=== PATIENT | female | born 1950 | race Caucasian/White ===

== ENCOUNTER 2021-01-16 11:17 | Outpatient (REF) | payer MEDICARE, SELFPAY ==
--- NOTE | ~2021-01-16 | MM_ITS ---
EXAMINATION: MM SCREENING DIGITAL BREAST TOMOSYNTHESIS, BILATERAL CLINICAL INFORMATION: Screening. Asymptomatic. The lifetime risk of breast cancer based on the Tyrer-Cuzick Model is 6%. COMPARISON: Mammography: 08/05/2018, outside mammography 09/11/2015, 07/23/2012 ([facility], [place]). TECHNIQUE: Digital breast tomosynthesis is performed in both the craniocaudal and mediolateral oblique views along with computer-aided detection (CAD). Synthesized 2D images are generated from the tomosynthesis. FINDINGS: There are scattered areas of fibroglandular density (ACR BI-RADS breast composition Category b). There are no significant masses, abnormal calcifications, or other abnormalities. Parenchymal pattern is similar to prior exams. There is no developing density. No significant changes. MM/MM tomosynthesis screening BI IMPRESSION: No mammographic evidence of malignancy. ASSESSMENT: BI-RADS 1: Negative RECOMMENDATION: Routine annual mammography screening. This patient's information was entered into a reminder system with a target due date for their next mammogram.
== END 2021-01-16 11:18 | disposition home or self-care (01) ==
LOC: HO.MAMMO 11:17
PROVIDERS: PCP Internal Medicine; Visit Provider Internal Medicine
DX: Z12.31 Encounter for screening mammogram for malignant neoplasm of breast (principal)
CPT/HCPCS: 77063; 77067

== ENCOUNTER 2021-04-04 10:54 | Outpatient (REF) | payer MEDICARE, SELFPAY ==
--- NOTE | ~2021-04-04 | CT_ITS ---
EXAMINATION: CT CHEST WITHOUT CONTRAST CLINICAL INFORMATION: Malignant neoplasm middle lobe, bronchus or lung. COMPARISON: CT chest 04/07/2020. TECHNIQUE: Multidetector volumetric CT imaging of the chest was done. Axial MIP volume rendering provided. Sagittal and coronal reformatted images were obtained. This CT examination was performed using dose optimization techniques as appropriate, variously including the following: *Automated exposure control *Adjustment of mA and/or kV according to patient size (this includes techniques or standardized protocols for targeted exams where dose is matched to indication/reason for exam; i.e. extremities or head) *Use of iterative reconstruction technique DLP: 120 mGy-cm FINDINGS: GEOLOGY ASSOCIATE: Unremarkable. LUNGS: Again visualized is mild centrilobular and paraseptal emphysema. There are right middle lobe postsurgical changes. There is no visible pulmonary nodule, mass or ground-glass density. MEDIASTINUM: The thyroid lobes are symmetric and normal. The central trachea and the bronchi are widely patent. There is atherosclerotic calcification of the thoracic arch and coronary arteries. The heart size and great vessels are normal caliber. There is no pericardial effusion. No abnormal-sized mediastinal or hilar lymph nodes seen. PLEURA: There is no pleural effusion. No pleural mass or thickening. AXILLAE: No lymphadenopathy. There is slightly asymmetric thickening of retroareolar breast tissue compared to the left side. UPPER ABDOMEN: There is diffuse attenuation of the liver with clusters of calcification in the right hepatic lobe adjacent to the right hemidiaphragm. No focal mass or intrahepatic ductal dilatation is seen. Visualized spleen, pancreas and bilateral adrenal glands are unremarkable. OSSEOUS STRUCTURES: There is mild ventral spondylosis of the dorsal spine. No lytic process. CT/CT chest wo con IMPRESSION: Postsurgical changes right middle lobe with no recurrent tumor or mass seen. There is underlying emphysema. No abnormal mediastinal or axillary lymphadenopathy. Punctate calcifications right upper lobe with fatty liver. They are stable.
== END 2021-04-04 10:55 | disposition home or self-care (01) ==
LOC: HO.CT 10:54
PROVIDERS: Visit Provider Surgery
DX: C34.2 Malignant neoplasm of middle lobe, bronchus or lung (principal)
CPT/HCPCS: 71250

== ENCOUNTER → 2021-04-27 10:45 | Outpatient (BNVA) | payer MEDICARE, SELFPAY | PROVIDERS: PCP Internal Medicine; Visit Provider Surgery | DX: C34.2 Malignant neoplasm of middle lobe, bronchus or lung (principal); Z90.2 Acquired absence of lung [part of]; Z79.899 Other long term (current) drug therapy | CPT/HCPCS: 99212 ==

== ENCOUNTER 2021-06-19 08:23 | Outpatient (REF) | payer MEDICARE, SELFPAY ==
[2021-06-19 12:22] LABS: Alanine Aminotransferase 30 U/L (0-31); Alkaline Phosphatase 115 U/L (39-117); Anion Gap 12 (12-20); Aspartate Amino Transferase 21 U/L (5-31); Bilirubin Total 0.3 mg/dL (0.0-1.0); Blood Urea Nitrogen 14 mg/dL (9-16); Calcium 9.1 mg/dL (8.4-10.2); Carbon Dioxide 27 mmol/L (22-29); Chloride 108 mmol/L (96-108); Estimated Glomerular Filt Rate > 60; Glucose Fasting 99 mg/dL (60-99); Potassium 4.5 mmol/L (3.3-5.1); Sodium 142 mmol/L (135-145); Total Protein 6.9 g/dL (6.5-8.0)
== END 2021-06-19 08:24 | disposition home or self-care (01) ==
LOC: HO.HMGCLDS 08:23
PROVIDERS: PCP Internal Medicine; Visit Provider Nurse Practitioner Family
DX: Z13.1 Encounter for screening for diabetes mellitus (principal)
CPT/HCPCS: 36415; 80053

== ENCOUNTER 2021-07-05 10:49 | Outpatient (REF) | payer MEDICARE, SELFPAY ==
--- NOTE | ~2021-07-05 | MM_ITS ---
EXAMINATION: BONE DENSITOMETRY CLINICAL INDICATION: Asymptomatic menopausal state. Cellulitis looking the COMPARISON: None (current study represents initial baseline exam). TECHNIQUE: Using a [employer] DXA System (software version: 13.1) manufactured by [employer], dual-energy x-ray absorptiometry was performed of the lumbar spine and left hip. The images are of good technical quality. Summary results are attached. FINDINGS: AP SPINE L1-L4: BMD 1.025 g/cm2, Z-score 0.1, T-score -1.3, osteopenia. LEFT FEMUR, NECK: BMD 0.706 g/cm2, Z-score -0.8, T-score -2.4, osteopenia. LEFT FEMUR, TOTAL: BMD 0.901 g/cm2, Z-score 0.5, T-score -0.8, normal. IDENTIFIED RISK FACTORS: Menopause, history of fracture (adult), osteoporosis, height loss. HISTORY OF FRACTURE: Humerus/shoulder. MEDICATIONS: Calcium supplements or multivitamin, vitamin D. MM/XR DEXA axial skeleton IMPRESSION: 1. DIAGNOSIS: Osteopenia based on the lowest T-score value of -2.4 in the femoral neck applying World Health Organization criteria. 2. 10-YEAR FRACTURE RISK PREDICTION, FRAX: Major osteoporotic fracture (clinical spine, forearm, hip or shoulder) 22.2%. Hip fracture 5.4%. 3. Treatment Recommendations: NOF guidelines recommend consideration for treatment in postmenopausal women and men age 50 and older presenting with the following: -A hip or vertebral (clinical or morphometric) fracture. -T-score less than or equal to -2.5 at the femoral neck or spine after appropriate evaluation to exclude secondary causes. -Low bone mass at the hip or spine and a 10-year fracture probability by FRAX of greater than or equal to 3% for hip fracture or greater than or equal to 20% for major osteoporotic fracture based on the [place] adapted WHO algorithm. 4. Other Recommendations: All treatment decisions require clinical judgment and consideration of individual patient factors, including patient preferences, comorbidities, previous drug use, risk factors not captured in the FRAX model (e.g. frailty, falls, vitamin D deficiency, increased bone turnover, interval significant decline in bone density) and possible under or overestimation of fracture risk by FRAX. Additional medical evaluation for secondary cause of low bone mineral density may be appropriate. FUTURE SCAN RECOMMENDATION: People with diagnosed cases of osteoporosis or at high risk for fracture should have regular bone mineral density tests. For patients eligible for Medicare, routine testing is allowed once every 2 years. The testing frequency can be increased to one year for patients who have rapidly progressing disease, those who are receiving or discontinuing medical therapy to restore bone mass, or have additional risk factors.
== END 2021-07-05 10:50 | disposition home or self-care (01) ==
LOC: HO.MAMMO 10:49
PROVIDERS: PCP Internal Medicine; Visit Provider Nurse Practitioner Family
DX: Z13.820 Encounter for screening for osteoporosis (principal); M85.80 Other specified disorders of bone density and structure, unspecified site; Z78.0 Asymptomatic menopausal state; Z87.81 Personal history of (healed) traumatic fracture; Z79.899 Other long term (current) drug therapy
CPT/HCPCS: 77080

== ENCOUNTER 2021-11-27 08:18 | Day surgery (SDC) | payer MEDICARE, SELFPAY ==
--- NOTE | 2021-11-26 10:51 | P.CONAN_ITS ---
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 (Acute) Impaired glucose tolerance (Acute) Thoracic outlet syndrome (Acute) Knee osteoarthritis (Acute) Hypercholesterolemia (Acute) COPD (chronic obstructive pulmonary disease) (Acute) Past Medical History Medical History BPV (benign positional vertigo) Cataract COPD (chronic obstructive pulmonary disease) Depression Diverticulitis Hypercholesterolemia Knee osteoarthritis Personal history of nicotine dependence 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 Family History Family History Father Alzheimers disease Mother Lung cancer Brother Bladder cancer Sister Lung cancer Surgical History Surgical History History of cataract surgery History of colonoscopy History of lung surgery (~2018) History of shoulder surgery (~2017) History of tonsillectomy Social History Social History Alcohol intake: never Patient Tobacco Use Status: Former Tobacco user Quit Date: quit smoking 10 yr ago Use of substances other than those prescribed or required for medical reasons: No Are you DNR?: No Advance Directives: No Advance Directives Information Provided: Yes Meds Allergies Allergy/AdvReac Type Severity Reaction Status Date / Time No Known Allergies Allergy Verified 11/22/21 15:57 [No Known Allergies*] Home Medications Medication Instructions Recorded Confirmed Last Taken Type albuterol sulfate 90 mcg/actuation 2 puff INHALATION Q4-6H PRN 07/17/20 11/22/21 Unknown History aerosol inhaler (ProAir HFA) ascorbate calcium (vitamin C) 500 500 mg PO DAILY 07/17/20 11/22/21 Unknown History mg tablet lactobacillus combination no.8 3 3,000 mmu cells PO DAILY 07/17/20 11/22/21 Unknown History billion cell capsule (Adult Probiotic) methylcellulose (laxative) 500 mg 500 mg PO DAILY 07/17/20 11/22/21 Unknown History tablet (Citrucel) multivitamin 1 tab PO DAILY 07/17/20 11/22/21 Unknown History Exam Exam Date and Time: November 26, 2021 1051 Pertinent Lab Results Pertinent Lab Results: Laboratory Tests 10/28/19 06/19/21 06:53 08:26 WBC 5.7 Hgb 13.5 Hct 41.8 Plt Count 269 Sodium 142 Potassium 4.5 Chloride 108 Carbon Dioxide 27 BUN 14 Creatinine 0.70 Assessment and Plan Assessment Anesthesia Assessment: Chart Reviewed Documented by User: Alli Torres MD 11/27/21 15:42 HPI - Anesthesia Eval Consult details Narrative: 71yo F for Colonoscopy Patient with COPD and prior lung surgery . patient states that she is currently not using Albuterol inhaler and she does not have it . Also , her symptoms not very well controlled on current regimen . Patient advised to make appointment with PCP at the earliest for adjustment of medications. We also gave Albuterol inhaler to the patient to use prior to the procedure . B/l clear breath sounds . We will not delay care and proceed with procedure . Patient advised to make sure she sees the PCP at the earliest possible time . Also , to go to the ED with any acute respiratory symptoms . 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 Family History Family History Father Alzheimers disease Mother Lung cancer Brother Bladder cancer Sister Lung cancer Family history of problems with anesthesia: No Surgical History Surgical History History of cataract surgery History of colonoscopy History of lung surgery (~2018) History of shoulder surgery (~2017) History of tonsillectomy History of Problems with Anesthesia: No Social History Social History Alcohol intake: never Patient Tobacco Use Status: Former Tobacco user Quit Date: quit smoking 10 yr ago Use of substances other than those prescribed or required for medical reasons: No Are you DNR?: No Advance Directives: No Advance Directives Information Provided: Yes Meds Allergies Allergy/AdvReac Type Severity Reaction Status Date / Time No Known Allergies Allergy Verified 11/22/21 15:57 [No Known Allergies*] Home Medications Medication Instructions Recorded Confirmed Last Taken Type albuterol sulfate 90 mcg/actuation 2 puff INHALATION Q4-6H PRN 07/17/20 11/22/21 Unknown History aerosol inhaler (ProAir HFA) ascorbate calcium (vitamin C) 500 500 mg PO DAILY 07/17/20 11/22/21 Unknown History mg tablet lactobacillus combination no.8 3 3,000 mmu cells PO DAILY 07/17/20 11/22/21 Unknown History billion cell capsule (Adult Probiotic) methylcellulose (laxative) 500 mg 500 mg PO DAILY 07/17/20 11/22/21 Unknown History tablet (Citrucel) multivitamin 1 tab PO DAILY 07/17/20 11/22/21 Unknown History Exam Airway Mallampati Class: IV TM Dist: >3cm Neck ROM: Full Denture: Upper Loose/Missing/Broken Teeth: Yes Heart: rrr Lungs: bl breath sounds Assessment and Plan Assessment Anesthesia Assessment: Anesthesia Plan Discussed Final Anesthetic Review Family History of Problems with Anesthesia: No History of Problems with Anesthesia: No NPO: Yes ASA Class: III Final Preanesthetic Review: Meds/Allgs Chart Reviewed, Consent Obtained/Reviewed and Anes Risks/Benef Reviewed Patient Risk: High Procedure Risk: Intermediate Anesthetic Plan Anesthetic Plan: MAC: Disposition: Standard PACU
[2021-11-27 08:57] VITALS: BP 155/71; PULSE 81; RESP 18; TEMP 36.7; O2SAT 97
[2021-11-27] MEDS: Lactated Ringers 1,000 ML 100 ML IVCONT (09:06)
[2021-11-27 09:39] VITALS: BMI 27.4
--- NOTE | 2021-11-27 10:24 | MHC.SHP ---
Pre-Procedural Eval Section A Date of Service: 11/27/21 The patient is an INPATIENT: No Changes since office visit: No Cold of Flu in the past 2 weeks, No New Medical Problems, No Changes in Medication and No Patient answered all questions The History & Physical has been completed within 30 days and I have reviewed it.: Yes Section B Chief Complaint: screening Allergies: Allergies Allergy/AdvReac Type Severity Reaction Status Date / Time No Known Allergies Allergy Verified 11/22/21 15:57 [No Known Allergies*] Plan I have reviewed the history and physical and performed a pertinent physical examination on my patient. No changes have occurred unless specified.
--- NOTE | 2021-11-27 10:52 | P.BOP_ITS ---
Brief Operative Note Date of Service: 11/27/21 Pre-op diagnosis: screening Post-op diagnosis: same Procedure: colonoscopy Surgeon: Christ Umanzor Anesthesia: MAC Was an Pediatric Acute Care Unit Nurse used for this Procedure?: No Estimated blood loss (mL): 0 Pathology: none sent Condition: stable Disposition: PACU
[2021-11-27 10:57] VITALS: BP 137/61; PULSE 102; RESP 16; TEMP 36.5; O2SAT 97
[2021-11-27 11:12] VITALS: BP 133/62; PULSE 94; RESP 16; O2SAT 95
--- NOTE | 2021-11-27 13:33 | OP_ITS ---
SURGEON: Christ Umanzor MD INDICATIONS: Colon cancer screening and family history of colon cancer. PREOPERATIVE DIAGNOSIS: POSTOPERATIVE DIAGNOSIS: PROCEDURE PERFORMED: Colonoscopy to the terminal ileum. ESTIMATED BLOOD LOSS: COMPLICATIONS: ANESTHESIA: ASSISTANTS: SPECIMENS: MEDICATIONS: Monitored anesthesia care. DESCRIPTION OF PROCEDURE: History and physical were performed. The risks and benefits of the procedure were explained to the patient. Informed consent was obtained. The patient was placed in left lateral decubitus position. A digital rectal exam was performed and was found to be normal. The Olympus pediatric video colonoscope was introduced into the rectum and advanced to the cecum without difficulty. The cecum was identified by transillumination, palpation, and identification of the ileocecal valve. Examination was performed. The scope was removed. She tolerated the procedure well and was taken to recovery area in stable condition. FINDINGS: Limited examination of the terminal ileum was within normal limits. The visualized colonic mucosa was normal. The quality of the prep was good. No polyps were identified. There was extensive diverticulosis throughout the colon. Retroflexed examination showed moderate-sized internal hemorrhoids. IMPRESSION: Normal colonoscopy. RECOMMENDATION: 1. Follow up as needed. 2. Repeat colonoscopy could be considered in 5 years, but is optional based on the patient's age. MD SHELLEY Mariano/ASAL / [phone]
== END 2021-11-27 11:42 | disposition home or self-care (01) ==
PROVIDERS: PCP Internal Medicine; Visit Provider Internal Medicine Gastroenterology
PROC: 0DJD8ZZ Inspection of Lower Intestinal Tract, Via Natural or Artificial Opening Endoscopic (ICD-10-PCS; CPT 45378; principal; 2021-11-27 09:40)
DX: Z12.11 Encounter for screening for malignant neoplasm of colon (principal); Z86.010 Personal history of colon polyps; Z80.0 Family history of malignant neoplasm of digestive organs; K57.30 Diverticulosis of large intestine without perforation or abscess without bleeding; K64.8 Other hemorrhoids; J44.9 Chronic obstructive pulmonary disease, unspecified; Z85.118 Personal history of other malignant neoplasm of bronchus and lung; E78.00 Pure hypercholesterolemia, unspecified; Z79.51 Long term (current) use of inhaled steroids; Z87.19 Personal history of other diseases of the digestive system; Z98.890 Other specified postprocedural states; Z87.891 Personal history of nicotine dependence
CPT/HCPCS: G0105

== ENCOUNTER 2022-03-13 06:39 | Outpatient (REF) | payer MEDICARE, SELFPAY ==
[2022-03-13 11:29] LABS: MANUAL DIFF FLAG NO
[2022-03-13 11:38] LABS: Basophils Percent Auto 0.5 % (0-2); Eosinophils Absolute Auto 0.1 X10*3/uL (0.0-0.4); Eosinophils Percent Auto 2.2 % (0-4); Hematocrit 41.8 % (37.0-47.0); Hemoglobin 13.1 g/dl (12.0-16.0); Imm Gran Abs Auto 0.03 X10*3/uL (0.00-0.03); Imm Gran Pct Auto 0.5 % (0.0-0.4); Lymphocytes Absolute Auto 1.8 X10*3/uL (1.2-4.9); Lymphocytes Percent Auto 29.4 % (20-40); Mean Corpuscular HGB Conc 31.3 g/dl (31.0-35.0); Mean Corpuscular Hemoglobin 30.6 pg (27.0-33.0); Mean Corpuscular Volume 97.7 fL (80.0-98.0); Mean Platelet Volume 10.8 fL (9.4-12.3); Monocytes Absolute Auto 0.6 X10*3/uL (0.1-1.2); Monocytes Percent Auto 10.1 % (2-11); Neutrophils Absolute Auto 3.5 x10*3/uL (2.0-8.3); Neutrophils Percent Auto 57.3 % (45-73); Platelet Count 206 X10*3/uL (160-400); Red Blood Count 4.28 X10*6/uL (4.20-5.50)
[2022-03-13 12:06] LABS: Estimated Average Glucose 120 mg/dL; Hemoglobin A1c % 5.8 %
[2022-03-13 12:19] LABS: Free T4 (Free Thyroxine) 0.93 ng/dL (0.71-1.85); Thyroid Stimulating Hormone 2.09 uIU/mL (0.32-4.0); Vitamin D 25-OH Total 42.2 ng/mL (>30)
[2022-03-13 12:34] LABS: Alanine Aminotransferase 26 U/L (0-31); Albumin Level 4.3 g/dL (3.5-5.0); Alkaline Phosphatase 122 U/L (39-117); Anion Gap 14 (12-20); Aspartate Amino Transferase 20 U/L (5-31); Bilirubin Total 0.3 mg/dL (0.0-1.0); Blood Urea Nitrogen 14 mg/dL (9-16); Calcium 8.8 mg/dL (8.4-10.2); Carbon Dioxide 25 mmol/L (22-29); Chloride 108 mmol/L (96-108); Cholesterol 251 mg/dL; Estimated Glomerular Filt Rate > 60; Glucose Random 104 mg/dL (60-115); HDL Cholesterol 61 mg/dL; LDL Cholesterol Calculated 141 mg/dl; Potassium 4.1 mmol/L (3.3-5.1); Sodium 143 mmol/L (135-145); Total Protein 7.2 g/dL (6.5-8.0); Triglycerides 249 mg/dL
[2022-03-13 12:39] LABS: Folate > 20.0 ng/mL (> or = 4.0); Vitamin B12 912 pg/mL (200-900)
== END 2022-03-13 06:40 | disposition home or self-care (01) ==
LOC: HO.HMGCLDS 06:39
PROVIDERS: Visit Provider Internal Medicine
DX: E78.00 Pure hypercholesterolemia, unspecified (principal); R73.02 Impaired glucose tolerance (oral)
CPT/HCPCS: 36415; 80053; 80061; 82306; 82607; 82746; 83036; 84439; 84443; 85025

== ENCOUNTER 2022-03-25 13:59 | Outpatient (REF) | payer MEDICARE, SELFPAY ==
--- NOTE | ~2022-03-25 | CT_ITS ---
EXAMINATION: CT ABDOMEN WITHOUT CONTRAST CLINICAL INFORMATION: Ventral hernia without obstruction or gangrene. COMPARISON: None TECHNIQUE: Contiguous axial thin section helical images of the abdomen were performed without contrast. The data set was reformatted in the coronal and sagittal planes and reviewed on an independent workstation. This CT examination was performed using dose optimization techniques as appropriate, variously including the following: *Automated exposure control *Adjustment of mA and/or kV according to patient size (this includes techniques or standardized protocols for targeted exams where dose is matched to indication/reason for exam; i.e. extremities or head) *Use of iterative reconstruction technique DLP: 241 mGy-cm FINDINGS: LUNG BASES: Ground-glass 5 mm nodule right middle lobe axial image 09/14. LIVER, GALLBLADDER, BILIARY TREE: The liver is diffusely attenuated without focal lesion. There is mild hepatomegaly with liver measuring 18 cm in craniocaudad length. No focal lesion or intrahepatic ductal dilatation seen. There are several scattered calcifications in the right hepatic lobe. The gallbladder is contracted. PANCREAS: The pancreas is homogeneous in density normal size. The peripancreatic fat borders are preserved. SPLEEN: The spleen is normal size and homogeneous in density. ADRENAL GLANDS AND KIDNEYS: The adrenal glands are symmetrical and normal. There is mild bilateral perinephric stranding. No radiopaque renal calculi or hydronephrosis seen. There are mid and lower pole peripelvic left renal cysts. Also visualized is exophytic 1 cm cyst mid to lower pole left kidney. BOWEL LOOPS: The appendix is normal caliber. There is scattered stool, diverticula and gas seen throughout the colon without distention or diverticulitis. The small bowel loops are normal caliber. LYMPH NODES: Normal. VASCULAR: Unremarkable. BONES: No lytic or sclerotic process seen. CT/CT abdomen wo con IMPRESSION: Ground-glass 5 mm nodule right middle lobe. Multiple right hepatic lobe calcifications with diffuse fatty infiltration. Mild hepatomegaly. Left peripelvic and exophytic renal cysts. No radiopaque renal calculi or hydronephrosis. Colonic diverticulosis without diverticulitis. Fleischner guidelines were followed.
== END 2022-03-25 14:00 | disposition home or self-care (01) ==
LOC: HO.CT 13:59
PROVIDERS: PCP Internal Medicine; Visit Provider Internal Medicine
DX: K43.9 Ventral hernia without obstruction or gangrene (principal)
CPT/HCPCS: 74150

== ENCOUNTER 2022-04-02 10:36 | Outpatient (REF) | payer MEDICARE, SELFPAY ==
--- NOTE | ~2022-04-02 | CT_ITS ---
EXAMINATION: CT CHEST WITHOUT CONTRAST CLINICAL INFORMATION: Malignant neoplasm of middle lobe. COMPARISON: CT chest 03/27/2021 TECHNIQUE: Multidetector volumetric CT imaging of the chest was done. Axial MIP volume rendering provided. Sagittal and coronal reformatted images were obtained. This CT examination was performed using dose optimization techniques as appropriate, variously including the following: *Automated exposure control *Adjustment of mA and/or kV according to patient size (this includes techniques or standardized protocols for targeted exams where dose is matched to indication/reason for exam; i.e. extremities or head) *Use of iterative reconstruction technique DLP: 147 mGy-cm FINDINGS: DRYING RACK CHANGER: Hyperinflated lungs LUNGS: There is a right lobectomy with postsurgical changes. There is bilateral apical parenchymal scarring and pleural thickening. No pulmonary nodule, mass or consolidation seen. There is a punctate calcification left lung base. MEDIASTINUM: The thyroid lobes are symmetric and normal. The central trachea and bronchi widely patent. The heart size and the great vessels are normal caliber. No abnormal size mediastinal or hilar lymph nodes seen. There is no pericardial effusion. There is trace coronary artery calcification. PLEURA: There is no pleural effusion. No pleural mass or thickening. AXILLA: No lymphadenopathy. There is soft tissue density seen in the right breast with punctate calcification. UPPER ABDOMEN: The liver is diffusely attenuated without any focal lesion. There are clusters of calcification in the right hepatic lobe adjacent to the diaphragm. They are unchanged to previous exam. Visualized spleen, pancreas and bilateral adrenal glands appear unremarkable. OSSEOUS STRUCTURES: No gross bony abnormality seen except for mild ventral dorsal spine spondylosis. CT/CT chest wo con IMPRESSION: 1. Post right upper lobe lobectomy changes with bilateral apical pleural/parenchymal scarring and thickening. 2. There are no pulmonary nodules, mass or consolidation. 3. Diffuse hepatic steatosis with clusters of small calcifications right hepatic lobe, stable. Slightly lobulated area in the right breast appears stable to previous study 03/27/2021. Fleischner guidelines were followed.
== END 2022-04-02 10:37 | disposition home or self-care (01) ==
LOC: HO.CT 10:36
PROVIDERS: PCP Internal Medicine; Visit Provider Surgery
DX: C34.2 Malignant neoplasm of middle lobe, bronchus or lung (principal)
CPT/HCPCS: 71250

== ENCOUNTER 2022-04-26 09:40 | Outpatient (REF) | payer MEDICARE, SELFPAY ==
--- NOTE | ~2022-04-26 | XR_ITS ---
EXAMINATION: XR ANKLE, RIGHT XR FOOT, RIGHT CLINICAL INFORMATION: Pain. COMPARISON: None TECHNIQUE: AP, lateral, and mortise views of the right ankle. AP, lateral, and oblique views of the right foot. FINDINGS: Bony alignment and mineralization are normal. The ankle mortise is intact. No fracture, dislocation or right ankle joint effusion is seen. Boehler's angle is normal. There are moderately large posterior and plantar calcaneal spurs. There is a hallux valgus and metatarsus adductus configuration. There is a large bunion of the right first metatarsal head. No focal soft tissue swelling, gas or foreign body is seen. XR/XR foot RT 2V IMPRESSION: 1. No fracture, dislocation or right ankle joint effusion is seen. 2. There are moderately large posterior and plantar calcaneal spurs. 3. A large bunion is noted of the right first metatarsal head.
--- NOTE | ~2022-04-26 | XR_ITS ---
EXAMINATION: XR ANKLE, LEFT XR FOOT, LEFT CLINICAL INFORMATION: Pain. COMPARISON: None TECHNIQUE: AP, lateral, and mortise views of the left ankle. AP, lateral, and oblique views of the left foot. FINDINGS: Bony alignment and mineralization are normal. The ankle mortise is intact. No fracture, dislocation or left ankle joint effusion is seen. Boehler's angle is normal. There are large posterior and small plantar calcaneal spurs. There is moderate bunion formation of the left first metatarsal head. There is mild degenerative change of the dorsal midfoot. There is a small periarticular calcification of the proximal interphalangeal joint of the left second toe. No focal soft tissue swelling, gas or foreign body seen. XR/XR foot LT 2V IMPRESSION: 1. No fracture, dislocation or left ankle joint effusion is seen. 2. There are calcaneal spurs, as detailed. 3. There is moderate bunion formation. 4. There is mild degenerative change of the proximal interphalangeal joint of the left second toe.
--- NOTE | ~2022-04-26 | XR_ITS ---
EXAMINATION: XR ANKLE, RIGHT XR FOOT, RIGHT CLINICAL INFORMATION: Pain. COMPARISON: None TECHNIQUE: AP, lateral, and mortise views of the right ankle. AP, lateral, and oblique views of the right foot. FINDINGS: Bony alignment and mineralization are normal. The ankle mortise is intact. No fracture, dislocation or right ankle joint effusion is seen. Boehler's angle is normal. There are moderately large posterior and plantar calcaneal spurs. There is a hallux valgus and metatarsus adductus configuration. There is a large bunion of the right first metatarsal head. No focal soft tissue swelling, gas or foreign body is seen. XR/XR ankle RT 2V IMPRESSION: 1. No fracture, dislocation or right ankle joint effusion is seen. 2. There are moderately large posterior and plantar calcaneal spurs. 3. A large bunion is noted of the right first metatarsal head.
--- NOTE | ~2022-04-26 | XR_ITS ---
EXAMINATION: XR ANKLE, LEFT XR FOOT, LEFT CLINICAL INFORMATION: Pain. COMPARISON: None TECHNIQUE: AP, lateral, and mortise views of the left ankle. AP, lateral, and oblique views of the left foot. FINDINGS: Bony alignment and mineralization are normal. The ankle mortise is intact. No fracture, dislocation or left ankle joint effusion is seen. Boehler's angle is normal. There are large posterior and small plantar calcaneal spurs. There is moderate bunion formation of the left first metatarsal head. There is mild degenerative change of the dorsal midfoot. There is a small periarticular calcification of the proximal interphalangeal joint of the left second toe. No focal soft tissue swelling, gas or foreign body seen. XR/XR ankle LT 2V IMPRESSION: 1. No fracture, dislocation or left ankle joint effusion is seen. 2. There are calcaneal spurs, as detailed. 3. There is moderate bunion formation. 4. There is mild degenerative change of the proximal interphalangeal joint of the left second toe.
== END 2022-04-26 09:41 | disposition home or self-care (01) ==
LOC: HO.XRAY 09:40
PROVIDERS: PCP Internal Medicine; Visit Provider Internal Medicine
DX: M25.571 Pain in right ankle and joints of right foot (principal); M25.572 Pain in left ankle and joints of left foot; G89.29 Other chronic pain; C34.2 Malignant neoplasm of middle lobe, bronchus or lung
CPT/HCPCS: 73600; 73620; 99212

== ENCOUNTER 2022-08-05 07:25 | Outpatient (REF) | payer MEDICARE, SELFPAY ==
[2022-08-05 12:26] LABS: Alanine Aminotransferase 27 U/L (0-31); Albumin Level 4.5 g/dL (3.5-5.0); Alkaline Phosphatase 134 U/L (39-117); Anion Gap 15 (12-20); Aspartate Amino Transferase 22 U/L (5-31); Bilirubin Total 0.3 mg/dL (0.0-1.0); Blood Urea Nitrogen 19 mg/dL (9-16); Calcium 9.8 mg/dL (8.4-10.2); Carbon Dioxide 27 mmol/L (22-29); Chloride 106 mmol/L (96-108); Cholesterol 214 mg/dL; Estimated Glomerular Filt Rate > 60; Glucose Random 109 mg/dL (60-115); HDL Cholesterol 58 mg/dL; LDL Cholesterol Calculated 112 mg/dl; Potassium 4.8 mmol/L (3.3-5.1); Sodium 143 mmol/L (135-145); Total Protein 7.6 g/dL (6.5-8.0); Triglycerides 222 mg/dL
== END 2022-08-05 07:26 | disposition home or self-care (01) ==
LOC: HO.HMGCLDS 07:25
PROVIDERS: PCP Internal Medicine; Visit Provider Internal Medicine
DX: E78.00 Pure hypercholesterolemia, unspecified (principal)
CPT/HCPCS: 36415; 80053; 80061

== ENCOUNTER 2022-12-27 11:00 | Outpatient (REF) | payer MEDICARE, SELFPAY ==
--- NOTE | ~2022-12-27 | MM_ITS ---
EXAMINATION: MM SCREENING DIGITAL BREAST TOMOSYNTHESIS, BILATERAL CLINICAL INFORMATION: Screening. Asymptomatic. The lifetime risk of breast cancer based on the Tyrer-Cuzick Model is 4%. COMPARISON: Mammography: 01/16/2021, 08/05/2018; outside exam 09/11/2015 (Located Within [facility]). TECHNIQUE: Digital breast tomosynthesis is performed in both the craniocaudal and mediolateral oblique views along with computer-aided detection (CAD). Synthesized 2D images are generated from the tomosynthesis. FINDINGS: There are scattered areas of fibroglandular density (ACR BI-RADS breast composition Category b). There are no significant masses, abnormal calcifications, or other abnormalities. Parenchymal pattern is similar to prior studies. There is no developing density or architectural abnormality. The axilla and skin contours are unremarkable. No significant changes. MM/MM tomosynthesis screening BI IMPRESSION: No mammographic evidence of malignancy. ASSESSMENT: BI-RADS 1: Negative RECOMMENDATION: Routine annual mammography screening. This patient's information was entered into a reminder system with a target due date for their next mammogram.
== END 2022-12-27 11:01 | disposition home or self-care (01) ==
LOC: HO.MAMMO 11:00
PROVIDERS: PCP Internal Medicine; Visit Provider Internal Medicine
DX: Z12.31 Encounter for screening mammogram for malignant neoplasm of breast (principal)
CPT/HCPCS: 77063; 77067

== ENCOUNTER 2023-06-03 10:20 | Outpatient (REF) | payer MEDICARE, SELFPAY ==
--- NOTE | ~2023-06-03 | CT_ITS ---
EXAMINATION: CT CHEST WITHOUT CONTRAST CLINICAL INFORMATION: Malignant neoplasm of middle lobe, bronchus or lung. COMPARISON: Chest CT 04/02/2022, 04/04/2021, 03/08/2019. TECHNIQUE: Multidetector volumetric CT imaging of the chest was done. Axial MIP volume rendering provided. Sagittal and coronal reformatted images were obtained. This CT examination was performed using dose optimization techniques as appropriate, variously including the following: *Automated exposure control *Adjustment of mA and/or kV according to patient size (this includes techniques or standardized protocols for targeted exams where dose is matched to indication/reason for exam; i.e. extremities or head) *Use of iterative reconstruction technique DLP: 126 mGy-cm FINDINGS: LUNGS: Emphysema. Right middle lobectomy. Stable 4 mm triangular nodule at the right apex series 5 image 65 is likely a parenchymal lymph node. There is appeared groundglass nodule in the left lower lobe measuring 1.9 x 1.4 x 1.5 cm series 5 image 388 that is stable compared to the most recent prior and has grown since the index study of 03/08/2019 when it measured 1.4 x 1.3 x 1.2 cm. No new abnormalities. Continued follow-up is recommended. MEDIASTINUM: No mediastinal adenopathy. No pericardial effusion. CORONARY ARTERY CALCIFICATION: LAD and RCA calcium. PLEURA: There is no pleural effusion. No pleural mass or thickening. AXILLA: No lymphadenopathy. UPPER ABDOMEN: Hepatic steatosis. OSSEOUS STRUCTURES: Degenerative changes in the spine. No suspicious osseous lesions. CT/CT chest wo IV con IMPRESSION: Right middle lobectomy with no evidence of local recurrence. Groundglass nodule in the left lower lobe measuring 16mm average diameter is stable compared to most recent prior and has shown slow growth compared to the index study when it measured 13 mm average diameter which is a growth rate of less than 1 mm per year. Recommend continued attention on follow-up. Fleischner guidelines do not apply (lung cancer patient).
== END 2023-06-03 10:21 | disposition home or self-care (01) ==
LOC: HO.CT 10:20
PROVIDERS: PCP Internal Medicine; Visit Provider Surgery
DX: C34.2 Malignant neoplasm of middle lobe, bronchus or lung (principal)
CPT/HCPCS: 71250

== ENCOUNTER 2023-08-06 10:28 | Outpatient (AMB) | payer MEDICARE, SELFPAY ==
[2023-08-06 10:31] VITALS: BP 132/67; PULSE 82; O2SAT 97; BMI 28.0
--- NOTE | 2023-08-06 10:31 | A.OFFVIS_ITS ---
Intake Vital Signs 08/06/23 10:31 Height 5 ft 4 in Weight 163 lb 2.273 oz BMI 28.0 BP 132/67 Blood Pressure Location Rt brachial Position Sitting Pulse 82 Pulse Source Doppler Pulse Oximetry (%) 97 Oxygen Delivery Method Room Air Intake Visit Reasons: Hx of Lung CA/COPD Allergies No Known Allergies [No Known Allergies*] Allergy (Verified 08/06/23 10:35) HPI Hx of Lung CA/COPD HPI Details 73-year-old lady, former over 50 pack-ye ar smoker, quit 2005 with underlying history of right middle lobe resection for stage I adenocarcinoma in 2018 who continues to follow-up with thoracic surgery (Dr. Lovett) referred for evaluation of slowly worsening dyspnea. Patient states that she has been using Spiriva and albuterol MDI with reasonable, but somewhat suboptimal control his symptoms. Patient does have multiple first-degree relatives with lung cancer and COPD. She denies exposure to industrial dusts. 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 BPV (benign positional vertigo) Cataract Knee osteoarthritis Hypercholesterolemia Diverticulitis Depression COPD (chronic obstructive pulmonary disease) Surgical History History of colonoscopy History of cataract surgery History of lung surgery (~2018) History of shoulder surgery (~2017) History of tonsillectomy Family History Father Alzheimers disease Mother Lung cancer Brother Bladder cancer Sister Lung cancer Social History Housing: House Alcohol intake: former Patient Tobacco Use Status: Former Tobacco user Quit Date: quit smoking 10 yr ago Tobacco use type: Cigarette Years Smoked: quit 60 years old e-Cigarette/Vaping Use: Never Used Second Hand Smoke Exposure: Yes Current occupational status: retired Cognitive needs: No Hearing needs: No Vision needs: Yes Review of Systems Const Denies daytime sleepiness, Denies excessive sweating, Denies fatigue, Denies fever(s), Denies lethargy, Denies malaise, Denies night sweats, Denies snoring and Denies weight loss Eyes Denies blurry vision and Denies itchy eyes ENT Denies nasal congestion, Denies post nasal drip, Denies sinus pain, Denies sinus pressure and Denies other ( Thrush) Card Denies chest pain, Denies pedal edema, Denies dyspnea, Denies orthopnea and Denies paroxysmal nocturnal dyspnea Resp Denies cough, Denies hemoptysis, Denies excessive phlegm production, Denies dyspnea, Denies snoring and Denies wheezing GI Denies abdominal pain and Denies heartburn Musc Denies myalgias, Denies arthralgias and Denies joint swelling Skin/Breast Denies rash Neuro Denies memory loss and Denies seizure-like activity Psych Denies abnormal sleep pattern, Denies anxiety and Denies memory loss Endo Denies excessive sweating, Denies fatigue and Denies heat intolerance Kelvin/Lymph Denies easy bruising Aller/Immun Denies itchy eyes, Denies seasonal rhinorrhea and Denies wheezing Physical Exam Vital Signs: Last Vital Signs Pulse 82 08/06/23 10:31 BP 132/67 08/06/23 10:31 Pulse Ox 97 08/06/23 10:31 Oxygen Delivery Method Room Air 08/06/23 10:31 BMI result Body Mass Index 28.0 Const General: no acute distress and alert Nutritional Appearance: not obese Orientation/consciousness: Other orientation findings ( oriented) HEENT Head: Yes atraumatic Eyes General: appearance normal, both eyes and all related structures Sclerae: sclerae normal EOM: EOMs intact bilaterally Neck Neck: Yes supple Lymphatic: no lymphadenopathy noted Resp Effort & Inspection: normal respiratory effort and no use of accessory muscles Auscultation: clear to auscultation bilaterally Cardio Rate: regular rate Rhythm: regular rhythm Heart sounds: no gallops, no murmurs and no rubs Skin General skin exam: other ( warm) Extrem General: No clubbing, No cyanosis and No edema Assessment & Plan Assessment & Plan (1) COPD (chronic obstructive pulmonary disease): Code(s): J44.9 - Chronic obstructive pulmonary disease, unspecified Qualifiers: COPD type: emphysema Emphysema type: unspecified Qualified Code(s): J43.9 - Emphysema, unspecified Plan: Suboptimal control on Spiriva, will change to Anoro. Patient is unable to use usual mouth piece for PFT. Continue albuterol MDI. 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 Medications: New Anoro Ellipta 62.5-25 mcg/actuation (umeclidinium-vilanterol) 1 inh inhalation DAILY 30 days 1 ea 6RF NS Refilled albuterol sulfate 90 mcg/actuation (ProAir HFA) 2 puffs inhalation Q4-6H PRN 8.5 grams 6RF Wheezing J44.1 - Chronic obstructive pulmonary disease with (acute) exacerbation Discontinued tiotropium bromide 2.5 mcg/actuation (Spiriva Respimat) Discontinued Reason: Doctor's Order 2 inhalations inhalation QAM 4 grams 0RF tiotropium bromide (Spiriva with HandiHaler) Discontinued Reason: Doctor's Order 1 cap inhalation DAILY 90 caps 3RF Coding Level of Care Code New Pt Level 3 (10030) Diagnoses Pulmonary emphysema, unspecified emphysema type J43.9 COPD type: emphysema Emphysema type: unspecified 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
== END 2023-08-06 10:52 | disposition home or self-care (01) ==
PROVIDERS: PCP Internal Medicine; Referring Provider Physician Assistant; Visit Provider Internal Medicine Pulmonary Disease
DX: J43.9 Emphysema, unspecified (principal); C34.2 Malignant neoplasm of middle lobe, bronchus or lung
CPT/HCPCS: 99203

== ENCOUNTER → 2023-08-06 10:28 | Outpatient (BNVA) | payer MEDICARE, SELFPAY | PROVIDERS: PCP Internal Medicine; Referring Provider Physician Assistant; Visit Provider Internal Medicine Pulmonary Disease | DX: J43.9 Emphysema, unspecified (principal); C34.2 Malignant neoplasm of middle lobe, bronchus or lung | CPT/HCPCS: 99202 ==

== ENCOUNTER 2023-08-20 10:16 | Outpatient (AMB) | payer MEDICARE, SELFPAY ==
[2023-08-20 10:16] VITALS: BP 126/70; PULSE 76; O2SAT 97; BMI 27.8
--- NOTE | 2023-08-20 10:16 | A.OFFPC_ITS ---
Vital Signs 08/20/23 10:16 Height 5 ft 4 in Weight 162 lb 0.6 oz BMI 27.8 BP 126/70 Blood Pressure Location Lt brachial Position Sitting Pulse 76 Pulse Source Pulse Oximeter Pulse Oximetry (%) 97 Oxygen Delivery Method Room Air Intake Visit Reasons: Annual Physical Intake Note: Patient is here today for a physical. Spice Grinder Required: No Allergies No Known Allergies [No Known Allergies*] Allergy (Verified 08/20/23 10:35) Medication List - Last Reconciled 08/20/23 by ALOK Carrillo acetaminophen ER (Tylenol 8 Hour) 650 mg PO Q8H albuterol sulfate 90 mcg/actuation (ProAir HFA) 2 puffs inhalation Q4-6H PRN Anoro Ellipta 62.5-25 mcg/actuation (umeclidinium-vilanterol) 1 inh inhalation DAILY 30 days NS ascorbate calcium (vitamin C) 500 mg PO DAILY lactobacillus combination no.8 (Adult Probiotic) 3,000 mmu cells PO DAILY multivitamin 1 tab PO DAILY Tobacco use date assessed: 08/20/23 Fall risk assessment: No Falls in past year Last assessed Fall Risk: 08/20/23 Dental Screening Dental Screen Date: 08/20/23 Did you have a dental visit in the last 12 months?: No Did you have a dental problem in the last 6 months where you did not have access to dental care?: No HPI Annual Physical HPI Details Patient is a 73-year-old female who presents today for physical exam. Patient of Dr. Vargas. Medical history significant for COPD, hypercholesterolemia- patient reports she stop taking simvastatin long time ago due to not helping her cholesterol-will check blood work, impaired glucose tolerance, history of lung cancer-followed by Dr. Stinson and Dr. Lovett. Mammogram normal 12/2022. Colonoscopy 11/2021 and repeat in 5 years due to family history of colon cancer, was done by Dr. Umanzor. Patient declined tetanus vaccine. Due for bone density screen. Denies shortness of breath or chest pain. 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 BPV (benign positional vertigo) Cataract Knee osteoarthritis Hypercholesterolemia Diverticulitis Depression COPD (chronic obstructive pulmonary disease) Surgical History History of colonoscopy History of cataract surgery History of lung surgery (~2018) History of shoulder surgery (~2017) History of tonsillectomy Family History Father Alzheimers disease Mother Lung cancer Brother Bladder cancer Sister Lung cancer Social History Housing: House Alcohol intake: former Patient Tobacco Use Status: Former Tobacco user Quit Date: quit smoking 10 yr ago Tobacco use type: Cigarette Years Smoked: quit 60 years old e-Cigarette/Vaping Use: Never Used Second Hand Smoke Exposure: Yes Current occupational status: retired Cognitive needs: No Hearing needs: No Vision needs: Yes Questionnaire PHQ-9 Over the last 2 weeks, how often have you been bothered by any of the following problems? 1. Little interest or pleasure in doing things: not at all 2. Feeling down, depressed, or hopeless: not at all 3. Trouble falling or staying asleep, or sleeping too much: not at all 4. Feeling tired or having little energy: not at all 5. Poor appetite or overeating: not at all 6. Feeling bad about yourself - or that you are a failure or have let yourself or your family down: not at all 7. Trouble concentrating on things, such as reading the newspaper or watching television: not at all 8. Moving or speaking so slowly that other people could have noticed. Or the opposite - being so fidgety or restless that you have been moving around a lot more than usual: not at all 9. Thoughts that you would be better off or of hurting yourself in some way: not at all Total score: 0 Depression Screening Interpretation: Negative Depression Screening Done: Yes 10897 - PHQ-9 Billing: Yes Source: Developed by Drs. Conor Richardson, Lucrecia Sherman, Angel Warren and colleagues, with an educational davonte from [employer]. Thrive Questionnaire Date Thrive assessed: 08/20/23 I am a: Patient What is your living situation today?: I have a steady place to live Within the past 12 months, did the food you bought not last and you didn't have the money to get more?: Never true Within the past 12 months, did you worry whether your food would run out before you got money to buy more?: Never true Do you have trouble paying for medicines?: No Do you have trouble getting transportation to medical appointments?: No Do you have trouble paying your heating and electricity bill?: No Do you have trouble taking care of your child, family member or friend?: No Do you have trouble with day-to-day activities such as bathing, preparing meals, shopping, managing finances, etc.?: No Are you currently unemployed and looking for a job?: No Are you interested in more education?: No Currently or been in a relationship where the following occur: no concerns reported AUDIT C Alcohol Use Questionnaire (AUDIT-C) 1. How often do you have a drink containing alcohol?: Never 3. How often do you have six or more drinks on one occasion?: Never Total Score: 0 Score Reviewed/Action Taken: No JEAN-PAUL-7 AMB Questionnaire JEAN-PAUL-7 Date JEAN-PAUL - 7 assessed: 08/20/23 Feeling nervous, anxious, or on edge: 0 = Not at all Not being able to stop or control worryin = Not at all Worrying too much about different things: 0 = Not at all Trouble relaxin = Not at all Being so restless that it is hard to sit still: 0 = Not at all Becoming easily annoyed or irritable: 0 = Not at all Feeling afraid as if something awful might happen: 0 = Not at all Total JEAN-PAUL-7 score (0-4 normal; 5-9 mild; 10-14 moderate; 15-21 severe): 0 Source: Developed by Drs. Conor Richardson, Lucrecia Sherman, Angel Warren and colleagues, with an educational davonte from [employer]. JEAN-PAUL-7 Assessment Billing JEAN-PAUL-7 Assessment Tool: JEAN-PAUL-7 Assessment 87732 Review of Systems Const Denies body aches, Denies chills, Denies fever(s) and Denies headache(s) Eyes Denies change in vision ENT Denies dizziness, Denies otalgia, Denies headache(s), Denies nasal discharge, Denies sinus pain and Denies sore throat Card Denies chest pain, Denies edema, Denies lightheadedness and Denies dyspnea Resp Denies cough, Denies dyspnea and Denies wheezing GI Denies abdominal pain, Denies constipation, Denies diarrhea, Denies nausea and Denies vomiting Denies dysuria Musc Reports back pain, Denies myalgias and Reports arthralgias Skin/Breast Denies rash Neuro Denies dizziness and Denies headache(s) Aller/Immun Denies wheezing Physical exam (Primary Care) Vital Signs: Last Vital Signs Pulse 76 08/20/23 10:16 BP 126/70 08/20/23 10:16 Pulse Ox 97 08/20/23 10:16 Oxygen Delivery Method Room Air 08/20/23 10:16 BMI result Body Mass Index 27.8 Tobacco/Smoking Status: Tobacco use Status Tobacco use date assessed 08/20/23 08/20/23 10:18 Patient Tobacco Use Status Former Tobacco user 08/20/23 10:18 Tobacco use type Cigarette 08/20/23 10:18 e-Cigarette/Vaping Use Never Used 08/20/23 10:18 PHQ-9: PHQ-9 Score PHQ-9: Total score 0 08/20/23 10:25 Depression Screening Interpretation: Negative Thrive Assessment: Date of Thrive Assessment Date Thrive assessed 08/20/23 08/20/23 10:18 Currently or been in a relationship where the following occur: no concerns reported Const General: cooperative and no acute distress Orientation/consciousness: patient oriented x3 HENMT Head: Yes normocephalic and Yes atraumatic Ears: TM's normal bilaterally Face and sinus: Yes sinuses nontender Mouth: oropharynx normal and moist mucous membranes Throat: Yes posterior oropharynx normal Eyes General: appearance normal, both eyes and all related structures Pupils: Equal, round and reactive pupils present EOM: EOMs intact bilaterally Neck Neck: Yes normal visual inspection, Yes full ROM and Yes no lymphadenopathy Thyroid: Thyroid normal Resp Effort & Inspection: normal respiratory effort and able to speak in complete sentences Auscultation: clear to auscultation bilaterally, no crackles, no rales, no rhonchi and no wheezes Cardio Rate: regular rate Rhythm: regular rhythm Heart sounds: S1 normal heart sound present, S2 normal heart sound present and no murmurs Peripheral pulses: radial pulses present GI Palpation (GI): Soft to palpation, not firm, nontender, no guarding, not rigid a nd no hepatosplenomegaly Auscultation: normal bowel sounds General: No CVA tenderness Back/Spine/Pelvis Back: No CVA tenderness Skin General skin exam: no rashes or lesions noted Neuro General: patient oriented x3 Cranial nerves: Yes Equal, round and reactive pupils present Gait exam (Neuro): Normal gait present Extrem General: Yes full ROM and No edema Assessment and Plan Assessment & Plan (1) Post-menopausal: Code(s): Z78.0 - Asymptomatic menopausal state (2) Adult general medical exam: Code(s): Z00.00 - Encounter for general adult medical examination without abnormal findings (3) 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: Comment: (Adenocarcinoma RML - s/p surgery March 2018) CT scan follow-up April 2022 Code(s): C34.2 - Malignant neoplasm of middle lobe, bronchus or lung Plan: Continue to follow-up with pulmonology and thoracic surgeon (4) Impaired glucose tolerance: Code(s): R73.02 - Impaired glucose tolerance (oral) Plan: A1c ordered (5) Hypercholesterolemia: Code(s): E78.00 - Pure hypercholesterolemia, unspecified Plan: Low-cholesterol diet Lipid panel ordered (6) COPD (chronic obstructive pulmonary disease): Code(s): J44.9 - Chronic obstructive pulmonary disease, unspecified Qualifiers: COPD type: emphysema Emphysema type: unspecified Qualified Code(s): J43.9 - Emphysema, unspecified Plan: Stable with current treatment Continue to follow-up with pulmonology Plan Follow-up with PCP in 6 months Orders: Orders XR DEXA axial skeleton Today Z78.0 - Asymptomatic menopausal state Vitamin D 25-OH Total Today Z00.00 - Encounter for general adult medical examination without abnormal findings TSH reflex Free T4 Today Z00.00 - Encounter for general adult medical examination without abnormal findings Lipid Panel Today E78.00 - Pure hypercholesterolemia, unspecified Comprehensive [place]. 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
== END 2023-08-20 10:49 | disposition home or self-care (01) ==
PROVIDERS: PCP Internal Medicine; Visit Provider Nurse Practitioner Family
DX: Z00.00 Encounter for general adult medical examination without abnormal findings (principal); C34.2 Malignant neoplasm of middle lobe, bronchus or lung; J43.9 Emphysema, unspecified; Z78.0 Asymptomatic menopausal state; R73.02 Impaired glucose tolerance (oral); E78.00 Pure hypercholesterolemia, unspecified
CPT/HCPCS: 99397

== ENCOUNTER 2023-11-11 10:59 | Outpatient (AMB) | payer MEDICARE, SELFPAY ==
[2023-11-11 11:10] VITALS: BP 130/64; PULSE 76; O2SAT 94; BMI 28.3
--- NOTE | 2023-11-11 11:10 | MHC.OFFVIS ---
Intake Vital Signs 11/11/23 11:10 Height 5 ft 4 in Weight 165 lb BMI 28.3 BP 130/64 Blood Pressure Location Rt brachial Position Sitting Pulse 76 Pulse Source Doppler Pulse Oximetry (%) 94 Oxygen Delivery Method Room Air Intake Visit Reasons: Emphysema Allergies No Known Allergies [No Known Allergies*] Allergy (Verified 11/11/23 11:13) HPI Emphysema HPI Details 73-year-old lady, former over 50 pack-year smoker, quit 2005 with underlying history of right middle lobe resection for stage I adenocarcinoma in 2018 who continues to follow-up with thoracic surgery (Dr. Lovett) now followed for COPD. At the last office visit patient was switched from Spiriva to Anoro with significant improvement in her symptoms. She denies any recent exacerbations. 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 BPV (benign positional vertigo) Cataract Knee osteoarthritis Hypercholesterolemia Diverticulitis Depression COPD (chronic obstructive pulmonary disease) Surgical History History of colonoscopy History of cataract surgery History of lung surgery (~2018) History of shoulder surgery (~2017) History of tonsillectomy Family History Father Alzheimers disease Mother Lung cancer Brother Bladder cancer Sister Lung cancer Social History Housing: House Alcohol intake: former Patient Tobacco Use Status: Former Tobacco user Quit Date: quit smoking 10 yr ago Tobacco use type: Cigarette Years Smoked: quit 60 years old e-Cigarette/Vaping Use: Never Used Second Hand Smoke Exposure: Yes Current occupational status: retired Cognitive needs: No Hearing needs: No Vision needs: Yes Review of Systems Const Denies daytime sleepiness, Denies excessive sweating, Denies fatigue, Denies fever(s), Denies lethargy, Denies malaise, Denies night sweats, Denies snoring and Denies weight loss Eyes Denies blurry vision and Denies itchy eyes ENT Denies nasal congestion, Denies post nasal drip, Denies sinus pain, Denies sinus pressure and Denies other ( Thrush) Card Denies chest pain, Denies pedal edema, Denies dyspnea, Denies orthopnea and Denies paroxysmal nocturnal dyspnea Resp Denies cough, Denies hemoptysis, Denies excessive phlegm production, Denies dyspnea, Denies snoring and Denies wheezing GI Denies abdominal pain and Denies heartburn Musc Denies myalgias, Denies arthralgias and Denies joint swelling Skin/Breast Denies rash Neuro Denies memory loss and Denies seizure-like activity Psych Denies abnormal sleep pattern, Denies anxiety and Denies memory loss Endo Denies excessive sweating, Denies fatigue and Denies heat intolerance Kelvin/Lymph Denies easy bruising Aller/Immun Denies itchy eyes, Denies seasonal rhinorrhea and Denies wheezing Physical Exam Vital Signs: Last Vital Signs Pulse 76 11/11/23 11:10 BP 130/64 11/11/23 11:10 Pulse Ox 94 11/11/23 11:10 Oxygen Delivery Method Room Air 11/11/23 11:10 BMI result Body Mass Index 28.3 Const General: no acute distress and alert Nutritional Appearance: not obese Orientation/consciousness: Other orientation findings ( oriented) HEENT Head: Yes atraumatic Eyes General: appearance normal, both eyes and all related structures Sclerae: sclerae normal EOM: EOMs intact bilaterally Neck Neck: Yes supple Lymphatic: no lymphadenopathy noted Resp Effort & Inspection: normal respiratory effort and no use of accessory muscles Auscultation: clear to auscultation bilaterally Cardio Rate: regular rate Rhythm: regular rhythm Heart sounds: no gallops, no murmurs and no rubs Skin General skin exam: other ( warm) Extrem General: No clubbing, No cyanosis and No edema Assessment & Plan Assessment & Plan (1) COPD (chronic obstructive pulmonary disease): Code(s): J44.9 - Chronic obstructive pulmonary disease, unspecified Qualifiers: COPD type: emphysema Emphysema type: unspecified Qualified Code(s): J43.9 - Emphysema, unspecified Plan: Well controlled on Anoro and albuterol MDI. Continue current regimen. (2) Personal history of nicotine dependence: Comment: (x 40yrs, quit ~ 2011) Code(s): Z87.891 - Personal history of nicotine dependence Plan: Restart screening in June of 2024. Coding Level of Care Code Est Pt Level 4 (00995) Diagnoses Pulmonary emphysema, unspecified emphysema type J43.9 COPD type: emphysema Emphysema type: unspecified Personal history of nicotine dependence Z87.891
== END 2023-11-11 11:18 | disposition home or self-care (01) ==
PROVIDERS: PCP Internal Medicine; Visit Provider Internal Medicine Pulmonary Disease
DX: J43.9 Emphysema, unspecified (principal); Z87.891 Personal history of nicotine dependence
CPT/HCPCS: 99214

== ENCOUNTER → 2023-11-11 10:59 | Outpatient (BNVA) | payer MEDICARE, SELFPAY | PROVIDERS: PCP Internal Medicine; Visit Provider Internal Medicine Pulmonary Disease | DX: J43.9 Emphysema, unspecified (principal); Z87.891 Personal history of nicotine dependence | CPT/HCPCS: 99212 ==

== ENCOUNTER 2023-12-30 10:32 | Outpatient (REF) | payer MEDICARE, SELFPAY ==
--- NOTE | ~2023-12-30 | MM_ITS ---
EXAMINATION: MM SCREENING DIGITAL BREAST TOMOSYNTHESIS, BILATERAL CLINICAL INFORMATION: Screening. Asymptomatic. COMPARISON: Mammography: 12/27/2022, 01/16/2021, 08/05/2018; outside exam 09/11/2015 ([facility]). TECHNIQUE: Digital breast tomosynthesis is performed in both the craniocaudal and mediolateral oblique views along with computer-aided detection (CAD). Synthesized 2D images are generated from the tomosynthesis. An added left CC view was provided. FINDINGS: There are scattered areas of fibroglandular density (ACR BI-RADS breast composition Category b). There are bilateral scattered dystrophic benign calcifications, unchanged. There are no suspicious masses, suspicious grouped calcifications, or areas of architectural distortion in either breast. The parenchymal pattern is stable from prior exams. No skin or axillary abnormality. MM/MM tomosynthesis screening BI IMPRESSION: No mammographic evidence of malignancy. ASSESSMENT: BI-RADS BI-RADS 2 - Benign Findings RECOMMENDATION: Routine annual mammography screening. 1 year F/U This examination should not preclude the clinical evaluation of a suspicious palpable abnormality. This patient's information was entered into a reminder system with a target due date for their next mammogram.
== END 2023-12-30 10:33 | disposition home or self-care (01) ==
LOC: HO.MAMMO 10:32
PROVIDERS: PCP Internal Medicine; Visit Provider Internal Medicine
DX: Z12.31 Encounter for screening mammogram for malignant neoplasm of breast (principal)
CPT/HCPCS: 77063; 77067

== ENCOUNTER → 2023-12-30 11:00 | Outpatient (BNV) | payer MEDICARE, SELFPAY | PROVIDERS: PCP Internal Medicine; Visit Provider Radiology Diagnostic Radiology | DX: Z12.31 Encounter for screening mammogram for malignant neoplasm of breast (principal) | CPT/HCPCS: 77063; 77067 ==

== ENCOUNTER 2024-02-07 09:00 | Outpatient (AMB) | payer MEDICARE, SELFPAY ==
--- NOTE | 2024-02-07 09:02 | MHC.OFFWIV ---
Intake Vital Signs 02/07/24 09:03 Weight 166 lb BP 110/78 Blood Pressure Location Rt brachial Position Sitting Pulse 81 Pulse Source Pulse Oximeter Pulse Oximetry (%) 96 Oxygen Delivery Method Room Air Intake Visit Reasons: Est, diverticulitis flair up (lobby) Intake Note: Patient here for diverticulitis flare up which started morning. Patient Tobacco Use Status: Former Tobacco user Quit Date: quit smoking 10 yr ago Allergies No Known Allergies [No Known Allergies*] Allergy (Verified 02/07/24 09:06) Medication List - Last Reconciled 02/07/24 by GE Farnsworth acetaminophen ER (Tylenol 8 Hour) 650 mg PO Q8H albuterol sulfate 90 mcg/actuation (ProAir HFA) 2 puffs inhalation Q4-6H PRN Anoro Ellipta 62.5-25 mcg/actuation (umeclidinium-vilanterol) 1 inh inhalation DAILY 30 days NS ascorbate calcium (vitamin C) 500 mg PO DAILY lactobacillus combination no.8 (Adult Probiotic) 3,000 mmu cells PO DAILY multivitamin 1 tab PO DAILY Do you need a note to return to daycare/school/sports/work: No HPI HPI Comments History of Present Illness Details 73-year-old female here today with chief complaints of diverticulitis. Reports that on she developed left lower quadrant pain, diarrhea, nonbloody, mild nausea. Last diverticulitis latest flare was about 2 years ago. On she had some leftover amoxicillin for dental procedures; 500 mg she took all that she had. This did improve her pain and her symptoms. Today she reports that she just feels weak from generalized poor p.o. intake. Continues with the left lower quadrant pain and some diarrhea. She denies any fever. Reports that she has never been hospitalized for diverticulitis. Has been treated successfully in the past with p.o. antibiotics along with prednisone. The plan will be to treat her with Flagyl, amoxicillin, prednisone, Zofran. 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 BPV (benign positional vertigo) Cataract Knee osteoarthritis Hypercholesterolemia Diverticulitis Depression COPD (chronic obstructive pulmonary disease) Surgical History History of colonoscopy History of cataract surgery History of lung surgery (~2018) History of shoulder surgery (~2017) History of tonsillectomy Family History Father Alzheimers disease Mother Lung cancer Brother Bladder cancer Sister Lung cancer Social History Housing: House Alcohol intake: former Patient Tobacco Use Status: Former Tobacco user Tobacco use type: Cigarette Years Smoked: quit 60 years old e-Cigarette/Vaping Use: Never Used Second Hand Smoke Exposure: Yes Current occupational status: retired Cognitive needs: No Hearing needs: No Vision needs: Yes Review of Systems Const All systems reviewed & are unremarkable except as noted in HPI and below Physical Exam Vital Signs: Last Vital Signs Pulse 81 02/07/24 09:03 BP 110/78 02/07/24 09:03 Pulse Ox 96 02/07/24 09:03 Oxygen Delivery Method Room Air 02/07/24 09:03 Const Other: Awake alert oriented no acute distress, does not appear toxic Sclera is nonicteric bilat Mucous membranes moist Regular rate rhythm Abdomen soft, round, normoactive bowel sounds x4, pain in left lower quadrant with deep palpation without peritoneal signs. Assessment & Plan Assessment & Plan (1) Diverticulitis: Code(s): K57.92 - Diverticulitis of intestine, part unspecified, without perforation or abscess without bleeding Plan: . Plan . Medications: New ondansetron HCl 4 mg PO Q8H 3 days PRN 15 tabs 0RF nausea and vomiting metronidazole 500 mg PO Q8H 21 tabs 0RF prednisone 20 mg PO DAILY 7 tabs 0RF amoxicillin-pot clavulanate 500-125 mg 1 tab PO BID 7 days 14 tabs 0RF Patient Instructions: Clear liquid diet for 48 hours. Advanced diet slowly as tolerated. Take antibiotics, prednisone, and anti nausea medication as directed. If you are not able to tolerate p.o. liquids, developed a high fever, worsening pain you should seek care at the emergency room. Coding Level of Care Code Est Pt Level 4 (41271) Diagnoses Diverticulitis K57.92
[2024-02-07 09:03] VITALS: BP 110/78; PULSE 81; O2SAT 96
== END 2024-02-07 09:17 | disposition home or self-care (01) ==
PROVIDERS: PCP Internal Medicine; Visit Provider Nurse Practitioner Family
DX: K57.92 Diverticulitis of intestine, part unspecified, without perforation or abscess without bleeding (principal)
CPT/HCPCS: 99214

== ENCOUNTER 2024-02-12 06:05 | Outpatient (REF) | payer MEDICARE, SELFPAY ==
[2024-02-12 10:31] LABS: MANUAL DIFF FLAG NO
[2024-02-12 10:42] LABS: Basophils Percent Auto 0.6 % (0-2); Eosinophils Absolute Auto 0.1 X10*3/uL (0.0-0.4); Eosinophils Percent Auto 1.4 % (0-4); Hematocrit 39.6 % (37.0-47.0); Hemoglobin 12.5 g/dl (12.0-16.0); Imm Gran Abs Auto 0.07 X10*3/uL (0.00-0.03); Lymphocytes Absolute Auto 3.1 X10*3/uL (1.2-4.9); Lymphocytes Percent Auto 43.6 % (20-40); Mean Corpuscular HGB Conc 31.6 g/dl (31.0-35.0); Mean Corpuscular Hemoglobin 30.9 pg (27.0-33.0); Mean Corpuscular Volume 97.8 fL (80.0-98.0); Mean Platelet Volume 10.3 fL (9.4-12.3); Monocytes Absolute Auto 0.7 X10*3/uL (0.1-1.2); Monocytes Percent Auto 9.9 % (2-11); Neutrophils Absolute Auto 3.1 x10*3/uL (2.0-8.3); Neutrophils Percent Auto 43.5 % (45-73); Platelet Count 296 X10*3/uL (160-400); Red Blood Count 4.05 X10*6/uL (4.20-5.50); Red Cell Distribution Width 13.2 % (11.0-16.0); White Blood Count 7.1 X10*3/uL (4.8-10.8)
[2024-02-12 10:58] LABS: Estimated Average Glucose 128 mg/dL; Hemoglobin A1c % 6.1 % (<6.0)
[2024-02-12 10:59] LABS: Alanine Aminotransferase 31 U/L (0-31); Alkaline Phosphatase 109 U/L (39-117); Anion Gap 14 (12-20); Aspartate Amino Transferase 29 U/L (5-31); Bilirubin Total 0.2 mg/dL (0.0-1.0); Blood Urea Nitrogen 18 mg/dL (9-16); Calcium 9.3 mg/dL (8.4-10.2); Carbon Dioxide 26 mmol/L (22-29); Chloride 109 mmol/L (96-108); Cholesterol 167 mg/dL (<200); Estimated Glomerular Filt Rate > 60; Glucose Fasting 115 mg/dL (60-99); HDL Cholesterol 63 mg/dL (>40); LDL Cholesterol Calculated 73 mg/dL (<100); Potassium 4.2 mmol/L (3.3-5.1); Sodium 145 mmol/L (135-145); Total Protein 7.3 g/dL (6.5-8.0); Triglycerides 155 mg/dL (<150)
[2024-02-12 11:24] LABS: Vitamin D 25-OH Total 50.6 ng/mL (>30)
== END 2024-02-12 06:06 | disposition home or self-care (01) ==
LOC: HO.HMGCLDS 06:05
PROVIDERS: PCP Internal Medicine; Visit Provider Nurse Practitioner Family
DX: Z00.00 Encounter for general adult medical examination without abnormal findings (principal); E78.00 Pure hypercholesterolemia, unspecified; R73.02 Impaired glucose tolerance (oral)
CPT/HCPCS: 36415; 80053; 80061; 82306; 83036; 84443; 85025

== ENCOUNTER 2024-02-19 10:29 | Outpatient (AMB) | payer MEDICARE, SELFPAY ==
[2024-02-19 10:32] VITALS: BP 140/70; PULSE 75; O2SAT 96; BMI 28.5
--- NOTE | 2024-02-19 10:32 | MHC.PC.OV ---
Vital Signs 02/19/24 10:32 Height 5 ft 4 in Weight 166 lb BMI 28.5 BP 140/70 H Blood Pressure Location Lt brachial Position Sitting Pulse 75 Pulse Source Pulse Oximeter Pulse Oximetry (%) 96 Oxygen Delivery Method Room Air Intake Visit Reasons: HLD Allergies No Known Allergies [No Known Allergies*] Allergy (Verified 02/19/24 10:33) Tobacco use date assessed: 02/19/24 Fall risk assessment: No Falls in past year Last assessed Fall Risk: 02/19/24 Dental Screening Dental Screen Date: 02/19/24 Did you have a dental visit in the last 12 months?: Yes Did you have a dental problem in the last 6 months where you did not have access to dental care?: No Was dental information given to patient?: Patient has dentist HPI HLD HPI Details 73-year-old female with lung cancer impaired glucose tolerance hypercholesterolemia COPD coming in for follow-up. Last seen in 08/27/2022. Patient's colonoscopy is up-to-date 11/25/2021 5 years mammogram up-to-date. Bone density is due early February noted Urgent Center visit due to diverticulitis flare antibiotics sent patient also follows up with Pulmonary 11/11/2023 controlled on Anoro and albuterol patient was advised to have screening CT scans 06/27/2024. Had a thoracic for follow-up 06/27/2023 status post robotic right middle lobectomy stage I adeno carcinoma March 2018 no evidence of recurrence on CT. 09/27/2022 osteoarthritis bilateral knee injections done. On evaluation patient was given Augmentin 500/125 only and the metronidazole was given the directions of taking 3 times a day but patient took only once a day. So concern now of under treatment and with her having abdominal pain prompting for consult. 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 BPV (benign positional vertigo) Cataract Knee osteoarthritis Hypercholesterolemia Diverticulitis Depression COPD (chronic obstructive pulmonary disease) Surgical History History of colonoscopy History of cataract surgery History of lung surgery (~2018) History of shoulder surgery (~2017) History of tonsillectomy Family History (Updated 02/19/24 @ 10:36 by Tory Melgoza CMA) Father Alzheimers disease Mother Lung cancer Brother Bladder cancer Sister Lung cancer Social History Housing: House Alcohol intake: former Patient Tobacco Use Status: Former Tobacco user Tobacco use type: Cigarette Years Smoked: quit 60 years old e-Cigarette/Vaping Use: Never Used Second Hand Smoke Exposure: Yes Current occupational status: retired Cognitive needs: No Hearing needs: No Vision needs: Yes Questionnaire PHQ-9 Over the last 2 weeks, how often have you been bothered by any of the following problems? 1. Little interest or pleasure in doing things: not at all 2. Feeling down, depressed, or hopeless: not at all 3. Trouble falling or staying asleep, or sleeping too much: not at all 4. Feeling tired or having little energy: not at all 5. Poor appetite or overeating: not at all 6. Feeling bad about yourself - or that you are a failure or have let yourself or your family down: not at all 7. Trouble concentrating on things, such as reading the newspaper or watching television: not at all 8. Moving or speaking so slowly that other people could have noticed. Or the opposite - being so fidgety or restless that you have been moving around a lot more than usual: not at all 9. Thoughts that you would be better off or of hurting yourself in some way: not at all Total score: 0 Depression Screening Interpretation: Negative Depression Screening Done: Yes 59776 - PHQ-9 Billing: Yes Source: Developed by Drs. Conor Richardson, Lucrecia Sherman, Angel Warren and colleagues, with an educational davonte from [employer]. Thrive Questionnaire Date Thrive assessed: 02/19/24 I am a: Patient What is your living situation today?: I have a steady place to live Within the past 12 months, did the food you bought not last and you didn't have the money to get more?: Never true Within the past 12 months, did you worry whether your food would run out before you got money to buy more?: Never true Do you have trouble paying for medicines?: No Do you have trouble getting transportation to medical appointments?: No Do you have trouble paying your heating and electricity bill?: No Do you have trouble taking care of your child, family member or friend?: No Do you have trouble with day-to-day activities such as bathing, preparing meals, shopping, managing finances, etc.?: No Are you currently unemployed and looking for a job?: No Are you interested in more education?: No Currently or been in a relationship where the following occur: no concerns reported THRIVE Score: 0 AUDIT C Alcohol Use Questionnaire (AUDIT-C) 1. How often do you have a drink containing alcohol?: Never 3. How often do you have six or more drinks on one occasion?: Never Total Score: 0 Score Reviewed/Action Taken: No JEAN-PAUL-7 AMB Questionnaire JEAN-PAUL-7 Date JEAN-PAUL - 7 assessed: 02/19/24 Feeling nervous, anxious, or on edge: 0 = Not at all Not being able to stop or control worryin = Not at all Worrying too much about different things: 0 = Not at all Trouble relaxin = Not at all Being so restless that it is hard to sit still: 0 = Not at all Becoming easily annoyed or irritable: 0 = Not at all Feeling afraid as if something awful might happen: 0 = Not at all Total JEAN-PAUL-7 score (0-4 normal; 5-9 mild; 10-14 moderate; 15-21 severe): 0 Source: Developed by Drs. Conor Richardson, Lucrecia Sherman, Angel Warren and colleagues, with an educational davonte from [employer]. JEAN-PAUL-7 Assessment Billing JEAN-PAUL-7 Assessment Tool: JEAN-PAUL-7 Assessment 24106 Physical exam (Primary Care) Vital Signs: Last Vital Signs Pulse 75 02/19/24 10:32 BP 140/70 H 02/19/24 10:32 Pulse Ox 96 02/19/24 10:32 Oxygen Delivery Method Room Air 02/19/24 10:32 BMI result Body Mass Index 28.5 Tobacco/Smoking Status: Tobacco use Status Tobacco use date assessed 02/19/24 02/19/24 10:40 Patient Tobacco Use Status Former Tobacco user 02/19/24 10:40 Tobacco use type Cigarette 02/19/24 10:40 e-Cigarette/Vaping Use Never Used 02/19/24 10:40 PHQ-9: PHQ-9 Score PHQ-9: Total score 0 02/19/24 10:40 Depression Screening Interpretation: Negative Thrive Assessment: Date of Thrive Assessment Date Thrive assessed 02/19/24 02/19/24 10:40 Currently or been in a relationship where the following occur: no concerns reported Const General: alert; No acute distress Eyes Conjunctivae: conjunctivae normal Resp Auscultation: clear to auscultation bilaterally Cardio Rate: regular rate Rhythm: regular rhythm GI Inspection: Yes normal to inspection Extrem General: Yes normal to inspection and No edema Assessment and Plan Assessment & Plan (1) COPD (chronic obstructive pulmonary disease): Code(s): J44.9 - Chronic obstructive pulmonary disease, unspecified Qualifiers: COPD type: emphysema Emphysema type: unspecified Qualified Code(s): J43.9 - Emphysema, unspecified Plan: Patient follows up with Pulmonary controlled on albuterol and Anoro. (2) Hypercholesterolemia: Code(s): E78.00 - Pure hypercholesterolemia, unspecified Plan: Avoid fried foods, chicken skin, eggs, butter margarine, pastries and meat. Be it pork or beef they have a lot of cholesterol LDL goal of less than 130 and triglyceride of less than 150 diet controlled (3) Impaired glucose tolerance: Code(s): R73.02 - Impaired glucose tolerance (oral) Plan: Decrease the amount of carbohydrate intake, pasta, bread, rice and potatoes are all sugar and that is aside from all the sweet stuff, remember that fruits are good but they are Sweet also. Hemoglobin A1c noted in the blood work 6.1 (4) Knee osteoarthritis: Comment: Dr. 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: Comment: (Adenocarcinoma RML - s/p surgery March 2018) CT scan follow-up April 2022 Code(s): C34.2 - Malignant neoplasm of middle lobe, bronchus or lung Plan: Continue to follow up with thoracic surgeon CT scan to be done 06/27/2024 (6) Diverticulitis: Code(s): K57.92 - Diverticulitis of intestine, part unspecified, without perforation or abscess without bleeding Plan: still having LLQ pain with revbound but no guarding- patient took the med wrong - metronidazole once a day only and augmentin is underdosed- clarified with patient Cipro sent in and advised continue with metronidazole Orders: Orders Creatinine Today K57.92 - Diverticulitis of intestine, part unspecified, without perforation or abscess without bleeding CT abdomen pelvis w IV con Today K57.92 - Diverticulitis of intestine, part unspecified, without perforation or abscess without bleeding Complete Blood Count Auto Diff Today K57.92 - Diverticulitis of intestine, part unspecified, without perforation or abscess without bleeding Medications: New ciprofloxacin HCl (Cipro) 500 mg PO BID 14 tabs 0RF K57.92 - Diverticulitis of intestine, part unspecified, without perforation or abscess without bleeding Discontinued ondansetron HCl Discontinued Reason: Change Referral Type 4 mg PO Q8H 3 days PRN 15 tabs 0RF nausea and vomiting amoxicillin-pot clavulanate 500-125 mg Discontinued Reason: Doctor's Order 1 tab PO BID 7 days 14 tabs 0RF Coding Level of Care Code Est Pt Level 4 (98949) Diagnoses Pulmonary emphysema, unspecified emphysema type J43.9 COPD type: emphysema Emphysema type: unspecified Hypercholesterolemia E78.00 Impaired glucose tolerance R73.02 Primary osteoarthritis of both knees M17.0 Osteoarthritis type: primary Laterality: bilateral 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
== END 2024-02-19 11:05 | disposition home or self-care (01) ==
PROVIDERS: PCP Internal Medicine; Visit Provider Internal Medicine
DX: J43.9 Emphysema, unspecified (principal); C34.2 Malignant neoplasm of middle lobe, bronchus or lung; E78.00 Pure hypercholesterolemia, unspecified; R73.02 Impaired glucose tolerance (oral); M17.0 Bilateral primary osteoarthritis of knee; K57.92 Diverticulitis of intestine, part unspecified, without perforation or abscess without bleeding
CPT/HCPCS: 99214

== ENCOUNTER 2024-04-19 10:22 | Outpatient (REF) | payer MEDICARE, SELFPAY ==
--- NOTE | ~2024-04-19 | CT_ITS ---
EXAMINATION: CT ABDOMEN AND PELVIS WITH CONTRAST CLINICAL INFORMATION: Diverticulitis of intestine. COMPARISON: CT abdomen 03/22/2022. CT abdomen and pelvis 07/08/2019. TECHNIQUE: Multidetector volumetric images were obtained from the superior aspect of the liver through the pubic symphysis following administration 85 mL of Omnipaque 350 intravenous contrast. Sagittal and coronal reformatted images were obtained on the technologist's workstation. Oral Contrast: No. This CT examination was performed using dose optimization techniques as appropriate, variously including the following: *Automated exposure control. *Adjustment of mA and/or kV according to patient size (this includes techniques or standardized protocols for targeted exams where dose is matched to indication/reason for exam; i.e. extremities or head). *Use of iterative reconstruction technique. DLP: 425 mGy-cm FINDINGS: LUNG BASES: The visualized lung bases are unremarkable. LIVER, GALLBLADDER, AND BILIARY TREE: The liver is normal in size and shape but with markedly decreased attenuation consistent with hepatic steatosis. Focal fatty sparing is seen around the rachel hepatis as well as the gallbladder. No focal hepatic lesion or biliary ductal dilatation is present. The gallbladder is unremarkable with no evidence of radiopaque gallstones, gallbladder wall thickening, or obvious pericholecystic inflammatory changes. PANCREAS: Unremarkable. SPLEEN: Unremarkable. ADRENAL GLANDS: Unremarkable. KIDNEYS AND URETERS: The kidneys are normal in size, shape, and attenuation. No hydronephrosis, hydroureter, or calculi seen. Multiple bilateral parapelvic and cortical benign Bosniak class I renal cysts are noted which require no additional imaging or follow-up. No solid renal masses are seen. BLADDER: Unremarkable. GASTROINTESTINAL TRACT: Diverticular changes are present predominantly in the left colon without evidence of diverticulosis. The small and large bowel are otherwise unremarkable. The appendix is unremarkable. ABDOMINAL WALL: No significant hernia is appreciated. LYMPH NODES: No retroperitoneal lymphadenopathy. VASCULAR: Unremarkable. PELVIC VISCERA: An anteverted uterus is present. Calcified right pelvic mass likely represents a subserosal calcified fibroid and is unchanged compared to the 07/08/2019 study. No ascites. OSSEOUS STRUCTURES: Unremarkable. CT/CT abdomen pelvis w IV con IMPRESSION: 1. There is colonic diverticulosis with no evidence of diverticulitis. 2. Incidental note made of hepatic steatosis, benign Bosniak class I renal cysts which need no additional imaging or follow-up, colonic diverticulosis and calcified uterine fibroid. Fleischner guidelines were followed. Electronically signed by: Jonnathan Ramsey MD 05/09/2024 10:05 PM EDT RP
[2024-04-19] MEDS: iohexoL 350 MG/ML 75 ML INFUS..BTL 85 ML IV (10:58)
[2024-04-19 15:56] LABS: Creatinine POC 0.6 mg/dL (0.5-1.4); GFR POC > 60
== END 2024-04-19 10:23 | disposition home or self-care (01) ==
LOC: HO.CT 10:22
PROVIDERS: PCP Internal Medicine; Visit Provider Internal Medicine
DX: K57.92 Diverticulitis of intestine, part unspecified, without perforation or abscess without bleeding (principal)
CPT/HCPCS: 74177; 82565; Q9967

== ENCOUNTER 2024-05-11 10:19 | Outpatient (AMB) | payer MEDICARE, SELFPAY ==
[2024-05-11 10:25] VITALS: BP 132/64; PULSE 73; O2SAT 97; BMI 28.7
--- NOTE | 2024-05-11 10:25 | MHC.OFFVIS ---
Vital Signs 05/11/24 10:25 Height 5 ft 4 in Weight 167 lb BMI 28.7 BP 132/64 Blood Pressure Location Lt brachial Position Sitting Pulse 73 Pulse Source Doppler Pulse Oximetry (%) 97 Oxygen Delivery Method Room Air Intake Visit Reasons: Emphysema Allergies No Known Allergies [No Known Allergies*] Allergy (Verified 05/11/24 10:30) HPI HPI Emphysema: Details: 73-year-old lady, former over 50 pack-year smoker, quit 2005 with underlying history of right middle lobe resection for stage I adenocarcinoma in 2018 who continues to follow-up with thoracic surgery (Dr. Lovett) now followed for COPD. She continues on Anoro with excellent control of her underlying symptoms. She denies any recent exacerbations. 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 BPV (benign positional vertigo) Cataract Knee osteoarthritis Hypercholesterolemia Diverticulitis Depression COPD (chronic obstructive pulmonary disease) Surgical History History of colonoscopy History of cataract surgery History of lung surgery (~2018) History of shoulder surgery (~2017) History of tonsillectomy Family History (Updated 02/19/24 @ 10:36 by Tory Melgoza [facility]) Father Alzheimers disease Mother Lung cancer Brother Bladder cancer Sister Lung cancer Social History Housing: House Alcohol intake: former Patient Tobacco Use Status: Former Tobacco user Tobacco use type: Cigarette Years Smoked: quit 60 years old e-Cigarette/Vaping Use: Never Used Second Hand Smoke Exposure: Yes Current occupational status: retired Cognitive needs: No Hearing needs: No Vision needs: Yes Review of Systems Const Denies daytime sleepiness, Denies excessive sweating, Denies fatigue, Denies fever(s), Denies lethargy, Denies malaise, Denies night sweats, Denies snoring and Denies weight loss Eyes Denies blurry vision and Denies itchy eyes ENT Denies nasal congestion, Denies post nasal drip, Denies sinus pain, Denies sinus pressure and Denies other ( Thrush) Card Denies chest pain, Denies pedal edema, Denies dyspnea, Denies orthopnea and Denies paroxysmal nocturnal dyspnea Resp Denies cough, Denies hemoptysis, Denies excessive phlegm production, Denies dyspnea, Denies snoring and Denies wheezing GI Denies abdominal pain and Denies heartburn Musc Denies myalgias, Denies arthralgias and Denies joint swelling Skin/Breast Denies rash Neuro Denies memory loss and Denies seizure-like activity Psych Denies abnormal sleep pattern, Denies anxiety and Denies memory loss Endo Denies excessive sweating, Denies fatigue and Denies heat intolerance Kelvin/Lymph Denies easy bruising Aller/Immun Denies itchy eyes, Denies seasonal rhinorrhea and Denies wheezing Physical Exam Vital Signs: Last Vital Signs Pulse 73 05/11/24 10:25 BP 132/64 05/11/24 10:25 Pulse Ox 97 05/11/24 10:25 Oxygen Delivery Method Room Air 05/11/24 10:25 BMI result Body Mass Index 28.7 Const General: no acute distress and alert Nutritional Appearance: not obese Orientation/consciousness: Other orientation findings ( oriented) HEENT Head: Yes atraumatic Eyes General: appearance normal, both eyes and all related structures Sclerae: sclerae normal EOM: EOMs intact bilaterally Neck Neck: Yes supple Lymphatic: no lymphadenopathy noted Resp Effort & Inspection: normal respiratory effort and no use of accessory muscles Auscultation: clear to auscultation bilaterally Cardio Rate: regular rate Rhythm: regular rhythm Heart sounds: no gallops, no murmurs and no rubs Skin General skin exam: other ( warm) Extrem General: No clubbing, No cyanosis and No edema Assessment & Plan Assessment & Plan (1) COPD (chronic obstructive pulmonary disease): Code(s): J44.9 - Chronic obstructive pulmonary disease, unspecified Category: Medical Qualifiers: COPD type: emphysema Emphysema type: unspecified Qualified Code(s): J43.9 - Emphysema, unspecified Plan: Well controlled on Anoro and albuterol MDI. Continue current regimen. (2) Personal history of nicotine dependence: Comment: (x 40yrs, quit ~ 2011) Code(s): Z87.891 - Personal history of nicotine dependence Category: Medical Plan: CT lung cancer screening is pending for June of 2024. Coding Level of Care Code Est Pt Level 4 (62401) Diagnoses Pulmonary emphysema, unspecified emphysema type J43.9 COPD type: emphysema Emphysema type: unspecified Personal history of nicotine dependence Z87.891
== END 2024-05-11 10:41 | disposition home or self-care (01) ==
PROVIDERS: PCP Internal Medicine; Visit Provider Internal Medicine Pulmonary Disease
DX: J43.9 Emphysema, unspecified (principal); Z87.891 Personal history of nicotine dependence
CPT/HCPCS: 99214

== ENCOUNTER → 2024-05-11 10:19 | Outpatient (BNVA) | payer MEDICARE, SELFPAY | PROVIDERS: PCP Internal Medicine; Visit Provider Internal Medicine Pulmonary Disease | DX: J43.9 Emphysema, unspecified (principal); Z87.891 Personal history of nicotine dependence | CPT/HCPCS: 99212 ==

== ENCOUNTER 2024-06-17 09:02 | Outpatient (AMB) | payer MEDICARE, SELFPAY ==
--- NOTE | 2024-06-17 09:12 | MHC.OFFWIV ---
Intake Vital Signs 06/17/24 09:13 Height 5 ft 4 in Weight 166 lb BMI 28.5 BP 126/70 Blood Pressure Location Rt brachial Position Sitting Pulse 66 Pulse Source Pulse Oximeter Pulse Oximetry (%) 98 Oxygen Delivery Method Room Air Intake Visit Reasons: EP-diverticulitis attack Intake Note: Patient here for diverticulitis attack which has been going on since friday. Patient Tobacco Use Status: Former Tobacco user Allergies No Known Allergies [No Known Allergies*] Allergy (Verified 06/17/24 09:14) Do you need a note to return to daycare/school/sports/work: No HPI HPI Comments History of Present Illness Details Patient is a 73-year-old female complaining of 5 days of diarrhea and left lower abdominal pain. She tells me she has a history of diverticulosis with frequent diverticulitis flares. She states she usually gets Cipro and prednisone to help her manage the pain. She is asking for the same today. She denies anything bloody or black in her diarrhea, she denies any fevers. She states that her and her sisters all get diverticulitis flares frequently and so she is very familiar what it feels like and tells me this is definitely a diverticulitis flare. She denies any changes in her urinary habits. She states she feels a palpable lump in her left lower quadrant and she is wondering what that is, she tells me she had a CT scan in April but never heard anything about the results and she is a little anxious thinking she might have cancer. 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 BPV (benign positional vertigo) Cataract Knee osteoarthritis Hypercholesterolemia Diverticulitis Depression COPD (chronic obstructive pulmonary disease) Surgical History History of colonoscopy History of cataract surgery History of lung surgery (~2018) History of shoulder surgery (~2017) History of tonsillectomy Family History (Updated 02/19/24 @ 10:36 by Tory Melgoza [facility]) Father Alzheimers disease Mother Lung cancer Brother Bladder cancer Sister Lung cancer Social History Housing: House Alcohol intake: former Patient Tobacco Use Status: Former Tobacco user Tobacco use type: Cigarette Years Smoked: quit 60 years old e-Cigarette/Vaping Use: Never Used Second Hand Smoke Exposure: Yes Current occupational status: retired Cognitive needs: No Hearing needs: No Vision needs: Yes Review of Systems Const All systems reviewed & are unremarkable except as noted in HPI and below Physical Exam Vital Signs: Last Vital Signs Pulse 66 06/17/24 09:13 BP 126/70 06/17/24 09:13 Pulse Ox 98 06/17/24 09:13 Oxygen Delivery Method Room Air 06/17/24 09:13 BMI result Body Mass Index 28.5 Const General: cooperative, healthy appearing, comfortable, no acute distress and well developed Orientation/consciousness: patient oriented x3 Limitations: no limitations HEENT Head: Yes normal to inspection Ears: hearing grossly normal bilaterally General nose exam: Normal external nose present Face and sinus: Yes normal facial exam Eyes General: appearance normal, both eyes and all related structures Neck Neck: Yes normal visual inspection and Yes full ROM Resp Effort & Inspection: normal respiratory effort and able to speak in complete sentences GI Other: Left lower quadrant, palpable lump closer to the suprapubic bone, small firm 1 cm lump Inspection: Yes normal to inspection Palpation (GI): Soft to palpation and Tenderness to palpation present (GI) in the LLQ Auscultation: normal bowel sounds Skin General skin exam: no rashes or lesions noted Neuro General: patient oriented x3 Extrem General: Yes normal to inspection Assessment & Plan Assessment & Plan (1) Diverticulitis: Code(s): K57.92 - Diverticulitis of intestine, part unspecified, without perforation or abscess without bleeding Plan: Sent Augmentin to patient's pharmacy and prednisone (as requested by the patient, for pain). Reviewed the CT scan the patient had in April, she does have a calcified uterine fibroid, question whether this is the lump we are feeling. We will have the patient's PCP reach out to her to review her CT results Plan See above Medications: New amoxicillin-pot clavulanate 875-125 mg 1 tab PO Q12H 14 tabs 0RF prednisone 20 mg PO DAILY 5 tabs 0RF Coding Level of Care Code Est Pt Level 3 (65515) Diagnoses Diverticulitis K57.92
[2024-06-17 09:13] VITALS: BP 126/70; PULSE 66; O2SAT 98; BMI 28.5
== END 2024-06-17 09:49 | disposition home or self-care (01) ==
PROVIDERS: PCP Internal Medicine; Visit Provider Physician Assistant
DX: K57.92 Diverticulitis of intestine, part unspecified, without perforation or abscess without bleeding (principal)

== ENCOUNTER → 2024-06-17 09:02 | Outpatient (BNVA) | payer MEDICARE, SELFPAY | PROVIDERS: PCP Internal Medicine; Visit Provider Physician Assistant | DX: K57.92 Diverticulitis of intestine, part unspecified, without perforation or abscess without bleeding (principal) | CPT/HCPCS: 99212 ==

== ENCOUNTER 2024-07-07 10:02 | Outpatient (AMB) | payer MEDICARE, SELFPAY ==
--- NOTE | 2024-07-07 10:04 | MHC.PC.OV ---
Vital Signs 07/07/24 10:05 Height 5 ft 4 in Weight 164 lb BMI 28.1 BP 126/80 Blood Pressure Location Lt brachial Position Sitting Pulse 76 Pulse Source Pulse Oximeter Pulse Oximetry (%) 96 Oxygen Delivery Method Room Air Intake Visit Reasons: Diverticulitis Accompanied by: Self / Same As Patient Allergies No Known Allergies [No Known Allergies*] Allergy (Verified 07/07/24 10:06) Medication List - Last Reconciled 07/07/24 by Daniel Vargas MD albuterol sulfate 90 mcg/actuation 2 puffs inhalation Q4-6H PRN Anoro Ellipta 62.5-25 mcg/actuation (umeclidinium-vilanterol) 1 inh inhalation DAILY 30 days NS ascorbate calcium (vitamin C) 500 mg PO DAILY ketoconazole 2% 1 appl topical 2XW multivitamin 1 tab PO DAILY simvastatin 5 mg PO QPM Tobacco use date assessed: 02/19/24 Dental Screening Dental Screen Date: 02/19/24 HPI Diverticulitis HPI Details 73-year-old overweight female with COPD hypercholesterolemia impaired glucose tolerance knee osteoarthritis right lung cancer diverticulitis recently seen 02/26/2024. Patient's colonoscopy up-to-date 11/25/2021 up-to-date with mammogram. Patient was seen in the Urgent [facility] treated with Augmentin and prednisone. CT scan done June 17 results showing colonic diverticulosis with no evidence of diverticulitis incidental of hepatic steatosis kidney cyst calcified uterine fibroid. . Patient has seen Pulmonary May 11 for the COPD well controlled on Anoro and albuterol. CT scan chest not done due to 16 years post smoking. 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 BPV (benign positional vertigo) Cataract Knee osteoarthritis Hypercholesterolemia Diverticulitis Depression COPD (chronic obstructive pulmonary disease) Surgical History History of colonoscopy History of cataract surgery History of lung surgery (~2018) History of shoulder surgery (~2017) History of tonsillectomy Family History Father Alzheimers disease Mother Lung cancer Brother Bladder cancer Sister Lung cancer Social History Housing: House Alcohol intake: former Patient Tobacco Use Status: Former Tobacco user Tobacco use type: Cigarette Years Smoked: quit 60 years old e-Cigarette/Vaping Use: Never Used Second Hand Smoke Exposure: Yes Current occupational status: retired Cognitive needs: No Hearing needs: No Vision needs: Yes Questionnaire Thrive Questionnaire Date Thrive assessed: 02/19/24 AUDIT C Alcohol Use Questionnaire (AUDIT-C) 3. How often do you have six or more drinks on one occasion?: Never Total Score: 0 JEAN-PAUL-7 AMB Questionnaire JEAN-PAUL-7 Date JEAN-PAUL - 7 assessed: 02/19/24 Source: Developed by Drs. Conor Richardson, Lucrecia Sherman, Angel Warren and colleagues, with an educational davonte from [employer]. Physical exam (Primary Care) Vital Signs: Last Vital Signs Pulse 76 07/07/24 10:05 BP 126/80 07/07/24 10:05 Pulse Ox 96 07/07/24 10:05 Oxygen Delivery Method Room Air 07/07/24 10:05 BMI result Body Mass Index 28.1 Tobacco/Smoking Status: Tobacco use Status Tobacco use date assessed 02/19/24 07/07/24 10:08 Patient Tobacco Use Status Former Tobacco user 07/07/24 10:08 Tobacco use type Cigarette 07/07/24 10:08 e-Cigarette/Vaping Use Never Used 07/07/24 10:08 Thrive Assessment: Date of Thrive Assessment Date Thrive assessed 02/19/24 07/07/24 10:08 Const General: alert; No acute distress Eyes Conjunctivae: conjunctivae normal Resp Auscultation: clear to auscultation bilaterally Cardio Rate: regular rate Rhythm: regular rhythm GI Inspection: Yes normal to inspection Extrem General: Yes normal to inspection and No edema Coding Level of Care Code Est Pt Level 4 (35317) Diagnoses 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 Hypercholesterolemia E78.00 Pulmonary emphysema, unspecified emphysema type J43.9 COPD type: emphysema Emphysema type: unspecified Impaired glucose tolerance R73.02 Osteoarthritis, hand M19.049 Osteoarthritis type: primary Trigger ring finger of right hand M65.341 Trigger finger location: ring finger Assessment & Plan Assessment & Plan (1) 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 Be it pork or beef they have a lot of cholesterol LDL goal of less than 130 and triglyceride of less than 150. On simvastatin 5 mg at bedtime. With last blood work 02/26/2024 (3) COPD (chronic obstructive pulmonary disease): Code(s): J44.9 - Chronic obstructive pulmonary disease, unspecified Category: Medical Qualifiers: COPD type: emphysema Emphysema type: unspecified Qualified Code(s): J43.9 - Emphysema, unspecified Plan: Patient follows up with Pulmonary continue with Anoro and albuterol (4) Impaired glucose tolerance: Code(s): R73.02 - Impaired glucose tolerance (oral) Category: Medical Plan: Decrease the amount of carbohydrate intake, pasta, bread, rice and potatoes are all sugar and that is aside from all the sweet stuff, remember that fruits are good but they are Sweet also. (5) Osteoarthritis, hand: Code(s): M19.049 - Primary osteoarthritis, unspecified hand Category: Medical Qualifiers: Osteoarthritis type: primary Plan: rheumatology referral (6) Trigger finger, right: Code(s): M65.30 - Trigger finger, unspecified finger Category: Medical Qualifiers: Trigger finger location: ring finger Qualified Code(s): M65.341 - Trigger finger, right ring finger Plan: rheumatology referral done Orders: Orders CT chest wo IV con Today C34.2 - Malignant neoplasm of middle lobe, bronchus or lung Referrals Rheumatology Referral M19.049 - Primary osteoarthritis, unspecified hand, M65.30 - Trigger finger, unspecified finger Medications: New simvastatin 5 mg PO QPM 90 tabs 3RF E78.00 - Pure hypercholesterolemia, unspecified Refilled albuterol sulfate 90 mcg/actuation 2 puffs inhalation Q4-6H PRN 8.5 grams 6RF Wheezing J44.1 - Chronic obstructive pulmonary disease with (acute) exacerbation ketoconazole 2% 1 appl topical 2XW 120 mL 0RF C34.2 - Malignant neoplasm of middle lobe, bronchus or lung
[2024-07-07 10:05] VITALS: BP 126/80; PULSE 76; O2SAT 96; BMI 28.1
== END 2024-07-07 10:38 | disposition home or self-care (01) ==
LOC: HO.HMCH 10:03
PROVIDERS: PCP Internal Medicine; Visit Provider Internal Medicine
DX: C34.2 Malignant neoplasm of middle lobe, bronchus or lung (principal); E78.00 Pure hypercholesterolemia, unspecified; J43.9 Emphysema, unspecified; R73.02 Impaired glucose tolerance (oral); M19.049 Primary osteoarthritis, unspecified hand; M65.341 Trigger finger, right ring finger

== ENCOUNTER → 2024-07-07 10:02 | Outpatient (BNVA) | payer MEDICARE, SELFPAY | PROVIDERS: PCP Internal Medicine; Visit Provider Internal Medicine | DX: C34.2 Malignant neoplasm of middle lobe, bronchus or lung (principal); E78.00 Pure hypercholesterolemia, unspecified; J43.9 Emphysema, unspecified; R73.02 Impaired glucose tolerance (oral); M19.049 Primary osteoarthritis, unspecified hand; M65.341 Trigger finger, right ring finger | CPT/HCPCS: 99212 ==

== ENCOUNTER 2024-07-08 10:41 | Outpatient (AMB) | payer MEDICARE, SELFPAY ==
[2024-07-08 10:51] VITALS: BP 128/68; PULSE 61; O2SAT 94; BMI 28.3
--- NOTE | 2024-07-08 10:51 | A.OFFVIS_ITS ---
Vital Signs 07/08/24 10:51 Height 5 ft 4 in Weight 165 lb BMI 28.3 BP 128/68 Blood Pressure Location Lt brachial Position Sitting Pulse 61 Pulse Source Pulse Oximeter Pulse Oximetry (%) 94 Oxygen Delivery Method Room Air Intake Visit Reasons: Bl Hand OA/CM Intake Note: Patient presents today for bilateral osteoarthritis in her hands, ankles, and feet, tried stretching, and her foot locks up. Allergies No Known Allergies [No Known Allergies*] Allergy (Verified 07/08/24 10:55) Medication List - Last Reconciled 07/08/24 by Brooklyn Tierney MD acetaminophen ER 1,300 mg PO Q12H albuterol sulfate 90 mcg/actuation 2 puffs inhalation Q4-6H PRN Anoro Ellipta 62.5-25 mcg/actuation (umeclidinium-vilanterol) 1 inh inhalation DAILY 30 days NS ascorbate calcium (vitamin C) 500 mg PO DAILY ascorbic acid (vitamin C) 1 g PO Q6H ketoconazole 2% 1 appl topical 2XW multivitamin 1 tab PO DAILY simvastatin 5 mg PO QPM HPI Comments Details: This is a 73-year-old female who presents for evaluation of osteoarthritis and trigger finger. Patient stated that she used follow-up regularly with Dr. Bola Delcid regularly. This was about 10 years ago. She states that she used to get injections in her hips. But her hips have not been a problem for years. She states that her right ring finger has been triggering lately. She attributes it to increased housework. Blowing out the leaves mainly. This started this week. She denies any history of trigger finger. She also states that she has been having pain from her lower legs down into her feet for a few years now. They are not improving. She saw a controlled atmospheric furnace brazer at some point and received injections for plantar fasciitis which did help but she did not improve as much as she likes. She states that she takes Tylenol 650 mg p.o. 8 tablets a day as needed for her pains. It is not very effective. 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 BPV (benign positional vertigo) Cataract Knee osteoarthritis Hypercholesterolemia Diverticulitis Depression COPD (chronic obstructive pulmonary disease) Surgical History History of colonoscopy History of cataract surgery History of lung surgery (~2018) History of shoulder surgery (~2017) History of tonsillectomy Family History Father Alzheimers disease Mother Lung cancer Brother Bladder cancer Sister Lung cancer Social History Housing: House Alcohol intake: former Patient Tobacco Use Status: Former Tobacco user Tobacco use type: Cigarette Years Smoked: quit 60 years old e-Cigarette/Vaping Use: Never Used Second Hand Smoke Exposure: Yes Current occupational status: retired Cognitive needs: No Hearing needs: No Vision needs: Yes Review of Systems Const Reports no additional complaints Musc Reports arthralgias, Reports joint swelling, Reports limited range of motion and Reports stiffness Physical Exam Vital Signs: Last Vital Signs Pulse 61 07/08/24 10:51 BP 128/68 07/08/24 10:51 Pulse Ox 94 07/08/24 10:51 Oxygen Delivery Method Room Air 07/08/24 10:51 BMI result Body Mass Index 28.3 Const General: cooperative, healthy appearing and comfortable Nutritional Appearance: overweight Orientation/consciousness: patient oriented x3 Limitations: no limitations HEENT Head: Yes normocephalic and Yes atraumatic Mouth: moist mucous membranes Resp Effort & Inspection: normal respiratory effort and able to speak in complete sentences Skin General skin exam: no rashes or lesions noted Neuro General: patient oriented x3 Extrem Other: Significant osteoarthritic changes of both hands with no active synovitis Multiple finger triggering palpated both hands, the most symptomatic is the right ring finger. Right foot bunion Assessment & Plan Assessment & Plan (1) Osteoarthritis, hand: Code(s): M19.049 - Primary osteoarthritis, unspecified hand Category: Medical Qualifiers: Osteoarthritis type: primary Laterality: bilateral Qualified Code(s): M19.041 - Primary osteoarthritis, right hand; M19.042 - Primary osteoarthritis, left hand Plan: This is a 73-year-old female with generalized osteoarthritis who presents for follow-up. On exam she has a significant osteoarthritic changes of both hands. Patient has been having bilateral hand pain and swelling recently related to using the blower. She takes Tylenol 650 mg 8 tablets today. Advised patient that this is above the recommended dose. Discussed with patient that she can use NSAIDs very sparingly as needed for joint pain and swelling. (2) Trigger finger, right: Code(s): M65.30 - Trigger finger, unspecified finger Category: Medical Qualifiers: Trigger finger location: ring finger Qualified Code(s): M65.341 - Trigger finger, right ring finger Plan: Right ring finger is symptomatic. On palpation however patient has multiple trigger fingers. Discussed present of trigger fingers. Advised patient to wear finger splints at night. If this keeps happening, she can return to the office for an injection Plan I spent 30 minutes reviewing patient's chart, evaluating patient, counseling patient and documenting in the chart Coding Level of Care Code Est Pt Level 3 (16603) Diagnoses Primary osteoarthritis of both hands M19.041; M19.042 Osteoarthritis type: primary Laterality: bilateral Trigger ring finger of right hand M65.341 Trigger finger location: ring finger
== END 2024-07-08 11:19 | disposition home or self-care (01) ==
LOC: HO.RHE 10:42
PROVIDERS: PCP Internal Medicine; Visit Provider Student in an Organized Health Care Education/Training Program
DX: M19.041 Primary osteoarthritis, right hand (principal); M19.042 Primary osteoarthritis, left hand; M65.341 Trigger finger, right ring finger
CPT/HCPCS: 99213

== ENCOUNTER → 2024-07-08 10:41 | Outpatient (BNVA) | payer MEDICARE, SELFPAY | PROVIDERS: PCP Internal Medicine; Visit Provider Student in an Organized Health Care Education/Training Program | DX: M19.041 Primary osteoarthritis, right hand (principal); M19.042 Primary osteoarthritis, left hand; M65.341 Trigger finger, right ring finger | CPT/HCPCS: 99212 ==

== ENCOUNTER 2024-07-21 08:38 | Outpatient (REF) | payer MEDICARE, SELFPAY ==
--- NOTE | ~2024-07-21 | XR_ITS ---
EXAMINATION: XR CHEST CLINICAL INFORMATION: Dyspnea COMPARISON: None available. TECHNIQUE: 2 views of the chest were obtained. FINDINGS: No significant abnormality is noted involving the heart, lungs, mediastinum, bony thorax or soft tissues. XR/XR chest 2V IMPRESSION: Unremarkable examination. Electronically signed by: Anne Ivory MD 07/21/2024 12:05 PM [facility] [place]
== END 2024-07-21 08:39 | disposition home or self-care (01) ==
LOC: HO.HMGCX 08:38
PROVIDERS: PCP Internal Medicine; Visit Provider Registered Nurse
DX: R06.00 Dyspnea, unspecified (principal); J18.9 Pneumonia, unspecified organism
CPT/HCPCS: 71046; 99212

== ENCOUNTER 2024-07-21 08:38 | Outpatient (AMB) | payer MEDICARE, SELFPAY ==
[2024-07-21 08:45] VITALS: BP 122/66; PULSE 79; TEMP 36.4; O2SAT 97; BMI 28.3
--- NOTE | 2024-07-21 08:45 | AM.OFFWIN_ITS ---
Intake Vital Signs 07/21/24 08:45 Height 5 ft 4 in Weight 165 lb BMI 28.3 BP 122/66 Blood Pressure Location Rt brachial Position Sitting Pulse 79 Pulse Source Pulse Oximeter Temp 97.6 F Temp Source Oral Pulse Oximetry (%) 97 Oxygen Delivery Method Room Air Intake Visit Reasons: EP-flu symptoms Intake Note: pt is here due to feeling sick she states she has been feeling this way for over a week. has cough, fever at night and unable to get phlem up Patient Tobacco Use Status: Former Tobacco user Allergies No Known Allergies [No Known Allergies*] Allergy (Verified 07/21/24 08:48) Do you need a note to return to daycare/school/sports/work: No HPI EP-flu symptoms HPI Details This note is constructed using voice recognition software. While every effort has been made to ensure accuracy, cloth finishing range back tender errors may have been included. The patient is a 73 year old female who presents to the clinic today with cough, congestion for the past week. She is a nonsmoker, however she does live with a smoker who smokes in a separate room of the house that is closed. She reports that she has been having what started as sinus congestion, she has worked through that with vtoy-uma-lipiqlr medications such as Mucinex, decongestants, that congestion move from her sinuses down to her chest. When it moved to her chest she started having shortness of breath, which is primarily with activity or with coughing, but not at rest. She is getting up some thick green secreti ons at times. She has not had any fever. She notes that she is having reduced energy level. [facility] Medical History Adult general medical exam COVID-19 Abdominal lump COPD exacerbation Screening for colon cancer Screening for diabetes mellitus Personal history of nicotine dependence 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 BPV (benign positional vertigo) Cataract Knee osteoarthritis Hypercholesterolemia Diverticulitis Depression COPD (chronic obstructive pulmonary disease) Surgical History History of colonoscopy History of cataract surgery History of lung surgery (~2018) History of shoulder surgery (~2017) History of tonsillectomy Family History Father Alzheimers disease Mother Lung cancer Brother Bladder cancer Sister Lung cancer Social History Housing: House Alcohol intake: former Patient Tobacco Use Status: Former Tobacco user Tobacco use type: Cigarette Years Smoked: quit 60 years old e-Cigarette/Vaping Use: Never Used Second Hand Smoke Exposure: Yes Current occupational status: retired Cognitive needs: No Hearing needs: No Vision needs: Yes Review of Systems Const All systems reviewed & are unremarkable except as noted in HPI and below Physical Exam Vital Signs: Last Vital Signs Temp 97.6 F 07/21/24 08:45 Pulse 79 07/21/24 08:45 BP 122/66 07/21/24 08:45 Pulse Ox 97 07/21/24 08:45 Oxygen Delivery Method Room Air 07/21/24 08:45 BMI result Body Mass Index 28.3 Const General: cooperative, healthy appearing, comfortable and no acute distress Orientation/consciousness: patient oriented x3 Limitations: no limitations HEENT Head: Yes normal to inspection Ears: hearing grossly normal bilaterally, external ears normal and TM's normal bilaterally General nose exam: Normal external nose present, Normal nares present and No nasal discharge present Face and sinus: Yes normal facial exam and Yes sinuses nontender Mouth: Normal oral and palatal mucosa present and moist mucous membranes Throat: Yes tonsils normal, Yes uvula midline and Yes posterior oropharynx abnormal (Erythema) Eyes General: appearance normal, both eyes and all related structures Neck Neck: Yes normal visual inspection Resp Other: Lung sounds clear on the right, decreased in the left base. Effort & Inspection: normal respiratory effort, able to speak in complete sentences, Actively coughing, no respiratory distress, not tachypneic, no tripod positioning and no use of accessory muscles Cardio Jugular venous distension: no JVD Rate: regular rate Rhythm: regular rhythm Heart sounds: S1 normal heart sound present, S2 normal heart sound present, no click, no gallops, no murmurs and no rubs Skin General skin exam: no rashes or lesions noted, elasticity normal and turgor normal Neuro General: patient oriented x3 Extrem General: Yes normal to inspection and Yes no clubbing, cyanosis or edema Assessment & Plan Assessment & Plan (1) Community acquired pneumonia: Code(s): J18.9 - Pneumonia, unspecified organism Qualifiers: Laterality: left Lung location: lower lobe of lung Qualified Code(s): J18.9 - Pneumonia, unspecified organism Plan: Curb 65 score 1, safe for at-home treatment. X-ray today showing patchy infiltrates. Supportive measures encouraged and reviewed. Antibiotic sent to requested pharmacy, advised patient to take antibiotics until completed and not to stop if feeling better, unless the patient has side effects. Advised patient to follow up with primary care provider with worsening or failure to resolve. Plan See above for full details and plan. Orders: Orders XR chest 2V Today R06.00 - Dyspnea, unspecified Medications: New azithromycin For 250 mg dose pack: take 500 mg today (day 1), then 250 mg for 4 days (days 2-5) PO 6 tabs 0RF amoxicillin-pot clavulanate 875-125 mg 1 tab PO BID 5 days 10 tabs 0RF Coding Level of Care Code Est Pt Level 4 (31938) Diagnoses Community acquired pneumonia of left lower lobe of lung J18.9 Laterality: left Lung location: lower lobe of lung
== END 2024-07-21 10:45 | disposition home or self-care (01) ==
PROVIDERS: PCP Internal Medicine; Visit Provider Registered Nurse
DX: J18.9 Pneumonia, unspecified organism (principal)

== ENCOUNTER 2024-09-17 15:46 | Outpatient (AMB) | payer MEDICARE, SELFPAY ==
--- OUTSIDE RECORDS SUMMARY | 2024-09-17 15:48 | XMS_ITS | Patient Health Record ---
Author Organization [facility] Address [address] [place] [id number] Care Team Providers Care Design Specialist Name Role Phone Daniel Vargas MD Primary Care Provider Christ Carmona Jr Unavailable ALLERGIES No Known Allergies REASON FOR REFERRAL No Information MEDICATIONS Medication SIG (Take, Route, Frequency, Duration) Notes Start Date End Date Status Amoxicillin-Pot Clavulanate 875 MG 1 tablet Orally every 12 hrs/as needed for flair up Not-Taking MiraLax (colon prep) 17 GM/SCOOP mixed with Gatorade or Crystal Light Orally begin at 5:00 p.m. the day before the procedure for 1 day 10/31/2021 Active Spiriva HandiHaler 18 MCG INHALE THE CON TENTS OF 1 CAPSULE VIA INHALATION DEVICE DAILY Inhalation for 30 Active Vitamin C 500 MG as directed Orally Active Multivitamin Adults - as directed Orally Active IMMUNIZATIONS Vaccine Route Administration Date Status Comme nts Influenza Unknown 06/08/2021 Administered SOCIAL HISTORY Tobacco Use: Social History Observation Description Date Details (start date - stop date) Former Smoker NA - NA Sex Assigned At : Social History Observation Description Sex Assigned At Unknown Tobacco Use/Smoking Question Answer Notes Patient is a former smoker How long has it been since you last smoked? > 10 years Alcohol Screen Question Answer Notes Did you have a drink containing alcohol in the p ast year? No Points 0 Interpretation Negative PROBLEMS Problem Type ICD Code Onset Dates Problem Status W/U Status Risk SNOMED Code Notes Problem Colon cancer screening (Z12.11) Active confirmed 232448636 Problem FH: colon cancer (Z80.0) Active confirmed 826769666 Problem Diverticulosis (K57.90) Active confirmed 587439379 PLAN OF TREATMENT Future Test Test Name Order Date COLONOSCOPY 10/31/2021 Insurance Providers Payer Name Payer Address Payer Phone Subscriber Number Group Number Insured Name Patient Relationship to Insured Coverage Start Date Coverage End Date [employer] Medicare Advantage Plan [address] [address] [place] [address] [id number] YOCASTA KEYS Self - patient is the insured MEDICAL (GENERAL) HISTORY Medical History History ICD Code Diverticulosis/diverticulitis Adenocarcinoma right lung middle lobe Elevated blood sugar COPD Family history of colon canc er, personal history of colon polyps, last colonoscopy 01/21, five-year followup Elevated cholesterol Surgical History Surgery Date(Month/Year) Partial lobectomy right, Dr. Jase DOTY u 2016 tonsillectomy
--- NOTE | 2024-09-17 16:01 | A.OFFPC_ITS ---
Vital Signs 09/17/24 16:03 Height 5 ft 4 in Weight 167 lb 6 oz BMI 28.7 BP 114/64 Blood Pressure Location Lt brachial Position Sitting Pulse 74 Pulse Source Pulse Oximeter Pulse Oximetry (%) 94 Oxygen Delivery Method Room Air Intake Visit Reasons: annual exam Intake Note: Patient is here today for a physical. Pharmacy Affairs Assistant Required: No Pigment And Lacquer Mixer: Not Required per policy Accompanied by: Self / Same As Patient Allergies No Known Allergies [No Known Allergies*] Allergy (Verified 09/17/24 16:17) Medication List - Last Reconciled 09/17/24 by Tiana Graham PA-C acetaminophen ER 1,300 mg PO Q12H albuterol sulfate 90 mcg/actuation 2 puffs inhalation Q4-6H PRN Anoro Ellipta 62.5-25 mcg/actuation (umeclidinium-vilanterol) 1 inh inhalation DAILY 30 days NS ascorbic acid (vitamin C) 1 g PO Q6H ketoconazole 2% 1 appl topical 2XW multivitamin 1 tab PO DAILY simvastatin 5 mg PO QPM Tobacco use date assessed: 09/17/24 Fall risk assessment: No Falls in past year Last assessed Fall Risk: 09/17/24 Dental Screening Dental Screen Date: 09/17/24 Did you have a dental visit in the last 12 months?: Yes Did you have a dental problem in the last 6 months where you did not have access to dental care?: No Was dental information given to patient?: Patient has dentist HPI annual exam HPI Details 73-year-old overweight female with past medical history of COPD, hypercholesterolemia, impaired glucose tolerance, knee osteoarthritis, right and left lung cancer, diverticulitis last seen 07/01 coming in for annual exam. Colonoscopy up-to-date 11/2021 and up-to-date with mammogram. In review of the notes patient was seen by rheumatology 06/2024 advised to continue on Tylenol and use NSAIDs sparingly for osteoarthritis. 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 She had risk stratification with Cardiology and deemed low cardiac risk for procedure and may proceed. She is due to have blood work next week for pre op. She was advised by her surgeon to avoid vitamins and vaccines prior to the procedure. [facility] Medical History Adult general medical exam COVID-19 Abdominal lump COPD exacerbation Screening for colon cancer Screening for diabetes mellitus Personal history of nicotine dependence 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 BPV (benign positional vertigo) Cataract Knee osteoarthritis Hypercholesterolemia Diverticulitis Depression COPD (chronic obstructive pulmonary disease) Surgical History History of colonoscopy History of cataract surgery History of lung surgery (~2018) History of shoulder surgery (~2017) History of tonsillectomy Family History Father Alzheimers disease Mother Lung cancer Brother Bladder cancer Sister Lung cancer Social History Housing: House Alcohol intake: former Patient Tobacco Use Status: Former Tobacco user Tobacco use type: Cigarette Years Smoked: quit 60 years old e-Cigarette/Vaping Use: Never Used Second Hand Smoke Exposure: Yes service: No Current occupational status: retired Cognitive needs: No Hearing needs: No Vision needs: Yes (Glasses) Questionnaire PHQ-9 Over the last 2 weeks, how often have you been bothered by any of the following problems? 1. Little interest or pleasure in doing things: not at all 2. Feeling down, depressed, or hopeless: not at all 3. Trouble falling or staying asleep, or sleeping too much: not at all 4. Feeling tired or having little energy: not at all 5. Poor appetite or overeating: not at all 6. Feeling bad about yourself - or that you are a failure or have let yourself or your family down: not at all 7. Trouble concentrating on things, such as reading the newspaper or watching television: not at all 8. Moving or speaking so slowly that other people could have noticed. Or the opposite - being so fidgety or restless that you have been moving around a lot more than usual: not at all 9. Thoughts that you would be better off or of hurting yourself in some way: not at all Total score: 0 Depression Screening Interpretation: Negative Depression Screening Done: Yes Source: Developed by Drs. Conor Richardson, Angel Meyer and colleagues, with an educational davonte from [employer]. Thrive Questionnaire Date Thrive assessed: 09/17/24 I am a: Patient What is your living situation today?: I have a steady place to live Within the past 12 months, did the food you bought not last and you didn't have the money to get more?: Often true Within the past 12 months, did you worry whether your food would run out before you got money to buy more?: Often true Do you have trouble paying for medicines?: Yes Do you have trouble getting transportation to medical appointments?: No Do you have trouble paying your heating and electricity bill?: No Do you have trouble taking care of your child, family member or friend?: No Do you have trouble with day-to-day activities such as bathing, preparing meals, shopping, managing finances, etc.?: No Are you currently unemployed and looking for a job?: No Are you interested in more education?: No Please select the resources that you would like help with: None Currently or been in a relationship where the following occur: No concerns reported THRIVE Score: 2 AUDIT C Alcohol Use Questionnaire (AUDIT-C) 1. How often do you have a drink containing alcohol?: Never Total Score: 0 JEAN-PAUL-7 AMB Questionnaire JEAN-PAUL-7 Date JEAN-PAUL - 7 assessed: 09/17/24 Feeling nervous, anxious, or on edge: 0 = Not at all Not being able to stop or control worryin = Not at all Worrying too much about different things: 0 = Not at all Trouble relaxin = Not at all Being so restless that it is hard to sit still: 0 = Not at all Becoming easily annoyed or irritable: 0 = Not at all Feeling afraid as if something awful might happen: 0 = Not at all Total JEAN-PAUL-7 score (0-4 normal; 5-9 mild; 10-14 moderate; 15-21 severe): 0 Source: Developed by Drs. Conor Richardson, Angel Meyer and colleagues, with an educational davonte from [employer]. JEAN-PAUL-7 Assessment Billing JEAN-PAUL-7 Assessment Tool: JEAN-PAUL-7 Assessment 48744 Review of Systems Const Denies body aches, Denies fatigue, Denies fever(s), Denies frequent falls, Denies headache(s) and Denies weakness Eyes Reports no additional complaints and Denies change in vision ENT Denies dysphagia, Denies dizziness, Denies facial pain, Denies headache(s), Denies nasal congestion and Denies odynophagia Card Denies chest pain, Denies syncope, Denies irregular heart rhythm, Denies leg edema, Denies lightheadedness and Denies dyspnea Resp Denies cough and Denies dyspnea GI Denies abdominal pain, Denies constipation, Denies dysphagia, Denies dyspepsia, Denies diarrhea, Denies nausea, Denies odynophagia and Denies vomiting Denies urinary frequency, Denies dysuria, Denies urinary hesitancy and Denies urinary urgency Musc Denies back pain and Denies myalgias Skin/Breast Reports system reviewed and no additional complaints, except as documented Neuro Denies dizziness, Denies syncope, Denies frequent falls, Denies headache(s) and Denies weakness Psych Reports no additional complaints Endo Denies fatigue Physical exam (Primary Care) Vital Signs: Last Vital Signs Pulse 74 09/17/24 16:03 BP 114/64 09/17/24 16:03 Pulse Ox 94 09/17/24 16:03 Oxygen Delivery Method Room Air 09/17/24 16:03 BMI result Body Mass Index 28.7 Tobacco/Smoking Status: Tobacco use Status Tobacco use date assessed 09/17/24 09/17/24 16:07 Patient Tobacco Use Status Former Tobacco user 09/17/24 16:07 Tobacco use type Cigarette 09/17/24 16:07 e-Cigarette/Vaping Use Never Used 09/17/24 16:07 PHQ-9: PHQ-9 Score PHQ-9: Total score 0 09/17/24 16:07 Depression Screening Interpretation: Negative Thrive Assessment: Date of Thrive Assessment Date Thrive assessed 09/17/24 09/17/24 16:07 Currently or been in a relationship where the following occur: No concerns rep orted Const General: cooperative, healthy appearing, comfortable and no acute distress Orientation/consciousness: patient oriented x3 HENMT Head: Yes normocephalic Ears: hearing grossly normal bilaterally, external ears normal, TM's normal bilaterally and EAC's normal General nose exam: Normal external nose present Face and sinus: Yes normal facial exam and Yes sinuses nontender Mouth: Normal oral and palatal mucosa present and tongue normal Throat: Yes posterior oropharynx normal Eyes General: appearance normal, both eyes and all related structures Conjunctivae: conjunctivae normal Pupils: Equal, round and reactive pupils present EOM: EOMs intact bilaterally and No Nystagmus present Neck Neck: Yes normal visual inspection, Yes full ROM and Yes no lymphadenopathy Chest Chest palpation & inspection: normal inspection of the chest Resp Effort & Inspection: normal respiratory effort Auscultation: clear to auscultation bilaterally, no crackles, no rales, no rhonchi, no wheezes and breath sounds present Cardio Rate: regular rate Rhythm: regular rhythm Peripheral pulses: radial pulses present and dorsalis pedis present GI Inspection: Yes normal to inspection and No Abdominal wall edema Palpation (GI): Soft to palpation, not firm and nontender Auscultation: normal bowel sounds Rectal Exam - Female: deferred General: Yes no CVA tenderness Back/Spine/Pelvis Back: no CVA tenderness Skin Other: patient having multiple atypical nevi on the abdomen and lower extremities that are not uniform in size or color General skin exam: no rashes or lesions noted Neuro General: patient oriented x3 Cranial nerves: Yes Equal, round and reactive pupils present, Yes Midline tongue present, Yes Ability to bilaterally elevate shoulders present and No Nystagmus present Gait exam (Neuro): Normal gait present Extrem General: Yes normal to inspection, Yes full ROM, No no pedal edema and No edema Psych Speech and movement: Normal speech and movement present Affect: normal affect Insight: Good insight present (Psych) Judgement: Good judgement present (Psych) Coding Level of Care Code Est Pt Prev Care >65y(43666) Diagnoses Pulmonary emphysema, unspecified emphysema type J43.9 COPD type: emphysema Emphysema type: unspecified Hypercholesterolemia E78.00 Primary osteoarthritis of both knees M17.0 Laterality: bilateral Osteoarthritis type: primary Impaired glucose tolerance R73.02 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 Personal history of nicotine dependence Z87.891 Pulmonary nodule R91.1 Adult general medical exam Z00.00 Atypical nevi D22.9 Obesity E66.9 Additional Codes JEAN-PAUL-7 Assessment Billing - JEAN-PAUL-7 Assessment Tool: JEAN-PAUL-7 Assessment [id number] ([id number]) Assessment & Plan Assessment & Plan (1) COPD (chronic obstructive pulmonary disease): Code(s): J44.9 - Chronic obstructive pulmonary disease, unspecified Category: Medical Qualifiers: COPD type: emphysema Emphysema type: unspecified Qualified Code(s): J43.9 - Emphysema, unspecified Plan: COPD currently controlled on present medications. Continue on albuterol as needed, Anoro Ellipta. Avoid triggers such as allergies. Continue to follow with pulmonology (2) Hypercholesterolemia: Code(s): E78.00 - Pure hypercholesterolemia, unspecified Category: Medical Plan: Avoid foods that are high in cholesterol such as red meat, fried foods, eggs and baked goods. Triglyceride goal of less than 150 and LDL goal of less than 100. Continue on simvastatin 5. Patient scheduled to have repeat blood work for surgeon next week reportedly will have cholesterol drawn at that time. (3) Knee osteoarthritis: Comment: [facility] Bola [facility] Code(s): M17.10 - Unilateral primary osteoarthritis, unspecified knee Category: Medical Qualifiers: Laterality: bilateral Osteoarthritis type: primary Qualified Code(s): M17.0 - Bilateral primary osteoarthritis of knee Plan: Continues to have bilateral knee pain but states it does not affect her activity. (4) Impaired glucose tolerance: Code(s): R73.02 - Impaired glucose tolerance (oral) Category: Medical Plan: Decrease the amount of carbohydrates such as pasta, bread, rice, and potatoes and limit the amount of sweets. Although fruits are generally healthy they should be eaten in moderation as they are still high in sugar. (5) 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: Comment: (Adenocarcinoma RML - s/p surgery March 2018) CT scan follow-up April increase in size Code(s): C34.2 - Malignant neoplasm of middle lobe, bronchus or lung Category: Medical Plan: Following with pulmonology for surveillance. Recently diagnosed with left lower lobe cancer. (6) Personal history of nicotine dependence: Comment: (x 40yrs, quit ~ 2011) Code(s): Z87.891 - Personal history of nicotine dependence Category: Medical Plan: Patient no longer smoking and undergoes routine lung CT (7) Pulmonary nodule: Comment: Ground-glass 5 mm nodule right middle lobe. March increase in size CT scan 08/2024 shows 17mm GGN in the posterior left lower lobe biopsy was recommended Code(s): R91.1 - Solitary pulmonary nodule Category: Medical Plan: Pulmonary nodule being followed by pulmonology and scheduled to undergo biopsy with pulmonology in two weeks. Continue with pulmonology and we will continue to follow the notes. (8) Adult general medical exam: Code(s): Z00.00 - Encounter for general adult medical examination without abnormal findings Category: Medical Plan: Patient is up to date on all recommended routine screenings and vaccinations for her age. Blood work is up to date within the last 6 months and she will have updated blood work next week faxed to the office. She is declining Td vaccine today due to her surgery and will have vaccine done over the summer. Healthy diet and regular exercise is encouraged. (9) Atypical nevi: Code(s): D22.9 - Melanocytic nevi, unspecified Category: Medical Plan: Patient having multiple atypical nevi on abdomen and bilateral legs. Advised patient to have evaluation by Dermatology and possible biopsy. (10) Obesity: Code(s): E66.9 - Obesity, unspecified Category: Medical Plan: Healthy diet and regular exercise is encouraged. Plan This note was constructed using voice recognition software. While every effort has been made to ensure accuracy and central office inspector, still areas may have been included sometimes these areas may affect the content or meeting of the given symptoms. Total time spent caring for the patient today was 30 minutes. This includes time spent before the visit reviewing the chart, time spent during the visit, and time spent after the visit and documentation. Orders: Referrals Dermatology Referral D22.9 - Melanocytic nevi, unspecified
[2024-09-17 16:03] VITALS: BP 114/64; PULSE 74; O2SAT 94; BMI 28.7
== END 2024-09-17 16:34 | disposition home or self-care (01) ==
PROVIDERS: PCP Internal Medicine
DX: Z00.00 Encounter for general adult medical examination without abnormal findings (principal); J43.9 Emphysema, unspecified; C34.2 Malignant neoplasm of middle lobe, bronchus or lung; E66.9 Obesity, unspecified; Z68.28 Body mass index [BMI] 28.0-28.9, adult; M17.0 Bilateral primary osteoarthritis of knee; E78.00 Pure hypercholesterolemia, unspecified; R73.02 Impaired glucose tolerance (oral); Z87.891 Personal history of nicotine dependence; R91.1 Solitary pulmonary nodule; D22.9 Melanocytic nevi, unspecified

== ENCOUNTER → 2024-09-17 15:46 | Outpatient (BNVA) | payer MEDICARE, SELFPAY | PROVIDERS: PCP Internal Medicine | DX: Z00.00 Encounter for general adult medical examination without abnormal findings (principal); J44.9 Chronic obstructive pulmonary disease, unspecified; J43.9 Emphysema, unspecified; E78.00 Pure hypercholesterolemia, unspecified; M17.0 Bilateral primary osteoarthritis of knee; R73.02 Impaired glucose tolerance (oral); C34.2 Malignant neoplasm of middle lobe, bronchus or lung; R91.1 Solitary pulmonary nodule; D22.9 Melanocytic nevi, unspecified; E66.9 Obesity, unspecified; Z87.891 Personal history of nicotine dependence | CPT/HCPCS: 96127; 99397 ==

== ENCOUNTER 2024-11-05 09:41 | Outpatient (AMB) | payer MEDICARE, SELFPAY ==
--- NOTE | 2024-11-05 10:14 | MHC.PC.OV ---
Vital Signs 11/05/24 10:17 Height 5 ft 4 in Weight 160 lb 6 oz BMI 27.5 BP 132/60 Blood Pressure Location Rt brachial Position Sitting Pulse 70 Pulse Source Pulse Oximeter Temp 97.1 F Temp Source Temporal Artery Scan Pulse Oximetry (%) 99 Oxygen Delivery Method Room Air Intake Visit Reasons: burning in lungs f/u after lung surgery Intake Note: Patient is here to follow up on burning in lungs after lung surgery. Machine Bobbin Winder Required: No Subassemblies Wirer: Not Required per policy Accompanied by: Self / Same As Patient Allergies gabapentin Adverse Reaction (Mild, Verified 11/05/24 10:33) Vomiting Medication List - Last Reconciled 11/05/24 by Tiana Graham PA-C acetaminophen ER 1,300 mg PO Q12H albuterol sulfate 90 mcg/actuation 2 puffs inhalation Q4-6H PRN Anoro Ellipta 62.5-25 mcg/actuation (umeclidinium-vilanterol) 1 inh inhalation DAILY 30 days NS ascorbic acid (vitamin C) 1 g PO Q6H ketoconazole 2% 1 appl topical 2XW multivitamin 1 tab PO DAILY oxycodone 5 mg PO BID PRN simvastatin 5 mg PO QPM Tobacco use date assessed: 09/17/24 Fall risk assessment: No Falls in past year Last assessed Fall Risk: 11/05/24 Dental Screening Dental Screen Date: 09/17/24 HPI burning in lungs f/u after lung surgery HPI Details 74-year-old female with past medical history of COPD, hypercholesterolemia, impaired glucose tolerance, knee osteoarthritis, right and left lung cancer and diverticulitis last seen 09/2024 coming in for acute problem. In review of the notes, patient was seen by [facility] 10/27/2024 patient underwent left lower lobectomy 10/13/[address] [facility] advised to continue chest CT surveillance every 6 months with the 1st 2 years followed by chest CT every 12 months for 3 years after. Patient was doing well postoperatively and using Tylenol for pain and given gabapentin for intercostal pain. Presenting with postoperative nerve pain and wound healing issues after two surgeries. She describes a continuous and severe burning sensation around the incision sites, impacted further by sweating. The pain disrupts her sleep, forcing her to sleep upright on the couch. Attempts at pain relief include frozen water packs. Gabapentin caused gastrointestinal distress, and the negative effects prompted consideration of Lyrica as an alternative. Past topical solutions have been ineffective for pain relief. 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 BPV (benign positional vertigo) Cataract Knee osteoarthritis Hypercholesterolemia Diverticulitis Depression COPD (chronic obstructive pulmonary disease) Surgical History History of colonoscopy History of cataract surgery History of lung surgery (~2018) History of shoulder surgery (~2017) History of tonsillectomy Family History Father Alzheimers disease Mother Lung cancer Brother Bladder cancer Sister Lung cancer Social History Housing: House Alcohol intake: former Patient Tobacco Use Status: Former Tobacco user Tobacco use type: Cigarette Years Smoked: quit 60 years old e-Cigarette/Vaping Use: Never Used Second Hand Smoke Exposure: Yes service: No Current occupational status: retired Cognitive needs: No Hearing needs: No Vision needs: Yes (Glasses) Questionnaire Thrive Questionnaire Date Thrive assessed: 09/17/24 I am a: Patient What is your living situation today?: I have a steady place to live Within the past 12 months, did the food you bought not last and you didn't have the money to get more?: Often true Within the past 12 months, did you worry whether your food would run out before you got money to buy more?: Often true Do you have trouble paying for medicines?: Yes Do you have trouble getting transportation to medical appointments?: No Do you have trouble paying your heating and electricity bill?: No Do you have trouble taking care of your child, family member or friend?: No Do you have trouble with day-to-day activities such as bathing, preparing meals, shopping, managing finances, etc.?: No Are you currently unemployed and looking for a job?: No Are you interested in more education?: No Please select the resources that you would like help with: None Currently or been in a relationship where the following occur: No concerns reported THRIVE Score: 2 JEAN-PAUL-7 AMB Questionnaire JEAN-PAUL-7 Date JEAN-PAUL - 7 assessed: 09/17/24 Source: Developed by Drs. Conor Richardson, Lucrecia Sherman, Angel Warren and colleagues, with an educational davonte from [employer]. Review of Systems Const Denies body aches, Denies chills, Denies fever(s), Denies headache(s) and Denies poor appetite Eyes Reports no additional complaints ENT Denies dysphagia, Denies dizziness, Denies headache(s) and Denies odynophagia Card Denies chest pain, Denies syncope, Denies edema, Denies irregular heart rhythm, Denies lightheadedness and Denies dyspnea Resp Denies cough and Denies dyspnea GI Denies abdominal pain, Denies constipation, Denies dysphagia, Denies diarrhea, Reports nausea, Denies odynophagia and Reports vomiting Reports no additional complaints Musc Reports as per HPI and Denies abnormal gait Skin/Breast Reports system reviewed and no additional complaints, except as documented Neuro Denies abnormal gait, Denies dizziness, Denies syncope and Denies headache(s) Psych Reports no additional complaints Physical exam (Primary Care) Vital Signs: Last Vital Signs Temp 97.1 F 11/05/24 10:17 Pulse 70 11/05/24 10:17 BP 132/60 11/05/24 10:17 Pulse Ox 99 11/05/24 10:17 Oxygen Delivery Method Room Air 11/05/24 10:17 BMI result Body Mass Index 27.5 Tobacco/Smoking Status: Tobacco use Status Tobacco use date assessed 09/17/24 11/05/24 10:20 Patient Tobacco Use Status Former Tobacco user 11/05/24 10:20 Tobacco use type Cigarette 11/05/24 10:20 e-Cigarette/Vaping Use Never Used 11/05/24 10:20 Thrive Assessment: Date of Thrive Assessment Date Thrive assessed 09/17/24 11/05/24 10:20 Currently or been in a relationship where the following occur: No concerns reported Const General: cooperative, healthy appearing, comfortable and no acute distress Orientation/consciousness: patient oriented x3 HENMT Head: Yes normocephalic Ears: hearing grossly normal bilaterally General nose exam: Normal external nose present Eyes General: appearance normal, both eyes and all related structures Conjunctivae: conjunctivae normal Neck Neck: Yes full ROM and Yes no lymphadenopathy Chest Other: Multiple incision sites on the left side of the chest all clean dry and intact without surrounding erythema, drainage or warmth Resp Effort & Inspection: normal respiratory effort Auscultation: clear to auscultation bilaterally, no crackles, no rales, no rhonchi and no wheezes Cardio Rate: regular rate Rhythm: regular rhythm Skin General skin exam: no rashes or lesions noted Neuro General: patient oriented x3 Gait exam (Neuro): Normal gait present Extrem General: Yes normal to inspection, Yes full ROM and No edema Psych Affect: normal affect Attitude: cooperative Insight: Good insight present (Psych) Judgement: Good judgement present (Psych) Coding Level of Care Code Est Pt Level 3 (95061) Diagnoses 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 Hypercholesterolemia E78.00 Pulmonary emphysema, unspecified emphysema type J43.9 COPD type: emphysema Emphysema type: unspecified Pulmonary nodule R91.1 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 Assessment & Plan Assessment & Plan (1) 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 Triglyceride goal of less than 150 and LDL goal of less than 100. (3) COPD (chronic obstructive pulmonary disease): Code(s): J44.9 - Chronic obstructive pulmonary disease, unspecified Category: Medical Qualifiers: COPD type: emphysema Emphysema type: unspecified Qualified Code(s): J43.9 - Emphysema, unspecified Plan: Continue on inhalers patient has follow up with pulmonology next month. (4) Pulmonary nodule: Comment: Ground-glass 5 mm nodule right middle lobe. March increase in size October [address] scan 08/2024 shows 17mm GGN in the posterior left lower lobe biopsy was recommended Code(s): R91.1 - Solitary pulmonary nodule Category: Medical Plan: Underwent left lower lobectomy 10/13/[address] [facility] advised to continue chest CT surveillance every 6 months with the 1st 2 years followed by chest CT every 12 months for 3 years after. Patient was doing well postoperatively and using Tylenol for pain and given gabapentin for intercostal pain. Continue to follow with thoracic surgeon and education nurse (5) Neuropathic pain: Code(s): M79.2 - Neuralgia and neuritis, unspecified Category: Medical Plan: Patient having neuropathic pain around the incision sites status post left lobectomy. She was initially given oxycodone and gabapentin by her surgeon. She uses the oxycodone sparingly and primarily at night to help with the pain. A two-week trial of pregabalin was proposed to manage postoperative nerve pain, following side effects from gabapentin. The patient was provided instructions to take the medication alongside food and water. Consultation with the surgical team about oxycodone use was advised. Previous topical applications have not provided relief, so oral alternatives are being explored. I did also discuss with the patient that pregabalin may pose the same side effects as gabapentin however she is willing to try this medication as she is in severe pain. Plan Patient was informed and verbally consented to the use of an ambient scribe for clinic note documentation during this visit. This note was constructed using voice recognition software. While every effort has been made to ensure accuracy and cathead operator, still areas may have been included sometimes these areas may affect the content or meeting of the given symptoms. Total time spent caring for the patient today was 20 minutes. This includes time spent before the visit reviewing the chart, time spent during the visit, and time spent after the visit and documentation. Medications: New pregabalin 25 mg PO DAILY 14 caps 0RF
[2024-11-05 10:17] VITALS: BP 132/60; PULSE 70; TEMP 36.2; O2SAT 99; BMI 27.5
--- OUTSIDE RECORDS SUMMARY | 2024-11-05 10:28 | XMS_ITS | Encounter Summary ---
Author Organization [facility] Address [address] [place] [address] Care Team Providers Care Paralegal Specialist Name Role Phone Marlen Pereira MD Primary Care Provider [phone] Reason for Visit * Auth/Cert (Routine) Specialty Diagnoses / Procedures Referred By Jose de santiago Referred To Contact Diagnoses 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) LUNG CANCER Procedures MI THORACOSCOPY SURGICAL WITH LOBECTOMY MI THORACOSCOPY W DX WEDGE RESECTION F/B ANATOMIC LUNG RESECTION MI BRONCHOSCOPY RIGID/FLEXIBLE INCL FLUORO W/THERAPY ASPIRATION INITIAL MI REMOVAL OF LUNG OTHER THAN PNEUMONECTOMY SINGLE LOBE MI BRONCHOSCOPY INCL FLUROSCOPIC GUIDANCE W PLCMNT FIDUCIAL MARKER SGL/MULT Da Stephanie completion left lower lobectomy Da Stephanie completion left lower lobectomy Da Stephanie completion left lower lobectomy Da Stephanie completion left lower lobectomy Da Stephanie completion left lower lobectomy Latonya Lovett MD [address] [address] Phone: tel: fax: Referral ID Status Reason Start Date Expiration Date Visits Re quested Visits Authorized [id number] 10/05/2024 1 1 Encounter Details Date Type Department Care Team (Late st Contact Info) Description 10/13/2024 10:50 AM EST Anesthesia Event [facility] Main OR [address] [place] [id number] Deshawn Cabrera MD [address] [place] [address] Jez Maxwell CRNA Anesthesia Record Procedure Summary Procedure Name Responsible Anesthesiologist Anesthesia Start Time Anesthesia Stop Time Da Stephanie completion left lower lobectomy (Left: Chest) Deshawn Cabrera MD 10/13/24 1050 10/13/24 1416 Events Date Time Event Comment 10/13/2024 1050 An Start 1050 In Room 1053 An Start Data The patient wa s reevaluated immediately before moderate or deep sedation use and before anesthesia induction. 1101 An Induction 1109 An Intubation 1123 Anesthesia Ready 1125 Jef ABP incorrectly elevated dt moving position form supine to right lateral and transducer not immediately staying properly positioned. 1134 An one lung vent 1145 Proc Start 1149 Jef ABP inaccurate dt adjusting transducer and re-zeroing arterial line 1340 An Two-Lung Vent 1358 Proc Fin 1404 An Extubation 1405 an stop data 1409 Out of Room 1414 Handoff to RN I completed my handoff to the receiving nurse during which we: 1. Identified the patient 2. Identified the responsible provider 3. Reviewed the pertinent medical history 4. Discussed the surgical course 5. Reviewed intra-op anesthesia management and issues during anesthesia 6. Set expectations for post-procedure period 7. Allowed opportunity for questions and acknowledgement of understanding. 1416 An Stop Meds Name Total midazolam 1 mg/mL 2 mg fentaNYL (SUBLIMAZE) injection 200 mcg propofol (DIPRIVAN) injection 10 mg/mL 1 30 mg rocuronium 100 mg ondansetron 2 mg/mL 4 mg dexamethasone (DECADRON) injection 4 mg/ mL 8 mg lidocaine PF (XYLOCAINE-MPF) local injec tion 2% 100 mg ceFAZolin (ANCEF) IV syringe 2 g/20 mL 2 g HYDROmorphone (DILAUDID) injection 2 mg/ mL 2 mg ketamine (KETALAR) injection 10 mg/mL 50 mg propofoL (DIPRIVAN) infusion 10 mg/mL 17 3.48 mg sugammadex (BRIDION) injection 100 mg/mL 200 mg lactated Ringer's infusion 1,400 mL * Agents Name O2 N2O Air Sevoflurane Inspired Sevoflurane * Blood No blood administrations on file. Lines, Drains, and Airways Type Details Placement Removal Wound Incision; N; Abdomen ; Left, Upper; Trocar incision - sutured 09/30/24 1021 by Wound Incision; N; Yes; Flank; Left, Upper; Chest tube port 09/30/24 1022 by Wound Incision; N; Yes; Flank; Left, Upper; Trocar incision - sutured 09/30/24 1022 by Wound Incision; N; Yes; Ba ck; Lateral, Left; Trocar incision - sutured 09/30/24 1023 by Wound Incision; N; Yes; Ba ck; Left; Trocar incision - sutured 09/30/24 1023 by Arterial Line Placement Date: 09/30/24; Placement Time: 0745 (created via procedure documentation); Removal Date: 10/13/24 (line from previous admission. nt present upon admit to pacu); Removal Time: 1428 09/30/24 0745 by Jez Maxwell CRNA 10/13/24 1428 by Jada Hall RN Chest Tube Placement Date: 10/13/24; Inserted by: Jadiel BURTON; Tube Number: 1; Orientation: Left; Location: Midaxillary; Size: 28 Fr; Drainage System: Lulu/nonsuction water seal drainage; Removal Date: 10/15/24; Removal Time: 0930; Removal Reason: Other (Comment) (removed by provider) 10/13/24 0000 by Veronica Shelley RN 10/15/24 0930 by Sagrario Kwok RN Peripheral IV Placement Date: 10/13/24; Placement Time: 1037; Catheter Size: 20 G; Orientation: Posterior, Right; Location: Hand; Site Prep: Chlorhexidine; Local Anesth: None; Inserted by: ABI RODRIGUEZ RN; Insertion Attempts: 1; Patient Tolerance: Tolerated well; Removal Date: 10/15/24; Removal Time: 1154 (Removed for discharge) 10/13/24 1037 by Abi Mccullough RN 10/15/24 1154 by Sagrario Kwok RN Arterial Line Placement Date: 10/13/24; Placement Time: 1110 (created via procedure documentation); Removal Date: 10/13/24; Removal Time: 1513; Removal Reason: Per order 10/13/24 1110 by Jez Maxwell CRNA 10/13/24 1513 by Jada Hall RN Urethral Catheter Placement Date: 10/13/24; Placement Time: 1130; Inserted by: Samir Shelley RN; Type: Non-latex; Size: 16 Fr.; Balloon Size: 10 mL; Urine Returned: Yes; Removal Date: 10/14/24; Removal Time: 0700; Removal Reason: Per order 10/13/24 1130 by Veronica Shelley RN 10/14/24 0700 by Lexy Don RN ETT Placement Date: 10/13/24; Placement Time: 1234 (created via procedure documentation); Mask Ventilation: 1; Technique: Direct laryngoscopy; Type: ETT - double lumen left; Cuffed: Yes; Blade Size: 3; Location: Oral; Insertion Attempts: 1; Placement Verification: Auscultation, Capnometry; Removal Date: 10/13/24; Removal Time: 1404 10/13/24 1234 by Jez Maxwell CRNA 10/13/24 1404 by Jez Maxwell CRNA documented in this encounter Social History Tobacco Use Types Packs/Day Years Used Date Smoking Tobacco: Former Cigarettes Q uit: 2007 Smokeless Tobacco: Former Alcohol Use Standard Drinks/Week Comments Not Currently 0 (1 standard drink = 0.6 oz pur e alcohol) Interpersonal Safety Answer Date Record ed Physical Abuse 10/13/2024 Verbal Abuse 10/13/2024 Comments No Sex and Gender Information Value Date Recorded Sex Assigned at Female 08/17/2024 12:48 PM EST Legal Sex Female 3:40 PM EST Gender Identity Female 08/17/2024 12:48 PM EST Sexual Orientation Straight 09/30/2024 5: 49 AM EST documented as of this encounter Progress Notes * Deshawn Cabrera MD - 10/14/2024 7:23 AM EST Patient: Mague Rosario Procedure Summary Date: 10/13/24 Room / Location: [facility] OR ROBOT 02 / [facility] OR Anesthesia Start: 1050 Anesthesia Stop: 1415 Procedure: Da Stephanie completion left lower lobectomy (Left: Chest) Diagnosis: 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) (LUNG CANCER) Surgeons: Latonya Lovett MD Responsible Provider: Deshawn Cabrera MD Anesthesia Type: general ASA Status: 3 Anesthesia Plan: general Last Vitals: Vitals Value Taken Time BP 146/69 10/14/24404 Temp 36.3 ??C (97.3 ??F) 10/14/24404 Pulse 73 10/14/24404 Resp 16 10/14/24404 SpO2 98 % 10/14/24404 Pain Score: 3 Anesthesia Post Evaluation Patient location during evaluation: PACU Patient participation: complete - patient participated Level of consciousness: awake Pain management: adequate Airway patency: patent Anesthetic complications: no Cardiovascular status: acceptable Respiratory status: acceptable Hydration status: acceptable Comments: Patient seen and evaluated prior to discharge from PACU. Note may have been written at a later time due to clinical necessity. Nausea: No Vomiting: No No notable events documented. * Jez Maxwell CRNA - 10/13/2024 12:51 PM ESTAssociated Order(s): Arterial Line Arterial Line Performed by: Jez Maxwell CRNA Authorized by: Deshawn Cabrera MD Consent: Verbal consent obtained. Written consent obtained. Consent given by: patient Patient understanding: patient states understanding of the procedure being performed Patient consent: the patient's understanding of the procedure matches consent given Procedure consent: procedure consent matches procedure scheduled Relevant documents: relevant documents present and verified Test results: test results available and properly labeled Site marked: the operative site was marked Required items: required blood products, implants, devices, and special equipment available Patient identity confirmed: verbally with patient, arm band, provided demographic data, hospital-assigned identification number and anonymous protocol, patient vented/unresponsive Time out: Immediately prior to procedure a time out was called to verify the correct patient, procedure, equipment, account support manager and site/side marked as required. Preparation: Patient was prepped and draped in the usual sterile fashion. Indications: hemodynamic monitoring Location: left radial Anesthesia method: general anesthesia. Toni's test normal: yes Needle gauge: 22 Seldinger technique: Seldinger technique used Number of attempts: 2 (ALEXANDRA then ) Post-procedure: dressing applied Post-procedure CMS: normal Start Time: 10/13/2024 11:10 AMStop Time: 10/13/2024 11:27 AM * Jez Maxwell CRNA - 10/13/2024 12:31 PM ESTAssociated Order(s): Intubation General Information and Staff Patient location during procedure: OR Resident/HEALTH PLAN SPECIALIST: DANA Cronin Performed by: Jez Maxwell CRNA Authorized by: Deshawn Cabrera MD Intubation Airway not difficult Urgency: elective Final Airway Details Successful airway: ETT - double lumen left Cuffed: yes Successful intubation technique: direct laryngoscopy Facilitating devices/methods: intubating stylet Endotracheal tube insertion site: oral Blade: Shakir Blade size: #3 ETT DL size (fr): 37 Cormack-Lehane Classification: grade I - full view of glottis Placement verified by: chest auscultation and capnometry Number of attempts at approach: 1 Number of other approaches attempted: 0Final airway type: endotracheal airway Indications and Patient Condition Indications for airway management: anesthesia Spontaneous Ventilation: absent Sedation level: Yes Preoxygenated: yes Soft Tissue Damage: No Dentition Unchanged: Yes Patient position: sniffing MILS maintained throughout Mask difficulty assessment: 1 - vent by mask * Jez Maxwell CRNA - 10/13/2024 10:20 AM EST 74 y.o. female scheduled for 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) [Da Stephanie completion left lower lobectomy (Left: Chest)] Ht Readings from Last 1 Encounters: 10/05/24 1.626 m (64 ) Wt Readings from Last 1 Encounters: 10/05/24 77.1 kg (170 lb) Body mass index is 29.18 kg/m??. Past Medical History: Diagnosis Date Abdominal lump 08/08/2022 DX:Abdominal lump BPV (benign positional vertigo) 08/08/2022 DX:BPV (benign positional vertigo) Cataract 08/08/2022 DX:Cataract COPD (chronic obstructive pulmonary disease) ([facility]) 08/08/2022 DX:COPD (chronic obstructive pulmonary disease) ([facility]) COPD exacerbation ([facility]) 08/08/2022 DX:COPD exacerbation ([facility]) Depression 08/08/2022 DX:Depression Diverticulosis Joint pain Knee osteoarthritis 08/08/2022 DX:Knee osteoarthritis Meckel's diverticulum 08/08/2022 DX:Meckel's diverticulum Mixed hyperlipidemia 08/08/2022 DX:Mixed hyperlipidemia Personal history of nicotine dependence 08/08/2022 DX:Personal history of nicotine dependence Pneumonia 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 ([facility]) 08/08/2022 DX: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 ([facility]) Screening for colon cancer 08/08/2022 DX:Screening for colon cancer Screening for diabetes mellitus 08/08/2022 DX:Screening for diabetes mellitus Shortness of breath Past Surgical History: Procedure Laterality Date CATARACT EXTRACTION PROCEDURE: HISTORICAL CATARACT REMOVAL COLONOSCOPY PROCEDURE: HISTORICAL COLONOSCOPY LUNG REMOVAL, PARTIAL OTHER SURGICAL HISTORY Right 2017 PROCEDURE: MI THORACOSCOPY W/LOBECTOMY SINGLE LOBE; COMMENT: RML SHOULDER SURGERY 2017 PROCEDURE: HISTORICAL SHOULDER SURGERY TONSILLECTOMY PROCEDURE: HISTORICAL TONSILLECTOMY Anesthesia complications Denies No Known Allergies Prior to Admission medications Medication Sig Start Date End Date Taking? Authorizing Provider acetaminophen (Tylenol Arthritis Pain) 650 mg 8 hr tablet Take 1 tablet (650 mg total) by mouth 2 (two) times a day. Do not crush, chew, or split. Yes Historical Provider, albuterol sulfate (ProAir RespiClick) 90 mcg/actuation aerosol powdr breath activated Inhale 2 Puffs into the lungs. Every 4-6 hours, as needed Yes Historical Provider, Anoro Ellipta 62.5-25 mcg/actuation inhaler Inhale 1 puff by mouth 1 (one) time each day. 10/07/23 Yes Historical Provider, oxyCODONE (ROXICODONE) 5 mg immediate release tablet Take 1 tablet (5 mg total) by mouth every 4 (four) hours if needed (take 1- 5mg tablet for moderate pain (4-6) or take 2 - 5mg tablets for severe pain (7-10)). Max Daily Amount: 30 mg 10/07/24 Yes MICHEAL Ronquillo simvastatin (ZOCOR) 5 mg tablet Take 1 Tablet by mouth at bedtime. Yes Historical Provider, multivitamin (Multiple Vitamins) tablet Take 1 tablet by mouth 1 (one) time each day. Historical Provider, VITAMIN C, ASCORBATE CALCIUM, ORAL Take 500 mg by mouth daily. Historical Provider, oxyCODONE (ROXICODONE) 5 mg immediate release tablet Take 1 tablet (5 mg total) by mouth every 4 (four) hours if needed (take 1- 5mg tablet for moderate pain (4-6) or take 2 - 5mg tablets for severe pain (7-10)). Max Daily Amount: 30 mg 10/01/24 10/07/24 Allyn Hanks NP I have personally reviewed all the patient's medications with them prior to anesthesia. Current In-hospital Medications acetaminophen, 1,000 mg, oral, Once ceFAZolin, 2 g, intravenous, Once sodium chloride, 10 mL, intravenous, BID PRN medications: Insert peripheral IV AND Maintain IV access AND Saline lock IV AND sodium chloride AND sodium chloride Social History Tobacco Use Smoking status: Former Current packs/day: 0.00 Types: Cigarettes Quit date: 2007 Years since quittin. Smokeless tobacco: Former Vaping Use Vaping status: Former Substance Use Topics Alcohol use: Not Currently Drug use: Not Currently Is the patient a current smoker (e.g. cigarette, cigar, pip, e-cigarette, or mariajuana)? Yes [] No[x] Patient previously instructed to abstain from smoking on the day of procedure? Yes [] No[] Patient smoked on the day of procedure? Yes [] No[] ASPIRE smoking VBR: [] Not interested in quitting [] Interested in quitting- referred to treatment [] Interested in quitting - treatment provided Visit Vitals BP (!) 164/77 Pulse 78 Temp 36.8 ??C (98.2 ??F) Resp 16 Ht 1.626 m (64 ) Wt 77.1 kg (170 lb) SpO2 100% BMI 29.18 kg/m?? Smoking Status Former BSA 1.83 m?? LABS: Lab Results Component Value Date WBC 9.0 10/01/2024 HGB 10.8 (L) 10/01/2024 HCT 34.7 (L) 10/01/2024 MCV 99.1 (H) 10/01/2024 PLT 208 10/01/2024 Lab Results Component Value Date GLUCOSE 169 (H) 10/01/2024 CALCIUM 8.1 (L) 10/01/2024 NA 138 10/01/2024 K 4.2 10/01/2024 CO2 27 10/01/2024 CL 104 10/01/2024 BUN 19 10/01/2024 CREATININE 0.76 10/01/2024 Lab Results Component Value Date INR 0.8 09/22/2024 No results found for: PTT Relevant Problems Cardio (+) Murmur Pulmonary (+) COPD (chronic obstructive pulmonary disease) (CMS/HCC) (+) COPD exacerbation (CMS/HCC) Other (+) 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) Clinical information reviewed: Tobacco Allergies Meds Med Hx Surg Hx OB Status Fam Hx Soc Hx Anesthesia Plan ASA 3 Anesthesia Plan: general General Anesthesia Considerations: ETT Anesthesia Considerations general ETT Anesthesia Risks Discussed dental injury, nausea, pain, sore throat, corneal abrasion, allergic reaction and serious complications Monitoring Considerations arterial line Induction method: intravenous Postoperative administration of opioids is intended. Anesthetic plan and risks discussed with patient. Use of blood products discussed with patient who. Anesthesia Plan discussed with HEALTH PLAN SPECIALIST. Anesthesia Evaluation Airway Mallampati: II Thyromental distance: >3 FB Neck ROM: fullnot intubatedno noted risk Dental (+) upper dentures Comment: Poor dentition, 5 total teeth lower middle mouth Pulmonary breath sounds clear to auscultation (+) pneumonia, COPD, shortness of breath ROS comment: Lung cancer lower left lobe Cardiovascular Rhythm: regular Rate: normal ROS comment: HLD Neuro/Psych Mental Status: alert and oriented GI/Hepatic/Renal Endo/Other Abdominal Abdomen: soft. Bowel sounds: normal. PONV RISK SCORE: 3 Vitals: 10/05/24 1100 10/13/24 0958 BP: (!) 164/77 Pulse: 78 Resp: 16 Temp: 36.8 ??C (98.2 ??F) SpO2: 100% Weight: 77.1 kg (170 lb) Height: 1.626 m (64 ) SpO2 Readings from Last 1 Encounters: 10/13/24 100% WBC Date Value Ref Range Status 10/01/2024 9.0 4.8 - 10.8 K/mcL Final RBC Date Value Ref Range Status 10/01/2024 3.50 (L) 3.80 - 4.80 M/mcL Final Hemoglobin Date Value Ref Range Status 10/01/2024 10.8 (L) 11.5 - 16.0 g/dL Final Hematocrit Date Value Ref Range Status 10/01/2024 34.7 (L) 35.0 - 47.0 % Final Platelets Date Value Ref Range Status 10/01/2024 208 130 - 400 K/mcL Final MCV Date Value Ref Range Status 10/01/2024 99.1 (H) 79.0 - 98.0 FL Final No Known Allergies STOP BANG: No data recorded NPO Status: Time of Last Liquid: 1999 Time of Last Solid: 1999 documented in this encounter Plan of Treatment Upcoming Encounters Date Type Department Care Team (Late st Contact Info) Description 04/28/2025 3:30 PM EDT Appointment [facility] CT Scan [address] [place] [address] documented as of this encounter Procedures Procedure Name Priority Date/Time Associated Diagnosis Comments TH AN ARTERIAL LINE (CHARGE) Routine 10/13/2024 12:51 PM EST TH AN ENDOTRACHEAL(NO CHARGE) Routine 10/13/2024 12:31 PM EST documented in this encounter Results * TH AN ARTERIAL LINE (CHARGE) (10/13/2024 12:51 PM EST) Jez Arceo CRNA - 10/13/2024 12:51 PM EST Jez Maxwell CRNA ? 10/13/2024 12:57 PM Arterial Line Performed by: Jez Maxwell CRNA Authorized by: Deshawn Cabrera MD ??Consent: Verbal consent obtained. Written consent obtained. Consent given by: patient Patient understanding: patient states understanding of the procedure being performed Patient consent: the patient's understanding of the procedure matches consent given Procedure consent: procedure consent matches procedure scheduled Relevant documents: relevant documents present and verified Test results: test results available and properly labeled Site marked: the operative site was marked Required items: required blood products, implants, devices, and special equipment available Patient identity confirmed: verbally with patient, arm band, provided demographic data, hospital-assigned identification number and anonymous protocol, patient vented/unresponsive Time out: Immediately prior to procedure a time out was called to verify the correct patient, procedure, equipment, account support manager and site/side marked as required. Preparation: Patient was prepped and draped in the usual sterile fashion. Indications: hemodynamic monitoring Location: left radial Anesthesia method: general anesthesia. Toni's test normal: yes Needle gauge: 22 Seldinger technique: Seldinger technique used Number of attempts: 2 (HEALTH PLAN SPECIALIST then MD) Post-procedure: dressing applied Post-procedure CMS: normal Start Time: 10/13/2024 11:10 AMStop Time: 10/13/2024 11:27 AM us Deshawn Cabrera MD ANESTHESIA ORDERABLES Edited R esult - Final * TH AN ENDOTRACHEAL(NO CHARGE) (10/13/2024 12:31 PM EST) Jez Arceo CRNA - 10/13/2024 12:31 PM EST Jez Maxwell CRNA ? 10/13/2024 12:34 PM General Information and Staff Patient location during procedure: OR Resident/HEALTH PLAN SPECIALIST: DANA Cronin Performed by: Jez Maxwell CRNA Authorized by: Deshawn Cabrera MD ?? Intubation Airway not difficult Urgency: elective Final Airway Details Successful airway: ETT - double lumen left Cuffed: yes Successful intubation technique: direct laryngoscopy Facilitating devices/methods: intubating stylet Endotracheal tube insertion site: oral Blade: Shakir Blade size: #3 ETT DL size (fr): 37 Cormack-Lehane Classification: grade I - full view of glottis Placement verified by: chest auscultation and capnometry Number of attempts at approach: 1 Number of other approaches attempted: 0Final airway type: endotracheal airway Indications and Patient Condition Indications for airway management: anesthesia Spontaneous Ventilation: absent Sedation level: Yes Preoxygenated: yes Soft Tissue Damage: No Dentition Unchanged: Yes Patient position: sniffing MILS maintained throughout Mask difficulty assessment: 1 - vent by mask us Deshawn Cabrera MD ANESTHESIA ORDERABLES Final Re sult documented in this encounter Visit Diagnoses Not on filedocumented in this encounter Administered Medications Inactive Administered Medications - up to 3 most recent administrations Medication Order MAR Action Action Date Dose Rate Site ceFAZolin (ANCEF) 2 gram/20 mL IV syringe intravenous, Administer over 3 Minutes, As needed, Starting on Fri10/13/24 at 1114, Anesthesia Intraprocedure Given 10/13/2024 11:14 AM EST 2 g dexAMETHasone (DECADRON) injection intravenous, As needed, Starting on Fri10/13/24 at 1130, Anesthesia Intraprocedure Given 10/13/2024 11:30 AM EST 8 mg fentaNYL (PF) (SUBLIMAZE) injection intravenous, As needed, Starting on Fri10/13/24 at 1150, Anesthesia Intraprocedure Given 10/13/2024 11:50 AM EST 100 mcg Given 10/13/2024 11:01 AM EST 100 mcg HYDROmorphone (DILAUDID) injection intravenous, As needed, Starting on Fri10/13/24 at 1212, Anesthesia Intraprocedure Given 10/13/2024 1:32 PM EST 0. 5 mg Given 10/13/2024 1:03 PM EST 0.5 mg Given 10/13/2024 12:12 PM EST 1 mg ketamine (KETALAR) injection intravenous, As needed, Starting on Fri10/13/24 at 1335, Anesthesia Intraprocedure Given 10/13/2024 1:42 PM EST 25 mg Given 10/13/2024 1:35 PM EST 25 mg lactated Ringer's infusion intravenous, Continuous PRN, Starting on Fri10/13/24 at 1050, Anesthesia Intraprocedure New Bag 10/13/2024 10:50 AM EST lidocaine (PF) (XYLOCAINE-MPF) 2 % injection injection, As needed, Starting on Fri10/13/24 at 1101, Anesthesia Intraprocedure Given 10/13/2024 11:01 AM EST 100 mg midazolam (VERSED) injection intravenous, As needed, Starting on Fri10/13/24 at 1050, Anesthesia Intraprocedure Given 10/13/2024 10:50 AM EST 2 mg ondansetron (PF) (ZOFRAN) injection intravenous, As needed, Starting on Fri10/13/24 at 1345, Anesthesia Intraprocedure Given 10/13/2024 1:45 PM EST 4 mg propofoL (DIPRIVAN) infusion 10 mg/mL intravenous, Continuous PRN, Starting on Fri10/13/24 at 1341, Anesthesia Intraprocedure Rate/Dose Change 10/13/2024 1:48 PM EST 200 mcg/kg/min 92.52 mL/hr New Bag 10/13/2024 1:41 PM EST 150 mcg/kg/min 69.39 mL/ hr propofoL (DIPRIVAN) injection intravenous, As needed, Starting on Fri10/13/24 at 1101, Anesthesia Intraprocedure Given 10/13/2024 11:01 AM EST 1 30 mg rocuronium (ZEMURON) injection intravenous, As needed, Starting on Fri10/13/24 at 1101, Anesthesia Intraprocedure Given 10/13/2024 12:29 PM EST 3 0 mg Given 10/13/2024 11:01 AM EST 70 mg sugammadex (BRIDION) 100 mg/mL injection intravenous, As needed, Starting on Fri10/13/24 at 1354, Anesthesia Intraprocedure Given 10/13/2024 1:54 PM EST 20 0 mg documented in this encounter Care Teams Paralegal Specialist Relationship Specialty Start Date End Date Marlen Pereira MD [address] [place] [address] Physician Associ D/B/A: [facility] DEONTE Basilio PCP - General Internal Medicine 08/17/24 documented as of this encounter
--- OUTSIDE RECORDS SUMMARY | 2024-11-05 10:28 | XMS_ITS | Encounter Summary ---
Author Organization [facility] Address [address] [place] [address] Care Team Providers Care Grinder And Plater Name Role Phone Marlen Pereira MD Primary Care Provider [phone] Reason for Visit * Auth/Cert (Routine) Specialty Diagnoses / Procedures Referred By Jose de santiago Referred To Contact Diagnoses 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) LUNG CANCER Procedures ND THORACOSCOPY SURGICAL WITH LOBECTOMY ND THORACOSCOPY W DX WEDGE RESECTION F/B ANATOMIC LUNG RESECTION ND BRONCHOSCOPY RIGID/FLEXIBLE INCL FLUORO W/THERAPY ASPIRATION INITIAL ND REMOVAL OF LUNG OTHER THAN PNEUMONECTOMY SINGLE LOBE ND BRONCHOSCOPY INCL FLUROSCOPIC GUIDANCE W PLCMNT FIDUCIAL MARKER SGL/MULT Da Stephanie completion left lower lobectomy Da Stephanie completion left lower lobectomy Da Stephanie completion left lower lobectomy Da Stephanie completion left lower lobectomy Da Stephanie completion left lower lobectomy Latonya Lovett MD [address] [address] Phone: tel: fax: Referral ID Status Reason Start Date Expiration Date Visits Re quested Visits Authorized [id number] 10/05/2024 1 1 Encounter Details Date Type Department Care Team (Latest Contact Info) Description 10/13/2024 9:44 AM EST - 10/15/2024 12:30 PM EST Hospital Encounter [facility] Intermediate Care Unit [address] [place] [id number] Latonya Lovett MD [address] [address] Siobhan Resendiz MD [address] [place] [address] History of lung cancer (Primary Dx); 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); Neoplasm Discharge Disposition: Home or Self Care Social History Tobacco Use Types Packs/Day Years [...] AM EST documented as of this encounter Last Filed Vital Signs Vital Sign Reading Time Taken Comments Blood Pressure 141/62 10/15/2024 8:57 AM EST Pulse 87 10/15/2024 8:57 AM EST Temperature 36.8 ??C (98.2 ??F) 10/15/2024 8:57 AM ES T Respiratory Rate 16 10/15/2024 8:57 AM EST Oxygen Saturation 98% 10/15/2024 10:23 AM EST Inhaled Oxygen Concentration - - Weight 77.1 kg (170 lb) 10/13/2024 10:28 AM EST Height 162.6 cm (5' 4 ) 10/13/2024 10:28 AM EST Body Mass Index 29.18 10/13/2024 10:28 AM EST documented in this encounter Discharge Summaries * Allyn Hanks NP - 10/15/2024 11:03 AM EST Images from the original note were not included. Thoracic Surgery Discharge Summary Name: Mague Rosario : 1950 Date of Admission: 10/13/2024 Date of Discharge: 10/15/24 Discharge Condition: Good Discharge Disposition: Home, self care Discharge Diagnoses 1. 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) 2. Neoplasm Procedures Robotic completion left lower lobectomy, pneumonolysis, and mediastinal lymphadenectomy. Hospital Course 74-year-old woman who went to the operating room 2 weeks ago for navigational bronchoscopy dye marking wedge resection possible lobectomy. On frozen section at that time there was no cancer found however on final pathology the specimen contained a lipidic type lung cancer close to the margin at least. For that reason she was discussed with her completion lobectomy. The patient understood the risks benefits and alternatives of the proposed operation and agreed to proceed. The patient was taken to the operating room electively on October 13, 2024 at which point she had a robotic completion leftlower lobectomy, pneumonolysis, and mediastinal lymphadenectomy. Postoperatively she was extubated and sent to the PACU in stable condition. From PACU she was transferred to [facility] for further care on telemetry. On POD #2 chest tube output was 150cc serosanguious fluid in 24 hour period with no detectable air leak with talking, forceful exhalation, or deep cough. Chest xray revealed a stable minimalleft pneumothorax. The decision was made to remove the chest tube at this time. She continued to have steady gait with no complaints of dizziness and pain remained well-controlled with no concerning signs or symptoms such as new or worsening shortness of breath, hemoptysis, fever, or chills. Discharged home to self-care and follow up appointment in two weeks in office. [place] [employer]CHNICIAN was checked prior to discharging patient with opioids. Physical exam on discharge Visit Vitals BP (!) 141/62 (BP Location: Left arm, Patient Position: Lying) Pulse 87 Temp 36.8 ??C (98.2 ??F) (Temporal) Resp 16 Ht 1.626 m (64 ) Wt 77.1 kg (170 lb) SpO2 98% BMI 29.18 kg/m?? OB Status Postmenopausal Smoking Status Former BSA 1.83 m?? Physical Exam Constitutional: Appearance: Normal appearance. HENT: Head: Normocephalic and atraumatic. Eyes: General: No scleral icterus. Cardiovascular: Rate and Rhythm: Normal rate and regular rhythm. Pulmonary: Effort: Pulmonary effort is normal. No respiratory distress. Breath sounds: Normal breath sounds. Chest: Comments: Left sided chest wall incisions appear to be healing well. No new nodularity. Incision line clean, dry and intact; no signs of erythema, induration or drainage. Occlusive dressing in place over chest tube insertion site. Abdominal: General: Bowel sounds are normal. Palpations: Abdomen is soft. Musculoskeletal: General: Normal range of motion. Cervical back: Normal range of motion. Skin: General: Skin is warm and dry. Neurological: General: No focal deficit present. Mental Status: She is alert and oriented to person, place, and time. Psychiatric: Mood and Affect: Mood normal. Behavior: Behavior normal. Labs Lab Results Component Value Date WBC 11.3 (H) 10/15/2024 HGB 10.9 (L) 10/15/2024 HCT 35.5 10/15/2024 PLT 300 10/15/2024 Lab Results Component Value Date NA 138 10/15/2024 K 5.3 10/15/2024 CL 103 10/15/2024 CO2 33 (H) 10/15/2024 ANIONGAP 2 (L) 10/15/2024 BUN 18 10/15/2024 CREATININE 0.67 10/15/2024 GLUCOSE 105 (H) 10/15/2024 EGFR 92 10/15/2024 CALCIUM 9.0 10/15/2024 Lab Results Component Value Date PT 11.6 10/13/2024 INR 0.9 10/13/2024 APTT 31.7 10/13/2024 Microbiology No results found for this or any previous visit (from the past 168 hour(s)). No results found for: CULTURE Radiology 10/15/24 XR Chest 1 View Narrative: XR CHEST 1 VIEW INDICATION: Left lower lobectomy, cough TECHNIQUE: XR CHEST 1 VIEW COMPARISON: 10/14/2024 Impression: FINDINGS/IMPRESSION: Left chest tube remains in place. New small left apical pneumothorax measuring 5 mm in craniocaudal dimension. Left basilar opacity, unchanged, likely atelectasis/scarring. Right lung is relatively clear. Cardiac silhouette and bones are stable compared to prior. -------- FINAL REPORT -------- Dictated By: JACKSON WELSH Dictated Date: 10/15/2024 08:24 ET Assigned Physician: JACKSON WELSH Reviewed and Electronically Signed By: JACKSON WELSH Signed Date: 10/15/2024 08:25 ET Workstation ID: [id number] Transcribed By: Self Edit Transcribed Date: 10/15/2024 08:24 ET Test Results Pending on Discharge Pending Labs Order Current Status Tissue exam In process Discharge Medication List Your medication list START taking these medications Instructions Last Dose Given Next Dose Due oxyCODONE 5 mg immediate release capsule Commonly known as: OXY-IR Replaces: oxyCODONE 5 mg immediate release tablet Take 1 capsule (5 mg total) by mouth every 6 (six) hours if needed for severe pain (take 1 tablet for moderate pain (4-6) or take 2 tablets for severe pain (7-10)). Max Daily Amount: 20 mg CONTINUE taking these medications Instructions Last Dose Given Next Dose Due Anoro Ellipta 62.5-25 mcg/actuation inhaler Generic drug: umeclidinium-vilanteroL Inhale 1 puff by mouth 1 (one) time each day. Multiple Vitamins tablet Generic drug: multivitamin Take 1 tablet by mouth 1 (one) time each day. ProAir RespiClick 90 mcg/actuation aerosol powdr breath activated Generic drug: albuterol sulfate Inhale 2 Puffs into the lungs. Every 4-6 hours, as needed simvastatin 5 mg tablet Commonly known as: ZOCOR Take 1 Tablet by mouth at bedtime. Tylenol Arthritis Pain 650 mg 8 hr tablet Generic drug: acetaminophen Take 1 tablet (650 mg total) by mouth 2 (two) times a day. Do not crush, chew, or split. VITAMIN C (ASCORBATE CALCIUM) ORAL Take 500 mg by mouth daily. STOP taking these medications oxyCODONE 5 mg immediate release tablet Commonly known as: ROXICODONE Replaced by: oxyCODONE 5 mg immediate release capsule Where to Get Your Medications [id number] [place] [address] AT [address] [address] oxyCODONE 5 mg immediate release capsule Upcoming Outpatient Appointments Future Appointments Date Time Provider Department Center 10/27/2024 11:15 AM [facility] [address] Discharge Instructions Patient should contact a provider if they experience ACTIVITY You should be out of bed and walking at least 3x per day. The more the better! No lifting anything heavier than 10lb x 2 weeks (ie, gallon of milk). INCISION CARE Leave the dressing where the chest tube was removed ON AND UNTOUCHED for 2 days. Remove the dressing completely on Friday10/17/24 @ 9am. DO NOT REMOVE this dressing before this date. If there is any drainage, simply place additional gauze OVER the dressing that is already in place. Once the dressing is removed you may leave this area open to air and you may shower. Sponge bathe only until dressing is removed. Keep all incisions clean and dry. Gently wash incisions with soap and water. No scrubbing the areas. No submerging your incisions under water (tub baths, swimming, etc.) for the next 2-3 weeks. MEDICATION Home medications You may resume all home medications. Pain management Tylenol 1000mg every 8 hours, plus Ibuprofen or Aleve (as directed on medication box) Recommend you alternate these medications every 3-4 hours to keep a continuous steady state of paincontrol You can use OTC lidocaine patches (such as Salon Pas) for pain also. Just be sure to not place themover any incisions. You can also apply heat and/or cool compresses to the painful areas. If you need additional medication for pain you can take the Oxycodone that was prescribed on discharge and should be available at your pharmacy. Stool softeners If you are taking narcotic pain medication be sure to take stool softeners/laxatives to prevent severe constipation. Suggestions: Colace 100mg twice a day Senna once a day Miralax once a day New medications Oxycodone 5mg immediate release capsule. RESPIRATORY CARE You should continue to use your incentive spirometer and flutter valve at home. WHAT TO CALL US FOR: Incisions have increased redness, swelling, open areas, or drainage. Fever >101, chills, significant shortness of breath, chest pain, severe abdominal pain, worsening abdominal distention, severe nausea, vomiting, severe changes in bowel or bladder habits. SMOKING CESSATION: Smoking is hazardous to your health and those around you. Continuing to smoke or use tobacco products can increase your chance of postoperative complications, including delayed wound healing, wound infection, stroke, and heart attack. If you currently use tobacco products (cigarettes, dip, cigars, electronic/vapor cigarettes, etc) talk with your provider about options that are available to help you quit. You can call the [facility] Smokers' Helpline at 4-028-QUIT NOW ( ). For Kh[place], call 4-228-9-MACHELLE ( ). You can also visit the website at www.Testt.KargoCard. FOLLOW UP APPOINTMENTS: You have an appointment with Mitch Elizondo PA-C at the Thoracic Surgery office on 10/27/24 @ 11 am for a postop follow up. Please Arrive 30 minutes prior to your appointment to have a chest xray done at [facility] Radiology (1st floor, [facility]). Go to Patient Registration to check in for the xray. [facility] Thoracic Surgery office [address] [place] [phone] Call your PCP to make sure you have a post-hospital follow up visit scheduled in the next 1-2 weeks. [facility] Thoracic Surgery [address] [place] [address], [address] [phone] Allyn Hanks NP [facility] Thoracic Surgery [address] [place] [address], [address] [phone] * Allyn Hanks NP - 10/15/2024 11:02 AM EST ACTIVITY You should be out of bed and walking at least 3x per day. The more the better! No lifting anything heavier than 10lb x 2 weeks (ie, gallon of milk). INCISION CARE Leave the dressing where the chest tube was removed ON AND UNTOUCHED for 2 days. Remove the dressing completely on Friday10/17/24 @ 9am. DO NOT REMOVE this dressing before this date. If there is any drainage, simply place additional gauze OVER the dressing that is already in place. Once the dressing is removed you may leave this area open to air and you may shower. Sponge bathe only until dressing is removed. Keep all incisions clean and dry. Gently wash incisions with soap and water. No scrubbing the areas. No submerging your incisions under water (tub baths, swimming, etc.) for the next 2-3 weeks. MEDICATION Home medications You may resume all home medications. Pain management Tylenol 1000mg every 8 hours, plus Ibuprofen or Aleve (as directed on medication box) Recommend you alternate these medications every 3-4 hours to keep a continuous steady state of paincontrol You can use OTC lidocaine patches (such as Salon Pas) for pain also. Just be sure to not place themover any incisions. You can also apply heat and/or cool compresses to the painful areas. If you need additional medication for pain you can take the Oxycodone that was prescribed on discharge and should be available at your pharmacy. Stool softeners If you are taking narcotic pain medication be sure to take stool softeners/laxatives to prevent severe constipation. Suggestions: Colace 100mg twice a day Senna once a day Miralax once a day New medications Oxycodone 5mg immediate release capsule. RESPIRATORY CARE You should continue to use your incentive spirometer and flutter valve at home. WHAT TO CALL US FOR: Incisions have increased redness, swelling, open areas, or drainage. Fever >101, chills, significant shortness of breath, chest pain, severe abdominal pain, worsening abdominal distention, severe nausea, vomiting, severe changes in bowel or bladder habits. SMOKING CESSATION: Smoking is hazardous to your health and those around you. Continuing to smoke or use tobacco products can increase your chance of postoperative complications, including delayed wound healing, wound infection, stroke, and heart attack. If you currently use tobacco products (cigarettes, dip, cigars, electronic/vapor cigarettes, etc) talk with your provider about options that are available to help you quit. You can call the [facility] Smokers' Helpline at 8-066-QUIT NOW ( ). For Khmer, call 5-617-1-MACHELLE ( ). You can also visit the website at www.Testt.org. FOLLOW UP APPOINTMENTS: You have an appointment with Mitch Elizondo PA-C at the Thoracic Surgery office on 10/27/24 @ 11 am for a postop follow up. Please Arrive 30 minutes prior to your appointment to have a chest xray done at [facility] (1st floor, [facility]). Go to Patient Registration to check in for the xray. [facility] Thoracic Surgery office [address], [address] [facility] [phone] Call your PCP to make sure you have a post-hospital follow up visit scheduled in the next 1-2 weeks. [facility] Thoracic Surgery [address], [address] [facility] [phone] documented in this encounter Medications at Time of Discharge acetaminophen (Tylenol Arthritis Pain) 650 mg 8 hr tablet Take 1 tablet (650 mg total) by mouth 2 (two) times a day. Do not crush, chew, or split. albuterol sulfate (ProAir RespiClick) 90 mcg/actuation aerosol powdr breath activated Inhale 2 Puffs into the lungs. Every 4-6 hours, as needed Anoro Ellipta 62.5-25 mcg/actuation inhaler Inhale 1 puff by mouth 1 (one) time each day. 10/07/2023 simvastatin (ZOCOR) 5 mg tablet Take 1 Tablet by mouth at bedtime. multivitamin (Multiple Vitamins) tablet Take 1 tablet by mouth 1 (one) time each day. oxyCODONE (OXY-IR) 5 mg immediate release capsule Take 1 capsule (5 mg total) by mouth every 6 (six) hours if needed for severe pain (take 1 tablet for moderate pain (4-6) or take 2 tablets for severe pain (7-10)). Max Daily Amount: 20 mg 30 capsule 10/15/2024 VITAMIN C, ASCORBATE CALCIUM, ORAL Take 500 mg by mouth daily. documented as of this encounter Ordered Prescriptions Prescription Sig Dispense Quantity Refills Last Filled Start Date End Date oxyCODONE (OXY-IR) 5 mg immediate release capsule Take 1 capsule (5 mg total) by mouth every 6 (six) hours if needed for severe pain (take 1 tablet for moderate pain (4-6) or take 2 tablets for severe pain (7-10)). Max Daily Amount: 20 mg 30 capsule 10/15/2024 documented in this encounter Discharge Disposition Disposition Code Departure Means Destination Comment s Home or Self Care Car Home documented in this encounter Progress Notes * Abi Valdez RN - 10/15/2024 4:53 PM EST 10/15/24 1653 Transportation Final Discharge Disposition Home or Self Care Per MD patient cleared for discharge to home family to provide transport * Siobhan Resendiz MD - 10/15/2024 10:54 AM EST Images from the original note were not included. [facility] PROGRESS NOTE Date: 10/15/2024 Author: Siobhan Resendiz MD Patient ID: Mague Rosario is a 74 y.o. female : 1950 MR#: [id number] SUBJECTIVE Patient seen and examined. Discussed with RN. No acute overnight issues. Was seen by thoracic surgery in the morning, chest tube has been removed at this time. Patient ambulating in the hallway with physical therapy, complains of some discomfort with movementat the chest tube insertion site overall doing better. Occasional cough present. Current Medications: acetaminophen, 1,000 mg, oral, q8h KAYCEE ascorbic acid, 500 mg, oral, Daily atorvastatin, 10 mg, oral, Nightly docusate sodium, 100 mg, oral, BID enoxaparin, 40 mg, subcutaneous, q24h KAYCEE formoterol, 20 mcg, nebulization, BID And revefenacin, 175 mcg, nebulization, Daily multivitamin, 1 tablet, oral, Daily polyetheylene glycol, 17 g, oral, Daily senna, 2 tablet, oral, Nightly sodium chloride, 10 mL, intravenous, BID PRN medications: acetaminophen, bisacodyL, bisacodyL, diphenhydrAMINE, haloperidol, HYDROmorphone, ipratropium-albuteroL, metoclopramide OR metoclopramide, ondansetron (ZOFRAN-ODT) disintegratingtablet OR ondansetron, ondansetron (PF), oxyCODONE, oxyCODONE, Insert peripheral IV AND Maintain IV access AND Saline lock IV AND sodium chloride AND sodium chloride OBJECTIVE Vitals: 10/15/24 0049 10/15/24 0358 10/15/24 0857 10/15/24 1023 BP: 132/65 (!) 149/76 (!) 141/62 BP Location: Right arm Left arm Patient Position: Lying Lying Pulse: 74 75 87 Resp: 16 18 16 Temp: 36.9 ??C (98.4 ??F) 37.2 ??C (98.9 ??F) 36.8 ??C (98.2 ??F) TempSrc: Temporal Temporal Temporal SpO2: 99% 99% 95% 98% Weight: Height: Physical Exam Elderly female not in any acute distress HEENT PERRLA, EOMI Neck supple Chest no accessory muscle use, clear mostly Heart S1-S2 regular Abdomen soft nontender bowel sounds present Extremities no edema Results from last 7 days Lab Units 10/15/24 0622 SODIUM mmol/L 138 POTASSIUM mmol/L 5.3 CHLORIDE mmol/L 103 CO2 mmol/L 33* BUN mg/dL 18 CREATININE mg/dL 0.67 GLUCOSE mg/dL 105* CALCIUM mg/dL 9.0 Results from last 7 days Lab Units 10/15/24 0622 WBC AUTO K/mcL 11.3* HEMOGLOBIN g/dL 10.9* HEMATOCRIT % 35.5 PLATELETS K/mcL 300 No results found for this or any previous visit (from the past 168 hour(s)). Imaging: XR Chest 1 View Narrative: XR CHEST 1 VIEW INDICATION: Left lower lobectomy, cough TECHNIQUE: XR CHEST 1 VIEW COMPARISON: 10/14/2024 Impression: FINDINGS/IMPRESSION: Left chest tube remains in place. New small left apical pneumothorax measuring 5 mm in craniocaudal dimension. Left basilar opacity, unchanged, likely atelectasis/scarring. Right lung is relatively clear. Cardiac silhouette and bones are stable compared to prior. 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 Left lower lobe lung cancer Status post left lower lobe lobectomy by thoracic surgery Left chest tube has been removed by thoracic today. Patient ambulating without any difficulty, pain appears reasonably controlled at this time. Encourage incentive spirometry. History of COPD No exacerbation continue to monitor for now Hyperlipidemia on statin DVT prophylaxis on Lovenox CODE STATUS is full. Disposition plan DC to home today if doing well after the chest tube removed * Jada Velasco, PT - 10/15/2024 9:40 AM EST [facility] ACUTE CARE PT EVALUATION Mague Rosario 1950 Ambulation: Walking Assistance: Supervision Device: Rolling walker Distance Ambulated (ft): 220 PLOF: Level of [place]: Independent with mobility and functional transfers Lives With: Spouse (he can take time off work. he is able to care for her physically, per pt) Receives Help From: Family Home Living Comments: ranch home with 2 steps to enter with rail. Laundry in basement but she does not have to go down DME Needs: ROlling walker PT Discharge Recommendation: Home independent Diagnosis: ICD-10-CM ICD-9-CM 1. History of lung cancer Z85.118 V10.11 Scott Chavez 2. 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) C34.32 162.5 Type and screen Type and screen Activated partial thromboplastin time Activated partial thromboplastin time Prothrombin time with INR Prothrombin time with INR CBC and differential CBC and differential Basic metabolic panel Basic metabolic panel Tissue exam Tissue exam 3. Neoplasm D49.9 239.9 Activated partial thromboplastin time Activated partial thromboplastin time Prothrombin time with INR Prothrombin time with INR Past Medical History: Diagnosis Date Abdominal lump 08/08/2022 DX:Abdominal lump BPV (benign positional vertigo) 08/08/2022 DX:BPV (benign positional vertigo) Cataract 08/08/2022 DX:Cataract COPD (chronic obstructive pulmonary disease) (CMS/HCC) 08/08/2022 DX:COPD (chronic obstructive pulmonary disease) (HCC) COPD exacerbation (CMS/HCC) 08/08/2022 DX:COPD exacerbation (HCC) Diverticulosis Joint pain Knee osteoarthritis 08/08/2022 DX:Knee osteoarthritis Meckel's diverticulum 08/08/2022 DX:Meckel's diverticulum Mixed hyperlipidemia 08/08/2022 DX:Mixed hyperlipidemia Personal history of nicotine dependence 08/08/2022 DX:Personal history of nicotine dependence Pneumonia 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 (CMS/HCC) 08/08/2022 DX: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 (HCC) Screening for colon cancer 08/08/2022 DX:Screening for colon cancer Screening for diabetes mellitus 08/08/2022 DX:Screening for diabetes mellitus Shortness of breath Past Surgical History: Procedure Laterality Date CATARACT EXTRACTION PROCEDURE: HISTORICAL CATARACT REMOVAL COLONOSCOPY PROCEDURE: HISTORICAL COLONOSCOPY HUMERUS RIGHT WITH ANCHORS LUNG REMOVAL, PARTIAL OTHER SURGICAL HISTORY Right 2017 PROCEDURE: ND THORACOSCOPY W/LOBECTOMY SINGLE LOBE; COMMENT: RML SHOULDER SURGERY 2017 PROCEDURE: HISTORICAL SHOULDER SURGERY TONSILLECTOMY PROCEDURE: HISTORICAL TONSILLECTOMY PT Received On: 10/15/2024 SUBJECTIVE No c/o dizziness. I feel like I need to use this walker for now PT Time Calculation: PT Time Calculation PT Start Time: 0940 PT Stop Time: 1020 PT Time Calculation (min): 40 min OBJECTIVE Precautions: Precautions Safety Interventions: Call hernández within reach Cognition: Cognition Overall Cognitive Status: Within Functional Limits Arousal/Alertness: Appropriate responses to stimuli Orientation Level: Oriented X4 Following Commands: Follows all commands and directions without difficulty Safety Judgment: Good awareness of safety precautions Problem Solving: Able to problem solve independently Vital Signs: Oxygen Therapy SpO2: (96 to 98% after gait) Oxygen Therapy: None (Room air) SpO2: (96 to 98% after gait) Pain Assessment: Pain Assessment: 0-10 Pain Score: 3 Pain Type: Surgical pain Pain Location: Chest (they just took out the drain from her chest this AM) Pain Orientation: Left Home Living: Home Living Lives With: Spouse (he can take time off work. he is able to care for her physically, per pt) Home Living Comments: ranch home with 2 steps to enter with rail. Laundry in basement but she does not have to go down Prior Function: Prior Function Level of [place]: Independent with mobility and functional transfers Ambulation Status: Household ambulator Receives Help From: Family Indoor Mobility Assistance: Independent Prior Device Use: No prior device use Functional Assessments: Dynamic Standing Balance Dynamic Standing-Level of Assistance: Close supervision Dynamic Standing-Balance: Ambulation Dynamic Standing-Comments: good with RW Bed Mobility Sitting to Lying Assistance: Close supervision Lying to Sitting Assistance: Close supervision Transfers Sit to Stand Assistance: Close supervision Ambulation Walking Assistance: Supervision Device: Rolling walker Distance Ambulated (ft): 220 Comments: steady gait with RW. Pt did not want to try cane or no AD, she felt like she needed to use RW Extremity Assessments: RLE Assessment RLE Assessment: Within Functional Limits LLE Assessment LLE Assessment: Within Functional Limits Education: Education Documentation Mobility Training, taught by Jada eVlasco PT at 10/15/2024 9:40 AM. Learner: Patient Readiness: Acceptance Method: Explanation, Demonstration Response: Verbalizes Understanding, Demonstrated Understanding Comment: use RW at home for gait, avoid heavy lifting and avoid going down flight of stairs for now Education Comments No comments found. ASSESSMENT PT asked for script for Rolling walker from MD. Patient refused home PT. Pt is steady therefore safe to go home. PT Assessment: PT Assessment PT Assessment Results: Decreased strength, Decreased endurance, Impaired gait Evaluation/Treatment Tolerance: Patient tolerated treatment well Medical Staff Made Aware: Yes PLAN PT Plan: During acute care stay: PT Plan: No skilled PT PT Discharge Recommendations: Home independent Equipment Recommended: ROlling walker Equipment Recommendations: Equipment Recommended: ROlling walker PT Evaluation Time Entry G RHB Nohemi PT Evaluation Time Entry PT Evaluation (Moderate) Time Entry: 40 * Alex Castillo RN - 10/14/2024 11:08 PM EST Goals: Identify possible barriers to meeting goals/advancing plan of care: Stability of the patient: Moderately Stable - Low risk of patient condition declining or worsening End of Shift Summary: * Abi Valdez RN - 10/14/2024 4:34 PM EST 10/14/24 1634 Initial Transition Plan Initial Transition Plan Home Back up Transition Plan Back up Transition plan Home Discharge Planning Living Arrangements Spouse/significant other Type of Residence Private residence ([facility] with ) Assistive Devices Dentures upper;Eyeglasses Support Systems Spouse/significant other;Children Medication Coverage Has Med Coverage Under Insurance Plan Yes Medication Affordability No concerns related to payment for meds Informed Choice Informed Choice Given? Yes Transportation Transportation at discharge Family ARTI: 10/15 Plan: home self care Barriers: chest tube, thoracic eval, Therapy Eval: na Referral status: na Auth status: na Last BM: 10/14 Pharmacy: [facility] HCP: Yes Support Persons and Availability: Family PCP: Marlen Pereira MD * Siobhan Resendiz MD - 10/14/2024 11:57 AM EST Images from the original note were not included. VILMA PROGRESS NOTE Date: 10/14/2024 Author: Siobhan Resendiz MD Patient ID: Mague Rosario is a 74 y.o. female : 1950 MR#: [id number] SUBJECTIVE Patient seen and examined. Overnight no acute events. Continues on the chest tube, pain present with movement and with cough. On room air with good O2 sats. Complains of feeling tired. Current Medications: acetaminophen, 1,000 mg, oral, q8h KAYCEE ascorbic acid, 500 mg, oral, Daily atorvastatin, 10 mg, oral, Nightly docusate sodium, 100 mg, oral, BID enoxaparin, 40 mg, subcutaneous, q24h KAYCEE formoterol, 20 mcg, nebulization, BID And revefenacin, 175 mcg, nebulization, Daily multivitamin, 1 tablet, oral, Daily polyetheylene glycol, 17 g, oral, Daily senna, 2 tablet, oral, Nightly sodium chloride, 10 mL, intravenous, BID PRN medications: acetaminophen, bisacodyL, bisacodyL, diphenhydrAMINE, haloperidol, HYDROmorphone, ipratropium-albuteroL, metoclopramide OR metoclopramide, ondansetron (ZOFRAN-ODT) disintegratingtablet OR ondansetron, ondansetron (PF), oxyCODONE, oxyCODONE, Insert peripheral IV AND Maintain IV access AND Saline lock IV AND sodium chloride AND sodium chloride OBJECTIVE Vitals: 10/13/24201010/13/24203010/13/24 23410/14/24 0405 BP: (!) 142/62 131/67 (!) 146/69 BP Location: Right arm Right arm Right arm Patient Position: Lying Lying Lying Pulse: 82 75 73 Resp: 12 14 16 Temp: 36.4 ??C (97.6 ??F) 36.1 ??C (96.9 ??F) 36.3 ??C (97.3 ??F) TempSrc: Temporal Temporal Temporal SpO2: 97% 95% 98% 98% Weight: Height: Physical Exam Elderly female not in any acute distress HEENT PERRLA, EOMI Neck supple Chest no accessory muscle use, slightly diminished breath sounds at the bases, left chest tube present, placed to waterseal Heart S1-S2 regular Abdomen soft nontender bowel sounds present Extremities no edema Results from last 7 days Lab Units 10/14/24 0536 SODIUM mmol/L 139 POTASSIUM mmol/L 4.7 CHLORIDE mmol/L 105 CO2 mmol/L 31 BUN mg/dL 15 CREATININE mg/dL 0.72 GLUCOSE mg/dL 135* CALCIUM mg/dL 8.8 Results from last 7 days Lab Units 10/14/24 0536 WBC AUTO K/mcL 11.5* HEMOGLOBIN g/dL 11.1* HEMATOCRIT % 35.5 PLATELETS K/mcL 378 No results found for this or any previous visit (from the past 168 hour(s)). Imaging: XR Chest 1 View Narrative: PROCEDURE: AP chest radiograph. HISTORY: s/p LLL lobectomy. COMPARISON: 10/13/2024. FINDINGS: Unchanged left apical chest tube. No pneumothorax. Elevated left hemidiaphragm with blunting of theleft costophrenic angle, probably a small pleural effusion and adjacent atelectasis. Linear markings at the right base suggesting atelectasis. Unchanged cardiomediastinal contours with atherosclerotic calcifications of the aorta. Mild degenerative changes of the spine. Impression: No significant interval change. 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 Left lower lobe lung cancer Status post left lower lobe lobectomy by thoracic surgery With chest tube, currently under waterseal. Management per thoracic surgery Pain control, encourage ambulation, frequent incentive spirometry. History of COPD No exacerbation continue to monitor for now Hyperlipidemia on statin DVT prophylaxis on Lovenox CODE STATUS is full. DVT Prophylaxis Code Status Full Code - Confirmed Disposition * MICHEAL Ronquillo - 10/14/2024 9:32 AM EST Thoracic Surgery Progress Note Patient Name: Mague Rosario : 1950 Date of Visit: 10/14/24 Subjective Patient was seen and examined this morning, she states that her pain has been well-controlled on current analgesics and has been using incentive spirometry. She has not yet ambulated in hallway nor has she urinated. Her Hoyt catheter was removed at 7 AM and nursing instructed to ambulate in hallway and have all meals OOB in chair. No Known Allergies Current Facility-Administered Medications Medication Dose Route Frequency Provider Last Rate Last Admin acetaminophen (TYLENOL) tablet 1,000 mg 1,000 mg oral q8h [facility] MICHEAL Thomas 1,000 mg at 10/14/24 0618 acetaminophen (TYLENOL) tablet 1,000 mg 1,000 mg oral Once PRN Deshawn Cabrera MD ascorbic acid (VITAMIN C) tablet 500 mg 500 mg oral Daily MICHEAL Thomas 500 mg at 10/14/24 0844 atorvastatin (LIPITOR) tablet 10 mg 10 mg oral Nightly MICHEAL Thomas 10 mg at 10/13/24 2141 bisacodyL (DULCOLAX) EC tablet 10 mg 10 mg oral Daily PRN MICHEAL Thomas bisacodyL (DULCOLAX) suppository 10 mg 10 mg rectal Daily PRN MICHEAL Thomas diphenhydrAMINE (BENADRYL) injection 12.5 mg 12.5 mg intravenous Once PRN Deshawn Cabrera MD docusate sodium (COLACE) capsule 100 mg 100 mg oral BID MICHEAL Thomas 100 mg at 10/14/24 0845 enoxaparin (LOVENOX) injection 40 mg 40 mg subcutaneous q24h [facility] MICHEAL Thomas 40 mg at 10/14/24 0845 formoterol (PERFOROMIST) 20 mcg/2 mL nebulizer solution 20 mcg 20 mcg nebulization BID MICHEAL Thomas 20 mcg at 10/14/24 0726 And revefenacin (YUPELRI) 175 mcg/3 mL nebulizer solution 175 mcg 175 mcg nebulization Daily MICHEAL Thomas 175 mcg at 10/14/24 0726 haloperidol lactate (HALDOL) injection 1 mg 1 mg intravenous Once PRN Deshawn Cabrera MD HYDROmorphone (PF) injection 0.5 mg 0.5 mg intravenous q3h PRN MICHEAL Thomas ipratropium-albuteroL (DUONEB) 0.5-2.5 mg/3 mL nebulizer solution 3 mL 3 mL nebulization q6h PRN MICHEAL Thomas metoclopramide (REGLAN) tablet 10 mg 10 mg oral q6h PRN MICHEAL Thomas Or metoclopramide (REGLAN) injection 10 mg 10 mg intravenous q6h PRN MICHEAL Thomas multivitamin tablet 1 tablet 1 tablet oral Daily MICHEAL Thomas 1 tablet at 10/14/24 0844 ondansetron ODT (ZOFRAN-ODT) disintegrating tablet 4 mg 4 mg oral q8h PRN MICHEAL Thomas Or ondansetron (PF) (ZOFRAN) injection 4 mg 4 mg intravenous q8h PRN MICHEAL Thomas ondansetron (PF) (ZOFRAN) injection 4 mg 4 mg intravenous Once PRN Deshawn Cabrera MD oxyCODONE (ROXICODONE) immediate release tablet 10 mg 10 mg oral q4h PRN MICHEAL Thomas 10 mg at 10/14/24 0844 oxyCODONE (ROXICODONE) immediate release tablet 5 mg 5 mg oral q4h PRN MICHEAL Thomas oxyCODONE (ROXICODONE) immediate release tablet 5 mg 5 mg oral Once PRN Deshawn Cabrera MD polyethylene glycol (MIRALAX) packet 17 g 17 g oral Daily MICHEAL Thomas 17 g at 10/14/24 0843 senna (SENOKOT) tablet 17.2 mg 2 tablet oral Nightly MICHEAL Thomas 17.2 mg at 10/13/24 2139 sodium chloride 0.9 % flush 10 mL 10 mL intravenous BID MICHEAL Thomas 10 mL at 10/14/24 0845 And sodium chloride 0.9 % flush 10 mL 10 mL intravenous PRN MICHEAL Thomas Review of Systems ROS Physical Exam Vitals: 10/13/24201010/13/24 2031 10/13/24 2342 10/14/24 0405 BP: (!) 142/62 131/67 (!) 146/69 BP Location: Right arm Right arm Right arm Patient Position: Lying Lying Lying Pulse: 82 75 73 Resp: 12 16 Temp: 36.4 ??C (97.6 ??F) 36.1 ??C (96.9 ??F) 36.3 ??C (97.3 ??F) TempSrc: Temporal Temporal Temporal SpO2: 97% 95% 98% 98% Weight: Height: Physical Exam General: Patient is sitting comfortably in no acute distress, well developed, well nourished Head: Normocephalic, atraumatic, symmetric Eyes: Sclera anicteric, eyelids without edema or erythema, +EOMS intact ENT: Oral mucosa and tongue are moist without lesions or exudates Neck: Soft, supple, symmetric, trachea midline, no crepitus, no mass visualized or palpated Cardiovascular: Regular rate and rhythm, no murmur/rubs/gallops, BUE and BLE without edema, no calftenderness bilaterally Respiratory: Lungs CTA B, breathing nonlabored, speaking in full sentences, on room air. No use of accessory muscles. No obvious chest wall abnormality or deformity Gastrointestinal: Soft, non-tender, non-distended, +normoactive bowel sounds. Lymphatic: no cervical, supraclavicular, infraclavicular, or other lymphadenopathy noted Neurological: Alert and oriented x 3, neurologic exam is grossly normal Psychiatric: No agitation, appropriate affect Chest Wall: Left sided chest tube on water seal with 80 cc of SS fluid output and no detectable airleak, however has weak cough effort for assessment chest wall incisions appear to be healing well. No new nodularity. Incision line clean, dry and intact; no signs of erythema, induration or drainage. Diagnostics CBC: Lab Results Component Value Date WBC 11.5 (H) 10/14/2024 RBC 3.60 (L) 10/14/2024 BMP: Lab Results Component Value Date GLUCOSE 135 (H) 10/14/2024 CO2 31 10/14/2024 BUN 15 10/14/2024 CREATININE 0.72 10/14/2024 CALCIUM 8.8 10/14/2024 Microbiology Pathology Radiology 10/14/24 XR Chest 1 View Narrative: PROCEDURE: AP chest radiograph. HISTORY: s/p LLL lobectomy. COMPARISON: 10/13/2024. FINDINGS: Unchanged left apical chest tube. No pneumothorax. Elevated left hemidiaphragm with blunting of theleft costophrenic angle, probably a small pleural effusion and adjacent atelectasis. Linear markings at the right base suggesting atelectasis. Unchanged cardiomediastinal contours with atherosclerotic calcifications of the aorta. Mild degenerative changes of the spine. Impression: No significant interval change. -------- FINAL REPORT -------- Dictated By: Merrick Parish Dictated Date: 10/14/2024 07:57 ET Assigned Physician: Merrick Parish Reviewed and Electronically Signed By: Merrick Parish Signed Date: 10/14/2024 07:58 ET Workstation ID: [id number] Transcribed By: Self Edit Transcribed Date: 10/14/2024 07:57 ET Results for orders placed during the hospital encounter of 09/22/24 CT Chest wo Contrast Narrative PROCEDURE: Chest CT INDICATION: Left lower lobe nodule TECHNIQUE: Chest CT without contrast. Multi planar reformats were created and interpreted. The examination was performed utilizing dose reduction techniques. Total DLP 553 COMPARISON: 08/17/2024 FINDINGS: LUNGS/PLEURA: Central airways are patent. Emphysema. Right upper lobe wedge resection with adjacentscarring. 19 mm posterior left lower lobe groundglass nodule is stable compared to prior. Additional 25 mm groundglass nodule with internal cystic change more anterior and superior left lower lobe near the fissure is also unchanged. No new nodules. No pleural effusion or pneumothorax. MEDIASTINUM: Thyroid gland is unchanged. No mediastinal or hilar lymphadenopathy. Esophagus is normal. Cardiac chambers are normal in size. Mild coronary artery calcifications. No pericardial effusion. CHEST WALL: No axillary lymphadenopathy or superficial hematoma. UPPER ABDOMEN:Upper abdominal structures are notable for severe hepatic steatosis with multiple calcifications throughout the liver, unchanged. BONES: No acute fracture. Scattered degenerative changes seen throughout the bones. Impression Stable left lower lobe groundglass nodules. No thoracic lymphadenopathy. -------- FINAL REPORT -------- Dictated By: JACKSON WELSH Dictated Date: 09/29/2024 09:44 ET Assigned Physician: JACKSON WELSH Reviewed and Electronically Signed By: JACKSON WELSH Signed Date: 09/29/2024 09:49 ET Workstation ID: [id number] Transcribed By: Self Edit Transcribed Date: 09/29/2024 09:44 ET Assessment and Plan POD#1 S/P Da Stephanie completion left lower lobectomy, pneumonolysis, mediastinal lymphadenectomy, Chest tube management Chest tube on waterseal. Pain management Tylenol ATC Toradol ATC x 3 days Oxycodone PO as needed based on pain scale IV Dilaudid as needed for severe breakthrough pain only Pulmonary toilet IS Flutter valve Ambulation Urinary: Hoyt catheter removed at 7 AM this morning waiting for patient to urinate. Activity Patient should be OOB ambulating in the hallways at least 3-4 times daily. Patient should be OOB to chair for all meals. Patient should be OOB to the chair for the majority of the day as tolerated. DVT prophylaxis: Heparin subcu with bilateral lower extremity sequentials GI prophylaxis: PPI MICHEAL Ronquillo 10/14/2024 at 9:32 AM EST * Alex Castillo RN - 10/14/2024 5:12 AM EST Goals: Identify possible barriers to meeting goals/advancing plan of care: Stability of the patient: Moderately Stable - Low risk of patient condition declining or worsening End of Shift Summary: * Allyn Hanks NP - 10/13/2024 3:54 PM EST 74-year-old woman who went to the operating room 2 weeks ago for navigational bronchoscopy dye marking wedge resection possible lobectomy. On frozen section at that time there was no cancer found however on final pathology the specimen contained a lipidic type lung cancer close to the margin at least. For that reason she was discussed with her completion lobectomy. The patient understood the risks benefits and alternatives of the proposed operation and agreed to proceed. The patient was taken to the operating room electively on October 13, 2024 at which point she had a robotic completion leftlower lobectomy, pneumonolysis, and mediastinal lymphadenectomy. Postoperatively she was extubated and sent to the PACU in stable condition. From PACU she was transferred to [facility] for further care on telemetry. On POD #2 chest tube output was 150cc serosanguious fluid in 24 hour period with no detectable air leak with talking, forceful exhalation, or deep cough. Chest xray revealed a stable minimalleft pneumothorax. The decision was made to remove the chest tube at this time. She continued to have steady gait with no complaints of dizziness and pain remained well-controlled with no concerning signs or symptoms such as new or worsening shortness of breath, hemoptysis, fever, or chills. Discharged home to self-care and follow up appointment in two weeks in office. * Jada Hall RN - 10/13/2024 2:49 PM EST CXR done and labs sent documented in this encounter H&P Notes * Latonya Lovett MD - 10/13/2024 10:00 AM EST Plan for completion left lower lobectomy discussed with the patient in detail. All questions were answered. Source Note - Latonya Lovett MD - 09/30/2024 7:09 AM EST Images from the original note were not included. Thoracic Surgery Follow Up Visit Patient name: Mague Rosario : 1950 Date of Visit: August 19, 2024 Care Team PCP: Marlen Pereira MD (formerly Dr. Vargas --> seeing new PCP 09/17/24 Tiana Graham NP) Pulmonology: Dr. Stinson Reason for Visit Chief Complaint Patient presents with Follow-up Chest CT History of Present Illness Ms. Rosario is a 74 y.o. female who had a right middle lobectomy in March 2018 for a stage I adenocarcinoma. Patient was last seen at [facility] by Dr. Lovett where her surveillance. Patient feeling well. No specific complaints at time of our visit. Denies any unintentional weight loss, hemoptysis, SOB, or new lumps/bumps concerning for lymphadenopathy. Medical History Past Medical History: Diagnosis Date Abdominal lump 08/08/2022 DX:Abdominal lump BPV (benign positional vertigo) 08/08/2022 DX:BPV (benign positional vertigo) Cataract 08/08/2022 DX:Cataract COPD (chronic obstructive pulmonary disease) (CMS/HCC) 08/08/2022 DX:COPD (chronic obstructive pulmonary disease) (HCC) COPD exacerbation (CMS/HCC) 08/08/2022 DX:COPD exacerbation (HCC) Depression 08/08/2022 DX:Depression Knee osteoarthritis 08/08/2022 DX:Knee osteoarthritis Meckel's diverticulum 08/08/2022 DX:Meckel's diverticulum Mixed hyperlipidemia 08/08/2022 DX:Mixed hyperlipidemia Personal history of nicotine dependence 08/08/2022 DX:Personal history of nicotine dependence 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 (CMS/HCC) 08/08/2022 DX: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 (HCC) Screening for colon cancer 08/08/2022 DX:Screening for colon cancer Screening for diabetes mellitus 08/08/2022 DX:Screening for diabetes mellitus Problem List Patient Active Problem List Diagnosis Abdominal lump BPV (benign positional vertigo) Cataract COPD (chronic obstructive pulmonary disease) (CMS/HCC) COPD exacerbation (CMS/HCC) Depression Diverticulitis Hypercholesteremia Knee osteoarthritis Pulmonary nodules History of lung cancer Surgical History Past Surgical History: Procedure Laterality Date CATARACT EXTRACTION PROCEDURE: HISTORICAL CATARACT REMOVAL COLONOSCOPY PROCEDURE: HISTORICAL COLONOSCOPY OTHER SURGICAL HISTORY Right 2017 PROCEDURE: ND THORACOSCOPY W/LOBECTOMY SINGLE LOBE; COMMENT: RML SHOULDER SURGERY 2017 PROCEDURE: HISTORICAL SHOULDER SURGERY TONSILLECTOMY PROCEDURE: HISTORICAL TONSILLECTOMY Allergies No Known Allergies Medications Ordered Prior to Encounter Current Outpatient Medications on File Prior to Visit Medication Sig Dispense Refill acetaminophen (TYLENOL) [address] 1 Suppository rectally every 8 hours as needed. albuterol sulfate (ProAir RespiClick) 90 mcg/actuation aerosol powdr breath activated Inhale 2 Puffs into the lungs. Every 4-6 hours, as needed Anoro Ellipta 62.5-25 mcg/actuation inhaler Inhale 1 puff by mouth 1 (one) time each day. cholecalciferol (VITAMIN D-3) 25 mcg (1,000 unit) tablet Take by mouth daily. Lactobacillus acidophilus (PROBIOTIC ORAL) Take by mouth. multivitamin (Multiple Vitamins) tablet Take by mouth. simvastatin (ZOCOR) 5 mg tablet Take 1 Tablet by mouth at bedtime. VITAMIN C, ASCORBATE CALCIUM, ORAL Take 500 mg by mouth daily. tiotropium (Spiriva Respimat) 2.5 mcg/actuation inhalation spray Inhale 2 Inhalers into the lungs daily. (Patient not taking: Reported on 08/19/2024) tiotropium bromide (SPIRIVA WITH HANDIHALER INHL) Inhale into the lungs. (Patient not taking: Reported on 08/19/2024) No current facility-administered medications on file prior to visit. Social History Social History Tobacco Use Smoking status: Former Current packs/day: 0.00 Types: Cigarettes Quit date: 09/08/2012 Years since quittin.9 Substance Use Topics Alcohol use: Not Currently Social History Social History Narrative Not on file Review of Systems Review of Systems Constitutional: Negative for decreased appetite, fever, night sweats and weight loss. HENT: Negative for congestion and hoarse voice. Cardiovascular: Negative for chest pain and palpitations. Respiratory: Negative for cough, hemoptysis, shortness of breath and sputum production. Hematologic/Lymphatic: Negative for adenopathy. Skin: Negative for rash. Gastrointestinal: Negative for abdominal pain and nausea. Genitourinary: Negative for dysuria. Neurological: Negative for light-headedness. Physical Exam Vitals Vitals: 08/19/24 1450 BP: 118/74 BP Location: Left arm Patient Position: Sitting BP Cuff Size: Large adult Pulse: 87 Resp: 18 Temp: 37.1 ??C (98.8 ??F) TempSrc: Temporal SpO2: 97% Weight: 77.4 kg (170 lb 11.2 oz) Height: 1.626 m (64 ) Physical Exam Vitals reviewed. Constitutional: General: She is not in acute distress. Appearance: She is well-developed. She is not ill-appearing. HENT: Head: Normocephalic and atraumatic. Mouth/Throat: Mouth: Mucous membranes are moist. Eyes: General: Lids are normal. No scleral icterus. Cardiovascular: Rate and Rhythm: Normal rate and regular rhythm. Heart sounds: No murmur heard. Pulmonary: Effort: Pulmonary effort is normal. No accessory muscle usage or respiratory distress. Breath sounds: No wheezing, rhonchi or rales. Comments: CTA B Chest: Comments: Multiple right sided chest incisions are well healed without nodularity. Lymphadenopathy: Cervical: No cervical adenopathy. Upper Body: Right upper body: No supraclavicular adenopathy. Left upper body: No supraclavicular adenopathy. Skin: General: Skin is warm and dry. Neurological: Mental Status: She is alert and oriented to person, place, and time. Psychiatric: Attention and Perception: Attention normal. Mood and Affect: Mood normal. Behavior: Behavior is cooperative. Radiology I personally viewed the patient's current and past imaging studies, in addition to reviewing the dictated report from the reading radiologist. CT Chest wo Contrast Narrative: Chest CT, 08/18/2024. TECHNIQUE: CT of the chest without intravenous contrast administration. Coronal and sagittal reformats and MIP reconstructions were created. Dose length product: 570 mGy-cm. HISTORY: Lung nodule, 6-8mm COMPARISON: None. FINDINGS: Lungs/pleura: Postsurgical changes of the right middle lobectomy. Small focus of mucus plugging in one of the segmental bronchi in the left lower lobe. Moderate centrilobular emphysema. Biapical pleural parenchymal scarring. Small calcified granulomas in the left lower lobe. There is a faint focal groundglass opacity measuring approximately 17 mm in diameter in the posterior left lower lobe, series 4 image 148. No pleural effusion. No pneumothorax. Mediastinum/vivian: Small rim calcified nodule in the inferior right thyroid lobe. No mediastinal mass or lymphadenopathy. No appreciable hilar lymphadenopathy on limited noncontrast evaluation. Vasculature: Normal caliber pulmonary arteries. Prominent atherosclerotic calcifications of the aorta and great vessels. Cardiac: Normal heart size. Mild coronary artery and aortic annular calcification. Chest wall: No mass or adenopathy. Limited abdomen: Hepatic steatosis. Multiple punctate calcifications in the right hepatic lobe. Bones: Orthopedic anchors in the right humeral head. Degenerative changes of the spine. Impression: Faint 17 mm focal groundglass opacity in the posterior left lower lobe. This could be inflammatory but cannot exclude a low-grade neoplasm, and follow-up is recommended. -------- FINAL REPORT -------- Dictated By: Merrick Parish Dictated Date: 08/18/2024 12:47 ET Assigned Physician: Merrick Parish Reviewed and Electronically Signed By: Merrick Parish Signed Date: 08/18/2024 14:29 ET Workstation ID: [id number] Transcribed By: Self Edit Transcribed Date: 08/18/2024 12:47 ET Assessment and Plan Problem List Items Addressed This Visit Pulmonary nodules - Primary Relevant Medications Anoro Ellipta 62.5-25 mcg/actuation inhaler Other Relevant Orders Pulmonary function testing: Carbon Monoxide Diffusing Capacity, Spirometry with Bronchodilator, Plethysmography Ambulatory referral to Cardiology Case Request Operating Room: navigational bronchoscopy with dye marking, robotic LLL wedge, possible segmentectomy, possible lobectomy (Completed) NPO Instructions Prior to Day of Procedure Basic metabolic panel CBC and differential Prothrombin time with INR Activated partial thromboplastin time Type and screen ECG 12 lead - Procedural (No Charge) History of lung cancer Ms. 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 The patient's most recent surveillance chest CT scan done on 08/18/2024 at [facility] shows a 17mm GGN in the posterior left lower lobe. I directly compared the patient's current CT to a CT scan done at [facility] from 2018 (see screenshots above). The left lower lobe pure groundglass nodule has grown in size over this time, although slow. The patient currently has no solid component to this but remains concerning for a slow- growing low-grade neoplasm. It took some time to get the CT scan uploaded into our system, therefore I called and discussed these findings with the patient on 09/03/2024 and my concern for a low-grade slow-growing lung cancer. I discussed the options going forward which include ongoing surveillance with CT scan in 1 year as this is a very slow-growing nodule versus biopsy. Biopsy options included navigational bronchoscopy which would likely require fixed cone beam CT with IP at [place], or robotic VATS left lower lobe wedge resection with possible segmentectomy or lobectomy. Patient would like to proceed with the surgical option. 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 If her pulmonary function testing is not appropriate we will rediscuss IP biopsy and possible radiation should this proved to be a cancer. All the patient's questions were answered and understood. Patient is told to call the office shouldshe have any questions or concerns regarding her nodule, surgery, or anything else in the meantime. Relevant Orders Pulmonary function testing: Carbon Monoxide Diffusing Capacity, Spirometry with Bronchodilator, Plethysmography Other Visit Diagnoses Neoplasm Relevant Orders Prothrombin time with INR Activated partial thromboplastin time PFTs are excellent. Plan for Richard dye/radial ebus davinci LLL wedge possible lobectomy. Discussed with patient which she understood and agreed to proceed. documented in this encounter Procedure Notes * Latonya Lovett MD - 10/13/2024 11:45 AM EST Date: 10/13/2024 Preoperative diagnosis: Left lower lobe lung cancer Postoperative diagnosis: Same Operation: Da Stephanie completion left lower lobectomy, pneumonolysis, mediastinal lymphadenectomy, bronchoscopy with aspiration, intercostal paravertebral nerve blocks. Surgeon:Latonya Lovett MD Asst.: Jessica Martinez PA-C Anesthesia: Gen. Specimens: Mediastinal and hilar lymph nodes to pathology, completion left lower lobe to pathology EBL: 25 cc Indications for the operation: 74-year-old woman who went to the operating room 2 weeks ago for navigational bronchoscopy dye marking wedge resection possible lobectomy. On frozen section at that time there was no cancer found however on final pathology the specimen contained a lipidic type lung cancer close to the margin at least. For that reason I discussed with her completion lobectomy. The patient understood the risks benefits and alternatives of the proposed operation and agreed to proceed. Operative findings: The pediatric bronchoscope was used and confirmed placement of the double-lumenendotracheal tube. A bronchoscopy was done down to the segmental level and no endobronchial lesionswere noted. On VATS exploration there were no chest wall lesions or diaphragm lesions. There were adhesions to the chest wall and anterior mediastinum/posterior mediastinum. Surprisingly there is already performed some pretty thick adhesions in the hilum and particularly around the inferior vein and pulmonary artery. Taking these down added at least 1 hour to the operation. Patient tolerated the procedure well. Operation in detail: The patient was brought to the operating room, placed supine on the operating room table, anesthesia monitoring devices were placed, and the patient was intubated with a double-lumen endotracheal tube. The pediatric bronchoscope was used to confirm placement of the double-lumentube and once in position a bronchoscopy was done(findings above). The patient was then turned on their right side and the left chest was widely prepped and draped inthe standard sterile fashion. A timeout was performed confirming the correct patient and procedure. After injection of local anesthetic, an 8 mm incision was made over the seventh intercostal space anterior axillary line and the chest was entered without difficulty. A robotic camera port was inserted into the chest and the robotic camera was inserted and the chest was explored (C findings above).The bedside insurance sales assistant controlled the camera and placed several of the ports during this portion of the operation. CO2 insufflation was established and the camera was directed posteriorly and inferiorly. With the camera directed posteriorly by the bedside insurance sales assistant, an 8 mm incision was made 20 cm posterior to the camera port and at the level of the mid lower lobe of the lung an 8 mm robotic port wasplaced under direct vision after injection of local anesthetic. 10 cm posterior to the camera port a 1 cm incision was made and after local anesthetic was given a robotic stapling port was placed under direct vision without difficulty. With the camera now directed anteriorly, a 1 cm incision was made by the bedside insurance sales assistant 10 cm from the camera port and a robotic stapling port was placed under direct vision after injection of local anesthetic. Finally, between the anterior port and the camera port a 1 cm incision was made and a 12 mm air seal port was placed into the chest under direct vision just above the diaphragm. With all ports now in place, the robot was then docked to to the trochars and I began the operation sitting down at the console. From this point forward all instrument transfers, suctioning, and gauze cigars were inserted and removed by the bedside insurance sales assistant. All specimens were also removed by the bedside insurance sales assistant. We began the operation by exploring the chest. Findings listed above. First we took down the adhesions to the lateral chest wall and posterior chest wall with bipolar electrocautery. Next, we took the adhesions down off the diaphragm and took down the inferior pulmonary ligament which had already been taken down and there was some significant thickened fibrous tissue here. We eventually were ableto get through this and identify the inferior pulmonary vein and defined its borders. We then retracted the lung anteriorly and dissected the posterior hilum identifying the bronchus and after removal of hilar lymph node the main pulmonary artery within the fissure. Again there were some thick adhesions there which I had to deal with adding time to the case as above. We then dissected within the fissure and some additional adhesions within the fissure and eventually were able to trace the pulmonary artery anteriorly and visualize the takeoff of the superior segment branch of the pulmonary artery to the lower lobe, the lingular branch to the upper lobe, and the basilar branch to the lower lobe. We then removed a sump lymph node. Encircled the superior segmental branch of the lower lobe first and fired a vascular across this without difficulty. Some further dissection within the fissure we were ultimately able to encircle the basilar branch of the pulmonary artery and fired a vascular load across this. We took the remainder of the anterior fissure with multiple firings of the blue load 45 mm robotic stapler down to the vein edge previously dissected. We then retracted the lung superiorly again and dissected around the inferior pulmonary vein also ensuring there was a superior veinwhich was indeed there. Placing a Silastic around the vein we then fired a vascular across it without difficulty. Some further dissection on the bronchus we encircled it with a Silastic and due to the fibrotic tissue and the angulation had some difficulty getting a stapler across this but ultimately took it with a 45 mm green load robotic stapler. This the specimen completely. The remainder of the mediastinal lymph node dissection was done at the previous operation. We then assured hemostasis, placed Vistaseal/pro gel, and the robot was undocked. The lobe was then placed in an Endo Catch bag by the bedside insurance sales assistant and removed and sent to pathology. A 28 Thai straight chest tube was placed and directed to lie posteriorly and up towards theapex tunneled between 2 of the incisions. This was done under direct vision and the chest tube was secured in place. Lung was brought up under direct vision and under water, no air leaks were noted in the lung easily approximated the chest wall. All ports were then removed, and the remaining incisions were closed with a deep 0 Vicryl suture followed by running 3-0 Vicryl suture and Dermabond glue. The chest tube was dressing connected to a Pleur-evac. The patient was extubated in the operating r oom brought to the PACU in stable condition. * Abi Mccullough RN - 10/13/2024 10:06 AM EST LABS DRAWN UPON ARRIVAL * Abi Mccullough RN - 10/13/2024 9:50 AM EST EDWIN JONES-GRANDDAUGHTER [phone] documented in this encounter Consult Notes * MICHEAL Hodges - 10/13/2024 5:26 PM ESTAssociated Order(s): Inpatient consult to Hospitalist Inpatient consult to Hospitalist Consult performed by: MICHEAL Hodges Consult ordered by: MICHEAL Thomas History Of Present Illness (includes Chief Complaint): Mague Rosario is a 74 y.o. 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 Patient reports she is feeling okay postop. She states that she has mild discomfort upontaking a deep breath and has chest pain around the site of her chest tube. She is occasionally coughing but denies any nausea, lightheadedness or dizziness, vomiting, abdominal pain. She has not passed gas or moved her bowels yet. She does not smoke or drink. She has no other complaints at this time. Vitals are as follows: Temperature of 36.4, pulse of 84, respirate of 12, blood pressure 143/65 andpulse ox of 95% on 2 L. Chest x-ray done postprocedure showed postsurgical changes of left lower lobectomy with left chest tube in place with trace apical pneumothorax with presumed volume loss of the left lung base, stable prominent interstitial markings with possible trace effusions, suture anchors in the right shoulder. Repeat labs showed white count from 7.5-13.4, H&H is stable. Past Medical History: She has a past medical history of Abdominal lump (08/08/2022), BPV (benign positional vertigo) (08/08/2022), Cataract (08/08/2022), COPD (chronic obstructive pulmonary disease) ([facility]) (08/08/2022), COPD exacerbation ([facility]) (08/08/2022), Diverticulosis, Joint pain, Knee osteoarthritis (08/08/2022), Meckel's diverticulum (08/08/2022), Mixed hyperlipidemia (08/08/2022), Personal history of nicotine dependence (08/08/2022), Pneumonia, 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 ([facility]) (08/08/2022), Screening for colon cancer (08/08/2022), Screening for diabetes mellitus (08/08/2022), and Shortness of breath. Surgical History: She has a past surgical history that includes Cataract extraction; Colonoscopy; Other surgical history (Right, 2018); Shoulder surgery (2017); Tonsillectomy; Lung removal, partial; and humerus right. Family History: family history includes Alzheimer's disease in her father; Bladder Cancer in her brother; Lung cancer in her mother, sister, and sister. Social History: She reports that she quit smoking about 17 years ago. Her smoking use included cigarettes. She has quit using smokeless tobacco. She reports that she does not currently use alcohol. She reports that she does not currently use drugs. Allergies: Patient has no known allergies. Home Medications: Medications Prior to Admission Medication Sig Dispense Refill Last Dose acetaminophen (Tylenol Arthritis Pain) 650 mg 8 hr tablet Take 1 tablet (650 mg total) by mouth 2 (two) times a day. Do not crush, chew, or split. 10/12/2024 albuterol sulfate (ProAir RespiClick) 90 mcg/actuation aerosol powdr breath activated Inhale 2 Puffs into the lungs. Every 4-6 hours, as needed 10/13/2024 at 0930 Anoro Ellipta 62.5-25 mcg/actuation inhaler Inhale 1 puff by mouth 1 (one) time each day. 10/13/2024 at 0930 oxyCODONE (ROXICODONE) 5 mg immediate release tablet Take 1 tablet (5 mg total) by mouth every 4 (four) hours if needed (take 1- 5mg tablet for moderate pain (4-6) or take 2 - 5mg tablets for severe pain (7-10)). Max Daily Amount: 30 mg 24 tablet 0 10/12/2024 simvastatin (ZOCOR) 5 mg tablet Take 1 Tablet by mouth at bedtime. 10/08/2024 multivitamin (Multiple Vitamins) tablet Take 1 tablet by mouth 1 (one) time each day. 10/08/2024 VITAMIN C, ASCORBATE CALCIUM, ORAL Take 500 mg by mouth daily. 10/08/2024 Review of Systems 10 point review of systems negative as otherwise stated in the HPI Last Recorded Vitals: Blood pressure (!) 143/65, pulse 84, temperature 36.4 ??C (97.6 ??F), temperature source Temporal, resp. rate 12, height 1.626 m (64 ), weight 77.1 kg (170 lb), SpO2 95%. Physical Exam General: Older female sitting upright in the stretcher ,in no acute distress, calm Skin: Appropriate tone for ethnicity, warm, dry, no rashes or wounds HEENT: normocephalic, atraumatic, sclera nonicteric, RAMANA Pulmonary: Lungs clear to auscultation in all lung ferreira bilaterally. No wheezes railes or rhonchiappreciated, no respiratory distress, no accessory muscle use. Chest tube in place. Cardiac: S1 and S2 appreciated, no murmurs, rubs or gallops, no peripheral edema Abdomen: Soft, non-tender, nondistended, no guarding or rebound tenderness appreciated. Bowel sounds normoactive. MSK: Full range of motion in upper and lower extremities with strength 5/5 and equal bilaterally. Neuro: Alert and oriented x4. No focal neurological deficits appreciated. No facial droop. Psych: Normal affect. Relevant Results: Chest x-ray done postprocedure showed postsurgical changes of left lower lobectomy with left chest tube in place with trace apical pneumothorax with presumed volume loss of the left lung base, stableprominent interstitial markings with possible trace effusions, suture anchors in the right shoulder. Assessment/Plan Principal Problem: 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) Plan Primary cancer of the left lower lobe of the lung status post lobectomy -Continue management as per cardiothoracics -Repeat chest x-ray ordered as well as morning labs. Will check BMP tonight. -As needed pain medication as well as Zofran as needed for nausea ordered COPD -Not in acute exacerbation today -Continue formeterol and yuperli substituted for Anoro Ellipta Hyperlipidemia -Continue statin DVT prophylaxis -Continue with Lovenox subq -SCD CODE STATUS -Full code-confirmed -Emergency contact listed as spouse Titi,[phone](she states he is at home with the flu and edwin is primary contact), grandchild Edwin, Case discussed with Dr. Ramirez Cosigned by Kaci Ramirez MD at 10/19/2024 2:04 PM EST Associated attestation - Kaci Ramirez MD - 10/19/2024 2:04 PM EST This is a split/shared visit with MICHEAL Hodges. I personally performed the medical decision making (MDM) for the care of this patient on 10/13/24 as documented below I have personally reviewed this patient's medical records vital signs labs and x-rays. The patient is a 74-year-old female with history of COPD and primary adenocarcinoma of the middle lobe of the right lung status post right middle lobectomy as well as status post left lower lobectomy. Her vital signs are currently stable she is afebrile. She is on 2 L oxygen. Chest x-ray was reviewed by me and showed postsurgical changes in the left lower lobectomy but no infiltrates. There is a trace apical pneumothorax on the left. H&H is 7.5 and 13.4. I agree with medical management for pain. Continue nebulizers as needed. Continue chronic management as per Lupe's note. Kaci Ramirez MD 10/19/24 2:01 PM EST documented in this encounter Plan of Treatment Upcoming Encounters Date Type Department Care Team (Late st Contact Info) Description 04/28/2025 3:30 PM EDT Appointment [facility] CT Scan [address] [place] [id number] documented as of this encounter Procedures Procedure Name Priority Date/Time Associated Diagnosis Comments CBC WITH AUTO DIFFERENTIAL Routine 10/15/2024 6:22 AM EST CBC AND DIFFERENTIAL Routine 10/15/2024 6:22 AM EST BASIC METABOLIC PANEL Routine 10/15/2024 6:22 AM EST XR CHEST 1 VIEW Routine 10/15/2024 5:26 AM EST PEP THERAPY Routine 10/14/2024 8:02 AM EST COMPLETE BLOOD COUNT Timed 10/14/2024 5:36 AM EST PHOSPHORUS Routine 10/14/2024 5:36 AM EST MAGNESIUM Routine 10/14/2024 5:36 AM EST BASIC METABOLIC PANEL Routine 10/14/2024 5:36 AM EST XR CHEST 1 VIEW Routine 10/14/2024 5:26 AM EST PEP THERAPY Routine 10/13/2024 10:01 PM EST PEP THERAPY Routine 10/13/2024 6:00 PM EST COMPLETE BLOOD COUNT STAT 10/13/2024 3:00 PM EST PHOSPHORUS STAT 10/13/2024 3:00 PM EST MAGNESIUM STAT 10/13/2024 3:00 PM EST BASIC METABOLIC PANEL Add-On 10/13/2024 3:00 PM EST EXTRA TUBES Routine 10/13/2024 2:55 PM EST LAVENDER - EDTA Routine 10/13/2024 2:55 PM EST LT BLUE - NA CITRATE Routine 10/13/2024 2:55 PM EST XR CHEST 1 VIEW STAT 10/13/2024 2:54 PM EST PEP THERAPY Routine 10/13/2024 2:35 PM EST PEP THERAPY Routine 10/13/2024 2:35 PM EST PEP THERAPY Routine 10/13/2024 2:35 PM EST TISSUE EXAM Routine 10/13/2024 12:21 PM EST 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) PREPARE RBC STAT 10/13/2024 11:48 AM EST ND BRONCHOSCOPY INCL FLUROSCOPIC GUIDANCE W PLCMNT FIDUCIAL MARKER SGL/MULT 10/13/2024 10:50 AM EST 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) ND REMOVAL OF LUNG OTHER THAN PNEUMONECTOMY SINGLE LOBE 10/13/2024 10:50 AM EST 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) ND BRONCHOSCOPY RIGID/FLEXIBLE INCL FLUORO W/THERAPY ASPIRATION INITIAL 10/13/2024 10:50 AM EST 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) ND THORACOSCOPY W DX WEDGE RESECTION F/B ANATOMIC LUNG RESECTION 10/13/2024 10:50 AM EST 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) ND THORACOSCOPY SURGICAL WITH LOBECTOMY 10/13/2024 10:50 AM EST 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) CBC WITH AUTO DIFFERENTIAL Routine 10/13/2024 10:04 AM EST 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) ACTIVATED PARTIAL THROMBOPLASTIN TIME Routine 10/13/2024 10:04 AM EST 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) Neoplasm PROTHROMBIN TIME WITH INR Routine 10/13/2024 10:04 AM EST 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) Neoplasm CBC AND DIFFERENTIAL Routine 10/13/2024 10:04 AM EST 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) TYPE AND SCREEN Routine 10/13/2024 10:04 AM EST 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) BASIC METABOLIC PANEL Routine 10/13/2024 10:04 AM EST 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) documented in this encounter Results * (ABNORMAL) CBC auto differential (10/15/2024 6:22 AM EST) WBC 11.3(H) 4.8 - 10.8 K/mcL LAB HEMETOLOGY METHOD 10/15/2024 7:20 AM [facility] RBC 3.60(L) 3.80 - 4.80 M/mcL LAB HEMETOLOGY METHOD 10/15/2024 7:20 AM [facility] Hemoglobin 10.9(L) 11.5 - 16.0 g/dL LAB HEMETOLOGY METHOD 10/15/2024 7:20 AM [facility] Hematocrit 35.5 35.0 - 47.0 % LAB HEMETOLOGY METHOD 10/15/2024 7:20 AM [facility] MCV 99.7(H) 79.0 - 98.0 FL LAB HEMETOLOGY METHOD 10/15/2024 7:20 AM [facility] MCH 30.6 27.0 - 32.0 pcg LAB HEMETOLOGY METHOD 10/15/2024 7:20 AM [facility] MCHC 30.7(L) 32.0 - 37.0 g/dL LAB HEMETOLOGY METHOD 10/15/2024 7:20 AM [facility] RDW 13.2 11.0 - 15.0 % LAB HEMETOLOGY METHOD 10/15/2024 7:20 AM [facility] Platelets 300 130 - 400 K/mcL LAB HEMETOLOGY METHOD 10/15/2024 7:20 AM [facility] MPV 10.4 7.0 - 11.0 FL LAB HEMETOLOGY METHOD 10/15/2024 7:20 AM [facility] NRBC 0.0 <1.0 % LAB HEMETOLOGY METHOD 10/15/2024 7:20 AM [facility] NRBC Absolute 0.00 <0.10 K/mcL LAB HEMETOLOGY METHOD 10/15/2024 7:20 AM [facility] Neutrophils Relative 72.9 % LAB HEMETOLOGY METHOD 10/15/2024 7:20 AM [facility] Lymphocytes Relative 14.6 % LAB HEMETOLOGY METHOD 10/15/2024 7:20 AM [facility] Monocytes Relative 9.8 % LAB HEMETOLOGY METHOD 10/15/2024 7:20 AM [facility] Eosinophils Relative 1.9 % LAB HEMETOLOGY METHOD 10/15/2024 7:20 AM [facility] Basophils Relative 0.3 % LAB HEMETOLOGY METHOD 10/15/2024 7:20 AM [facility] Immature Granulocytes Relative 0.5 % LAB HEMETOLOGY METHOD 10/15/2024 7:20 AM [facility] Neutrophils Absolute 8.26(H) 1.50 - 7.00 K/mcL LAB HEMETOLOGY METHOD 10/15/2024 7:20 AM [facility] Lymphocytes Absolute 1.65 1.00 - 5.00 K/mcL LAB HEMETOLOGY METHOD 10/15/2024 7:20 AM [facility] Monocytes Absolute 1.11(H) 0.20 - 1.00 K/mcL LAB HEMETOLOGY METHOD 10/15/2024 7:20 AM [facility] Eosinophils Absolute 0.21 0.00 - 0.50 K/mcL LAB HEMETOLOGY METHOD 10/15/2024 7:20 AM [facility] Basophils Absolute 0.03 0.00 - 0.20 K/mcL LAB HEMETOLOGY METHOD 10/15/2024 7:20 AM EST [facility] Immature Granulocytes Absolute 0.06(H) 0.00 - 0.03 K/mcL LAB HEMETOLOGY METHOD 10/15/2024 7:20 AM [facility] Blood Venous blood specimen / Unknown Venipuncture / Unknown 10/15/2024 6:22 AM EST 10/15/2024 7:14 AM EST us Siobhan Resendiz MD LAB BLOOD ORDERABLES Final Result [facility] [address] [place] [address], [place] [phone] * (ABNORMAL) Basic metabolic panel (10/15/2024 6:22 AM EST) Sodium 138 133 - 145 mmol/L LAB CHEMISTRY METHOD 10/15/2024 8:09 AM [facility] Potassium 5.3 3.5 - 5.5 mmol/L LAB CHEMISTRY METHOD 10/15/2024 8:09 AM [facility] Chloride 103 96 - 110 mmol/L LAB CHEMISTRY METHOD 10/15/2024 8:09 AM [facility] CO2 33(H) 21 - 32 mmol/L LAB CHEMISTRY METHOD 10/15/2024 8:09 AM [facility] Anion Gap 2(L) 3 - 11 LAB CHEMISTRY METHOD 10/15/2024 8:09 AM [facility] Glucose 105(H) 70 - 100 mg/dL LAB CHEMISTRY METHOD 10/15/2024 8:09 AM [facility] BUN 18 5 - 25 mg/dL LAB CHEMISTRY METHOD 10/15/2024 8:09 AM [facility] Creatinine 0.67 0.50 - 1.10 mg/dL LAB CHEMISTRY METHOD 10/15/2024 8:09 AM EST [facility] eGFR 92 >=60 mL/min/1. 73m2 LAB CHEMISTRY METHOD 10/15/2024 8:09 AM EST [facility] Comment:Calculation based on the??Chronic Kidney Disease Epidemiology Collaboration (CKD-EPI) equation refit??without adjustment for race. BUN/Creatinine Ratio 26.9 LAB CHEMISTRY METHOD 10/15/2024 8:09 AM EST [facility] Calcium 9.0 8.5 - 10.5 mg/dL LAB CHEMISTRY METHOD 10/15/2024 8:09 AM [facility] Blood Venous blood specimen / Unknown Venipuncture / Unknown 10/15/2024 6:22 AM EST 10/15/2024 7:14 AM EST Siobhan Resendiz MD LAB BLOOD ORDERABLES Final Result [facility] [address] [place] [address], * XR Chest 1 View (10/15/2024 5:26 AM EST) Anatomical Region Laterality Modality Body Radiographic Myrtle ging 10/15/2024 8:24 AM EST Impressions 10/15/2024 8:25 AM EST FINDINGS/IMPRESSION: Left chest tube remains in place. ??New small left apical pneumothorax measuring 5 mm in craniocaudal dimension. ??Left basilar opacity, unchanged, likely atelectasis/scarring. ??Right lung is relatively clear. ??Cardiac silhouette and bones are stable compared to prior. -------- FINAL REPORT -------- Dictated By: JACKSON WELSH Dictated Date: 10/15/2024 08:24 ET Assigned Physician: JACKSON WELSH Reviewed and Electronically Signed By: JACKSON WELSH Signed Date: 10/15/2024 08:25 ET Workstation ID: [id number] Transcribed By: Self Edit Transcribed Date: 10/15/2024 08:24 ET Narrative 10/15/2024 8:25 AM EST XR CHEST 1 VIEW INDICATION: ??Left lower lobectomy, cough TECHNIQUE: XR CHEST 1 VIEW COMPARISON: 10/14/2024 Procedure Note Jackson Welsh MD - 10/15/2024 XR CHEST 1 VIEW INDICATION: Left lower lobectomy, cough TECHNIQUE: XR CHEST 1 VIEW COMPARISON: 10/14/2024 IMPRESSION: FINDINGS/IMPRESSION: Left chest tube remains in place. New small leftapical pneumothorax measuring 5 mm in craniocaudal dimension. Leftbasilar opacity, unchanged, likely atelectasis/scarring. Right lung isrelatively clear. Cardiac silhouette and bones are stable compared toprior. -------- FINAL REPORT -------- Dictated By: JACKSON WELSH Dictated Date: 10/15/2024 08:24 ET Assigned Physician: JACKSON WELSH Reviewed and Electronically Signed By: JACKSON WELSH Signed Date: 10/15/2024 08:25 ET Workstation ID: [id number] Transcribed By: Self Edit Transcribed Date: 10/15/2024 08:24 ET Luciano BURTON IM XR PROCEDURES Final Result * (ABNORMAL) CBC - Every 3 Days (10/14/2024 5:36 AM EST) WBC 11.5(H) 4.8 - 10.8 K/mcL LAB HEMETOLOGY METHOD 10/14/2024 6:22 AM [facility] RBC 3.60(L) 3.80 - 4.80 M/[facility] LAB HEMETOLOGY METHOD 10/14/2024 6:22 AM [facility] Hemoglobin 11.1(L) 11.5 - 16.0 g/dL LAB HEMETOLOGY METHOD 10/14/2024 6:22 AM [facility] Hematocrit 35.5 35.0 - 47.0 % LAB HEMETOLOGY METHOD 10/14/2024 6:22 AM [facility] MCV 98.9(H) 79.0 - 98.0 FL LAB HEMETOLOGY METHOD 10/14/2024 6:22 AM EST [facility] MCH 30.9 27.0 - 32.0 pcg LAB HEMETOLOGY METHOD 10/14/2024 6:22 AM [facility] MCHC 31.3(L) 32.0 - 37.0 g/dL LAB HEMETOLOGY METHOD 10/14/2024 6:22 AM EST [facility] RDW 12.9 11.0 - 15.0 % LAB HEMETOLOGY METHOD 10/14/2024 6:22 AM [facility] Platelets 378 130 - 400 K/mcL LAB HEMETOLOGY METHOD 10/14/2024 6:22 AM [facility] MPV 9.3 7.0 - 11.0 FL LAB HEMETOLOGY METHOD 10/14/2024 6:22 AM EST [facility] NRBC 0.0 <1.0 % LAB HEMETOLOGY METHOD 10/14/2024 6:22 AM [facility] NRBC Absolute 0.00 <0.10 K/mcL LAB HEMETOLOGY METHOD 10/14/2024 6:22 AM [facility] Blood Venous blood specimen / Unknown Venipuncture / Unknown 10/14/2024 5:36 AM EST 10/14/2024 6:04 AM EST us Jessica BURTON LAB BLOOD ORDERABLES Final Re sult [facility] [address] [place] [address], * Magnesium (10/14/2024 5:36 AM EST) Magnesium 2.1 1.9 - 2.6 mg/dL LAB CHEMISTRY METHOD 10/14/2024 6:32 AM EST [facility] Blood Venous blood specimen / Unknown Venipuncture / Unknown 10/14/2024 5:36 AM EST 10/14/2024 6:04 AM EST Jessica BURTON LAB BLOOD ORDERABLES Final Re sult [facility] [address] [place] [address], [place] [phone] * Phosphorus (10/14/2024 5:36 AM EST) Phosphorus 4.2 2.5 - 4.5 mg/dL LAB CHEMISTRY METHOD 10/14/2024 6:32 AM [facility] Blood Venous blood specimen / Unknown Venipuncture / Unknown 10/14/2024 5:36 AM EST 10/14/2024 6:04 AM EST Jessica BURTON LAB BLOOD ORDERABLES Final Re sult [facility] [address] [place] [address], [place] [phone] * (ABNORMAL) Basic metabolic panel (10/14/2024 5:36 AM EST) Sodium 139 133 - 145 mmol/L LAB CHEMISTRY METHOD 10/14/2024 6:32 AM [facility] Potassium 4.7 3.5 - 5.5 mmol/L LAB CHEMISTRY METHOD 10/14/2024 6:32 AM [facility] Chloride 105 96 - 110 mmol/L LAB CHEMISTRY METHOD 10/14/2024 6:32 AM [facility] CO2 31 21 - 32 mmol/L LAB CHEMISTRY METHOD 10/14/2024 6:32 AM [facility] Anion Gap 3 3 - 11 LAB CHEMISTRY METHOD 10/14/2024 6:32 AM [facility] Glucose 135(H) 70 - 100 mg/dL LAB CHEMISTRY METHOD 10/14/2024 6:32 AM [facility] BUN 15 5 - 25 mg/dL LAB CHEMISTRY METHOD 10/14/2024 6:32 AM [facility] Creatinine 0.72 0.50 - 1.10 mg/dL LAB CHEMISTRY METHOD 10/14/2024 6:32 AM EST [facility] eGFR 88 >=60 mL/min/1. 73m2 LAB CHEMISTRY METHOD 10/14/2024 6:32 AM [facility] Comment:Calculation based on the??Chronic Kidney Disease Epidemiology Collaboration (CKD-EPI) equation refit??without adjustment for race. BUN/Creatinine Ratio 20.8 LAB CHEMISTRY METHOD 10/14/2024 6:32 AM [facility] Calcium 8.8 8.5 - 10.5 mg/dL LAB CHEMISTRY METHOD 10/14/2024 6:32 AM EST [facility] Blood Venous blood specimen / Unknown Venipuncture / Unknown 10/14/2024 5:36 AM EST 10/14/2024 6:04 AM EST Jessica BURTON LAB BLOOD ORDERABLES Final Re sult [facility] [address] [place] [address], * XR Chest 1 View (10/14/2024 5:26 AM EST) Anatomical Region Laterality Modality Body Radiographic Myrtle ging 10/14/2024 7:57 AM EST Impressions 10/14/2024 7:58 AM EST No significant interval change. -------- FINAL REPORT -------- Dictated By: Merrick Parish Dictated Date: 10/14/2024 07:57 ET Assigned Physician: Merrick Parish Reviewed and Electronically Signed By: Merrick Parish Signed Date: 10/14/2024 07:58 ET Workstation ID: [id number] Transcribed By: Self Edit Transcribed Date: 10/14/2024 07:57 ET Narrative 10/14/2024 7:58 AM EST PROCEDURE: AP chest radiograph. HISTORY: s/p LLL lobectomy. COMPARISON: 10/13/2024. FINDINGS: Unchanged left apical chest tube. ??No pneumothorax. ??Elevated left hemidiaphragm with blunting of the left costophrenic angle, probably a small pleural effusion and adjacent atelectasis. ??Linear markings at the right base suggesting atelectasis. ??Unchanged cardiomediastinal contours with atherosclerotic calcifications of the aorta. ??Mild degenerative changes of the spine. Procedure Note Merrick Parish MD - 10/14/2024 PROCEDURE: AP chest radiograph. HISTORY: s/p LLL lobectomy. COMPARISON: 10/13/2024. FINDINGS: Unchanged left apical chest tube. No pneumothorax. Elevated lefthemidiaphragm with blunting of the left costophrenic angle, probably asmall pleural effusion and adjacent atelectasis. Linear markings at theright base suggesting atelectasis. Unchanged cardiomediastinal contourswith atherosclerotic calcifications of the aorta. Mild degenerativechanges of the spine. IMPRESSION: No significant interval change. -------- FINAL REPORT -------- Dictated By: Merrick Parish Dictated Date: 10/14/2024 07:57 ET Assigned Physician: Merrick Parish Reviewed and Electronically Signed By: Merrick Parish Signed Date: 10/14/2024 07:58 ET Workstation ID: [id number] Transcribed By: Self Edit Transcribed Date: 10/14/2024 07:57 ET Jessica BURTON IM XR PROCEDURES Final Resul t * (ABNORMAL) Basic metabolic panel (10/13/2024 3:00 PM EST) Sodium 141 133 - 145 mmol/L LAB CHEMISTRY METHOD 10/13/2024 6:51 PM EST [facility] Potassium 4.4 3.5 - 5.5 mmol/L LAB CHEMISTRY METHOD 10/13/2024 6:51 PM [facility] Chloride 107 96 - 110 mmol/L LAB CHEMISTRY METHOD 10/13/2024 6:51 PM [facility] CO2 27 21 - 32 mmol/L LAB CHEMISTRY METHOD 10/13/2024 6:51 PM [facility] Anion Gap 7 3 - 11 LAB CHEMISTRY METHOD 10/13/2024 6:51 PM [facility] Glucose 132(H) 70 - 100 mg/dL LAB CHEMISTRY METHOD 10/13/2024 6:51 PM [facility] BUN 16 5 - 25 mg/dL LAB CHEMISTRY METHOD 10/13/2024 6:51 PM [facility] Creatinine 0.77 0.50 - 1.10 mg/dL LAB CHEMISTRY METHOD 10/13/2024 6:51 PM [facility] eGFR 81 >=60 mL/min/1. 73m2 LAB CHEMISTRY METHOD 10/13/2024 6:51 PM [facility] Comment:Calculation based on the??Chronic Kidney Disease Epidemiology Collaboration (CKD-EPI) equation refit??without adjustment for race. BUN/Creatinine Ratio 20.8 LAB CHEMISTRY METHOD 10/13/2024 6:51 PM [facility] Calcium 8.8 8.5 - 10.5 mg/dL LAB CHEMISTRY METHOD 10/13/2024 6:51 PM [facility] Blood Venous blood specimen / Unknown Venipuncture / Unknown 10/13/2024 3:00 PM EST 10/13/2024 3:11 PM EST us Lupe BURTON LAB BLOOD ORDERABLES Final Re sult [facility] [address] [place] [address], * Magnesium (10/13/2024 3:00 PM EST) Magnesium 2.1 1.9 - 2.6 mg/dL LAB CHEMISTRY METHOD 10/13/2024 3:52 PM EST [facility] Blood Venous blood specimen / Unknown Venipuncture / Unknown 10/13/2024 3:00 PM EST 10/13/2024 3:11 PM EST Jessica BURTON LAB BLOOD ORDERABLES Final Re sult Performing Organization Address [facility]/ZIP Co de Phone Number [facility] [address] [place] [address], [place] [phone] * (ABNORMAL) Phosphorus (10/13/2024 3:00 PM EST) [facility] Phosphorus 5.1(H) 2.5 - 4.5 mg/dL LAB CHEMISTRY METHOD 10/13/2024 3:52 PM EST [facility] Blood Venous blood specimen / Unknown Venipuncture / Unknown 10/13/2024 3:00 PM EST 10/13/2024 3:11 PM EST Jessica BURTON LAB BLOOD ORDERABLES Final Re sult Performing Organization Address City/[facility]/ZIP Co de Phone Number [facility] [address] [place] [address], [place] [phone] * (ABNORMAL) Complete blood count (10/13/2024 3:00 PM EST) WBC 13.4(H) 4.8 - 10.8 K/mcL LAB HEMETOLOGY METHOD 10/13/2024 3:28 PM EST [facility] RBC 3.80 3.80 - 4.80 M/mcL LAB HEMETOLOGY METHOD 10/13/2024 3:28 PM EST [facility] Hemoglobin 11.7 11.5 - 16.0 g/dL LAB HEMETOLOGY METHOD 10/13/2024 3:28 PM EST [facility] Hematocrit 38.0 35.0 - 47.0 % LAB HEMETOLOGY METHOD 10/13/2024 3:28 PM [facility] MCV 100.3(H) 79.0 - 98.0 FL LAB HEMETOLOGY METHOD 10/13/2024 3:28 PM [facility] MCH 30.9 27.0 - 32.0 pcg LAB HEMETOLOGY METHOD 10/13/2024 3:28 PM [facility] MCHC 30.8(L) 32.0 - 37.0 g/dL LAB HEMETOLOGY METHOD 10/13/2024 3:28 PM [facility] RDW 13.1 11.0 - 15.0 % LAB HEMETOLOGY METHOD 10/13/2024 3:28 PM [facility] Platelets 325 130 - 400 K/mcL LAB HEMETOLOGY METHOD 10/13/2024 3:28 PM [facility] MPV 9.2 7.0 - 11.0 FL LAB HEMETOLOGY METHOD 10/13/2024 3:28 PM [facility] NRBC 0.0 <1.0 % LAB HEMETOLOGY METHOD 10/13/2024 3:28 PM [facility] NRBC Absolute 0.00 <0.10 K/mcL LAB HEMETOLOGY METHOD 10/13/2024 3:28 PM [facility] Blood Venous blood specimen / Unknown Venipuncture / Unknown 10/13/2024 3:00 PM EST 10/13/2024 3:11 PM EST us Jessica BURTON LAB BLOOD ORDERABLES Final Re sult [facility] [address] [place] [address], [place] [phone] * Lavender tube (10/13/2024 2:55 PM EST) Extra Tube Hold for add-ons. 10/13/2024 5:02 PM EST [facility] Comment:Auto resulted. Blood Venous blood specimen / Unknown 10/13/2024 2:55 PM EST 10/13/2024 3:13 PM EST us Latonya Lovett MD LAB BLOOD ORDERABLES Final Resul t Performing Organization Address [facility]/ZIP Co de Phone Number [facility] [address] [place] [address], [place] [phone] * Light blue tube (10/13/2024 2:55 PM EST) Extra Tube Hold for add-ons. 10/13/2024 5:02 PM EST [facility] Comment:Auto resulted. Blood Venous blood specimen / Unknown 10/13/2024 2:55 PM EST 10/13/2024 3:13 PM EST us Latonya Lovett MD LAB BLOOD ORDERABLES Final Resul t Performing Organization Address [facility] Co de Phone Number [facility] [address] [place] [address], [place] [phone] * XR Chest 1 View (10/13/2024 2:54 PM EST) Anatomical Region Laterality Modality Body Radiographic Myrtle ging 10/13/2024 3:02 PM EST Impressions 10/13/2024 3:05 PM EST FINDINGS/IMPRESSION: Postsurgical changes of left lower lobectomy with left chest tube in place. ??There is a trace left apical pneumothorax. ??Presumed volume loss at the left lung base. ??Stable prominent interstitial markings with possible trace effusions. ??Suture anchors right shoulder. -------- FINAL REPORT -------- Dictated By: Alyssa Leon Dictated Date: 10/13/2024 15:02 ET Assigned Physician: Alyssa Leon Reviewed and Electronically Signed By: Alyssa Leon Signed Date: 10/13/2024 15:05 ET Workstation ID: [id number] Transcribed By: Self Edit Transcribed Date: 10/13/2024 15:02 ET Narrative 10/13/2024 3:05 PM EST XR CHEST 1 VIEW INDICATION: s/p LLL lobectomy. in PACU TECHNIQUE: XR CHEST 1 VIEW COMPARISON: No priors available. Procedure Note Alyssa Leon MD - 10/13/2024 XR CHEST 1 VIEW INDICATION: s/p LLL lobectomy. in PACU TECHNIQUE: XR CHEST 1 VIEW COMPARISON: No priors available. IMPRESSION: FINDINGS/IMPRESSION: Postsurgical changes of left lower lobectomy withleft chest tube in place. There is a trace left apical pneumothorax.Presumed volume loss at the left lung base. Stable prominent interstitialmarkings with possible trace effusions. Suture anchors right shoulder. -------- FINAL REPORT -------- Dictated By: Alyssa Leon Dictated Date: 10/13/2024 15:02 ET Assigned Physician: Alyssa Leon Reviewed and Electronically Signed By: Alyssa Leon Signed Date: 10/13/2024 15:05 ET Workstation ID: [id number] Transcribed By: Self Edit Transcribed Date: 10/13/2024 15:02 ET Jessica BURTON IMG XR PROCEDURES Final Resul t * Tissue exam (10/13/2024 12:21 PM EST) Final Diagnosis A. Lymph Node, Level 10 Left: -BENIGN LYMPH NODE -Negative for malignancy B. Lymph Node, Level 12 Left: -BENIGN LYMPH NODE -Negative for malignancy C. Lymph Node, Sump Left: -BENIGN LYMPH NODE -Negative for malignancy D. Lymph Node, Sump #2 Left: -BENIGN LYMPH NODE -Negative for malignancy E. 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 Lymph Node, Level 10 Left: Labeled level 10 lymph node ID 1 . Received in formalin is a rubbery, rosado-sweeney, focally anthracotic, 0.6 m in greatest diameter portion of meg tissue which is bisected, wrapped in paper and submitted in entirety in one cassette, two pieces. B. Lymph Node, Level 12 Left: Labeled level 12 lymph node ID 2 . Received in formalin, with Telfa, is a soft, rosado-sweeney to black, thin, 0.3 cm in greatest diameter anthracotic portion of meg tissue which is wrapped in paper and submitted in toto in one cassette, one piece. C. Lymph Node, Sump Left: Labeled sump lymph node ID 3 . Received in formalin, with Telfa is a soft to rubbery, sweeney to black, 0.45 cm in greatest diameter anthracotic portion of meg tissue with minimal attached adipose tissue, which is wrapped in paper and submitted in toto in one cassette, one piece. D. Lymph Node, Sump #2 Left: Labeled sump lymph node ID 4 . Received in formalin, with Telfa, is a soft to rubbery, black, anthracotic, 0.7 cm in greatest diameter portion of meg tissue which is wrapped in paper and submitted in toto in one cassette, one piece. E. Lung, Left Lower Lobe, Completion: Labeled lung LLL completio . Received in formalin is a 97 gram, 12.5 x 9.3 x 6.0 cm completion left lower lobectomy of lung specimen. There are stapled bronchovascular margins which are removed and submitted en face. The bronchus is bifurcated. There are a few soft to rubbery, rosado-sweeney, anthracotic portions of meg tissue at the hilum measuring up to 0.35 cm in greatest diameter. Opposite the hilum is a focally discontinuous, 10.0 cm in length staple line. Extending from the hilum, inferiorly, is an additional 3.5 cm in length staple line. The staple lines are removed and inked green. The pleural surface is rosado-red to purple with focal adhesions. The lung is inflated with formalin and subsequently sectioned. The cut surfaces show a rosado-red to sweeney-black focally anthracotic parenchyma with some emphysematous changes, with associated honeycombing and focal consolidation. No palpable grossly identifiable nodules are noted. Intraparenchymal lymph nodes are absent. Highballer sections are submitted in eleven cassettes. Additional sections are submitted in cassettes 12-21. 1-2 bronchovascular margins, en face (red ink use for embedding), four and one pieces respectively 3-Two whole hilar lymph nodes and two samples of lung, four pieces 4-6 business process representative perpendicular sections of staple line opposing hilum, two pieces each 7-business process representative sections of the staple line inferior to hilum, taken perpendicularly, two pieces 8-9 random superior lung, two pieces each 10-random mid lung-hilum, two pieces 11-random inferior lung, two pieces 12-17 additional superior lung, two pieces each 18-19 additional mid lung-hilum, two pieces each 20-21 additional inferior lung, two pieces each TS 10/22/2024 5:20 PM EST [facility] Synoptic Checklist LUNG LUNG: RESECTION - All Specimens 8th Edition - Protocol posted: 05/29/2022 SPECIMEN ?? Synchronous Tumors: ?Present ? Total Number of Primary Tumors: ?2 ? Specimen ID(s): ?Tumor in this completion lobectomy was found only microscopically / Previous tumor found only microscopically in wedge resection [id number] ?? Procedure: ?Completion lobectomy ?? Specimen Laterality: ?Left TUMOR ?? Tumor Focality: ?Multifocal tumor nodules of similar histology type not considered intrapulmonary metastases or too numerous for separate synoptic reports ? Number of Tumor Nodules: ?2 tumor nodules (one tumor nodule in this completion lobectomy and one tumor nodule representing the remainder of the invasive lepidic tumor identified in the previous wedge resection [id number]. ?? Tumor Site: ?Lower lobe of lung ?? Tumor Size: ? Total Tumor Size (size of entire tumor): ?Cannot be determined: tumor found only microscopically and is present on slides E9 and E13. Approximate total tumor size is at least 1.7 cm with 0.5 cm of invasive component ? Size of Invasive Component: ?Greatest Dimension (Centimeters): 0.5 cm ?? Histologic Type: ?Minimally invasive adenocarcinoma, nonmucinous ? Histologic Patterns Present: ?Acinar ? Histologic Patterns Present: ?Lepidic ?? Histologic Grade: ?G2, moderately differentiated ?? Visceral Pleura Invasion: ?Not identified ?? Direct Invasion of Adjacent Structures: ?Not applicable (no adjacent structures present) ?? Treatment Effect: ?No known presurgical therapy ?? Lymphovascular Invasion: ?Not identified MARGINS ?? Margin Status for Invasive Carcinoma: ?All margins negative for invasive carcinoma ? Closest Margin(s) to Invasive Carcinoma: ?Cannot be determined: Tumor identified microscopically only ? Distance from Invasive Carcinoma to Closest Margin: ?Cannot be determined: Tumor identified microscopically only ?? Margin Status for Non-Invasive Tumor: ?All margins negative for non-invasive tumor REGIONAL LYMPH NODES ?? Lymph Node(s) from Prior Procedures: ?Not included ?? Regional Lymph Node Status: ? : ?All regional lymph nodes negative for tumor ? Number of Lymph Nodes Examined: ?7 ? Meg Site(s) Examined: ?10L: Hilar ? Meg Site(s) Examined: ?12L: Lobar ? Meg Site(s) Examined: ?Left: left sump x2 ?? Regional Lymph Node Comment: ?in addition to hilar node, level 10 left (part A), three additional hilar nodes are found on dissection of the completion lobectomy - slides E3 and E18 DISTANT METASTASIS ?? Distant Site(s) Involved: ?Cannot be determined PATHOLOGIC STAGE CLASSIFICATION (pTNM, AJCC 8th Edition) ?? Reporting of pT, pN, and (when applicable) pM categories is based on information available to the pathologist at the time the report is issued. As per the AJCC (Chapter 1, 8th Ed.) it is the managing physician? s responsibility to establish the final pathologic stage based upon all pertinent information, including but potentially not limited to this pathology report. ?? TNM Descriptors: ?m (multiple primary tumors) ?? pT Category: ?pT3 ?? pN Category: ?pN0 ADDITIONAL FINDINGS ?? Additional Findings: ?Atypical adenomatous hyperplasia ?? Additional Findings: ?Emphysema ?? Additional Findings: ?Residual lepidic component of previously diagnosed invasive lepidic adenocarcinoma, Foci of organizing pneumonia, Granulation tissue at site of previous wedge resection, Bone marrow embolus ?? Comment(s): ?Tumor is stage pT3 - Separate ??tumor nodule(s) in the same lobe as the primary (previous wedge resection [id number]) 10/22/2024 5:20 PM EST [facility] Disclaimer Unless otherwise specified, all tissue is 10% NB formalin fixed and paraffin embedded. 10/22/2024 5:20 PM EST [facility] Tissue Lymph node specimen / Unknown 10/13/2024 12:21 PM EST 10/13/2024 3:11 PM EST Tissue specimen (specimen) Lymph node specimen / Unknown 10/13/2024 12:34 PM EST 10/13/2024 3:11 PM EST Tissue specimen (specimen) Lymph node specimen / Unknown 10/13/2024 12:44 PM EST 10/13/2024 3:11 PM EST Tissue specimen (specimen) Lymph node specimen / Unknown 10/13/2024 1:05 PM EST 10/13/2024 3:11 PM EST Tissue specimen (specimen) Structure of lower lobe of left lung / Unknown 10/13/2024 1:28 PM EST 10/13/2024 3:11 PM EST us Latonya Lovett MD LAB PATHOLOGY ORDERABLES Final R esult [facility]) [facility] [address] [place] [address], * Prepare RBC: 2 Units (10/13/2024 11:48 AM EST) Product Code [id number] 10/13/2024 2:17 PM EST [facility] Unit Number [id number] 10/13/19 2:17 PM [facility] [facility] Crossmatch Compatible 10/13/2024 11:54 AM [facility] Dispense Status Released From Crossmatch 10/13/2024 2:17 PM EST [facility] Unit ABO Rh OPOS 10/13/2024 2:17 PM EST [facility] Unit Expiration Date Time [id number] 10/13/2024 2:17 PM [facility] Unit Blood Type 5100 10/13/2024 2:17 PM [facility] Product Code [id number] 10/14/2024 7:17 AM [facility] Unit Number [id number] 10/14/19 7:17 AM [facility] Crossmatch Compatible 10/13/2024 11:56 AM [facility] Dispense Status Released From Crossmatch 10/14/2024 7:17 AM [facility] Unit ABO Rh OPOS 10/14/2024 7:17 AM [facility] Unit Expiration Date Time [id number] 10/14/2024 7:17 AM [facility] Unit Blood Type 5100 10/14/2024 7:17 AM [facility] Blood Venous blood specimen / Unknown 10/13/2024 11:48 AM EST 10/13/2024 10:10 AM EST us Deshawn Cabrera MD BLOOD BANK PRODUCT ORDERABLES Final Result [facility] [address] [place] [address], * (ABNORMAL) CBC auto differential (10/13/2024 10:04 AM EST) [facility] WBC 7.5 4.8 - 10.8 K/mcL LAB HEMETOLOGY METHOD 10/13/2024 10:33 AM [facility] RBC 3.80 3.80 - 4.80 M/mcL LAB HEMETOLOGY METHOD 10/13/2024 10:33 AM [facility] Hemoglobin 11.4(L) 11.5 - 16.0 g/dL LAB HEMETOLOGY METHOD 10/13/2024 10:33 AM [facility] Hematocrit 36.4 35.0 - 47.0 % LAB HEMETOLOGY METHOD 10/13/2024 10:33 AM [facility] MCV 95.8 79.0 - 98.0 FL LAB HEMETOLOGY METHOD 10/13/2024 10:33 AM [facility] MCH 30.0 27.0 - 32.0 pcg LAB HEMETOLOGY METHOD 10/13/2024 10:33 AM [facility] MCHC 31.3(L) 32.0 - 37.0 g/dL LAB HEMETOLOGY METHOD 10/13/2024 10:33 AM [facility] RDW 13.1 11.0 - 15.0 % LAB HEMETOLOGY METHOD 10/13/2024 10:33 AM [facility] Platelets 355 130 - 400 K/mcL LAB HEMETOLOGY METHOD 10/13/2024 10:33 AM [facility] MPV 9.4 7.0 - 11.0 FL LAB HEMETOLOGY METHOD 10/13/2024 10:33 AM [facility] NRBC 0.0 <1.0 % LAB HEMETOLOGY METHOD 10/13/2024 10:33 AM [facility] NRBC Absolute 0.00 <0.10 K/mcL LAB HEMETOLOGY METHOD 10/13/2024 10:33 AM [facility] Neutrophils Relative 68.0 % LAB HEMETOLOGY METHOD 10/13/2024 10:33 AM [facility] Lymphocytes Relative 20.4 % LAB HEMETOLOGY METHOD 10/13/2024 10:33 AM [facility] Monocytes Relative 8.3 % LAB HEMETOLOGY METHOD 10/13/2024 10:33 AM [facility] Eosinophils Relative 2.1 % LAB HEMETOLOGY METHOD 10/13/2024 10:33 AM [facility] Basophils Relative 0.5 % LAB HEMETOLOGY METHOD 10/13/2024 10:33 AM [facility] Immature Granulocytes Relative 0.7 % LAB HEMETOLOGY METHOD 10/13/2024 10:33 AM [facility] Neutrophils Absolute 5.07 1.50 - 7.00 K/mcL LAB HEMETOLOGY METHOD 10/13/2024 10:33 AM [facility] Lymphocytes Absolute 1.52 1.00 - 5.00 K/mcL LAB HEMETOLOGY METHOD 10/13/2024 10:33 AM [facility] Monocytes Absolute 0.62 0.20 - 1.00 K/mcL LAB HEMETOLOGY METHOD 10/13/2024 10:33 AM [facility] Eosinophils Absolute 0.16 0.00 - 0.50 K/mcL LAB HEMETOLOGY METHOD 10/13/2024 10:33 AM [facility] Basophils Absolute 0.04 0.00 - 0.20 K/mcL LAB HEMETOLOGY METHOD 10/13/2024 10:33 AM [facility] Immature Granulocytes Absolute 0.05(H) 0.00 - 0.03 K/mcL LAB HEMETOLOGY METHOD 10/13/2024 10:33 AM [facility] Blood Venous blood specimen / Unknown Venipuncture / Unknown 10/13/2024 10:04 AM EST 10/13/2024 10:10 AM EST us Latonya Lovett MD LAB BLOOD ORDERABLES Final Resul t [facility] [address] [place] [address], [place] [phone] * (ABNORMAL) Basic metabolic panel (10/13/2024 10:04 AM EST) Sodium 140 133 - 145 mmol/L LAB CHEMISTRY METHOD 10/13/2024 10:34 AM [facility] Potassium 4.2 3.5 - 5.5 mmol/L LAB CHEMISTRY METHOD 10/13/2024 10:34 AM [facility] Chloride 109 96 - 110 mmol/L LAB CHEMISTRY METHOD 10/13/2024 10:34 AM [facility] CO2 26 21 - 32 mmol/L LAB CHEMISTRY METHOD 10/13/2024 10:34 AM [facility] Anion Gap 5 3 - 11 LAB CHEMISTRY METHOD 10/13/2024 10:34 AM [facility] Glucose 118(H) 70 - 100 mg/dL LAB CHEMISTRY METHOD 10/13/2024 10:34 AM [facility] BUN 15 5 - 25 mg/dL LAB CHEMISTRY METHOD 10/13/2024 10:34 AM [facility] Creatinine 0.61 0.50 - 1.10 mg/dL LAB CHEMISTRY METHOD 10/13/2024 10:34 AM [facility] eGFR 94 >=60 mL/min/1. 73m2 LAB CHEMISTRY METHOD 10/13/2024 10:34 AM [facility] Comment:Calculation based on the??Chronic Kidney Disease Epidemiology Collaboration (CKD-EPI) equation refit??without adjustment for race. BUN/Creatinine Ratio 24.6 LAB CHEMISTRY METHOD 10/13/2024 10:34 AM EST [facility] Calcium 9.5 8.5 - 10.5 mg/dL LAB CHEMISTRY METHOD 10/13/2024 10:34 AM EST [facility] Blood Venous blood specimen / Unknown Venipuncture / Unknown 10/13/2024 10:04 AM EST 10/13/2024 10:10 AM EST us Latonya Lovett MD LAB BLOOD ORDERABLES Final Resul t Performing Organization Address City/[facility]/ZIP Co de Phone Number [facility] [address] [place] [address], [place] [phone] * Prothrombin time with INR (10/13/2024 10:04 AM EST) Protime 11.6 10.6 - 13.9 sec LAB COAGULATION METHOD 10/13/2024 11:12 AM EST [facility] INR 0.9 LAB COAGULATION METHOD 10/13/2024 11:12 AM EST [facility] Blood Venous blood specimen / Unknown Venipuncture / Unknown 10/13/2024 10:04 AM EST 10/13/2024 10:10 AM EST us Latonya Lovett MD LAB BLOOD ORDERABLES Final Resul t [facility] [address] [place] [address], [place] [phone] * Activated partial thromboplastin time (10/13/2024 10:04 AM EST) aPTT 31.7 24.1 - 39.3 sec LAB COAGULATION METHOD 10/13/2024 11:12 AM EST [facility] Blood Venous blood specimen / Unknown Venipuncture / Unknown 10/13/2024 10:04 AM EST 10/13/2024 10:10 AM EST us Latonya Lovett MD LAB BLOOD ORDERABLES Final Resul t Performing Organization Address City/[facility]/ZIP Co de Phone Number [facility] [address] [place] [address], [place] [phone] * Type and screen (10/13/2024 10:04 AM EST) ABO Group O 10/13/2024 11:22 AM EST [facility] Rh Type Positive 10/13/2024 11:22 AM EST [facility] Antibody Screen Negative 10/13/2024 11:22 AM EST [facility] Blood Venous blood specimen / Unknown Venipuncture / Unknown 10/13/2024 10:04 AM EST 10/13/2024 10:10 AM EST us Latonya Lovett MD LAB BLOOD BANK TEST ORDERABLES F inal Result Performing Organization Address [facility]/ZIP Co de Phone Number [facility] [address] [place] [address], [place] [phone] documented in this encounter Visit Diagnoses Diagnosis 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)- Primary 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) Neoplasm Neoplasm of unspecified nature, site unspecified History of lung cancer Personal history of malignant neoplasm of bronchus and lung documented in this encounter Admitting Diagnoses Diagnosis 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) documented in this encounter Administered Medications Inactive Administered Medications - up to 3 most recent administrations Medication Order MAR Action Action Date Dose Rate Site acetaminophen (TYLENOL) tablet 1,000 mg 1,000 mg, oral, Once, On Fri10/13/24 at 1015, For 1 dose, Preprocedure, Give 1 hour prior to surgery Given 10/13/2024 10:28 AM EST 1,000 mg acetaminophen (TYLENOL) tablet 1,000 mg 1,000 mg, oral, Every 8 hours scheduled, First dose on Fri10/13/24 at 1500, Recovery [facility] On Unit Given 10/14/2024 1:21 PM EST 1,000 mg Given 10/14/2024 6:18 AM EST 1,000 mg Given 10/13/2024 9:39 PM EST 1,000 mg acetaminophen (TYLENOL) tablet 1,000 mg 1,000 mg, oral, Once as needed, mild pain, Starting on Fri10/13/24 at 1515, For 1 dose, Phase II/On Unit, If patient has not received tylenol in the last 6 hours ascorbic acid (VITAMIN C) tablet 500 mg 500 mg, oral, Daily, First dose on Fri10/13/24 at 1545, Recovery & On Unit Given 10/15/2024 7:54 AM EST 500 mg Given 10/14/2024 8:44 AM EST 500 mg Given 10/13/2024 5:10 PM EST 500 mg atorvastatin (LIPITOR) tablet 10 mg 10 mg, oral, Nightly, First dose on Fri10/13/24 at 2100, Recovery & On Unit Given 10/14/2024 8:07 PM EST 10 mg Given 10/13/2024 9:41 PM EST 10 mg diphenhydrAMINE (BENADRYL) injection 12.5 mg 12.5 mg, intravenous, Once as needed, nausea and vomitting, Starting on Fri10/13/24 at 1515, For 1 dose, Phase II/On Unit, Give as THIRD antiemetic in order set. Only if this has not been given in the operating room or in PACU. docusate sodium (COLACE) capsule 100 mg 100 mg, oral, 2 times daily, First dose on Fri10/13/24 at 2100, Recovery & On Unit Given 10/15/2024 7:56 AM EST 100 m g Given 10/14/2024 8:07 PM EST 100 mg Given 10/14/2024 8:45 AM EST 100 mg enoxaparin (LOVENOX) injection 40 mg 40 mg, subcutaneous, Every 24 hours scheduled, First dose on Fri10/13/24 at 1500, Recovery & On Unit, Indication: VTE/PE Prophylaxis Given 10/15/2024 7:56 AM EST 40 mg Left Lower Abdomen Given 10/14/2024 8:45 AM EST 40 mg Le ft Lower Abdomen Given 10/13/2024 5:09 PM EST 40 mg Ri ght Lower Abdomen formoterol (PERFOROMIST) 20 mcg/2 mL nebulizer solution 20 mcg 20 mcg, nebulization, 2 times daily, First dose on Fri10/13/24 at 2100, Recovery & On Unit, Therapeutic substitution for ANORO ELLIPTA is formoterol neb twice daily and revefenacin neb once daily. Given 10/15/2024 10:10 AM EST 20 mcg Given 10/14/2024 8:35 PM EST 20 mcg Given 10/14/2024 7:26 AM EST 20 mcg haloperidol lactate (HALDOL) injection 1 mg 1 mg, intravenous, Once as needed, nausea and vomitting, Starting on Fri10/13/24 at 1425, For 1 dose, Recovery (only), Give as first line antiemetic agent. May be ordered via either intramuscular or intravenous route. If ordered IV, maximum of 5 mg/minute. Given 10/13/2024 2:45 PM EST 1 mg haloperidol lactate (HALDOL) injection 1 mg 1 mg, intravenous, Once as needed, nausea and vomitting, Starting on Fri10/13/24 at 1434, For 1 dose, Phase II/On Unit, Give as SECOND antiemetic in order set. Only if this has not been given in the operating room or in PACU. May be ordered via either intramuscular or intravenous route. If ordered IV, maximum of 5 mg/minute. HYDROmorphone (PF) injection 0.5 mg 0.5 mg, intravenous, Every 5 min PRN, severe pain, Pain, Starting on Fri10/13/24 at 1425, For 4 doses, Recovery (only) Given 10/13/2024 3:10 PM EST 0.5 mg Given 10/13/2024 2:45 PM EST 0.5 mg ipratropium-albuteroL (DUONEB) 0.5-2.5 mg/3 mL nebulizer solution 3 mL 3 mL, nebulization, Every 6 hours PRN, wheezing, Starting on Fri10/13/24 at 1435, Recovery & On Unit metoclopramide (REGLAN) injection 10 mg 10 mg, intravenous, Every 6 hours PRN, nausea, vomiting, Starting on Fri10/13/24 at 1434, 2nd Line Option: -ONLY give IV if patient is unable to take orally. -If inadequate response within 30 minutes, proceed to next-line agent or contact provider if no further options ordered. Doses LESS than or equal to 10 mg can be given IV push undiluted over 1 minute metoclopramide (REGLAN) tablet 10 mg 10 mg, oral, Every 6 hours PRN, nausea, vomiting, Starting on Fri10/13/24 at 1434, 2nd Line Option: -Give IV if patient is unable to take orally. -If inadequate response within 30 minutes, proceed to next-line agent or contact provider if no further options ordered. multivitamin tablet 1 tablet 1 tablet, oral, Daily, First dose on Fri10/13/24 at 1545, Recovery & On Unit Given 10/15/2024 7:54 AM EST 1 tablet Given 10/14/2024 8:44 AM EST 1 tablet Given 10/13/2024 5:10 PM EST 1 tablet ondansetron (PF) (ZOFRAN) injection 4 mg 4 mg, intravenous, Every 8 hours PRN, vomiting, nausea, Starting on Fri10/13/24 at 1434, Recovery & On Unit, -ONLY give IV if patient is unable to take orally. -If inadequate response within 30 minutes, proceed to next-line agent or contact provider if no further options ordered. ondansetron (PF) (ZOFRAN) injection 4 mg 4 mg, intravenous, Once as needed, nausea, vomiting, Starting on Fri10/13/24 at 1515, For 1 dose, Phase II/On Unit, Give as FIRST antiemetic in order set Infuse over 2 minutes. ondansetron ODT (ZOFRAN-ODT) disintegrating tablet 4 mg 4 mg, oral, Every 8 hours PRN, vomiting, nausea, Starting on Fri10/13/24 at 1434, Recovery & On Unit, -Give IV if patient is unable to take orally. -If inadequate response within 30 minutes, proceed to next-line agent or contact provider if no further options ordered. For ODT tablets: -Do not remove from blister pack until just before administering. -Patient should allow tablet to dissolve on tongue. oxyCODONE (ROXICODONE) immediate release tablet 10 mg 10 mg, oral, Every 4 hours PRN, severe pain, Starting on Fri10/13/24 at 1515, Recovery & On Unit Given 10/15/2024 7:53 AM EST 10 mg Given 10/15/2024 3:40 AM EST 10 mg Given 10/14/2024 8:07 PM EST 10 mg oxyCODONE (ROXICODONE) immediate release tablet 5 mg 5 mg, oral, Once as needed, moderate pain, Starting on Fri10/13/24 at 1515, For 1 dose, Phase II/On Unit polyethylene glycol (MIRALAX) packet 17 g 17 g, oral, Daily, First dose on Fri10/13/24 at 1500, Bowel Regimen - for prevention of constipation Given 10/15/2024 7:55 AM EST 17 g Given 10/14/2024 8:43 AM EST 17 g Given 10/13/2024 5:09 PM EST 17 g revefenacin (YUPELRI) 175 mcg/3 mL nebulizer solution 175 mcg 175 mcg, nebulization, Daily, First dose on Fri10/13/24 at 1500, Recovery & On Unit, Therapeutic substitution for ANORO ELLIPTA is formoterol neb twice daily and revefenacin neb once daily. Given 10/15/2024 10:10 AM EST 175 mcg Given 10/14/2024 7:26 AM EST 175 mcg senna (SENOKOT) tablet 17.2 mg 17.2 mg (2 tablet), oral, Nightly, First dose on Fri10/13/24 at 2100, Recovery & On Unit, Bowel Regimen - for prevention of constipation Given 10/14/2024 8:09 PM EST 17.2 mg Given 10/13/2024 9:39 PM EST 17.2 mg sodium chloride 0.9 % flush 10 mL 10 mL, intravenous, 2 times daily, First dose on Fri10/13/24 at 2100, Recovery & On Unit Given 10/15/2024 7:57 AM EST 10 mL Given 10/14/2024 8:09 PM EST 10 mL Given 10/14/2024 8:45 AM EST 10 mL sodium chloride 0.9 % flush 10 mL 10 mL, intravenous, As needed, line care, Starting on Fri10/13/24 at 1434, Recovery & On Unit Given 10/15/2024 7:56 AM EST 10 mL Given 10/15/2024 7:52 AM EST 10 mL documented in this encounter Discontinued Medications Medication Sig Discontinue Reason Start Date End Da te oxyCODONE (ROXICODONE) 5 mg immediate release tablet Take 1 tablet (5 mg total) by mouth every 4 (four) hours if needed (take 1- 5mg tablet for moderate pain (4-6) or take 2 - 5mg tablets for severe pain (7-10)). Max Daily Amount: 30 mg Stop Taking at Discharge 10/07/2024 10/15/2024 documented as of this encounter Active and Recently Administered Medications Times are shown in EST. Scheduled Medication Order 10/13/2024 10/14/2024 10/15/2024 acetaminophen (TYLENOL) tablet 1,000 mg (COMPLETED) 1,000 mg, oral, Once, On Fri10/13/24 at 1015, For 1 dose, Preprocedure, Give 1 hour prior to surgery 1028 (Given - Provider: Abi Mccullough RN) acetaminophen (TYLENOL) tablet 1,000 mg 1,000 mg, oral, Every 8 hours scheduled, First dose on Fri10/13/24 at 1500, Recovery & On Unit 1709 (Given - Provider: Carolyne Escalera RN)2139 (Given - Provider: Alex Castillo RN) 0618 (Given - Provider: Alex Castillo RN)1321 (Given - Provider: Lexy Don RN)2330 (Not Given - Provider: Alex Castillo RN - Reason: Patient/Resident/Age nt refused - education provided ) 0533 (Not Given - Provider: Alex Castillo RN - Reason: Patient/Resident/Agent refused - education provided )1400 (Canceled Entry - Provider: Automatic Discharge Provider - Comment: Automatically canceled at discontinue of medication order) ascorbic acid (VITAMIN C) tablet 500 mg 500 mg, oral, Daily, First dose on Fri10/13/24 at 1545, Recovery & On Unit 1710 (Given - Provider: Carolyne Escalera RN) 0844 (Given - Provider: Lexy Don RN) 0754 (Given - Provider: Lexy Don RN) atorvastatin (LIPITOR) tablet 10 mg 10 mg, oral, Nightly, First dose on Fri10/13/24 at 2100, Recovery & On Unit 2141 (Given - Provider: Alex Castillo RN) 2006 (Given - Provider: Alex Castillo RN) docusate sodium (COLACE) capsule 100 mg 100 mg, oral, 2 times daily, First dose on Fri10/13/24 at 2100, Recovery & On Unit 2138 (Given - Provider: Alex Castillo RN) 0845 (Given - Provider: Lexy Don RN)2006 (Given - Provider: Alex Castillo RN) 075 (Given - Provider: Lexy Don, FABY) enoxaparin (LOVENOX) injection 40 mg 40 mg, subcutaneous, Every 24 hours scheduled, First dose on Fri10/13/24 at 1500, Recovery & On Unit, Indication: VTE/PE Prophylaxis 170 (Given - Provider: Carolyne Escalera RN) 0845 (Given - Provider: Lexy Don RN) 075 (Given - Provider: Lexy Don RN) formoterol (PERFOROMIST) 20 mcg/2 mL nebulizer solution 20 mcg(Linked Group 1) 20 mcg, nebulization, 2 times daily, First dose on Fri10/13/24 at 2100, Recovery & On Unit, Therapeutic substitution for ANORO ELLIPTA is formoterol neb twice daily and revefenacin neb once daily. 2011 (Given - Provider: Annette Romero) 07 (Given - Provider: Dee Dee Pinzon)2034 (Given - Provider: Mary Ann Manning) 101 (Given - Provider: Angelika Tolentino) multivitamin tablet 1 tablet 1 tablet, oral, Daily, First dose on Fri10/13/24 at 1545, Recovery & On Unit 1710 (Given - Provider: Carolyne Escalera RN) 0844 (Given - Provider: Lexy Don RN) 075 (Given - Provider: Lexy Don RN) polyethylene glycol (MIRALAX) packet 17 g 17 g, oral, Daily, First dose on Fri10/13/24 at 1500, Bowel Regimen - for prevention of constipation 170 (Given - Provider: Carolyne Escalera RN) 0843 (Given - Provider: Lexy Don RN) 0755 (Given - Provider: Lexy Don, FABY) revefenacin (YUPELRI) 175 mcg/3 mL nebulizer solution 175 mcg(Linked Group 1) 175 mcg, nebulization, Daily, First dose on Fri10/13/24 at 1500, Recovery & On Unit, Therapeutic substitution for ANORO ELLIPTA is formoterol neb twice daily and revefenacin neb once daily. 184 (Not Given - Provider: Annette Romero - Reason: Other - Comment: Daily AM med to be given at 0900 tomorrow) 0726 (Given - Provider: Dee Dee Pinzon) 1010 (Given - Provider: Angelika Tolentino) senna (SENOKOT) tablet 17.2 mg 17.2 mg (2 tablet), oral, Nightly, First dose on Fri10/13/24 at 2100, Recovery & On Unit, Bowel Regimen - for prevention of constipation 2138 (Given - Provider: Alex Castillo RN) 2008 (Given - Provider: Alex Castillo RN) sodium chloride 0.9 % flush 10 mL(Linked Group 2) 10 mL, intravenous, 2 times daily, First dose on Fri10/13/24 at 2100, Recovery & On Unit 2140 (Given - Provider: Alex Castillo RN) 0845 (Given - Provider: Lexy Don, FABY)2008 (Given - Provider: Alex Castillo RN) 0757 (Given - Provider: Lexy Don RN) PRN Medication Order 10/13/2024 10/14/2024 10/15/2024 acetaminophen (TYLENOL) tablet 1,000 mg 1,000 mg, oral, Once as needed, mild pain, Starting on Fri10/13/24 at 1515, For 1 dose, Phase II/On Unit, If patient has not received tylenol in the last 6 hours bisacodyL (DULCOLAX) EC tablet 10 mg 10 mg, oral, Daily PRN, constipation, Starting on Fri10/13/24 at 1434, 1st line for treatment of constipation - give scheduled if no bowel movement in past 24 hours. Do not crush, chew, or split. bisacodyL (DULCOLAX) suppository 10 mg 10 mg, rectal, Daily PRN, constipation, Starting on Fri10/13/24 at 1434, 2nd line for treatment of constipation - give scheduled (in addition to 1st line agent) if no bowel movement in past 48 hours bupivacaine-EPINEPHrine (PF) (MARCAINE w/EPI) 0.25 %-1:200,000 injection (CANCELED) As needed, Starting on Fri10/13/24 at 1145, Intraprocedure 1145 (Given - Provider: Latonya Lovett MD - Comment: with 80 mg depo) diphenhydrAMINE (BENADRYL) injection 12.5 mg 12.5 mg, intravenous, Once as needed, nausea and vomitting, Starting on Fri10/13/24 at 1515, For 1 dose, Phase II/On Unit, Give as THIRD antiemetic in order set. Only if this has not been given in the operating room or in PACU. haloperidol lactate (HALDOL) injection 1 mg (COMPLETED) 1 mg, intravenous, Once as needed, nausea and vomitting, Starting on Fri10/13/24 at 1425, For 1 dose, Recovery (only), Give as first line antiemetic agent. May be ordered via either intramuscular or intravenous route. If ordered IV, maximum of 5 mg/minute. 1445 (Given - Provider: Jada Hall RN) haloperidol lactate (HALDOL) injection 1 mg 1 mg, intravenous, Once as needed, nausea and vomitting, Starting on Fri10/13/24 at 1434, For 1 dose, Phase II/On Unit, Give as SECOND antiemetic in order set. Only if this has not been given in the operating room or in PACU. May be ordered via either intramuscular or intravenous route. If ordered IV, maximum of 5 mg/minute. HYDROmorphone (PF) injection 0.5 mg 0.5 mg, intravenous, Every 3 hours PRN, severe breakthrough pain, Starting on Fri10/13/24 at 1434, For 2 days, Recovery & On Unit HYDROmorphone (PF) injection 0.5 mg (CANCELED) 0.5 mg, intravenous, Every 5 min PRN, severe pain, Pain, Starting on Fri10/13/24 at 1425, For 4 doses, Recovery (only) 1445 (Given - Provider: Jada Hall RN)1510 (Given - Provider: Jada Hall RN) ipratropium-albuteroL (DUONEB) 0.5-2.5 mg/3 mL nebulizer solution 3 mL 3 mL, nebulization, Every 6 hours PRN, wheezing, Starting on Fri10/13/24 at 1435, Recovery & On Unit methylPREDNISolone acetate (DEPO-Medrol) injection (CANCELED) As needed, Starting on Fri10/13/24 at 1145, Intraprocedure 1145 (Given - Provider: Latonya Lovett MD) metoclopramide (REGLAN) injection 10 mg(Linked Group 3) 10 mg, intravenous, Every 6 hours PRN, nausea, vomiting, Starting on Fri10/13/24 at 1434, 2nd Line Option: -ONLY give IV if patient is unable to take orally. -If inadequate response within 30 minutes, proceed to next-line agent or contact provider if no further options ordered. Doses LESS than or equal to 10 mg can be given IV push undiluted over 1 minute metoclopramide (REGLAN) tablet 10 mg(Linked Group 3) 10 mg, oral, Every 6 hours PRN, nausea, vomiting, Starting on Fri10/13/24 at 1434, 2nd Line Option: -Give IV if patient is unable to take orally. -If inadequate response within 30 minutes, proceed to next-line agent or contact provider if no further options ordered. ondansetron (PF) (ZOFRAN) injection 4 mg(Linked Group 4) 4 mg, intravenous, Every 8 hours PRN, vomiting, nausea, Starting on Fri10/13/24 at 1434, Recovery & On Unit, -ONLY give IV if patient is unable to take orally. -If inadequate response within 30 minutes, proceed to next-line agent or contact provider if no further options ordered. ondansetron (PF) (ZOFRAN) injection 4 mg 4 mg, intravenous, Once as needed, nausea, vomiting, Starting on Fri10/13/24 at 1515, For 1 dose, Phase II/On Unit, Give as FIRST antiemetic in order set Infuse over 2 minutes. ondansetron ODT (ZOFRAN-ODT) disintegrating tablet 4 mg(Linked Group 4) 4 mg, oral, Every 8 hours PRN, vomiting, nausea, Starting on Fri10/13/24 at 1434, Recovery & On Unit, -Give IV if patient is unable to take orally. -If inadequate response within 30 minutes, proceed to next-line agent or contact provider if no further options ordered. For ODT tablets: -Do not remove from blister pack until just before administering. -Patient should allow tablet to dissolve on tongue. oxyCODONE (ROXICODONE) immediate release tablet 10 mg 10 mg, oral, Every 4 hours PRN, severe pain, Starting on Fri10/13/24 at 1515, Recovery & On Unit 1711 (Given - Provider: Carolyne Escalera, RN)2147 (Given - Provider: Alex Castillo RN) 0359 (Given - Provider: Alex Castillo RN)0844 (Given - Provider: Lexy Don RN)1409 (Given - Provider: Lexy Don, FABY)2007 (Given - Provider: Alex Castillo RN) 0340 (Given - Provider: Alex Castillo RN)0753 (Given - Provider: Lexy Don RN) oxyCODONE (ROXICODONE) immediate release tablet 5 mg 5 mg, oral, Once as needed, moderate pain, Starting on Fri10/13/24 at 1515, For 1 dose, Phase II/On Unit sodium chloride 0.9 % flush 10 mL(Linked Group 2) 10 mL, intravenous, As needed, line care, Starting on Fri10/13/24 at 1434, Recovery & On Unit 0752 (Given - Provider: Lexy Don RN)0756 (Given - Provider: Lexy Don RN) Linked Groups Order Group 1: formoterol (PERFOROMIST) 20 mcg/2 mL nebulizer solution 20 mcgJump to med 20 mcg, nebulization, 2 times daily, First dose on Fri10/13/24 at 2100, Recovery & On Unit, Therapeutic substitution for ANORO ELLIPTA is formoterol neb twice daily and revefenacin neb once daily. And revefenacin (YUPELRI) 175 mcg/3 mL nebulizer solution 175 mcgJump to med 175 mcg, nebulization, Daily, First dose on Fri10/13/24 at 1500, Recovery & On Unit, Therapeutic substitution for ANORO ELLIPTA is formoterol neb twice daily and revefenacin neb once daily. Group 2: Insert peripheral IV (CANCELED) STAT, Once, On Fri10/13/24 at 1434, For 1 occurrence, Recovery & On Unit And Maintain IV access (CANCELED) Until discontinued, Starting on Fri10/13/24 at 1434, Until Specified, Recovery & On Unit And Saline lock IV (CANCELED) Routine, Once, On Fri10/13/24 at 1434, For 1 occurrence, When tolerating PO fluids, Recovery & On Unit And sodium chloride 0.9 % flush 10 mLJump to med 10 mL, intravenous, 2 times daily, First dose on Fri10/13/24 at 2100, Recovery & On Unit And sodium chloride 0.9 % flush 10 mLJump to med 10 mL, intravenous, As needed, line care, Starting on Fri10/13/24 at 1434, Recovery & On Unit Group 3: metoclopramide (REGLAN) tablet 10 mgJump to med 10 mg, oral, Every 6 hours PRN, nausea, vomiting, Starting on Fri10/13/24 at 1434, 2nd Line Option: -Give IV if patient is unable to take orally. -If inadequate response within 30 minutes, proceed to next-line agent or contact provider if no further options ordered. Or metoclopramide (REGLAN) injection 10 mgJump to med 10 mg, intravenous, Every 6 hours PRN, nausea, vomiting, Starting on Fri10/13/24 at 1434, 2nd Line Option: -ONLY give IV if patient is unable to take orally. -If inadequate response within 30 minutes, proceed to next-line agent or contact provider if no further options ordered. Doses LESS than or equal to 10 mg can be given IV push undiluted over 1 minute Group 4: ondansetron ODT (ZOFRAN-ODT) disintegrating tablet 4 mgJump to med 4 mg, oral, Every 8 hours PRN, vomiting, nausea, Starting on Fri10/13/24 at 1434, Recovery & On Unit, -Give IV if patient is unable to take orally. -If inadequate response within 30 minutes, proceed to next-line agent or contact provider if no further options ordered. For ODT tablets: -Do not remove from blister pack until just before administering. -Patient should allow tablet to dissolve on tongue. Or ondansetron (PF) (ZOFRAN) injection 4 mgJump to med 4 mg, intravenous, Every 8 hours PRN, vomiting, nausea, Starting on Fri10/13/24 at 1434, Recovery & On Unit, -ONLY give IV if patient is unable to take orally. -If inadequate response within 30 minutes, proceed to next-line agent or contact provider if no further options ordered. documented in this encounter Orders Medications Ordered That Alfredito ht Not Have Been Administered Count Last Ordered Date First Ordered Date acetaminophen (TYLENOL) tablet 1,000 mg 1 0 10/13/2024 bisacodyL (DULCOLAX) EC tablet 10 mg 1 01/2025 bisacodyL (DULCOLAX) suppository 10 mg 1 bupivacaine-EPINEPHrine (PF) (MARCAINE w/EPI) 0.25 %-1:200,000 injection 1 10/13/2024 ceFAZolin (ANCEF) 2 g in christina rile water 20 mL IV syringe 1 10/13/2024 diphenhydrAMINE (BENADRYL) i njection 12.5 mg 1 10/13/2024 diphenhydrAMINE (BENADRYL) injection 25 mg 1 10/13/2024 fentaNYL (PF) (SUBLIMAZE) injection 50 mcg 1 10/13/2024 haloperidol lactate (HALDOL) injection 1 mg 1 10/13/2024 HYDROmorphone (PF) injection 0.5 mg 1 10/13 ipratropium-albuteroL (DUONE B) 0.5-2.5 mg/3 mL nebulizer solution 3 mL 1 10/13/2024 methylPREDNISolone acetate ( DEPO-Medrol) injection 1 10/13/2024 metoclopramide (REGLAN) injection 10 mg 1 0 10/13/2024 metoclopramide (REGLAN) tablet 10 mg 1 01/2025 ondansetron (PF) (ZOFRAN) injection 4 mg 2 10/13/2024 ondansetron ODT (ZOFRAN-ODT) disintegrating tablet 4 mg 1 10/13/2024 oxyCODONE (ROXICODONE) immed iate release tablet 5 mg 3 10/13/2024 sodium chloride 0.9 % flush 10 mL 2 025 General Supply Count Last Ordered Date First Or dered Date WALKER 2 10/15/2024 Consult Count Last Ordered Date First Orde red Date Inpatient consult to Hospitalist 1 10/13/19 25 Respiratory Care Count Last Ordered Date First Ordered Date PEP THERAPY 6 10/14/2024 10/13/2024 Admission Count Last Ordered Date First Orde red Date ADMIT TO INPATIENT 1 10/13/2024 Discharge Count Last Ordered Date First Orde red Date DISCHARGE PATIENT 1 10/15/2024 CORE MEASURES Count Last Ordered Date First Ord ered Date MONITORING DOCUMENTATION 15 10/15/202401/2025 documented in this encounter Care Teams Grinder And Plater Relationship Specialty Start Date End Date Marlen Pereira MD 2 [facility] , [address] Physician Associ D/B/A: [facility] DEONTE Basilio PCP - General Internal Medicine 08/17/24 documented as of this encounter
--- OUTSIDE RECORDS SUMMARY | 2024-11-05 10:28 | XMS_ITS | Encounter Summary ---
Author Organization [facility] Address [address] [place] [address] Care Team Providers Care Direct Casting Operator Name Role Phone Marlen Pereira MD Primary Care Provider Reason for Referral * Imaging (Routine) - Closed Specialty Diagnoses / Procedures Referred By Jose de santigao Referred To Contact Radiology Diagnoses Lung nodule Procedures CT Chest wo Contrast Jessica Martinez PA [address] [facility], [address] [place] [id number] Phone: tel: fax: [address] [phone] Phone: tel: Referral ID Status Reason Start Date Expiration Date Visits Re quested Visits Authorized [id number] Closed 09/03/2024 09/03/2025 1 1 Reason for Visit * Reason Onset Date Comments Procedure 09/03/2024 PVCA , PAT , CT- SCAN Encounter Details Date Type Department Care Team ([facility] Contact Info) Description 09/03/2024 Telephone Thoracic Surgery - [place] [address] [facility] [address] [place] [id number] Latonya Lovett MD [address] [facility] [place] [address] [place] [address] [phone] Procedure (PVCA , PAT , CT-SCAN) Social History Tobacco Use Types Packs/Day Years Used Date Smoking Tobacco: Former Cigarettes Q uit: 09/08/2012 Alcohol Use Standard Drinks/Week Comments Not Currently 0 (1 standard drink = 0.6 oz pur e alcohol) Interpersonal Safety Answer Date Record ed Physical Abuse 09/30/2024 Verbal Abuse 09/30/2024 Comments No Sex and Gender Information Value Date Recorded Sex Assigned at Female 08/17/2024 12:48 PM EST Legal Sex Female 3:40 PM EST Gender Identity Female 08/17/2024 12:48 PM EST Sexual Orientation Straight 09/30/2024 5: 49 AM EST documented as of this encounter Progress Notes * Allyn Hanks NP - 10/08/2024 9:20 AM EST Spoke with daughter, all questions answered. She states she will need a letter to take time off, which I told her we would gladly do. * Stephanie Rodríguez - 10/05/2024 11:17 AM EST Bobby can be reached at [phone] * Stephanie Rodríguez - 09/21/2024 10:25 AM EST Patient Daughter Bobby was notify. * Stephanie Rodríguez - 09/21/2024 9:45 AM EST The patient's daughter requires a note from the provider stating that she will be taking care of the patient for 4 days. The patient is unable to request FMLA, but the note should include the patient???s name and the name of the caregiver, Bobby Wilson. The patient mentioned that she needs her daughter to assist with transportation and care, as she does not have anyone else available to provide support. Please advise * Stephanie Rodríguez - 09/15/2024 1:34 PM EST Patient is aware of date and time of surgery 09/30/24 at 11:00 am and arrival time 9:30 am Prior auth was approved 09/04/24 * Stephanie Rodríguez - 09/15/2024 12:18 PM EST The prior authorization doesn't need to be changed, per Vasquez Pineda from [facility](ReFF# [id number]). The reason is that the authorization has been extended from 09/28/24 to 10/01/24. Vasquez advised that we call back to inform the insurance company of the patient's discharge date. * Stephanie Rodríguez - 09/09/2024 10:15 AM EST Spoke with patient today she is aware of surgery date, time, PAT, Post-op, and Cardio clearance. * Stephanie Rodríguez - 09/06/2024 10:50 AM EST Patient is booked for ct-scan 09/22/24 At 8:30 am arrival 8:15 am. * MICHEAL Thomas - 09/03/2024 4:[address] ordered. * Stephanie Rodríguez - 09/03/2024 2:48 PM EST Patient is booked for surgery 09/28/24 PAT 09/22/24 at 9:30 am Post-op 10/14/24 at 11:00 am w/ Mitch ROMAN 09/07/[address] Trujillo 09/14/24 * Stephanie Rodríguez - 09/03/2024 2:45 PM EST Patient is booked for surgery on 09/28/24 could we have an order for Ct-scan. Thank you documented in this encounter Plan of Treatment Upcoming Encounters Date Type Department Care Team (Late st Contact Info) Description 04/28/2025 3:30 PM EDT Appointment [facility] CT Scan [address] [place] [phone] documented as of this encounter Results * CT Chest wo Contrast (09/22/2024 8:12 AM EST) Anatomical Region Laterality Modality Body Computed Tomogra phy 09/29/2024 9:44 AM EST Impressions 09/29/2024 9:49 AM EST Stable left lower lobe groundglass nodules. ??No thoracic lymphadenopathy. -------- FINAL REPORT -------- Dictated By: JACKSON WELSH Dictated Date: 09/29/2024 09:44 ET Assigned Physician: JACKSON WELSH Reviewed and Electronically Signed By: JACKSON WELSH Signed Date: 09/29/2024 09:49 ET Workstation ID: [id number] Transcribed By: Self Edit Transcribed Date: 09/29/2024 09:44 ET Narrative 09/29/2024 9:49 AM EST PROCEDURE: Chest CT INDICATION: Left lower lobe nodule TECHNIQUE: Chest CT without contrast. Multi planar reformats were created and interpreted. The examination was performed utilizing dose reduction techniques. ??Total DLP 553 COMPARISON: ??08/17/2024 FINDINGS: LUNGS/PLEURA: Central airways are patent. ??Emphysema. ??Right upper lobe wedge resection with adjacent scarring. ??19 mm posterior left lower lobe groundglass nodule is stable compared to prior. ??Additional 25 mm groundglass nodule with internal cystic change more anterior and superior left lower lobe near the fissure is also unchanged. ??No new nodules. ??No pleural effusion or pneumothorax. MEDIASTINUM: Thyroid gland is unchanged. ??No mediastinal or hilar lymphadenopathy. ??Esophagus is normal. ??Cardiac chambers are normal in size. ??Mild coronary artery calcifications. ??No pericardial effusion. CHEST WALL: No axillary lymphadenopathy or superficial hematoma. UPPER ABDOMEN:Upper abdominal structures are notable for severe hepatic steatosis with multiple calcifications throughout the liver, unchanged. BONES: No acute fracture. Scattered degenerative changes seen throughout the bones. Procedure Note Jackson Welsh MD - 09/29/2024 PROCEDURE: Chest CT INDICATION: Left lower lobe nodule TECHNIQUE: Chest CT without contrast. Multi planar reformats were createdand interpreted. The examination was performed utilizing dose reductiontechniques. Total DLP 553 COMPARISON: 08/17/2024 FINDINGS: LUNGS/PLEURA: Central airways are patent. Emphysema. Right upper lobewedge resection with adjacent scarring. 19 mm posterior left lower lobegroundglass nodule is stable compared to prior. Additional 25 mmgroundglass nodule with internal cystic change more anterior and superiorleft lower lobe near the fissure is also unchanged. No new nodules. Nopleural effusion or pneumothorax. MEDIASTINUM: Thyroid gland is unchanged. No mediastinal or hilarlymphadenopathy. Esophagus is normal. Cardiac chambers are normal insize. Mild coronary artery calcifications. No pericardial effusion. CHEST WALL: No axillary lymphadenopathy or superficial hematoma. UPPER ABDOMEN:Upper abdominal structures are notable for severe hepaticsteatosis with multiple calcifications throughout the liver, unchanged. BONES: No acute fracture. Scattered degenerative changes seen throughoutthe bones. IMPRESSION: Stable left lower lobe groundglass nodules. No thoraciclymphadenopathy. -------- FINAL REPORT -------- Dictated By: JACKSON WELSH Dictated Date: 09/29/2024 09:44 ET Assigned Physician: JACKSON WELSH Reviewed and Electronically Signed By: JACKSON WELSH Signed Date: 09/29/2024 09:49 ET Workstation ID: [id number] Transcribed By: Self Edit Transcribed Date: 09/29/2024 09:44 ET Jessica BURTON [facility] CT PROCEDURES Final Resul t documented in this encounter Visit Diagnoses Diagnosis Lung nodule- Primary Other diseases of lung, not elsewhere classified Lung nodule Other diseases of lung, not elsewhere classified documented in this encounter Care Teams Direct Casting Operator Relationship Specialty Start Date End Date Marlen Pereira MD 2 [facility] , [facility] [address] [facility] Physician Associ D/B/A: [facility] DEONTE Basilio PCP - General Internal Medicine 08/17/24 documented as of this encounter
--- OUTSIDE RECORDS SUMMARY | 2024-11-05 10:28 | XMS_ITS | Encounter Summary ---
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 Name Role Phone Marlen Pereira MD Primary Care Provider [phone] Reason for Visit * Auth/Cert (Routine) Specialty Diagnoses / Procedures Referred By Jose de santiago Referred To Contact Diagnoses 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) LUNG CANCER Procedures TX THORACOSCOPY SURGICAL WITH LOBECTOMY TX THORACOSCOPY W DX WEDGE RESECTION F/B ANATOMIC LUNG RESECTION TX BRONCHOSCOPY RIGID/FLEXIBLE INCL FLUORO W/THERAPY ASPIRATION INITIAL TX REMOVAL OF LUNG OTHER THAN PNEUMONECTOMY SINGLE LOBE TX BRONCHOSCOPY INCL FLUROSCOPIC GUIDANCE W PLCMNT FIDUCIAL MARKER SGL/MULT Da Stephanie completion left lower lobectomy Da Stephanie completion left lower lobectomy Da Stephanie completion left lower lobectomy Da Stephanie completion left lower lobectomy Da Stephanie completion left lower lobectomy Latonya Lovett MD [address] [address] Phone: tel: fax: Referral ID Status Reason Start Date Expiration Date Visits Re quested Visits Authorized [id number] 10/05/2024 1 1 Encounter Details Date Type Department Care Team ([facility] st Contact Info) Description 10/13/2024 12:00 PM EST - 10/13/2024 4:00 PM EST Surgery [facility] Main OR [address] [place] [id number] Latonya Lovett MD [address] [address] Da Stephanie completion left lower lobectomy [94532 (CPT??) +4 more] Surgery Details Date/Time Status Location OR Service Patient Class Case Class Case Type Trauma Case? 10/13/2024 12:00 PM Posted [facility] OR ROBOTIC OR 02 Thoracic Surgery Surgery to the Floor F - Elective Panel 1 Procedure LRB Anes Op Region Wound Class Comments Da Stephanie completion left low er lobectomy Left general Chest Class I/ Clean Surgeon Surgeon Role Service Panel Latonya Lovett MD Primary Thoracic Surgery 1 documented in this encounter Social History Tobacco [...] Sign Reading Time Taken Comments Blood Pressure 121/50 10/13/2024 4:00 PM EST Pulse 72 10/13/2024 4:00 PM EST Temperature 36.4 ??C (97.5 ??F) 10/13/2024 4:00 PM ES T Respiratory Rate 11 10/13/2024 4:00 PM EST Oxygen Saturation 97% 10/13/2024 4:00 PM EST Inhaled Oxygen Concentration - - Weight [...] condition. From PACU she was transferred to [facility] for further care on telemetry. On POD [...] appointment in two weeks in office. [place] ASSISTANT AUDITOR was checked prior to discharging patient with [...] Signed Date: 10/15/2024 08:25 ET Workstation ID: [id number] Transcribed By: Self Edit Transcribed Date: 10/15/2024 [...] Your Medications These medications were sent to [id number] - [place] [address] [place] [address] oxyCODONE 5 mg immediate release capsule Upcoming Outpatient Appointments Future Appointments Date Time Provider Department Center 10/27/2024 11:15 AM MICHEAL Ronquillo [facility] S [address] [facility] [place] Discharge Instructions Patient should contact a [...] help you quit. You can call the [facility] Smokers' Helpline at 4-577-PBAK NOW ( ). For Tristanian, call 0-233-9-ANTHONYVASILIY ( ). You can also visit the website at [email or web address]. FOLLOW UP APPOINTMENTS: You have an appointment with Mitch Elizondo PA-C at the Thoracic Surgery office on 10/27/24 @ 11 am for a postop follow up. Please Arrive 30 minutes prior to your appointment to have a chest xray done at [facility] (1st floor, [facility]). Go to Patient Registration to check in for the xray. [facility] Thoracic Surgery office [address] [place] [address] Call your PCP to make sure you have a post-hospital follow up visit scheduled in the next 1-2 weeks. [facility] [address] [place] [phone] Allyn Hanks NP [facility] Thoracic Surgery [address] [place] [phone] * Allyn Hanks NP - 10/15/2024 11:02 [...] help you quit. You can call the [facility] Smokers' Helpline at 7-824-QUIT NOW ( ). For Tristanian, call 9-353-5-MACHELLE ( ). You can also visit the website at [email or web address]. FOLLOW UP APPOINTMENTS: You have an appointment with Mitch Elizondo PA-C at the Thoracic Surgery office on 10/27/24 @ 11 am for a postop follow up. Please Arrive 30 minutes prior to your appointment to have a chest xray done at [facility] (1st floor, [facility]). Go to Patient Registration to check in for the xray. [facility] Thoracic Surgery office 299 [facility], [address] [address] Call your PCP to make sure you have a post-hospital follow up visit scheduled in the next 1-2 weeks. [facility] Thoracic Surgery [address] [place] [address], [address] [phone] documented in this encounter Medications at Time [...] a 74 y.o. female : 1950 MR#: [id number] SUBJECTIVE Patient seen and examined. Discussed with [...] Signed Date: 10/15/2024 08:25 ET Workstation ID: [id number] Transcribed By: Self Edit Transcribed Date: 10/15/2024 [...] Velasco, PT - 10/15/2024 9:40 AM EST [facility] ACUTE CARE PT EVALUATION Mague Rosario 1950 Ambulation: Walking Assistance: Supervision Device: Rolling walker Distance Ambulated (ft): 220 PLOF: Level of [place]: Independent with mobility and functional transfers Lives [...] 1. History of lung cancer Z85.118 V10.11 Walker Walker 2. Primary cancer of left lower lobe [...] PARTIAL OTHER SURGICAL HISTORY Right 2017 PROCEDURE: TX THORACOSCOPY W/LOBECTOMY SINGLE LOBE; COMMENT: RML SHOULDER SURGERY 2016 PROCEDURE: HISTORICAL SHOULDER SURGERY TONSILLECTOMY PROCEDURE: HISTORICAL [...] down Prior Function: Prior Function Level of [place]: Independent with mobility and functional transfers Ambulation [...] Education Documentation Mobility Training, taught by Jada Velasco PT at 10/15/2024 9:40 AM. Learner: Patient Readiness: Acceptance Method: Explanation, Demonstration Response: Verbalizes Understanding, Demonstrated Understanding Comment: use RW at home for gait, avoid heavy lifting and avoid going down flight of stairs for now Education Comments No comments found. ASSESSMENT PT asked for script for Rolling walker from . Patient refused home PT. Pt is steady [...] other Type of Residence Private residence ([facility] with ) Assistive Devices Dentures upper;Eyeglasses Support Systems Spouse/significant other;Children Medication Coverage Has Med Coverage Under Insurance Plan Yes Medication Affordability No concerns related to payment for meds Informed Choice Informed Choice Given? Yes Transportation Transportation at discharge Family ARTI: 10/15 Plan: home self care Barriers: chest tube, thoracic eval, Therapy Eval: na Referral status: na Auth status: na Last BM: 10/14 Pharmacy: [email or web address] HCP: Yes Support Persons and Availability: Family PCP: Marlen Pereira MD * Siobhan Resendiz MD - 10/14/2024 11:57 AM EST Images from the original note were not included. [facility]ILMA PROGRESS NOTE Date: 10/14/2024 Author: Siobhan Resendiz MD Patient ID: Mague Rosario is a 74 y.o. female : 1950 MR#: [id number] SUBJECTIVE Patient seen and examined. Overnight no [...] sodium chloride AND sodium chloride OBJECTIVE Vitals: 10/13/24201010/13/24 2031 10/13/24 2342 10/14/24 0405 [...] Signed Date: 10/14/2024 07:58 ET Workstation ID: [id number] Transcribed By: Self Edit Transcribed Date: 10/14/2024 [...] tablet 1,000 mg 1,000 mg oral q8h [facility] MICHEAL Thomas 1,000 mg at 10/14/24 0618 [...] injection 40 mg 40 mg subcutaneous q24h [facility] MICHEAL Thomas 40 mg at 10/14/24 0845 formoterol (PERFOROMIST) 20 mcg/2 mL nebulizer solution 20 mcg 20 mcg nebulization BID MICHEAL Thomas 20 mcg at 10/14/24 0726 And revefenacin (YUPELRI) 175 mcg/3 mL nebulizer solution 175 mcg 175 mcg nebulization Daily MICHEAL Thmoas 175 mcg at 10/14/24 0726 haloperidol lactate [...] Signed Date: 10/14/2024 07:58 ET Workstation ID: [id number] Transcribed By: Self Edit Transcribed Date: 10/14/2024 [...] Signed Date: 09/29/2024 09:49 ET Workstation ID: [id number] Transcribed By: Self Edit Transcribed Date: 09/29/2024 [...] condition. From PACU she was transferred to [facility] for further care on telemetry. On POD [...] I adenocarcinoma. Patient was last seen at [facility] by Dr. Lovett where her surveillance. Patient [...] COLONOSCOPY OTHER SURGICAL HISTORY Right 2017 PROCEDURE: TX THORACOSCOPY W/LOBECTOMY SINGLE LOBE; COMMENT: RML SHOULDER [...] Signed Date: 08/18/2024 14:29 ET Workstation ID: [id number] Transcribed By: Self Edit Transcribed Date: 08/18/2024 [...] chest CT scan done on 08/18/2024 at [facility] shows a 17mm GGN in the posterior left lower lobe. I directly compared the patient's current CT to a CT scan done at [facility] from 2018 (see screenshots above). The left [...] fixed cone beam CT with IP at [place], or robotic VATS left lower lobe wedge resection with possible segmentectomy or lobectomy. Patient would like to proceed with the surgical option. I will set the patient up with repeat pulmonary function testing, cardiology clearance appointment (patient does not have a bowling pin refinisher at baseline), and will get the patient [...] chest was explored (C findings above).The bedside showroom sales assistant controlled the camera and placed several of the ports during this portion of the operation. CO2 insufflation was established and the camera was directed posteriorly and inferiorly. With the camera directed posteriorly by the bedside showroom sales assistant, an 8 mm incision was [...] cm incision was made by the bedside showroom sales assistant 10 cm from the camera [...] were inserted and removed by the bedside showroom sales assistant. All specimens were also removed by the bedside showroom sales assistant. We began the operation by [...] an Endo Catch bag by the bedside showroom sales assistant and removed and sent to pathology. A 28 Luxembourger straight chest tube was placed and directed [...] Mccullough RN - 10/13/2024 9:50 AM EST DEWIN JONES-DAUGHTER [phone] documented in this encounter Consult Notes * [...] Cataract (08/08/2022), COPD (chronic obstructive pulmonary disease) ([facility]) (08/08/2022), COPD exacerbation ([facility]) (08/08/2022), Diverticulosis, Joint pain, Knee osteoarthritis (08/08/2022), Meckel's diverticulum (08/08/2022), Mixed hyperlipidemia (08/08/2022), Personal history of nicotine dependence (08/08/2022), Pneumonia, 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 Ramirez Cosigned by aKci Ramirez MD at 10/19/2024 2:04 PM EST [...] Info) Description 04/28/2025 3:30 PM EDT Appointment [facility] CT Scan [address] [place] [phone] documented as of this encounter Procedures Procedure [...] PREPARE RBC STAT 10/13/2024 11:48 AM EST TX BRONCHOSCOPY INCL FLUROSCOPIC GUIDANCE W PLCMNT FIDUCIAL MARKER SGL/MULT 10/13/2024 10:50 AM EST 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) TX REMOVAL OF LUNG OTHER THAN PNEUMONECTOMY SINGLE LOBE 10/13/2024 10:50 AM EST 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) TX BRONCHOSCOPY RIGID/FLEXIBLE INCL FLUORO W/THERAPY ASPIRATION INITIAL 10/13/2024 10:50 AM EST 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) TX THORACOSCOPY W DX WEDGE RESECTION F/B ANATOMIC LUNG RESECTION 10/13/2024 10:50 AM EST 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) TX THORACOSCOPY SURGICAL WITH LOBECTOMY 10/13/2024 10:50 AM [...] K/mcL LAB HEMETOLOGY METHOD 10/15/2024 7:20 AM [facility] RBC 3.60(L) 3.80 - 4.80 M/mcL LAB HEMETOLOGY METHOD 10/15/2024 7:20 AM [facility] Hemoglobin 10.9(L) 11.5 - 16.0 g/dL LAB HEMETOLOGY METHOD 10/15/2024 7:20 AM [facility] Hematocrit 35.5 35.0 - 47.0 % LAB HEMETOLOGY METHOD 10/15/2024 7:20 AM [facility] MCV 99.7(H) 79.0 - 98.0 FL LAB HEMETOLOGY METHOD 10/15/2024 7:20 AM [facility] MCH 30.6 27.0 - 32.0 pcg LAB HEMETOLOGY METHOD 10/15/2024 7:20 AM [facility] MCHC 30.7(L) 32.0 - 37.0 g/dL LAB HEMETOLOGY METHOD 10/15/2024 7:20 AM [facility] RDW 13.2 11.0 - 15.0 % LAB HEMETOLOGY METHOD 10/15/2024 7:20 AM [facility] Platelets 300 130 - 400 K/mcL LAB HEMETOLOGY METHOD 10/15/2024 7:20 AM [facility] MPV 10.4 7.0 - 11.0 FL LAB HEMETOLOGY METHOD 10/15/2024 7:20 AM [facility] NRBC 0.0 <1.0 % LAB HEMETOLOGY METHOD 10/15/2024 7:20 AM [facility] NRBC Absolute 0.00 <0.10 K/mcL LAB HEMETOLOGY METHOD 10/15/2024 7:20 AM [facility] Neutrophils Relative 72.9 % LAB HEMETOLOGY METHOD 10/15/2024 7:20 AM [facility] Lymphocytes Relative 14.6 % LAB HEMETOLOGY METHOD 10/15/2024 7:20 AM [facility] Monocytes Relative 9.8 % LAB HEMETOLOGY METHOD 10/15/2024 7:20 AM [facility] Eosinophils Relative 1.9 % LAB HEMETOLOGY METHOD 10/15/2024 7:20 AM [facility] Basophils Relative 0.3 % LAB HEMETOLOGY METHOD 10/15/2024 7:20 AM [facility] Immature Granulocytes Relative 0.5 % LAB HEMETOLOGY METHOD 10/15/2024 7:20 AM [facility] Neutrophils Absolute 8.26(H) 1.50 - 7.00 K/mcL LAB HEMETOLOGY METHOD 10/15/2024 7:20 AM [facility] Lymphocytes Absolute 1.65 1.00 - 5.00 K/mcL LAB HEMETOLOGY METHOD 10/15/2024 7:20 AM [facility] Monocytes Absolute 1.11(H) 0.20 - 1.00 K/mcL LAB HEMETOLOGY METHOD 10/15/2024 7:20 AM [facility] Eosinophils Absolute 0.21 0.00 - 0.50 K/[facility] LAB HEMETOLOGY METHOD 10/15/2024 7:20 AM EST [facility] Basophils Absolute 0.03 0.00 - 0.20 K/[facility] LAB HEMETOLOGY METHOD 10/15/2024 7:20 AM [facility] Immature Granulocytes Absolute 0.06(H) 0.00 - 0.03 K/[facility] LAB HEMETOLOGY METHOD 10/15/2024 7:20 AM EST [facility] LAB Blood Venous blood specimen / Unknown Venipuncture / Unknown 10/15/2024 6:22 AM EST 10/15/2024 7:14 AM EST Siobhan Resendiz MD LAB BLOOD ORDERABLES Final Result [facility] LAB [address] [place] [address], * (ABNORMAL) Basic metabolic panel (10/15/2024 6:22 AM EST) Sodium 138 133 - 145 mmol/L LAB CHEMISTRY METHOD 10/15/2024 8:09 AM [facility] Potassium 5.3 3.5 - 5.5 mmol/L LAB CHEMISTRY METHOD 10/15/2024 8:09 AM [facility] Chloride 103 96 - 110 mmol/L LAB CHEMISTRY METHOD 10/15/2024 8:09 AM [facility] CO2 33(H) 21 - 32 mmol/L LAB CHEMISTRY METHOD 10/15/2024 8:09 AM [facility] Anion Gap 2(L) 3 - 11 LAB CHEMISTRY METHOD 10/15/2024 8:09 AM [facility] Glucose 105(H) 70 - 100 mg/dL LAB CHEMISTRY METHOD 10/15/2024 8:09 AM [facility] BUN 18 5 - 25 mg/dL LAB CHEMISTRY METHOD 10/15/2024 8:09 AM [facility] Creatinine 0.67 0.50 - 1.10 mg/dL LAB CHEMISTRY METHOD 10/15/2024 8:09 AM [facility] LAB eGFR 92 >=60 mL/min/1. 73m2 LAB CHEMISTRY METHOD 10/15/2024 8:09 AM [facility] Comment:Calculation based on the??Chronic Kidney Disease Epidemiology Collaboration (CKD-EPI) equation refit??without adjustment for race. BUN/Creatinine Ratio 26.9 LAB CHEMISTRY METHOD 10/15/2024 8:09 AM [facility] Calcium 9.0 8.5 - 10.5 mg/dL LAB CHEMISTRY METHOD 10/15/2024 8:09 AM [facility] Blood Venous blood specimen / Unknown Venipuncture / Unknown 10/15/2024 6:22 AM EST 10/15/2024 7:14 AM EST us Siobhan Resendiz MD LAB BLOOD ORDERABLES Final Result [facility] [address] [place] [address], * XR Chest 1 View (10/15/2024 5:26 [...] Signed Date: 10/15/2024 08:25 ET Workstation ID: [id number] Transcribed By: Self Edit Transcribed Date: 10/15/2024 [...] Signed Date: 10/15/2024 08:25 ET Workstation ID: [id number] Transcribed By: Self Edit Transcribed Date: 10/15/2024 08:24 ET Luciano BURTON IMG XR PROCEDURES Final Result * (ABNORMAL) CBC - Every 3 Days (10/14/2024 5:36 AM EST) WBC 11.5(H) 4.8 - 10.8 K/mcL LAB HEMETOLOGY METHOD 10/14/2024 6:22 AM [facility] RBC 3.60(L) 3.80 - 4.80 M/[facility] LAB HEMETOLOGY METHOD 10/14/2024 6:22 AM [facility] Hemoglobin 11.1(L) 11.5 - 16.0 g/dL LAB HEMETOLOGY METHOD 10/14/2024 6:22 AM [facility] Hematocrit 35.5 35.0 - 47.0 % LAB HEMETOLOGY METHOD 10/14/2024 6:22 AM EST [facility] MCV 98.9(H) 79.0 - 98.0 FL LAB HEMETOLOGY METHOD 10/14/2024 6:22 AM [facility] MCH 30.9 27.0 - 32.0 pcg LAB HEMETOLOGY METHOD 10/14/2024 6:22 AM EST [facility] MCHC 31.3(L) 32.0 - 37.0 g/dL LAB HEMETOLOGY METHOD 10/14/2024 6:22 AM EST [facility] RDW 12.9 11.0 - 15.0 % LAB HEMETOLOGY METHOD 10/14/2024 6:22 AM [facility] Platelets 378 130 - 400 K/mcL LAB HEMETOLOGY METHOD 10/14/2024 6:22 AM EST [facility] MPV 9.3 7.0 - 11.0 FL LAB HEMETOLOGY METHOD 10/14/2024 6:22 AM EST [facility] NRBC 0.0 <1.0 % LAB HEMETOLOGY METHOD 10/14/2024 6:22 AM [facility] NRBC Absolute 0.00 <0.10 K/mcL LAB HEMETOLOGY METHOD 10/14/2024 6:22 AM [facility] Blood Venous blood specimen / Unknown Venipuncture / Unknown 10/14/2024 5:36 AM EST 10/14/2024 6:04 AM EST us Jessica BURTON LAB BLOOD ORDERABLES Final Re sult [facility] [address] [place] [address], * Magnesium (10/14/2024 5:36 AM EST) Pathologist [facility] Magnesium 2.1 1.9 - 2.6 mg/dL LAB CHEMISTRY METHOD 10/14/2024 6:32 AM EST [facility] Blood Venous blood specimen / Unknown Venipuncture / Unknown 10/14/2024 5:36 AM EST 10/14/2024 6:04 AM EST Jessica BURTON LAB BLOOD ORDERABLES Final Re sult [facility] [address] [place] [address], [place] [phone] * Phosphorus (10/14/2024 5:36 AM EST) [facility] Phosphorus 4.2 2.5 - 4.5 mg/dL LAB CHEMISTRY METHOD 10/14/2024 6:32 AM EST [facility] Blood Venous blood specimen / Unknown Venipuncture / Unknown 10/14/2024 5:36 AM EST 10/14/2024 6:04 AM EST Jessica BURTON LAB BLOOD ORDERABLES Final Re sult Performing Organization Address City/[facility]/ZIP Co de Phone Number [facility] [address] [place] [address], [place] [phone] * (ABNORMAL) Basic metabolic panel (10/14/2024 5:36 AM EST) [facility] Sodium 139 133 - 145 mmol/L LAB CHEMISTRY METHOD 10/14/2024 6:32 AM EST [facility] Potassium 4.7 3.5 - 5.5 mmol/L LAB CHEMISTRY METHOD 10/14/2024 6:32 AM EST [facility] Chloride 105 96 - 110 mmol/L LAB CHEMISTRY METHOD 10/14/2024 6:32 AM EST [facility] CO2 31 21 - 32 mmol/L LAB CHEMISTRY METHOD 10/14/2024 6:32 AM [facility] Anion Gap 3 3 - 11 LAB CHEMISTRY METHOD 10/14/2024 6:32 AM [facility] Glucose 135(H) 70 - 100 mg/dL LAB CHEMISTRY METHOD 10/14/2024 6:32 AM [facility] BUN 15 5 - 25 mg/dL LAB CHEMISTRY METHOD 10/14/2024 6:32 AM [facility] Creatinine 0.72 0.50 - 1.10 mg/dL LAB CHEMISTRY METHOD 10/14/2024 6:32 AM [facility] eGFR 88 >=60 mL/min/1. 73m2 LAB CHEMISTRY METHOD 10/14/2024 6:32 AM [facility] Comment:Calculation based on the??Chronic Kidney Disease Epidemiology Collaboration (CKD-EPI) equation refit??without adjustment for race. BUN/Creatinine Ratio 20.8 LAB CHEMISTRY METHOD 10/14/2024 6:32 AM [facility] Calcium 8.8 8.5 - 10.5 mg/dL LAB CHEMISTRY METHOD 10/14/2024 6:32 AM [facility] Blood Venous blood specimen / Unknown Venipuncture / Unknown 10/14/2024 5:36 AM EST 10/14/2024 6:04 AM EST Jessica BURTON LAB BLOOD ORDERABLES Final Re sult [facility] [address] [place] [address], * XR Chest 1 View (10/14/2024 5:26 AM EST) Anatomical Region Laterality Modality Body Radiographic Myrtle ging 10/14/2024 7:57 AM EST Impressions 10/14/2024 7:58 AM EST No significant interval change. -------- FINAL REPORT -------- Dictated By: Merrick Parish Dictated Date: 10/14/2024 07:57 ET Assigned Physician: Merrick Parish Reviewed and Electronically Signed By: Merrick Parish Signed Date: 10/14/2024 07:58 ET Workstation ID: [id number] Transcribed By: Self Edit Transcribed Date: 10/14/2024 [...] Signed Date: 10/14/2024 07:58 ET Workstation ID: [id number] Transcribed By: Self Edit Transcribed Date: 10/14/2024 07:57 ET Jessica BURTON IMG XR PROCEDURES Final Resul t * (ABNORMAL) Basic metabolic panel (10/13/2024 3:00 PM EST) Sodium 141 133 - 145 mmol/L LAB CHEMISTRY METHOD 10/13/2024 6:51 PM [facility] Potassium 4.4 3.5 - 5.5 mmol/L LAB CHEMISTRY METHOD 10/13/2024 6:51 PM [facility] Chloride 107 96 - 110 mmol/L LAB CHEMISTRY METHOD 10/13/2024 6:51 PM [facility] CO2 27 21 - 32 mmol/L LAB CHEMISTRY METHOD 10/13/2024 6:51 PM [facility] Anion Gap 7 3 - 11 LAB CHEMISTRY METHOD 10/13/2024 6:51 PM [facility] Glucose 132(H) 70 - 100 mg/dL LAB CHEMISTRY METHOD 10/13/2024 6:51 PM [facility] BUN 16 5 - 25 mg/dL LAB CHEMISTRY METHOD 10/13/2024 6:51 PM [facility] Creatinine 0.77 0.50 - 1.10 mg/dL LAB CHEMISTRY METHOD 10/13/2024 6:51 PM [facility] eGFR 81 >=60 mL/min/1. 73m2 LAB CHEMISTRY METHOD 10/13/2024 6:51 PM [facility] Comment:Calculation based on the??Chronic Kidney Disease Epidemiology Collaboration (CKD-EPI) equation refit??without adjustment for race. BUN/Creatinine Ratio 20.8 LAB CHEMISTRY METHOD 10/13/2024 6:51 PM [facility] Calcium 8.8 8.5 - 10.5 mg/dL LAB CHEMISTRY METHOD 10/13/2024 6:51 PM [facility] Blood Venous blood specimen / Unknown Venipuncture / Unknown 10/13/2024 3:00 PM EST 10/13/2024 3:11 PM EST us Lupe BURTON LAB BLOOD ORDERABLES Final Re sult [facility] [address] [place] [address], [place] [phone] * Magnesium (10/13/2024 3:00 PM EST) [facility] Magnesium 2.1 1.9 - 2.6 mg/dL LAB CHEMISTRY METHOD 10/13/2024 3:52 PM EST [facility] Blood Venous blood specimen / Unknown Venipuncture / Unknown 10/13/2024 3:00 PM EST 10/13/2024 3:11 PM EST Jessica BURTON LAB BLOOD ORDERABLES Final Re sult Performing Organization Address [facility]/ZIP Co de Phone Number [facility] [address] [place], [place] [address], [place] [phone] * (ABNORMAL) Phosphorus (10/13/2024 3:00 PM EST) [facility] Phosphorus 5.1(H) 2.5 - 4.5 mg/dL LAB CHEMISTRY METHOD 10/13/2024 3:52 PM EST [facility] Blood Venous blood specimen / Unknown Venipuncture / Unknown 10/13/2024 3:00 PM EST 10/13/2024 3:11 PM EST Jessica BURTON LAB BLOOD ORDERABLES Final Re sult Performing Organization Address [facility]/ZIP Co de Phone Number [facility] [address] [place] [address], [place] [phone] * (ABNORMAL) Complete blood count (10/13/2024 3:00 PM EST) Pathologist [facility] WBC 13.4(H) 4.8 - 10.8 K/[facility] LAB HEMETOLOGY METHOD 10/13/2024 3:28 PM EST [facility] RBC 3.80 3.80 - 4.80 M/mcL LAB HEMETOLOGY METHOD 10/13/2024 3:28 PM [facility] Hemoglobin 11.7 11.5 - 16.0 g/dL LAB HEMETOLOGY METHOD 10/13/2024 3:28 PM [facility] Hematocrit 38.0 35.0 - 47.0 % LAB HEMETOLOGY METHOD 10/13/2024 3:28 PM [facility] MCV 100.3(H) 79.0 - 98.0 FL LAB HEMETOLOGY METHOD 10/13/2024 3:28 PM [facility] MCH 30.9 27.0 - 32.0 pcg LAB HEMETOLOGY METHOD 10/13/2024 3:28 PM [facility] MCHC 30.8(L) 32.0 - 37.0 g/dL LAB HEMETOLOGY METHOD 10/13/2024 3:28 PM [facility] RDW 13.1 11.0 - 15.0 % LAB HEMETOLOGY METHOD 10/13/2024 3:28 PM [facility] Platelets 325 130 - 400 K/mcL LAB HEMETOLOGY METHOD 10/13/2024 3:28 PM [facility] MPV 9.2 7.0 - 11.0 FL LAB HEMETOLOGY METHOD 10/13/2024 3:28 PM [facility] NRBC 0.0 <1.0 % LAB HEMETOLOGY METHOD 10/13/2024 3:28 PM [facility] NRBC Absolute 0.00 <0.10 K/mcL LAB HEMETOLOGY METHOD 10/13/2024 3:28 PM [facility] Blood Venous blood specimen / Unknown Venipuncture / Unknown 10/13/2024 3:00 PM EST 10/13/2024 3:11 PM EST us Jessica BURTON LAB BLOOD ORDERABLES Final Re sult Performing Organization Address [facility]/[place] Co de Phone Number [facility] [address] [place] [address], [place] [phone] * Lavender tube (10/13/2024 2:55 PM EST) Extra Tube Hold for add-ons. 10/13/2024 5:02 PM EST [facility] Comment:Auto resulted. Blood Venous blood specimen / Unknown 10/13/2024 2:55 PM EST 10/13/2024 3:13 PM EST us Latonya Lovett MD LAB BLOOD ORDERABLES Final Resul t Performing Organization Address [facility] de Phone Number [facility] [address] [place] [address], [place] [phone] * Light blue tube (10/13/2024 2:55 PM EST) Extra Tube Hold for add-ons. 10/13/2024 5:02 PM EST [facility] Comment:Auto resulted. Blood Venous blood specimen / Unknown 10/13/2024 2:55 PM EST 10/13/2024 3:13 PM EST us Latonya Lovett MD LAB BLOOD ORDERABLES Final Resul t Performing Organization Address [facility] Co de Phone Number [facility] [address] [place] [address], [place] [phone] * XR Chest 1 View (10/13/2024 2:54 [...] Signed Date: 10/13/2024 15:05 ET Workstation ID: [id number] Transcribed By: Self Edit Transcribed Date: 10/13/2024 [...] Signed Date: 10/13/2024 15:05 ET Workstation ID: [id number] Transcribed By: Self Edit Transcribed Date: 10/13/2024 15:02 ET Jessica BURTON IM XR PROCEDURES Final Resul t * Tissue [...] 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 Lymph Node, [...] are noted. Intraparenchymal lymph nodes are absent. Kiln Puller sections are submitted in eleven cassettes. Additional sections are submitted in cassettes 12-21. 1-2 bronchovascular margins, en face (red ink use for embedding), four and one pieces respectively 3-Two whole hilar lymph nodes and two samples of lung, four pieces 4-6 community representative perpendicular sections of staple line opposing hilum, two pieces each 7-community representative sections of the staple line inferior to hilum, taken perpendicularly, two pieces 8-9 random superior lung, two pieces each 10-random mid lung-hilum, two pieces 11-random inferior lung, two pieces 12-17 additional superior lung, two pieces each 18-19 additional mid lung-hilum, two pieces each 20-21 additional inferior lung, two pieces each TS 10/22/2024 5:20 PM EST [facility] ([facility]) [facility] Synoptic Checklist LUNG LUNG: RESECTION - All Specimens 8th Edition - Protocol posted: 05/29/2022 SPECIMEN ?? Synchronous Tumors: ?Present ? Total Number of Primary Tumors: ?2 ? Specimen ID(s): ?Tumor in this completion lobectomy was found only microscopically / Previous tumor found only microscopically in wedge resection [id number] ?? Procedure: ?Completion lobectomy ?? Specimen Laterality: ?Left TUMOR ?? Tumor Focality: ?Multifocal tumor nodules of similar histology type not considered intrapulmonary metastases or too numerous for separate synoptic reports ? Number of Tumor Nodules: ?2 tumor nodules (one tumor nodule in this completion lobectomy and one tumor nodule representing the remainder of the invasive lepidic tumor identified in the previous wedge resection [id number]. ?? Tumor Site: ?Lower lobe of lung [...] lobe as the primary (previous wedge resection [id number]) 10/22/2024 5:20 PM EST [facility] Disclaimer Unless otherwise specified, all tissue is 10% NB formalin fixed and paraffin embedded. 10/22/2024 5:20 PM EST [facility] Tissue Lymph node specimen / Unknown [...] MD LAB PATHOLOGY ORDERABLES Final R esult [facility]) [facility] [address] [place] [address], [place] [phone] * Prepare RBC: 2 Units (10/13/2024 11:48 AM EST) [facility] Signature Product Code [id number] 10/13/2024 2:17 PM [facility] Unit Number [id number] 10/13/19 2:17 PM [facility] Crossmatch Compatible 10/13/2024 11:54 AM [facility] Dispense Status Released From Crossmatch 10/13/2024 2:17 PM [facility] Unit ABO Rh OPOS 10/13/2024 2:17 PM [facility] Unit Expiration Date Time [id number] 10/13/2024 2:17 PM [facility] Unit Blood Type 5100 10/13/2024 2:17 PM [facility] Product Code [id number] 10/14/2024 7:17 AM [facility] Unit Number [id number] 10/14/19 7:17 AM [facility] Crossmatch Compatible 10/13/2024 11:56 AM [facility] Dispense Status Released From Crossmatch 10/14/2024 7:17 AM [facility] Unit ABO Rh OPOS 10/14/2024 7:17 AM [facility] Unit Expiration Date Time [id number] 10/14/2024 7:17 AM [facility] Unit Blood Type 5100 10/14/2024 7:17 AM [facility] Blood Venous blood specimen / Unknown 10/13/2024 11:48 AM EST 10/13/2024 10:10 AM EST us Deshawn Cabrera MD BLOOD BANK PRODUCT ORDERABLES Final Result [facility] [address] [place] [address], * (ABNORMAL) CBC auto differential (10/13/2024 10:04 AM EST) WBC 7.5 4.8 - 10.8 K/mcL LAB HEMETOLOGY METHOD 10/13/2024 10:33 AM [facility] RBC 3.80 3.80 - 4.80 M/mcL LAB HEMETOLOGY METHOD 10/13/2024 10:33 AM [facility] Hemoglobin 11.4(L) 11.5 - 16.0 g/dL LAB HEMETOLOGY METHOD 10/13/2024 10:33 AM [facility] Hematocrit 36.4 35.0 - 47.0 % LAB HEMETOLOGY METHOD 10/13/2024 10:33 AM [facility] MCV 95.8 79.0 - 98.0 FL LAB HEMETOLOGY METHOD 10/13/2024 10:33 AM [facility] MCH 30.0 27.0 - 32.0 pcg LAB HEMETOLOGY METHOD 10/13/2024 10:33 AM [facility] MCHC 31.3(L) 32.0 - 37.0 g/dL LAB HEMETOLOGY METHOD 10/13/2024 10:33 AM [facility] RDW 13.1 11.0 - 15.0 % LAB HEMETOLOGY METHOD 10/13/2024 10:33 AM [facility] Platelets 355 130 - 400 K/mcL LAB HEMETOLOGY METHOD 10/13/2024 10:33 AM [facility] MPV 9.4 7.0 - 11.0 FL LAB HEMETOLOGY METHOD 10/13/2024 10:33 AM [facility] NRBC 0.0 <1.0 % LAB HEMETOLOGY METHOD 10/13/2024 10:33 AM [facility] NRBC Absolute 0.00 <0.10 K/mcL LAB HEMETOLOGY METHOD 10/13/2024 10:33 AM [facility] Neutrophils Relative 68.0 % LAB HEMETOLOGY METHOD 10/13/2024 10:33 AM [facility] Lymphocytes Relative 20.4 % LAB HEMETOLOGY METHOD 10/13/2024 10:33 AM [facility] Monocytes Relative 8.3 % LAB HEMETOLOGY METHOD 10/13/2024 10:33 AM [facility] Eosinophils Relative 2.1 % LAB HEMETOLOGY METHOD 10/13/2024 10:33 AM [facility] Basophils Relative 0.5 % LAB HEMETOLOGY METHOD 10/13/2024 10:33 AM [facility] Immature Granulocytes Relative 0.7 % LAB HEMETOLOGY METHOD 10/13/2024 10:33 AM [facility] Neutrophils Absolute 5.07 1.50 - 7.00 K/mcL LAB HEMETOLOGY METHOD 10/13/2024 10:33 AM [facility] Lymphocytes Absolute 1.52 1.00 - 5.00 K/mcL LAB HEMETOLOGY METHOD 10/13/2024 10:33 AM [facility] Monocytes Absolute 0.62 0.20 - 1.00 K/mcL LAB HEMETOLOGY METHOD 10/13/2024 10:33 AM [facility] Eosinophils Absolute 0.16 0.00 - 0.50 K/mcL LAB HEMETOLOGY METHOD 10/13/2024 10:33 AM [facility] Basophils Absolute 0.04 0.00 - 0.20 K/mcL LAB HEMETOLOGY METHOD 10/13/2024 10:33 AM [facility] Immature Granulocytes Absolute 0.05(H) 0.00 - 0.03 K/mcL LAB HEMETOLOGY METHOD 10/13/2024 10:33 AM [facility] Blood Venous blood specimen / Unknown Venipuncture / Unknown 10/13/2024 10:04 AM EST 10/13/2024 10:10 AM EST us Latonya Lovett MD LAB BLOOD ORDERABLES Final Resul t [facility] [address] [place] [address], [place] [phone] * (ABNORMAL) Basic metabolic panel (10/13/2024 10:04 AM EST) Sodium 140 133 - 145 mmol/L LAB CHEMISTRY METHOD 10/13/2024 10:34 AM [facility] Potassium 4.2 3.5 - 5.5 mmol/L LAB CHEMISTRY METHOD 10/13/2024 10:34 AM [facility] Chloride 109 96 - 110 mmol/L LAB CHEMISTRY METHOD 10/13/2024 10:34 AM [facility] CO2 26 21 - 32 mmol/L LAB CHEMISTRY METHOD 10/13/2024 10:34 AM [facility] Anion Gap 5 3 - 11 LAB CHEMISTRY METHOD 10/13/2024 10:34 AM [facility] Glucose 118(H) 70 - 100 mg/dL LAB CHEMISTRY METHOD 10/13/2024 10:34 AM [facility] BUN 15 5 - 25 mg/dL LAB CHEMISTRY METHOD 10/13/2024 10:34 AM [facility] Creatinine 0.61 0.50 - 1.10 mg/dL LAB CHEMISTRY METHOD 10/13/2024 10:34 AM [facility] eGFR 94 >=60 mL/min/1. 73m2 LAB CHEMISTRY METHOD 10/13/2024 10:34 AM EST [facility] Comment:Calculation based on the??Chronic Kidney Disease Epidemiology Collaboration (CKD-EPI) equation refit??without adjustment for race. BUN/Creatinine Ratio 24.6 LAB CHEMISTRY METHOD 10/13/2024 10:34 AM [facility] Calcium 9.5 8.5 - 10.5 mg/dL LAB CHEMISTRY METHOD 10/13/2024 10:34 AM [facility] Blood Venous blood specimen / Unknown Venipuncture / Unknown 10/13/2024 10:04 AM EST 10/13/2024 10:10 AM EST us Latonya Lovett MD LAB BLOOD ORDERABLES Final Resul t Performing Organization Address [facility]/ZIP Co de Phone Number [facility] [address] [place] [address], [place] [phone] * Prothrombin time with INR (10/13/2024 10:04 AM EST) Protime 11.6 10.6 - 13.9 sec LAB COAGULATION METHOD 10/13/2024 11:12 AM [facility] INR 0.9 LAB COAGULATION METHOD 10/13/2024 11:12 AM [facility] Blood Venous blood specimen / Unknown Venipuncture / Unknown 10/13/2024 10:04 AM EST 10/13/2024 10:10 AM EST us Latonya Lovett MD LAB BLOOD ORDERABLES Final Resul t [facility] [address] [place] [address], [place] [phone] * Activated partial thromboplastin time (10/13/2024 10:04 AM EST) aPTT 31.7 24.1 - 39.3 sec LAB COAGULATION METHOD 10/13/2024 11:12 AM [facility] Blood Venous blood specimen / Unknown Venipuncture / Unknown 10/13/2024 10:04 AM EST 10/13/2024 10:10 AM EST us Latonya Lovett MD LAB BLOOD ORDERABLES Final Resul t Performing Organization Address [facility] de Phone Number [facility] [address] [place] [address], [place] [phone] * Type and screen (10/13/2024 10:04 AM EST) ABO Group O 10/13/2024 11:22 AM EST [facility] Rh Type Positive 10/13/2024 11:22 AM EST [facility] Antibody Screen Negative 10/13/2024 11:22 AM EST [facility] Blood Venous blood specimen / Unknown Venipuncture / Unknown 10/13/2024 10:04 AM EST 10/13/2024 10:10 AM EST us Latonya Lovett MD LAB BLOOD BANK TEST ORDERABLES F inal Result Performing Organization Address [facility]/[place] Co de Phone Number [facility] [address] [place] [address], [place] [phone] documented in this encounter Visit Diagnoses Diagnosis 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)- Primary 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) Neoplasm Neoplasm of unspecified nature, site unspecified History of lung cancer Personal history of malignant neoplasm of bronchus and lung 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 ipratropium-albuteroL (DUONEB) 0.5-2.5 mg/3 mL nebulizer solution 3 mL 3 mL, nebulization, Every 6 hours PRN, wheezing, Starting on Fri10/13/24 at 1435, Recovery & On Unit methylPREDNISolone acetate (DEPO-Medrol) injection As needed, Starting on Fri10/13/24 at 1145, Intraprocedure Given 10/13/2024 11:45 AM EST 80 mg Chest metoclopramide (REGLAN) injection 10 mg 10 mg, [...] Unit Given 10/15/2024 7:54 AM EST 1 tab let Given 10/14/2024 8:44 AM EST 1 tablet [...] RN)2006 (Given - Provider: Alex Castillo RN) 0756 (Given - Provider: Lexy Don RN) enoxaparin (LOVENOX) injection 40 mg 40 mg, subcutaneous, Every 24 hours scheduled, First dose on Fri10/13/24 at 1500, Recovery & On Unit, Indication: VTE/PE Prophylaxis 1709 (Given - Provider: Carolyne Escalera RN) 0845 (Given - Provider: Lexy Don, FABY) 0756 (Given - Provider: Lexy Don RN) formoterol [...] 0754 (Given - Provider: Lexy Don RN) polyethylene glycol (MIRALAX) packet 17 g 17 g, oral, Daily, First dose on Fri10/13/24 at 1500, Bowel Regimen - for prevention of constipation 1709 (Given - Provider: Carolyne Escalera RN) 0843 [...] med to be given at 0900 tomorrow) 07 (Given - Provider: Dee Dee Pinzon) 1010 (Given - Provider: Angelika Tolentino) senna (SENOKOT) tablet 17.2 mg 17.2 mg (2 tablet), oral, Nightly, First dose on Fri10/13/24 at 2100, Recovery & On Unit, Bowel Regimen - for prevention of constipation 2138 (Given - Provider: Alex Castillo, FABY) 2008 (Given - Provider: Alex Castillo RN) [...] On Unit 1711 (Given - Provider: Carolyne Escalera RN)2147 (Given - Provider: Alex Castillo, FABY) 0359 (Given - Provider: Alex Castillo RN)0844 (Given - Provider: Lexy Don RN)1409 (Given - Provider: Lexy Don RN)2007 (Given - Provider: Alex Castillo RN) 0340 [...] Ordered Date acetaminophen (TYLENOL) tablet 1,000 mg 3 0 10/13/2024 ascorbic acid (VITAMIN C) tablet 500 mg 1 0 10/13/2024 atorvastatin (LIPITOR) tablet 10 mg 1 10/13 bisacodyL (DULCOLAX) EC tablet 10 mg 1 01/2025 bisacodyL (DULCOLAX) suppository 10 mg 1 ceFAZolin (ANCEF) 2 g in christina rile water 20 mL IV syringe 1 10/13/2024 diphenhydrAMINE (BENADRYL) i njection 12.5 mg 1 10/13/2024 diphenhydrAMINE (BENADRYL) injection 25 mg 1 10/13/2024 docusate sodium (COLACE) capsule 100 mg 1 0 10/13/2024 enoxaparin (LOVENOX) injection 40 mg 1 01/2025 fentaNYL (PF) (SUBLIMAZE) injection 50 mcg 1 10/13/2024 formoterol (PERFOROMIST) 20 mcg/2 mL nebulizer solution 20 mcg 1 10/13/2024 haloperidol lactate (HALDOL) injection 1 mg 2 10/13/2024 HYDROmorphone (PF) injection 0.5 mg 2 10/13 ipratropium-albuteroL (DUONE B) 0.5-2.5 mg/3 mL nebulizer solution 3 mL 1 10/13/2024 metoclopramide (REGLAN) injection 10 mg 1 0 10/13/2024 metoclopramide (REGLAN) tablet 10 mg 1 01/2025 multivitamin tablet 1 tablet 1 10/13/2024 ondansetron (PF) (ZOFRAN) injection 4 mg 2 10/13/2024 ondansetron ODT (ZOFRAN-ODT) disintegrating tablet 4 mg 1 10/13/2024 oxyCODONE (ROXICODONE) immed iate release tablet 10 mg 1 10/13/2024 oxyCODONE (ROXICODONE) immed iate release tablet 5 mg 3 10/13/2024 polyethylene glycol (MIRALAX) packet 17 g 1 10/13/2024 revefenacin (YUPELRI) 175 mc g/3 mL nebulizer solution 175 mcg 1 10/13/2024 senna (SENOKOT) tablet 17.2 mg 1 10/13/2024 sodium chloride 0.9 % flush 10 mL 4 025 General Supply Count Last Ordered Date [...] 10/15/202401/2025 documented in this encounter 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
--- OUTSIDE RECORDS SUMMARY | 2024-11-05 10:28 | XMS_ITS | Data Portability ---
Author Organization [facility], , [facility] Address [address] [place] [address] Care Team Providers Care Nonprofit Manager Name Role Phone ZEINA WEBB OTHER [phone] MIKE FLOYD Primary Care Provide r Assessment No assessment recorded. Plan of Treatment Reminders Order Date Submit Date Provider Last Modified By Organization Details Last Modified Time Details Appointments None record ed. Lab drug screen , urine - last done 5 @ 5:30am oxy/ac et 2015 016 [facility], [address] [place] [address], [address], 6 11:19:37 opiate s, quanti tative , urine - Last dose 4:30 a.m. 10/17/152015 016 [facility], [address] [place] [address], [address], 6 12:22:53 CMP, serum or plasma 2014 015 [facility], [address] [place] [address], [address], 5 12:25:58 Referral plasti alvaro shaw n referr al - skin tag on forehe ad 2014 Marcin Montenegro MD, [address] [place], [address], 6 10:50:01 Procedures colono scopy proced ure (PROC) 2014 Marcin [facility], [address] [place], [address], 6 09:29:57 Surgeries None record ed. Imaging MAMMO, screen ing, digita l, bilate ral 2014 015 [facility] (Imaging), [address], [place], [address], 6 10:16:18 CT, chest, low dose screen ing withou t contra st 2014 015 [facility], [address] [place], [address], 6 21:37:38 Medication Orders Spiriv a with HandiH aler 18 mcg and inhala tion capsul es 2015 016 armando gonzales [id number], [address] [place], [address], 6 06:39:13 Spiriv a with HandiH aler 18 mcg and inhala tion capsul es 2014 015 armando gonzales Not available 5 19:56:21 clonaz epam 0.5 mg tablet 2014 015 armando gonzales [id number], [address] [place], [address], 5 13:35:33 Patient TargetsNo targets recorded. Patient Instructions Encounter Date Encounter Id Patient Instructions Last Modified By Organization Details Last Modified Time 12/28/2014 [id number] pre/post bronchodilator spirometry* [place] Not available 12/28/2014 17:06:50 01/11/2015 [id number] 1. immunizations not covered by her insurance for now, states she will update her shots when she turns 65. 2. she? ? ?wants to call insurance first if? ? ?overnight oxygen due to nocturnal hypoxemia will be covered. 3. will see floor mechanic, she will make an appt 4. testing discussed at this visit. [place] Not available 01/11/2015 19:58:57 04/25/2015 [id number] My Health To Do List Specific Analgesia Plan: {{Continue present regimen* Adjust dose of present analgesic Switch analgesics Add/Ad just concomitant therapy Discontin ue/taper off opioid therapy}} Specific Goals for next visit {{increase exercise* start stress management improv e sleeping start Yoga start TaiChi see therapist}}The patient is currently {{at* not at}} their goal of safe, stable use of narcotic pain medication to improve their functioning in life. Since the last visit there has been {{activity of concern no activity of concern*}}:{{# ov eruse of meds request for an early refill abuse of staff noncomplian ce with UDS or pill count requests abnormal UDS}} Patient today is {{at high risk at moderate risk at low risk*}} for {{abuse of meds* misuse of meds}}. Monitoring will include {{pill counts repeat UDS* closer follow-up with shorter scripts}}. Patients current goals of {{better sleep more activity* return to work return to school improved ADL's improved self care improved function in roles}} were discussed with patient, unlikelihood of 100% reduction in pain made clear. Patient has read narcotics contract and understands the properties of narcotic medication. f/u in 3 mos. 1. trial of clonazepam to use as needed for anxiety, try 1/2 tab first 2. please call if you need therapy - good supportive . 3. change PHA to Jul 2015 because of insurance 4. COPD - stable, great job at NOT smoking. [place] Not available 04/25/2015 13:35:33 07/17/2015 [id number] well visit, wome n 50 to 65: care instructions [place] Not available 07/17/2015 19:56:21 complete PFT* - feels like COPD/SOB is worsening. on Spriva already without ABGS [place] Not available 09/29/2015 12:14:03 hearing loss: care instructions [place] Not available 07/17/2015 19:56:21 well visit, over 65: care instructions [place] Not available 07/17/2015 19:56:21 advance directives: care instructions [place] Not available 07/17/2015 19:56:21 preventing falls : care instructions [place] Not available 07/17/2015 19:56:21 After a discussion of treatment and medication options, which included consideration of the best practices in medicine, a medical plan was provided. The patient's opinions and concerns were included in this treatment plan and goal. 1. PCV 13 today, 2. pt can get shingles vaccine at pharmacy 3. next cycle of oxycodone, increase to 1 tab 3x/day for the winter and possible taper down to 2x/day by summer or spring. 4. spirva script printed - pt has to send it for mail order - will get PFT done 5. fasting labs to be done this week 6. due for mammogram and colonoscopy, pt agrees. 7. low dose CT scan screening also ordered 8. MOLST and HCP completed. 9. f/u in 3 mos. [place] Not available 07/17/2015 19:56:21 10/17/2015 [id number] After a discussion of treatment and medication options, which included consideration of the best practices in medicine, a medical plan was provided. The patient's opinions and concerns were included in this treatment plan and goal. 1. please call your insurance about your Spiriva (COPD) ? ? ?and your cholesterol test that is part of your physical. 2. stop drinking your full fat milk- 1 serving of milk has fat equivalent to? ? ? 6 strips of brunson; drink 1% or 2%. 3. we will check your CBC, folic acid, B12 and TSH - pt will call insurance first and check if this is covered. 4. check website: [email or web address] for Mediterranean diet; and also check [employer] (free fouzia) and weight loss goal of 1 lb per week. 5. [facility] the [facility]. 6. goal is to walk daily; declined nutrition consult for now. 7. CSRP contract discussed and renewed/signed. No change in meds. F/u in 3 mos. [place] Not available 10/18/2015 06:39:13 Reason for Referral Plastic Surgeon Referral for Skin tag skin tag on forehead Referring Physician: Mike Esparza, Family Medicine, Encounter Date: 07/17/2015 Results Created Date Observation Date Name Description Value Unit Range Abnormal Flag Note LastModifiedBy Organization Detail LastModifiedTime 12/29/19 15 12/28/2014 pre/p ost [facility] hodil ator estrella metry * Result Not Available [address], [address], 12/28/2014 13:57:31 12/23/19 15 12/22/2014 CBC WBC 5.4 K/? ? ?L 4.0-10 .0 Not Available [address], [address], 12/22/2014 15:00:30 12/23/19 15 12/22/2014 CBC RBC 4.16 M/? ? ?L 3.93-5 .22 Not Available [address], [address], 12/22/2014 15:00:30 12/23/19 15 12/22/2014 CBC HGB 13.1 g/dL 11.2-1 5.7 Not Available [address], [address], 12/22/2014 15:00:30 12/23/19 15 12/22/2014 CBC HCT 41.2 % 34.1-4 4.9 Not Available [address], [address], 12/22/2014 15:00:30 12/23/19 15 12/22/2014 CBC MCV 99.0 ? ? ?L 79.4-9 4.8 high Not Available [address], [address], 12/22/2014 15:00:30 12/23/19 15 12/22/2014 CBC MCH 31.5 pg 25.6-3 2.2 Not Available [address], [address], 12/22/2014 15:00:30 12/23/19 15 12/22/2014 CBC MCHC 31.8 g/dL 32.2-3 5.5 low Not Available [address], [address], 12/22/2014 15:00:30 12/23/1912/22/2014 CBC plt 196.0 K/? ? ?L 182.0- 369.0 Not Available [address], [address], 12/22/2014 15:00:30 12/23/1912/22/2014 CBC MPV 10.7 9.4-12 .3 Not Available [address], [address], 12/22/2014 15:00:30 12/23/1912/22/2014 CBC neut% 57.0 % 34.0-7 1.1 Not Available [address], [address], 12/22/2014 15:00:30 12/23/1912/22/2014 CBC neut# 3.1 1.6-6. 1 Not Available [address], [address], 12/22/2014 15:00:30 12/23/1912/22/2014 CBC lymph % 31.3 % 19.3-5 1.7 Not Available [address], [address], 12/22/2014 15:00:30 12/23/1912/22/2014 CBC lymph # 1.7 K/? ? ?L 1.2-3. 7 Not Available [address], [address], 12/22/2014 15:00:30 12/23/1912/22/2014 CBC mono% 8.5 % 4.7-12 .5 Not Available [address], [address], 12/22/2014 15:00:30 12/23/1912/22/2014 CBC mono# 0.5 0.2-0. 4 high Not Available [address], [address], 12/22/2014 15:00:30 12/23/1912/22/2014 CBC eo% 2.6 % 0.7-5. 8 Not Available [address], [address], 12/22/2014 15:00:30 12/23/1912/22/2014 CBC eo# 0.1 0.0-0. 4 Not Available [address], [address], 12/22/2014 15:00:30 12/23/1912/22/2014 CBC baso% 0.6 % 0.1-1. 2 Not Available [address], [address], 12/22/2014 15:00:30 12/23/1912/22/2014 CBC baso# 0.0 0.0-0. 1 low Not Available [address], [address], 12/22/2014 15:00:30 12/23/1912/22/2014 CBC RDW-CV 13.6 % 11.7-1 4.4 Not Available [address], [address], 12/22/2014 15:00:30 12/23/1912/22/2014 BMP, serum or plasm a glucose 89 mg/dL 70-100 Not Available [address], [address], 12/22/2014 15:39:39 12/23/1912/22/2014 BMP, serum or plasm a BUN 12 mg/dL 7-18 Not Available [address], [address], 12/22/2014 15:39:39 12/23/1912/22/2014 BMP, serum or plasm a creatinine 0.6 mg/dL 0.8-1. 3 low Not Available [address], [address], 12/22/2014 15:39:39 12/23/19 15 12/22/2014 BMP, serum or plasm a B/C 20.0 ratio Not Available [address], [address], 12/22/2014 15:39:39 12/23/19 15 12/22/2014 BMP, serum or plasm a GFR 112.7 mL/mi n Recom ifrah d GFR by the Natio nal Kidne y Found ation >60 mL/mi n/1.7 3m2 - Sarai l <60 mL/mi n/1.7 3m2 - Chron ic Kidne y Disea se <15 mL/mi n/1.7 3m2 - Kidne y Failu re Not Available [address], [address], 12/22/2014 15:39:39 12/23/19 15 12/22/2014 BMP, serum or plasm a GFR - if 129.6 mL/mi n For Afric an Ameri can patie nts: Resul ts Multi plied by 1.21 Not Available [address], [address], 12/22/2014 15:39:39 12/23/19 15 12/22/2014 BMP, serum or plasm a sodium 139 mmol/ L 136-14 5 Not Available [address], [address], 12/22/2014 15:39:39 12/23/19 15 12/22/2014 BMP, serum or plasm a potassium 4.8 mmol/ L 3.5-5. 1 Not Available [address], [address], 12/22/2014 15:39:39 12/23/19 15 12/22/2014 BMP, serum or plasm a chloride 101 mmol/ L 96-107 Not Available [address], [address], 12/22/2014 15:39:39 12/23/19 15 12/22/2014 BMP, serum or plasm a anion gap 10.2 5.0-15 .0 Not Available [address], [address], 12/22/2014 15:39:39 12/23/19 15 12/22/2014 BMP, serum or plasm a CO2 28 mmol/ L 21-32 Not Available [address], [address], 12/22/2014 15:39:39 12/23/19 15 12/22/2014 BMP, serum or plasm a calcium 9.5 mg/dL 8.5-10 .3 Not Available [address], [address], 12/22/2014 15:39:39 12/23/19 15 12/22/2014 lipid panel , serum cholesterol 282 mg/dL <200 mg/dl Digna able 200-2 39 mg/dl Borde rline High >240 mg/dl High Not Available [address], [address], 12/22/2014 15:39:40 12/23/1912/22/2014 lipid panel , serum triglyceride s 293 mg/dL high <150 mg/dL Sarai l 150-1 99 mg/dL Borde rline High 200-4 99 mg/dL High >500 mg/dL Very High Not Available [address], [address], 12/22/2014 15:39:40 12/23/1912/22/2014 lipid panel , serum direct HDL 59 mg/dL Not Available [address], [address], 12/22/2014 15:39:40 12/23/19 15 12/22/2014 LDL, direc t, serum direct LDL 186 mg/dL RISK CATEG ORY LDL GOAL _ CHD or CHD Risk Equiv alent s <100 mg/dl (10-y ear risk >20%) 2+ Risk Facto rs <130 mg/dl (10-y ear risk <= 20%) 0-1 Risk Facto r? <160 mg/dl ? Almos t all peopl e with 0-1 risk facto r have a 10 year risk <10%, thus 10 year risk asses ment in peopl e with 0-1 risk facto r is not thienyris cuellar. Not Available [address], [address], 12/22/2014 15:39:41 12/23/19 15 12/22/2014 drug scree n, urine amphetamine NEG. negati ve Not Available [address], [address], 12/22/2014 16:01:12 12/23/19 15 12/22/2014 drug scree n, urine barbiturates NEG. negati ve Not Available [address], [address], 12/22/2014 16:01:12 12/23/19 15 12/22/2014 drug scree n, urine benzodiazepi ne NEG. negati ve Not Available [address], [address], 12/22/2014 16:01:12 12/23/1912/22/2014 drug scree n, urine cocaine NEG. negati ve Not Available [address], [address], 12/22/2014 16:01:12 12/23/1912/22/2014 drug scree n, urine opiates NEG. negati ve GCOP= Urine sampl e sent to [facility] for confi kash on of opiat es by GC/MS . Not Available [address], [address], 12/22/2014:01:12 12/23/19 15 12/22/2014 drug scree n, urine methadone NEG. negati ve Syva EMIT II Limit s of Detec tion (cutt -off value s) Barren Expan d: Amphe tamin es: 1000 ng/ml Opiat es: 300 ng/ml Yulia tuate s: 200 ng/ml Canna binoi ds: 50 ng/ml Benzo diaze pines : 200 ng/ml Phenc yclid ine: 25 ng/ml Cocai ne: 300 ng/ml Metha done: 300 ng/ml Not Available [address], [address], 12/22/2014 16:01:12 12/23/19 15 12/22/2014 TSH, serum or plasm a TSH 1.60 uIU/m L 0.50-6 .00 The Ameri can Colle ge of Endoc rinol ogy and Ameri can Thyro id Assoc iatio n recom mend goal TSH value s betwe en 0.4-4 .0 mIU/m L. Not Available [address], [address], 12/22/2014 16:44:13 12/23/19 15 12/26/2014 opiat es, quant itati ve, urine codeine NEGATI VE NG/mL <50 Not Available [facility] [address], [address], 12/26/2014 12:59:43 12/23/19 15 12/26/2014 opiat es, quant itati ve, urine hydrocodone NEGATI VE NG/mL <50 Not Available [facility] [address], [address], 12/26/2014 12:59:43 12/23/19 15 12/26/2014 opiat es, quant itati ve, urine hydromorphon e NEGATI VE NG/mL <50 Not Available [facility] [address], [address], 12/26/2014 12:59:43 12/23/19 15 12/26/2014 opiat es, quant itati ve, urine morphine NEGATI VE NG/mL <50 Not Available [facility] [place] [facility] [address], [place], [address], 12/26/2014 12:59:43 12/23/19 15 12/26/2014 opiat es, quant itati ve, urine norhydrocodo ne NEGATI VE NG/mL <50 Not Available [facility] [place] [facility] [address], [place], [address], 12/26/2014 12:59:43 12/23/19 15 12/26/2014 opiat es, quant itati ve, urine noroxycodone 2350 NG/mL <50 high Not Available [facility] [place] [facility] [address], [place], [address], 12/26/2014 12:59:43 12/23/19 15 12/26/2014 opiat es, quant itati ve, urine oxycodone 1260 NG/mL <50 high Not Available [facility] [place] [facility] [address], [place], [address], 12/26/2014 12:59:43 12/23/19 15 12/26/2014 opiat es, quant itati ve, urine oxymorphone 2420 NG/mL <50 high Not Available [facility] [place] [facility] [address], [place], [address], 12/26/2014 12:59:43 05/04/20 15 05/04/2015 drug scree n, urine amphetamine NEG. negati ve Not Available [address], [place], [address], 05/04/2015 15:53:29 05/04/20 15 05/04/2015 drug scree n, urine barbiturates NEG. negati ve Not Available [address], [address], 05/04/2015 15:53:29 05/04/20 15 05/04/2015 drug scree n, urine benzodiazepi ne NEG. negati ve Not Available [address], [address], 05/04/2015 15:53:29 05/04/20 15 05/04/2015 drug scree n, urine cocaine NEG. negati ve Not Available [address], [address], 05/04/2015 15:53:29 05/04/20 15 05/04/2015 drug scree n, urine opiates NEG. negati ve GCOP= Urine sampl e sent to [facility] for yosef hewitt on of opiat es by GC/MS . Not Available [address], [address], 05/04/2015 15:53:29 05/04/20 15 05/04/2015 drug scree n, urine methadone NEG. negati ve Syva EMIT II Limit s of Detec tion (cutt -off value s) Robina Expan d: Amphe tamin es: 1000 ng/ml Opiat es: 300 ng/ml Yulia tuate s: 200 ng/ml Canna binoi ds: 50 ng/ml Benzo diaze pines : 200 ng/ml Phenc yclid ine: 25 ng/ml Cocai ne: 300 ng/ml Metha done: 300 ng/ml Not Available [address], [address], 05/04/2015 15:53:29 05/04/20 15 05/08/2015 opiat es, quant itati ve, urine codeine NEGATI VE NG/mL <50 Not Available [facility] [address] [place] [address], [place], [address], 05/08/2015 06:01:35 05/04/20 15 05/08/2015 opiat es, quant itati ve, urine hydrocodone NEGATI VE NG/mL <50 Not Available [facility] [place] [facility] [address], [place], [address], 05/08/2015 06:01:35 05/04/20 15 05/08/2015 opiat es, quant itati ve, urine hydromorphon e NEGATI VE NG/mL <50 Not Available [facility] [place] [facility] [address], [place], [address], 05/08/2015 06:01:35 05/04/20 15 05/08/2015 opiat es, quant itati ve, urine morphine NEGATI VE NG/mL <50 Not Available [facility] [place] [facility] [address], [place], [address], 05/08/2015 06:01:35 05/04/20 15 05/08/2015 opiat es, quant itati ve, urine norhydrocodo ne NEGATI VE NG/mL <50 Not Available [facility] [place] [facility] [address], [place], [address], 05/08/2015 06:01:35 05/04/20 15 05/08/2015 opiat es, quant itati ve, urine noroxycodone 922 NG/mL <50 high Not Available [facility] [place] [facility] [address], [place], [address], 05/08/2015 06:01:35 05/04/20 15 05/08/2015 opiat es, quant itati ve, urine oxycodone 941 NG/mL <50 high Not Available [facility] [place] [facility] [address], [place], [address], 05/08/2015 06:01:35 05/04/20 15 05/08/2015 opiat es, quant itati ve, urine oxymorphone 1760 NG/mL <50 high Not Available [facility] [address] [place], [address], 05/08/2015 06:01:35 07/31/20 15 07/31/2015 CMP, serum or plasm a glucose 100 mg/dL 70-100 Not Available [address], [address], 07/31/2015 12:25:58 07/31/20 15 07/31/2015 CMP, serum or plasm a BUN 13 mg/dL 7-18 Not Available [address], [address], 07/31/2015 12:25:58 07/31/20 15 07/31/2015 CMP, serum or plasm a creatinine 0.6 mg/dL 0.8-1. 3 low Not Available [address], [address], 07/31/2015 12:25:58 07/31/20 15 07/31/2015 CMP, serum or plasm a B/C 21.7 ratio Not Available [address], [address], 07/31/2015 12:25:58 07/31/20 15 07/31/2015 CMP, serum or plasm a GFR -non 112.7 mL/mi n Recom ifrah d GFR by the Natio nal Kidne y Found ation >60 mL/mi n/1.7 3m2 - Sarai l <60 mL/mi n/1.7 3m2 - Chron ic Kidne y Disea se <15 mL/mi n/1.7 3m2 - Kidne y Failu re Not Available [address], [address], 07/31/2015 12:25:58 07/31/20 15 07/31/2015 CMP, serum or plasm a GFR - if 129.6 mL/mi n For Afric an Ameri can patie nts: Resul ts Multi plied by 1.21 Not Available [address], [address], 07/31/2015 12:25:58 07/31/20 15 07/31/2015 CMP, serum or plasm a sodium 143 mmol/ L 136-14 5 Not Available [address], [address], 07/31/2015 12:25:58 07/31/20 15 07/31/2015 CMP, serum or plasm a potassium 4.9 mmol/ L 3.5-5. 1 Not Available [address], [address], 07/31/2015 12:25:58 07/31/20 15 07/31/2015 CMP, serum or plasm a chloride 106 mmol/ L 96-107 Not Available [address], [address], 07/31/2015 12:25:58 07/31/20 15 07/31/2015 CMP, serum or plasm a anion gap 10.7 5.0-15 .0 Not Available [address], [address], 07/31/2015 12:25:58 07/31/20 15 07/31/2015 CMP, serum or plasm a CO2 26 mmol/ L 21-32 Not Available [address], [address], 07/31/2015 12:25:58 07/31/20 15 07/31/2015 CMP, serum or plasm a calcium 9.3 mg/dL 8.5-10 .3 Not Available [address], [address], 07/31/2015 12:25:58 07/31/20 15 07/31/2015 CMP, serum or plasm a total protein 7.6 g/dL 6.4-8. 2 Not Available [address], [address], 07/31/2015 12:25:58 07/31/20 15 07/31/2015 CMP, serum or plasm a albumin 3.9 g/dL 3.4-5. 0 Not Available [address], [address], 07/31/2015 12:25:58 07/31/20 15 07/31/2015 CMP, serum or plasm a globulin 3.7 g/dL Not Available [address], [address], 07/31/2015 12:25:58 07/31/20 15 07/31/2015 CMP, serum or plasm a A/G 1.1 ratio 0.8-2. 0 Not Available [address], [address], 07/31/2015 12:25:58 07/31/20 15 07/31/2015 CMP, serum or plasm a total bilirubin 0.50 mg/dL 0.00-1 .00 Not Available [address], [address], 07/31/2015 12:25:58 07/31/20 15 07/31/2015 CMP, serum or plasm a AST 33 U/L 15-37 Not Available [address], [address], 07/31/2015 12:25:58 07/31/20 15 07/31/2015 CMP, serum or plasm a ALT 54 U/L 30-65 Not Available [address], [address], 07/31/2015 12:25:58 07/31/20 15 07/31/2015 CMP, serum or plasm a alk. phos. 111 U/L 50-136 Not Available [address], [address], 07/31/2015 12:25:58 07/31/20 15 07/31/2015 lipid panel , serum cholesterol 212 mg/dL <200 mg/dl Digna able 200-2 39 mg/dl Borde rline High >240 mg/dl High Not Available [address], [address], 07/31/2015 12:25:59 07/31/20 15 07/31/2015 lipid panel , serum triglyceride s 150 mg/dL <150 mg/dL Sarai l 150-1 99 mg/dL Borde rline High 200-4 99 mg/dL High >500 mg/dL Very High Not Available [address], [address], 07/31/2015 12:25:59 07/31/20 15 07/31/2015 lipid panel , serum direct HDL 52 mg/dL Not Available [address], [address], 07/31/2015 12:25:59 07/31/20 15 07/31/2015 LDL, calcu lated , serum (OBS) LDL - calculated 130.0 RISK CATEG ORY LDL GOAL _ CHD or CHD Risk Equiv alent s <100 mg/dl (10-y ear risk >20%) 2+ Risk Facto rs <130 mg/dl (10-y ear risk <= 20%) 0-1 Risk Facto r? <160 mg/dl ? Almos t all peopl e with 0-1 risk facto r have a 10 year risk <10%, thus 10 year risk asses ment in peopl e with 0-1 risk facto r is not neces polo. Not Available [address], [address], 07/31/2015 12:26:00 10/17/19 16 10/18/2015 drug scree n, urine amphetamine NEG. negati ve Not Available [address], [address], 10/18/2015 11:19:37 10/17/19 16 10/18/2015 drug scree n, urine barbiturates NEG. negati ve Not Available [address], [address], 10/18/2015 11:19:37 10/17/19 16 10/18/2015 drug scree n, urine benzodiazepi ne NEG. negati ve Not Available [address], [address], 10/18/2015 11:19:37 10/17/19 16 10/18/2015 drug scree n, urine cocaine NEG. negati ve Not Available [address], [address], 10/18/2015 11:19:37 10/17/19 16 10/18/2015 drug scree n, urine opiates NEG. negati ve GCOP= Urine sampl e sent to [facility] for yosef hewitt on of opiat es by GC/MS . Not Available [address], [address], 10/18/2015 11:19:37 10/17/19 16 10/18/2015 drug scree n, urine methadone NEG. negati ve Syva EMIT II Limit s of Detec tion (cutt -off value s) Robina Expan d: Amphe tamin es: 1000 ng/ml Opiat es: 300 ng/ml Yulia tuate s: 200 ng/ml Canna binoi ds: 50 ng/ml Benzo diaze pines : 200 ng/ml Phenc yclid ine: 25 ng/ml Cocai ne: 300 ng/ml Metha done: 300 ng/ml Not Available [address], [address], 10/18/2015 11:19:37 10/17/19 16 10/20/2015 opiat es, quant itati ve, urine codeine NEGATI VE NG/mL <50 Not Available [facility] [address], [place], [address], 10/20/2015 12:22:53 10/17/19 16 10/20/2015 opiat es, quant itati ve, urine hydrocodone NEGATI VE NG/mL <50 Not Available [facility] [place] [facility] [address], [address], 10/20/2015 12:22:53 10/17/19 16 10/20/2015 opiat es, quant itati ve, urine hydromorphon e NEGATI VE NG/mL <50 Not Available [facility] [place] [facility] [address], [address], 10/20/2015 12:22:53 10/17/19 16 10/20/2015 opiat es, quant itati ve, urine morphine NEGATI VE NG/mL <50 Not Available [facility] [place] [facility] [address], [place], [address], 10/20/2015 12:22:53 10/17/19 16 10/20/2015 opiat es, quant itati ve, urine norhydrocodo ne NEGATI VE NG/mL <50 Not Available [facility] [place] [facility] [address], [address], 10/20/2015 12:22:53 10/17/19 16 10/20/2015 opiat es, quant itati ve, urine noroxycodone 1330 NG/mL <50 high Not Available [facility] [place] [facility] [address], [place], [address], 10/20/2015 12:22:53 10/17/19 16 10/20/2015 opiat es, quant itati ve, urine oxycodone 1280 NG/mL <50 high Not Available [facility] [place] [facility] [address], [address], 10/20/2015 12:22:53 10/17/19 16 10/20/2015 opiat es, quant itati ve, urine oxymorphone 1360 NG/mL <50 high Not Available [facility] [address], [place], [address], 10/20/2015 12:22:53 12/04/19 16 12/04/2015 HPV, high- risk, cervi taya source Cervic al Not Available [facility] [address] [place], [address], 12/06/2015 09:47:09 12/04/19 16 12/04/2015 HPV, high- risk, cervi taya HPV high risk type 16 Negati ve negati ve Not Available [facility] (Outpatient) [address] [place] [address], [address], 12/06/2015 09:47:09 12/04/19 16 12/04/2015 HPV, high- risk, cervi taya HPV high risk type 18 Negati ve negati ve Not Available [facility] (Outpatient) [address] [place], [address], 12/06/2015 09:47:09 12/04/19 16 12/04/2015 HPV, high- risk, cervi taya HPV high risk other types Negati ve negati ve The follo wing Other High Risk HPV types were not detec cabrera: 31, 33, 35, 39, 45, 51, 52, 56, 58, 59, 66, and 68 Test Perfo rmed by: [facility] - [facility] s [address] , [place] [address] Labor atory Direc tor: Owen ball II, M.D., Ph.D. Not Available [facility] (Outpatient) [address] [place], [address], 12/06/2015 09:47:09 12/04/19 16 12/04/2015 HPV, high- risk, cervi taya HPV order type: Reques cabrera Not Available [facility] (Outpatient) [address] [place], [address], 12/06/2015 09:47:09 12/29/19 15 12/28/2014 imagi ng/di agnos tic resul t No observ ation record ed. [facility] Not Available 2014 15:14:07 03/14/20 15 03/14/2015 imagi ng/di agnos tic resul t No observ ation record ed. [facility] Not Available 2014 08:50:28 09/11/19 16 09/11/2015 scree nelson- bilat eral mammo graph y OBSERV ATION: Screen ing Mammog diane, Bilate ral with utiliz ation of comput er aided detect ion. Histor y: Routin e Compar claudia: dating back to 2010. Findin gs: No suspic ious masses or suspic ious cluste red microc alcifi cation s are presen t. No berna ectura l distor tion or signif icant asymme try is presen t. IMPRES CRIS: Normal negati ve. Annual screen ing is recomm ended. Patien t notifi ed by letter . BI-RAD S CATEGO RY 1 - NEGATI VE Densit y: 2 Scatte red fibrog natalia peters ts Code: G0202, 13194 POS: VMG Electr onical ly signed Juan R Becerra didi: Demian gamez [facility] (Imaging) [address], [place], [address], 09/12/2015 20:52:08 12/12/19 16 12/12/2015 imagi ng/di agnos tic resul t No observ ation record ed. [email or web address] [facility] [address] [facility], [place], [address], 12/17/2015 15:14:28 12/19/19 16 12/12/2015 imagi ng/di agnos tic resul t No observ ation record ed. [email or web address] Not Available 12/19/2015 21:38:39 12/26/19 16 12/12/2015 ultra sound , pelvi c trans vagin al No observ ation record ed. [email or web address] [address] [place], [address], 01/03/2016 17:37:35 01/03/20 16 12/12/2015 imagi ng/di agnos tic resul t No observ ation record ed. [email or web address] lo Not Available 01/03/2016 17:37:35 01/15/20 16 12/12/2015 imagi ng/di agnos tic resul t No observ ation record ed. [email or web address] Not Available 01/15/2016 20:26:06 01/18/20 16 01/12/2016 compl ete PFT* No observ ation record ed. [facility] [address] [place] [address], [address], 01/18/2016 17:29:01 01/18/20 16 01/12/2016 compl ete PFT* No observ ation record ed. [facility] [address] [place], [address], 01/19/2016 09:36:27 01/19/20 16 01/12/2016 compl ete PFT* No observ ation record ed. [facility] [address] [place], [address], 01/19/2016 10:25:59 01/22/20 16 CT, chest , low dose scree nelson witho ut contr ast No observ ation record ed. [email or web address] [facility] [address] [place], [address], 01/22/2016 21:37:38 02/02/20 16 02/01/2016 hyste anjana pingo gram No observ ation record ed. [facility] [address] [place], [address], 02/04/2016 17:10:43 Result Notes None recorded. Problems Name Problem SNOMED Code Status Onset Date Resolution Date Notes Provider Name and Address Organization Details Recorded Time Long-term drug therapy Active Laxmi Marie LPN [facility] 5 10:31:50 Emphysemat ous bronchitis 119852554 Active 2006 Mike Esparza MD [address] [place] [address], [phone] , [facility] 5 13:35:33 Hyperlipid emia 71006581 Active Daisy Franco [facility] 5 09:13:33 Major depressive disorder 041512100 Active Mike Esparza MD [address] [place] [address], [phone] , [facility] 5 09:58:16 Polyuria 69206952 Completed 200607/28/2013 Not Available [facility] 3 02:04:12 Mixed hyperlipid emia 945426304 Completed 12/30/2014 Mike Esparza MD [address] [place] [address], [address] , [facility] 5 06:05:33 Atopic dermatitis 03994730 Active 2006 Not Available [facility] 3 03:08:28 Cough 63776990 Completed 200607/28/2013 Not Available [facility] 3 02:01:06 Chronic pain 51453754 Active Adina Wilson CMA [facility] 6 14:52:14 Alopecia 97907064 Active 2006 Not Available [facility] 3 03:08:28 Low back pain 807280271 Active 2006 Mike Esparza MD [address] [place] [address], [address] , [facility] 4 09:51:52 Tobacco user 688446403 Completed 200612/30/2014 Mike Esparza MD [address] [place] [address], [address] , [facility] 5 06:05:33 Restless legs 45601994 Active 2006 Not Available [facility] 3 03:08:28 Primary fibromyalg ia syndrome 36735930 [facility] 6 10:29:05 Malaise and fatigue 453780177 Completed 200607/28/2013 Not Available [facility] 3 02:00:15 Problem Notes None recorded. Procedures Surgical History Date Name Laterality Status Provider Name and Address Organization Details Recorded Time 01/29/20 16 Colonoscopy completed Mike Esparza MD [address] [place] [address], [phone], [facility] 01/31/2016 20:16:01 07/17/20 15 Medicare Wellness Visit completed Analisa [facility] 07/17/2015 10:35:18 01/29/20 13 Skin Tag Removal (each additional 10) completed Mike Esparza MD [address] [place] [address], [phone], [facility] 01/31/2013 09:19:08 12/02/19 12 Smoking cessation counseling completed Jose Alberto Ayoub [facility] 12/02/2011 13:39:19 12/02/19 12 Nebulizer Tx completed Analisa [facility] 12/03/2011 08:03:43 10/31/19 12 Smoking cessation counseling completed Analisa [facility] 10/31/2011 15:19:21 03/05/20 11 Asthma Control Test (12 + years old) completed Analisa [facility] 03/05/2011 14:47:12 Tonsillectomy completed Mike Esparza MD [address] [place] [address], [address], [facility] 01/28/2013 09:09:27 Imaging Results Imaging Date Name Status LastModified by Organization Details LastModified Time 5 imaging/diagnostic result completed [facility] Information not available 12/28/2014 15:14:07 5 imaging/diagnostic result completed [facility] Information not available 03/14/2015 08:50:28 6 screening-bilateral mammography completed [facility] (Imaging) [address] , [place], [address], 09/12/2015 20:52:08 6 imaging/diagnostic result completed [facility] [address] [place], [address], 12/17/2015 15:14:28 6 imaging/diagnostic result completed [email or web address] Information not available 12/19/2015 21:38:39 6 ultrasound, pelvic transvaginal completed [address] [place], [address], 01/03/2016 17:37:35 6 imaging/diagnostic result completed [email or web address] Information not available 01/03/2016 17:37:35 6 imaging/diagnostic result completed [facility] Information not available 01/15/2016 20:26:06 6 complete PFT* completed [facility] [address] [place], [address], 01/18/2016 17:29:01 6 complete PFT* completed [facility] [address] [place], [address], 01/19/2016 09:36:27 6 complete PFT* completed [facility] [address] [place], [address], 01/19/2016 10:25:[address], chest, low dose screening without contrast completed [facility] [address] [place], [address], 01/22/2016 21:37:38 6 hysterosalpingogram completed [facility] [address] [place], [address], 02/04/2016 17:10:43 Procedure Notes None recorded. Medical Equipment None Reported. Allergies Allergen ID Allergen Name Allergen Category Reaction Reaction Severity Criticality Documentation Date Start Date Code Code System Note Provider Name and Address Organization Details Recorded Time 82608 Product containin g penicilli n (product) medicatio n rash Not available Not available 01/15/2011 65179 8001 SNOMED Not Available [facility] 1 06:05:41 Medications Name Sig Start Date Stop Date Status Note LastModified by Organization Details LastModified Time endocet 7.5-325 mg tabs active Not Available Not Available Not Available oxycodone /acetamin ophen 7.5-325 mgtabs active Not Available Not Available Not Available bupropion HCl SR 150 mg tablet,12 hr sustained -release take 1 tab daily for 1 week then 1 tablet twice daily active Not Available Not Available No t Available clindamyc in HCl 300 mg capsule TAKE 2 CAPSULES BY MOUTH NOW THEN 1 CAPSULE 3 TIMES A DAY UNTIL FINISHED active Not Available Not Available No t Available azithromy vicente 250 mg tablet 2 tablets on day 1, then one a day for 4 days active Not Available Not Available No t Available OxyContin 20 mg tablet,ex tended release Take 1 tablet every 12 hours by oral route for 28 days. 2014 active drowsine ss all day Not Available Not Available Not Available prednison e 20 mg tablet take 3 tabs for first 3 days, then 2 tabs for 2 days, then 1 tab x 1 days, then half tab for 2 days then stop. active Not Available Not Available No t Available clonazepa m 0.5 mg tablet TAKE 1 TABLET BY MOUTH 3 TIMES DAILY NEEDED active Not Available Not Available No t Available ciproflox acin 250 mg tablet Take 1 tablet every 12 hours by oral route for 3 days. 05/21 completed Not Available Not Available Not Available sulfameth oxazole 800 mg-trimet hoprim 160 mg tablet TAKE 1 TABLET BY MOUTH TWICE A DAY FOR 14 DAYS active Not Available Not Available No t Available Stress B/Iron/Bi otin tablet take 1 daily active Not Available Not Available No t Available oxycodone -acetamin ophen 5 mg-325 mg tablet TAKE 1 TABLET BY MOUTH EVERY 4 TO 6 HOURS NEEDED FOR PAIN active Not Available Not Available No t Available Vitamin C 1,000 mg tablet take 1 daily active Not Available Not Available No t Available simvastat in 20 mg tablet TAKE 1 TABLET BY MOUTH EVERY DAY active Not Available Not Available No t Available venlafaxi ne 37.5 mg tablet TAKE 1 TABLET BY MOUTH TWICE A DAY active Not Available Not Available No t Available Zithromax Z-Santos 250 mg capsule 2006 active Take 2.00 caps as directed Not Available Not Available Not Available nicotine 21 mg/24 hr daily transderm al patch APPLY 1 PATCH TO SKIN ONCE DAILY active error for nicotine and chantix, pt is going to take wellbutr in. Not Available Not Available Not Available Combivent 18 mcg-103 mcg/actua tion aerosol inhaler 2006 active Take 2.00 puffs 4 times a day Not Available Not Available Not Available betametha sone dipropion ate 0.05 % topical cream 2006 active Take 1.00 applics twice daily Not Available Not Available Not Available sertralin e 25 mg tablet Take 1 tablet every day by oral route for 30 days. 06/03 completed Not Available Not Available Not Available omeprazol e 20 mg capsule,d elayed release take 1.00 cap daily active Not Available Not Available No t Available codeine 10 mg-guaife nesin 100 mg/5 mL oral liquid Take 10 mL every 6-8 hours by oral route for 7 days. 01/19 completed Not Available Not Available Not Available Wellbutri n 100 mg tablet 2006 active Take 2.00 tabs every day Not Available Not Available Not Available oxycodone -acetamin ophen 7.5 mg-325 mg tablet TAKE 1 TABLET BY MOUTH 3 TIMES A DAY 2015 active script was shredded on 06/17/16 Not Available Not Available Not Available levofloxa vicente 750 mg tablet Take 1 tablet every day by oral route for 7 days. 01/25 completed Not Available Not Available Not Available OxyContin 10 mg tablet,ex tended release Take 1 tablet every 12 hours by oral route for 28 days. 02/25 completed Not Available Not Available Not Available ondansetr on 4 mg disintegr ating tablet TAKE 1 TABLET BY MOUTH EVERY 6 TO 8 HOURS NEEDED active Not Available Not Available No t Available Spiriva with [employer] r 18 mcg and inhalatio n capsules INHALE 1 CAPSULE BY MOUTH EVERY DAY x 90 2015 active Not Available Not Available Not Avai lable Flovent HFA 110 mcg/actua tion aerosol inhaler Inhale 1 puff twice a day by inhalati on route for 30 days. active Not Available Not Available No t Available oxycodone 7.5mg BID active 1 in AM 2 at HS Not Available Not Available Not Available Spiriva with [employer] r active Not Available Not Available Not Available Chantix 0.5 mg tablet TAKE 1 TABLET BY MOUTH DAILY FOR 3 DAYS,1 TABLET TWICE DAILY FOR 4 DAYS THEN 2 TABLETS TWICE DAILY active error for nicotine and chantix, pt is going to take wellbutr in. Not Available Not Available Not Available Multi Vitamin take 1.00 tab daily active Not Available Not Available No t Available Fluvirin 6904-0761 45 mcg (15 mcg x 3)/0.5 mL intramusc ular suspensio n active Not Available Not Available Not Available Vitals Date Recorded Body height Oxygen saturation Oxygen saturation in Arterial blood by Pulse oximetry Body weight Heart rate Body mass index (BMI) Systolic blood pressure Diastolic blood pressure Provider Name and Address Organization Details Last Updated DateTime 5 162.56 cm 98 % 98 % 26166.9 38081 g 100 /min 27.2 kg/m2 124 mm[Hg] 74 mm[Hg] Ro dietrich Fernando [facility] 5 14:05:29 Date Recorded Body weight Body height Body mass index (BMI) Oxygen saturation Oxygen saturation in Arterial blood by Pulse oximetry Heart rate Systolic blood pressure Diastolic blood pressure Provider Name and Address Organization Details Last Updated DateTime 5 72989.3 7157 g 162.56 cm 27.6 kg/m2 96 % 96 % 84 /min 124 mm[Hg] 74 mm[Hg] Alex Stuart MA [facility] 5 10:55:49 Date Recorded Body height Body mass index (BMI) Body weight Heart rate Systolic blood pressure Diastolic blood pressure Provider Name and Address Organization Details Last Updated DateTime 5 162.56 cm 27.2 kg/m2 06592.6 62331 g 72 /min 170 mm[Hg] 84 mm[Hg] Analisa [facility] 5 11:00:01 Date Recorded Body height Body mass index (BMI) Body weight Heart rate Systolic blood pressure Diastolic blood pressure Provider Name and Address Organization Details Last Updated DateTime 5 162.56 cm 27 kg/m2 99363.7 63052 g 72 /min 140 mm[Hg] 86 mm[Hg] Analisa [facility] 5 10:42:25 Date Recorded Heart rate Body weight Body mass index (BMI) Body height Systolic blood pressure Diastolic blood pressure Provider Name and Address Organization Details Last Updated DateTime 6 92 /min 07230.1 11837 g 27.5 kg/m2 162.56 cm 122 mm[Hg] 64 mm[Hg] Laxmi Leblanc LPN [facility] 6 09:30:32 Social History Question Answer Notes LastModified by Organizat ion Details LastModified Time Tobacco Smoking Status Former Smoker quit 12/24/2011, [facility] 01/15/2011 13:52:39 What Is Your Level Of Alcohol Consumption? None Information not available 11/19/2012 Do You Wear A Helmet When Biking? No Information not available 07/17/2015 What Is Your Level Of Caffeine Consumption? Heavy 5 Cups Daily Information not available 07/17/2015 How Much Tobacco Do You Chew? None [email or web address] Information not available 10/17/2015 What Type Of Diet Are You Following? REGULAR Information not available 07/17/2015 Which Illicit Or Recreational Drugs Have You Used? 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 1-5yearssin celastcigar ette Information not available 07/17/2015 How Many Days In The Past Year Have You Had A Heavy Drinking Consumption (4+ Female, 5+ Male)? 0 Information not available 11/19/2012 Live Alone Or With Others? With Others Information not available 07/25/2011 CSRP - Narcotics Yes Oxycodone/ John 7.5/325 Mg Dx-G89.29 Information not available 07/25/2011 CSRP Contract Signed And Discussed Yes Updated 10/17/15 GROUP 2 Information not available 07/25/2011 Patient Has Health Care Proxy Signed And In Chart Yes Titi Information not available 06/23/2014 MOLST Form Signed And In Chart 02/18/2013 Information not available 07/17/2015 Marital Status Titi Rosario [email or web address] Information not available 01/15/2011 How Many Children Do You Have? 1 2 Grands, 1 Gr-grand [email or web address] Information not available 09/16/2013 What Is Your Current Pack Years? 30ormorepac kyears 200 Information not available 07/17/2015 Seat Belts Used Routinely Yes Information not available 07/25/2011 Are You Sexually Active? Yes Information not available 01/28/2013 Smoke Alarm In Home Yes Information not available 07/25/2011 At What Age Did You Start Smoking Tobacco? 13 Information not available 07/25/2011 What Types Of Sporting Activities Do You Participate In? None Information not available 07/17/2015 Sex: Unknown Functional Status None recorded. Mental Status None recorded. Family History Relationship Description Onset Age of this Age Resolved Age Notes LastModified by Organization Details LastModified Time Mother Chronic obstructive pulmonary disease 80 previo usly record ed as COPD [email or web address] illo Not available 07/17/2015 10:53:22 Mother Malignant tumor of lung hx tobacc o (previ ously record ed as Cancer - Lung) klopezdelcast illo Not available 07/17/2015 10:53:22 Sister Chronic obstructive pulmonary disease previo usly record ed as COPD klopezdelcast illo Not available 07/17/2015 10:53:22 Brother Diabetes mellitus 65 previo usly record ed as Diabet es klopezdelcast illo Not available 07/17/2015 10:53:22 Brother Carcinoma of urinary bladder 73 73 klopezdelcast illo Not available 07/17/2015 10:53:22 Paternal Grandmother Problem 85 of old age [email or web address] illo Not available 07/17/2015 10:53:23 Maternal Grandfather Problem 95 of old age klopezdelcast illo Not available 07/17/2015 10:53:23 Maternal Grandmother Diabetes mellitus 90 of old age (previ ously record ed as Diabet es) klopezdelcast illo Not available 07/17/2015 10:53:23 Father Dementia 84 klopezdelcast illo Not available 07/17/2015 10:53:23 Notes:siblings x 8 Medical History Condition Response Hyperlipidemia Y Osteoarthritis Y Fibromyalgia Y COPD Y Gynecological History Statement/Question Response History of Abnormal Pap Y Age at Menarche 12 Date of LMP Obstetrics History GPAL:G 0 P 0 0 0 0 Immunizations Vaccine Type Date Status Note Provider Nam e and Address Organization Details Recorded Time Influenza, split virus, trivalent, preservative 1 completed Not Available [facility] 09/25/2019 02:18:12 pneumococcal polysaccharide PPV23 7 completed Not Available [facility] 07/24/2011 05:21:55 Tdap 2 completed Not Available [facility] 09/25/2019 02:31:49 influenza, seasonal, intradermal, preservative free 2 completed Not Available [facility] 09/25/2019 02:18:38 influenza, seasonal, intradermal, preservative free 3 completed Not Available [facility] 09/25/2019 02:37:18 influenza, seasonal, intradermal, preservative free 4 completed Not Available [facility] 09/25/2019 02:19:20 pneumococcal polysaccharide PPV23 5 completed Not Available [facility] 09/25/2019 02:31:08 influenza, unspecified formulation 5 completed Analisa Hidalgo CMA [facility] 07/17/2015 10:43:51 Past Encounters Encounter ID Performer Location Encounter Start Date Encounter Closed Date Diagnosis/Indication Diagnosis SNOMED-CT Code Diagnosis ICD10 Code Diagnosis Note [id number] , [facility], OFFICE [address] [phone] 11/28/2006 07:56:06 12/01/2006 16:10:42 [id number] , [facility] [place] [address] 12/19/2006 08:23:25 12/19/2006 09:12:21 [id number] [facility], OFFICE [address] [facility] [place] [address] 01/23/2007 15:13:01 01/23/2007 16:19:55 [id number] LAB - [facility] [address] [place] [address] 01/23/2007 16:19:05 01/23/2007 16:22:37 [id number] , C, [facility] [address] [facility] [place] [address] 04/01/2007 13:50:56 04/01/2007 15:44:43 [id number] [facility], OFFICE [address] [facility] [place] [address] 05/19/2007 11:30:41 05/20/2007 07:53:20 [id number] Radiology , [facility] [address] [place] [address] 05/19/2007 13:58:10 05/20/2007 09:43:48 [id number] Radiology , [facility] [address] [place] [address] 05/19/2007 00:00:00 09/28/2008 02:02:29 [id number] [facility], OFFICE [address] [facility] [place] [address] 05/27/2007 15:17:31 05/27/2007 16:37:15 [id number] LAB - [facility] [address] [place] [facility] [place] [address] 05/28/2007 07:54:50 05/28/2007 08:00:01 [id number] , C, OFF[facility] [address] [facility] [place] [address] 08/05/2007 09:16:25 09/28/2008 02:02:29 [id number] C, OFF[address] [place] [facility] [place] [address] 01/15/2011 13:32:17 01/18/2011 14:13:46 [id number] FP, E[facility], OFFICE [address] [facility] [address] 02/18/2011 11:46:10 02/18/2011 12:21:41 [id number] FP, [facility], OFFICE [address] [facility] [address] 02/25/2011 09:18:45 02/25/2011 10:06:08 [id number] Radiology , [facility] [address] [facility] [address] 02/25/2011 10:01:20 02/26/2011 15:36:26 [id number] FP, [facility], OFFICE [address] [place] [place] [facility] [place] [address] 03/05/2011 14:23:15 03/05/2011 15:20:54 [id number] FP, E[facility], OFFICE [address] [place] [place] [facility] [address] 03/14/2011 08:57:35 03/14/2011 10:02:52 [id number] Radiology , [facility] [address] [place] [facility] [address] 05/07/2011 10:56:42 05/08/2011 13:45:38 [id number] FP, E[facility], OFFICE [address] [place] [facility] [address] 04/23/2011 08:51:04 04/23/2011 09:33:28 [id number] Mike Esparza MD FP, E[facility], OFFICE [address] [place] [facility] [address] 06/06/2011 07:48:12 06/06/2011 08:21:33 [id number] FP, EHC, OFFICE [address] [place] [facility] [address] 07/26/2011 09:30:41 07/26/2011 11:14:06 [id number] FP, EHC, OFFICE [address] [place] [facility] [address] 10/31/2011 15:13:47 10/31/2011 15:44:57 [id number] FP, EHC, OFFICE [address] [facility] [address] 12/02/2011 13:16:41 12/02/2011 14:15:23 [id number] , [facility], OFFICE [address] [place], [place] [address] 01/27/2012 09:38:14 01/27/2012 11:02:08 [id number] , [facility], OFFICE [address] [place] [address], [place] [address] 05/04/2012 07:49:44 05/04/2012 08:19:09 [id number] Edi Alfred MD Radiology , C [address] [place] [address], [place] [address] 07/23/2012 09:15:50 07/29/2012 11:12:14 [id number] Mike Esparza MD , [facility], OFFICE [address] [place] [address] 08/13/2012 08:52:47 08/13/2012 09:41:22 [id number] Mike Esparza MD , [facility], OFFICE [address] [place] [address] [phone] 6 11/19/2012 08:45:23 11/19/2012 09:20:56 [id number] Araceli Parekh , [facility], OFFICE [address] [place] [address] [phone] 6 01/28/2013 08:25:54 01/28/2013 09:31:25 [id number] Mike Esparza MD , [facility], OFFICE [address] [place] [address] [phone] 6 02/12/2013 14:22:53 02/12/2013 17:05:57 [id number] Madeline DiFrancesc o , [facility], OFFICE [address] [place] [address] [phone] 6 05/13/2013 08:32:50 05/13/2013 09:36:43 Chronic pain 01045197 Primary fi bromyalgia syndrome 55989198 Osteoarthritis 944484652 Long-term drug therapy 163027229 CSRP Hyperlipidemia 60874256 Urgent joe ely to urinate [id number] Latisha Ashley. FABY , [facility], OFFICE [address] [place] [address] [phone] 6 07/02/2013 06:46:54 07/02/2013 11:50:09 Influenza vaccine needed [id number] 116 [id number] Madeline DiFrancesc o , [facility] OFFICE [address] [place] [address] [phone] 6 08/17/2013 09:01:44 08/17/2013 09:39:34 Chronic pain 23422376 Emphysemat ous bronchitis 803601720 Hyperlipidemia 35799172 Primary fi bromyalgia syndrome 01848242 Osteoarthritis 496027515 [id number] Analisa Hidalgo CMA , [facility] OFFICE [address] [place] [address] [phone] 6 09/16/2013 09:41:42 09/16/2013 13:07:58 Emphysematous bronchitis 606642133 [id number] Madeline DiFrancesc o , [facility] OFFICE [address] [place] [address] [phone] 6 11/08/2013 08:52:43 11/08/2013 10:00:58 Chronic pain 14425437 Long-term drug therapy 215370056 CSRP Emphysemat ous bronchitis 416629600 Primary fi bromyalgia syndrome 76910736 Low back pain 018906015 Foot pain 04542697 Screening mammography 77168775 [id number] Analisa Hidalgo CMA , [facility] OFFICE [address] [place] [address] [phone] 6 01/18/2014 10:03:04 01/18/2014 11:14:41 Acute urinary tract infection 231204908 Blood in urine 10010389 Abdominal pain 45372749 Hallucinations 3612204 [id number] Araceli Parekh , [facility] OFFICE [address] [place] [address] [phone] 6 01/27/2014 08:21:17 01/27/2014 09:35:16 Acute urinary tract infection 057288986 Hepatomegaly 29155137 Abnormal l iver function 32431279 [id number] , [facility] OFFICE [address] [place] [address] [phone] 6 02/08/2014 11:23:19 02/08/2014 12:12:37 Fatigue 15834045 Abnormal l iver function 60012075 [id number] Yessy Segura , [facility] OFFICE [address] [place] [address] [phone] 6 06/23/2014 10:48:37 06/23/2014 11:41:33 Adult health examination [id number] see Risk Assessment and Lifestyle Change Counseling section above Chronic pain 30032593 Influenza vaccine needed [id number] 106 Screening for malignant neoplasm of cervix 771888567 Emphysemat ous bronchitis 104054391 Hyperlipidemia 79409683 Primary fi bromyalgia syndrome 49140509 [id number] KARMEN Rinaldi , [facility] OFFICE [address] [place] [address] [phone] 6 09/22/2014 09:19:21 09/22/2014 10:03:16 Chronic pain 41335956 Primary fi bromyalgia syndrome 34756107 Osteoarthritis 345688147 Major depr essive disorder 953173397 [id number] , [facility] OFFICE [address] [place] [address] [phone] 6 12/22/2014 08:54:33 12/22/2014 09:57:53 Chronic pain 26472376 Long-term drug therapy 779654878 Fatigue 92818404 Chronic ob structive pulmonary disease 31901647 [id number] Mike Esparza MD , [facility] OFFICE [address] [place] [address] [phone] 6 12/28/2014 13:54:57 12/28/2014 14:22:29 Chronic obstructive pulmonary disease 01646843 [id number] MD MIQUEL Martínez, [facility] OFFICE [address] [place] [address] [phone] 6 01/11/2015 10:47:01 01/11/2015 11:27:05 Hypoxemia 792095836 Fatigue 53648645 [id number] MD MIQUEL Martínez, [facility] OFFICE [address] [place] [address] [phone] 6 04/25/2015 10:42:47 04/25/2015 11:48:17 Chronic pain 78145785 Anxiety 10063477 Emphysemat ous bronchitis 302414620 [id number] Mike Esparza MD , [facility] OFF[facility] [address] [place] [address] [phone] 6 07/17/2015 10:06:23 07/17/2015 11:16:34 Adult health examination 564158606 Z00.00 see Risk Assessment and Lifestyle Change Counseling section above Screening for malignant neoplasm of colon 714054105 Z12.11 Referral for a DIRECT booked colonoscop y. This patient is a healthy ASA Class 1 or 2 patient (only mild systemic disease), or a STABLE, well controlled insulin dependent diabetic. They do not have serious cardiac disease ie SC/angiopl asty within 1 year, symptomati c CHF; renal failure with CKD 4 or 5; take Coumadin, Plavix, Aggrenox, etc; nor take chronic narcotics. [Patients who take chronic narcotics should be referred to [facility] for a propofol procedure due to possible inability to sedate adequately with conscious sedation.] Screening mammography 24 258712 Z12.31 Counseling 694393216 Z71 .9 Screening for malignant neoplasm of lung 852354914 Z12.2 Chronic ob structive pulmonary disease 57139149 J44.9 Skin tag 784653573 L91.8 Administra tion of pneumococcal vaccine 15017520 Z23 [id number] Mike Esparza MD , [facility] OFFICE [address] [place] [phone] 6 10/17/2015 09:11:22 10/17/2015 09:58:25 Chronic obstructive pulmonary disease 77136916 J44.9 Chronic pain 89242769 G8 9.29 Fatigue 25151889 R53.83 Health Concerns Section Related Observation LastModified by Organization Detai ls LastModified Time None Recorded Concern Status LastModified by Organization Details LastModified Time None Recorded Advance Directives Directive None Recorded Payers Encounter Date Sequence Insurance Name Policy Number Policy Azul Covered Member ID Azul Member ID Guarantor Name 12/28/2014 1 [facility] [id number] 1 Mague Rosario [id number] Mague Rosario 01/11/2015 1 [facility] [id number] Mague Rosario [id number] Mague Rosario 04/25/2015 1 [facility] [id number] Mague Rosario [id number] Mague Rosario 07/17/2015 1 MEDICARE [place]: [facility] Mague Rosario [id number] Mague Rosario 07/17/2015 2 [facility] (MEDICARE SUPPLEMENT) Mgaue Maharajn [id number] Mague Rosario 10/17/2015 1 [place] [facility] Mague Rosario [id number] Mague Rosario 10/17/2015 2 [facility] (MEDICARE SUPPLEMENT) Mague Rosario [id number] Mague Rosario Notes Date Note Type Note Provider Name and Address Organization Details Recorded Time 01/11/2015 text/html Pt here for f/u on fatigue, did overnight pulse ox and report shows that she has 45 min below 89% ox saturation, however, pt states she woke up and found the oximeter off her hand at 4 am, so placed it back on. Not sure if this is an accurate reading. Also did spirometry, and FEV1 is improved compared to 2010 result. Pt has not consulted with floor mechanic because she was not sure if she had medical insurance. Still having daytime drowsiness. Mike Esparza MD [address] [place] [address], [phone], [facility] 01/11/2015 19:59:03 04/25/2015 text/html Pt here for CSRP visit, but also very distraught, crying episodes in office, new dx of brother in [place] with bladder cancer and now in hospice, high stress with son and grandson who are doing illicit drugs/heroin. Going with granddaughter to counseling because of relatives using heroin. Favorite niece was left by and no home to go to with children. Pt has plane ticket to [place] in May but now in hospice, unable to change flight because of costly fees. Cannot sleep. Pt has stopped smoking for about 2 yrs now. COPD stable. Mike Esparza MD [address] [place] [address], [phone], [facility] 04/25/2015 13:35:49 10/17/2015 text/html aVMG-Chronic Barbara n 2Reported bypatient.Duration: Chronic pain began >5years ago; Pain is intermittent with periods of improvement and flaresof worsening pain Context:Pain is due to degenerative joint disease; Patient has chronic pain syndrome; hips, hands and legs Barriers to CareNo identified barriers to care Ability to Manage Self CarePatient confidence in ability to manage their condition 8 with 10 being very confident and 1 being not confident godwin Aggravating factors:lifting; physical labor; repetitive motion godwin Alleviating factors:rest Pain impacts on functionality:Patie nt is capable of the following activities pain free:basic ADL's-dressing ,bathing , Location of PainHip pain; Knee pain; fingers/hands Quality of Painthrobbing Patients goals for pain relief include:improved ADL's; better function in role Pain assesment in last week 0 is no pain and 10 is pain as bad as it can bePain level on average in the last week 3; Pain level at its worse in the past week 7 Patient currently controls pain with :Narcotic medications Side Effects from MedicationConstipat ion(ranicolasin dago resolves this,); no sedation Providers Involved in Patient CarePatient has previously seen ortho,rheumatology, physical therapy in managing pain; Patient has not had conflicts with other medical providers about the use of pain medications; Patient has never had trouble controlling their use of any drug prescribed to them . ComorbiditiesPatien t has never a problem with alcohol; Patient has never a problem with drugs.; Patient has anxiety Ability to Manage Self CarePatient confidence in ability to manage their care 8 with 10 being very confident and 1 being not confident pt doing well with meds, taking Spiriva and states her COPD is stable with this. Gaining weight, no energy, states that she is aware that she eats more. Drinks milk but full cream milk for her calcium intake, cannot tolerate calcium supplements. Mike Esparza MD [address] [place] [address], [phone], [facility] 10/18/2015 06:40:07 OBGyn Episode No OBEpisode recorded.
--- OUTSIDE RECORDS SUMMARY | 2024-11-05 10:28 | XMS_ITS | Encounter Summary ---
Author Organization [facility] Address [address] [place] [address] Care Team Providers Care [place] Aide Name Role Phone Marlen Pereira MD Primary Care Provider [phone] Reason for Referral * Imaging (Routine) - Authorized Specialty Diagnoses / Procedures Referred By Jose de santiago Referred To Contact Radiology Diagnoses History of lung cancer Procedures CT Chest wo Contrast Luciano Elizondo PA [address] [address] Phone: tel: fax: [facility] Referral ID Status Reason Start Date Expiration Date V isits Requested Visits Authorized [id number] Authorized 10/28/2024 10/28/2025 1 1 Reason for Visit * Reason Comments Post-op Lung Surgery S/p 10/13/24 LLL lobe ctomy, xray Encounter Details Date Type Department Care Team (Late st Contact Info) Description 10/27/2024 11:15 AM EST Office Visit Thoracic Surgery - [place] [address] [phone] Luciano Elizondo PA 299 [facility] [place] [address] [place] [id number] History of lung cancer (Primary Dx) Social History Tobacco Use Types Packs/Day Years Used Date Smoking Tobacco: Former Cigarettes Q uit: 2008 Smokeless Tobacco: Former Alcohol Use Standard Drinks/Week [...] Sign Reading Time Taken Comments Blood Pressure 151/63 10/27/2024 11:18 AM EST Pulse 73 10/27/2024 11:18 AM EST Temperature 36.6 ??C (97.9 ??F) 10/27/2024 11:[address] Respiratory Rate 16 10/27/2024 11:18 AM EST Oxygen Saturation 97% 10/27/2024 11:18 AM EST Inhaled Oxygen Concentration - - Weight 71.9 kg (158 lb 9.6 oz) 10/27/2024 11:18 AM EST Height 162.6 cm (5' 4 ) 10/27/2024 11:18 AM EST Body Mass Index 27.22 10/27/2024 11:18 AM EST documented in this encounter Ordered Prescriptions Prescription Sig Dispense Quantity Refills Last Filled Start Date End Date gabapentin (NEURONTIN) 300 mg capsule Take 1 capsule (300 mg total) by mouth 1 (one) time each day for 3 days, THEN 1 capsule (300 mg total) 2 (two) times a day for 3 days, THEN 1 capsule (300 mg total) 3 (three) times a day. 279 each 10/27/2024 documented in this encounter Progress Notes * MICHEAL Ronquillo - 10/28/2024 3:23 PM ESTAssociated Problem(s): History of lung cancer Ms. Rosario is a 74 y.o. female who on 10/13/2024 went a redo robotic left lower lobectomy and mediastinal lymph adenectomy at [facility]. 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 It was also deemed that she would not require a referral to medical oncology and instead we would continue with chest CT surveillance every 6 months for the first 2 years following her surgical date.At the end of 2-year surveillance we will increase her chest CT intervals to 12-month intervals for3 years thereafter for total surveillance of [address]. [address] scan will be due in 6 months time which will be April 2025 and have a visit to thoracic surgery apartment thereafter to discuss results. I did inform her that she should be taking Tylenol 1000 mg every 6 hours along with 2 Aleve tabletstwice daily and that I would be writing her prescription of gabapentin 300 mg 3 times daily to helpwith her intercostal pain. * MICHEAL Ronquillo - 10/27/2024 11:15 AM EST Images from the original note were not included. Thoracic Surgery Postoperative Visit Patient name Mague Rosario 1950 Date of Visit: 10/27/2024 Care Team PCP: Marlen Pereira MD Reason for Visit Chief Complaint Patient presents with Post-op Lung Surgery S/p 10/13/24 LLL lobectomy, xray Recent Thoracic Procedure Information Date of procedure: 10/13/2024 Type of procedure performed: Da Stephanie completion left lower lobectomy, pneumonolysis, mediastinal lymphadenectomy, bronchoscopy with aspiration, intercostal paravertebral nerve blocks. History of Present Illness Ms. Rosario is a 74 y.o. female who per Dr. Lovett's note went to the operating room in mid March for anavigational bronchoscopy dye marking wedge resection possible lobectomy. On frozen section at thattime there was no cancer found so only a wedge resection was completed found however on final pathology the specimen contained a lipidic type lung cancer close to the margin at least. For that reasonI discussed with her completion lobectomy. The patient understood the risks benefits and alternatives of the proposed operation and agreed to proceed with a left lower lobectomy which occurred on 10/13/2024 at [facility]. 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 It was also deemed that she would not require a referral to medical oncology and instead we would continue with chest CT surveillance every 6 months for the first 2 years following her surgical date. At the end of 2-year surveillance we will increase her chest CT intervals to 12-month intervals for 3 years thereafter for total surveillance of 5 years. She presents today for follow-up examination. Prior to her appointment today she did have a chest x-ray performed which shows no pneumothorax or pleural effusion. Has any concerning symptoms such as new or worsening shortness of breath, hemoptysis or fever or chills. Her chest wall incisions show no evidence of infection such as erythema, increased warmth or drainage. She does state that she has a great deal of a burning sensation and pain going across her left lateral chest wall emanating fromher incisions. She states that she has not been taking oxycodone as she does not like the feeling of this medication and has only been using Tylenol 1000 mg a couple times per day. I did inform her that she should be taking Tylenol 1000 mg every 6 hours along with 2 Aleve tablets twice daily and that I would be writing her prescription of gabapentin 300 mg 3 times daily to help with her intercostal pain. Past Medical History: Diagnosis Date Abdominal lump [...] DX:Screening for diabetes mellitus Shortness of breath Patient Active Problem List Diagnosis Abdominal lump BPV (benign positional vertigo) Cataract COPD (chronic obstructive pulmonary disease) (CMS/HCC) COPD exacerbation (CMS/HCC) Depression Diverticulitis Hypercholesteremia Knee osteoarthritis Pulmonary nodules History of lung cancer Pre-op evaluation Murmur Past Surgical History: Procedure Laterality Date CATARACT EXTRACTION PROCEDURE: HISTORICAL CATARACT REMOVAL COLONOSCOPY PROCEDURE: HISTORICAL COLONOSCOPY HUMERUS RIGHT WITH ANCHORS LUNG LOBECTOMY Left 10/13/2024 LLL lobecotomy LUNG REMOVAL, PARTIAL OTHER SURGICAL HISTORY Right 2017 PROCEDURE: [place] THORACOSCOPY W/LOBECTOMY SINGLE LOBE; COMMENT: RML SHOULDER SURGERY 2017 PROCEDURE: HISTORICAL SHOULDER SURGERY TONSILLECTOMY PROCEDURE: HISTORICAL TONSILLECTOMY Allergies Allergen Reactions Blue-Emu Lidocaine Patch [Lidocaine] Burning pain Current Outpatient Medications on File Prior to Visit Medication Sig Dispense Refill acetaminophen (Tylenol Arthritis Pain) 650 mg 8 [...] by mouth 1 (one) time each day. multivitamin (Multiple Vitamins) tablet Take 1 tablet by mouth 1 (one) time each day. oxyCODONE (OXY-IR) 5 mg immediate release capsule Take 1 capsule (5 mg total) by mouth every 6 (six) hours if needed for severe pain (take 1 tablet for moderate pain (4-6) or take 2 tablets for severe pain (7-10)). Max Daily Amount: 20 mg 30 capsule 0 simvastatin (ZOCOR) 5 mg tablet Take 1 Tablet by mouth at bedtime. VITAMIN C, ASCORBATE CALCIUM, ORAL Take 500 mg by mouth daily. No current facility-administered medications on file prior to visit. Social History Tobacco Use Smoking status: Former Current packs/day: 0.00 Types: Cigarettes Quit date: 2007 Years since quittin.1 Smokeless tobacco: Former Vaping Use Vaping status: Former Substance Use Topics Alcohol use: Not Currently Drug use: Not Currently Social History Social History Narrative Not on file Review of Systems Remaining 10 point review of systems negative at this time: Physical Exam Vitals: 10/27/24 1118 BP: (!) 151/63 BP Location: Left arm Patient Position: Sitting BP Cuff Size: Adult Pulse: 73 Resp: 16 Temp: 36.6 ??C (97.9 ??F) TempSrc: Temporal SpO2: 97% Weight: 71.9 kg (158 lb 9.6 oz) Height: 1.626 m (64 ) General: Patient is sitting comfortably in no [...] No agitation, appropriate affect Chest Wall: Left chest wall incisions appear to be healing well. No new nodularity. Incision line clean, dry and intact; no signs of erythema, induration or drainage. Pathology Lab Results Component Value Date FINALDX 10/13/2024 A. 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 Ramsey as well as by our pathology assistants; no lesion was identified prior to fixation. Upon fixation, a 1 cm lesion was grossly identified. Histologically,this corresponds to an invasive lepidic adenocarcinoma, with histologic sections showing lepidic growth beyond what was grossly identified. Immunohistochemical stain for TTF-1 is performed on block B1 to evaluate architecture and assist in evaluating extent of carcinoma. CK SHAUN is performed on blocks C1, D1, E1, F1, and G1 to exclude occult carcinoma obscured by anthracosis and is interpreted as negative, supporting the above diagnoses. Controls stain appropriately. Secondary review for new malignancy performed at intradepartmental consensus conference 10/04/24 with agreement. Wendi Peñaloza MD notified Dr. Lovett of the diagnosis of adenocarcinoma, present at margin 10/04/24 at 1630. SYNOPTIC 10/13/2024 LUNG LUNG: RESECTION - All Specimens 8th Edition - Protocol posted: 05/29/2022 SPECIMEN Synchronous Tumors: Present Total Number of Primary Tumors: 2 Specimen ID(s): Tumor in this completion lobectomy was found only microscopically / Previous tumor found only microscopically in wedge resection [id number] Procedure: Completion lobectomy Specimen Laterality: Left TUMOR Tumor Focality: Multifocal tumor nodules of similar histology type not considered intrapulmonary metastases or too numerous for separate synoptic reports Number of Tumor Nodules: 2 tumor nodules (one tumor nodule in this completion lobectomy and one tumor nodule representing the remainder of the invasive lepidic tumor identified in the previous wedge resection [id number]. Tumor Site: Lower lobe of lung Tumor Size: Total Tumor Size (size of entire tumor): Cannot be determined: tumor found only microscopically andis present on slides E9 and E13. Approximate total tumor size is at least 1.7 cm with 0.5 cm of invasive component Size of Invasive Component: Greatest Dimension (Centimeters): 0.5 cm Histologic Type: Minimally invasive adenocarcinoma, nonmucinous Histologic Patterns Present: Acinar Histologic Patterns Present: Lepidic Histologic Grade: G2, moderately differentiated Visceral Pleura Invasion: Not identified Direct Invasion of Adjacent Structures: Not applicable (no adjacent structures present) Treatment Effect: No known presurgical therapy Lymphovascular Invasion: Not identified MARGINS Margin Status for Invasive Carcinoma: All margins negative for invasive carcinoma Closest Margin(s) to Invasive Carcinoma: Cannot be determined: Tumor identified microscopically only Distance from Invasive Carcinoma to Closest Margin: Cannot be determined: Tumor identified microscopically only Margin Status for Non-Invasive Tumor: All margins negative for non-invasive tumor REGIONAL LYMPH NODES Lymph Node(s) from Prior Procedures: Not included Regional Lymph Node Status: : All regional lymph nodes negative for tumor Number of Lymph Nodes Examined: 7 Meg Site(s) Examined: 10L: Hilar Meg Site(s) Examined: 12L: Lobar Meg Site(s) Examined: Left: left sump x2 Regional Lymph Node Comment: in addition to hilar node, level 10 left (part A), three additional hilar nodes are found on dissection of the completion lobectomy - slides E3 and E18 DISTANT METASTASIS Distant Site(s) Involved: Cannot be determined PATHOLOGIC STAGE CLASSIFICATION (pTNM, AJCC 8th Edition) Reporting of pT, pN, and (when applicable) pM categories is based on information available to the pathologist at the time the report is issued. As per the AJCC (Chapter 1, 8th Ed.) it is the managingphysician???s responsibility to establish the final pathologic stage based upon all pertinent information, including but potentially not limited to this pathology report. TNM Descriptors: m (multiple primary tumors) pT Category: pT3 pN Category: pN0 ADDITIONAL FINDINGS Additional Findings: Atypical adenomatous hyperplasia Additional Findings: Emphysema Additional Findings: Residual lepidic component of previously diagnosed invasive lepidic adenocarcinoma, Foci of organizing pneumonia, Granulation tissue at site of previous wedge resection, Bone marrow embolus Comment(s): Tumor is stage pT3 - Separate tumor nodule(s) in the same lobe as the primary (previouswedge resection [id number]) GROSSDES 10/13/2024 A. Lymph Node, Level 10 Left: Labeled [...] with Telfa, is a soft, rosado-sweeney to black,thin, 0.3 cm in greatest diameter anthracotic portion of meg tissue which is wrapped in paper andsubmitted in toto in one cassette, one piece. [...] tissue which is wrapped in paper and submittedin toto in one cassette, one piece. E. [...] are noted. Intraparenchymal lymph nodes are absent. Food And Drug Inspector sections are submitted in eleven cassettes. Additional sections are submitted in cassettes 12-21. 1-2 bronchovascular margins, en face (red ink use for embedding), four and one pieces respectively 3-Two whole hilar lymph nodes and two samples of lung, four pieces 4-6 congressional representative perpendicular sections of staple line opposing hilum, two pieces each 7-congressional representative sections of the staple line inferior to hilum, taken perpendicularly, two pieces 8-9 random superior lung, two pieces each 10-random mid lung-hilum, two pieces 11-random inferior lung, two pieces 12-17 additional superior lung, two pieces each 18-19 additional mid lung-hilum, two pieces each 20-21 additional inferior lung, two pieces each TS INTRAOP 09/30/2024 B. Lung, Left Lower Lobe, Left lower lobe wedge of lung #2: Gross consult, no frozen section Micro / Labs No results found for this or any previous visit (from the past week). Radiology I personally viewed the patient's current and past imaging studies, in addition to reviewing the dictated report from the reading radiologist. 10/28/24 XR Chest 2 Views Narrative: HISTORY: The patient is a 74-year-old female who underwent left lower lobectomy on 10/13/2024, presenting for follow-up. FINDINGS: PA and lateral radiographs of the chest again demonstrate the presence of 3 surgical anchors in the right humeral head as also demonstrated on the prior study performed 10/15/2024. The large bore left side surgical chest tube has been removed since the prior study. Surgical sutures are again seen in the right infrahilar area. The cardiac silhouette is within normal limits. The aortic knobis calcified. Left base atelectasis and/or infiltrate and the tiny left pleural effusion have improved since the prior study, with small residual. The lungs are otherwise clear. The tiny residual left apical pneumothorax seen on the prior study has resolved. Impression: Postoperative changes in the left hemithorax. The large bore left side surgical chest tube has been removed since 10/15/2024. Left base atelectasis and/or infiltrate and the tiny left pleural effusion have improved. The tiny left apical pneumothorax has resolved. Code 56702 -------- FINAL REPORT -------- Dictated By: Cuong Somers Dictated Date: 10/27/2024 10:29 ET Assigned Physician: Cuong Somers Reviewed and Electronically Signed By: Cuong Somers Signed Date: 10/27/2024 10:32 ET Workstation ID: [id number] Transcribed By: Self Edit Transcribed Date: 10/27/2024 10:29 ET Assessment and Plan Problem List Items Addressed This Visit History of lung cancer - Primary Ms. Rosario is a 74 y.o. female who on 10/13/2024 went a redo robotic left lower lobectomy and mediastinal lymph adenectomy at [facility]. 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 It was also deemed that she would not require a referral to medical oncology and instead we would continue with chest CT surveillance every 6 months for the first 2 years following her surgical date.At the end of 2-year surveillance we will increase her chest CT intervals to 12-month intervals for3 years thereafter for total surveillance of [address] scan will be due in 6 months time which will be April 2025 and have a visit to thoracic surgery apartment thereafter to discuss results. I did inform her that she should be taking Tylenol 1000 mg every 6 hours along with 2 Aleve tabletstwice daily and that I would be writing her prescription of gabapentin 300 mg 3 times daily to helpwith her intercostal pain. Relevant Orders CT Chest wo Contrast MICHEAL Ronquillo [facility] Thoracic Surgery 299 [facility], [address] [address] documented in this encounter Plan of Treatment Upcoming Encounters Date Type Department Care Team (Late st Contact Info) Description 04/28/2025 3:30 PM EDT Appointment [facility] CT Scan [address] [place] [address] Scheduled Orders Name Type Priority Associated Diagnoses Orde r Schedule CT Chest wo Contrast Imaging Routine History of lung cancer Expected: 04/27/2025, Expires: 10/28/2025 documented as of this encounter Visit Diagnoses Diagnosis History of lung cancer- Primary Personal history of malignant neoplasm of bronchus and lung documented in this encounter Care Teams [place] Aide Relationship Specialty Start Date End Date Marlen Pereira MD [address] [place] [address] , [address] [facility] D/B/A: [facility] DEONTE Basilio PCP - General Internal Medicine 08/17/24 documented as of this encounter
--- OUTSIDE RECORDS SUMMARY | 2024-11-05 10:29 | XMS_ITS | Encounter Summary ---
Author Organization [facility] Address [address] [place] [address] Care Team Providers Care Senior Recruiter Name Role Phone Marlen Pereira MD Primary Care Provider [phone] Encounter Details Date Type Department Care Team (Latest Contact Info) Description 10/27/2024 10:06 AM EST - 10/27/2024 11:59 PM EST Hospital Encounter [facility] Xray [address] [place] [address] History of lung cancer; Pulmonary nodules Discharge Disposition: Home or Self Care Social [...] AM EST documented as of this encounter Medications at Time of Discharge [...] mouth 1 (one) time each day. 10/07/2023 gabapentin (NEURONTIN) 300 mg capsule Take 1 capsule (300 mg total) by mouth 1 (one) time each day for 3 days, THEN 1 capsule (300 mg total) 2 (two) times a day for 3 days, THEN 1 capsule (300 mg total) 3 (three) times a day. 279 each 10/27/2024 01/31/2025 multivitamin (Multiple Vitamins) tablet Take 1 tablet by mouth 1 (one) time each day. oxyCODONE (OXY-IR) 5 mg immediate release capsule Take 1 capsule (5 mg total) by mouth every 6 (six) hours if needed for severe pain (take 1 tablet for moderate pain (4-6) or take 2 tablets for severe pain (7-10)). Max Daily Amount: 20 mg 30 capsule 10/15/2024 simvastatin (ZOCOR) 5 mg tablet Take 1 Tablet by mouth at bedtime. VITAMIN C, ASCORBATE CALCIUM, ORAL Take 500 mg by mouth daily. documented as of this encounter Discharge Disposition Disposition Code Departure Means Destination Home or Self Care documented in this encounter Plan of Treatment Upcoming Encounters Date Type Department Care Team (Late st Contact Info) Description 04/28/2025 3:[address] [facility] CT Scan [address] [place] [address] documented as of this encounter Procedures Procedure Name Priority Date/Time Associated Diagnosis Comments XR CHEST 2 VIEWS Routine 10/27/2024 10:2 1 AM EST History of lung cancer Pulmonary nodules documented in this encounter Results * XR Chest 2 Views (10/27/2024 10:21 AM EST) Anatomical Region Laterality Modality Body Radiographic Myrtle ging 10/27/2024 10:2 9 AM EST Impressions 10/27/2024 10:32 AM EST Postoperative changes in the left hemithorax. The large bore left side surgical chest tube has been removed since 10/15/2024. Left base atelectasis and/or infiltrate and the tiny left pleural effusion have improved. The tiny left apical pneumothorax has resolved. Code 73564 -------- FINAL REPORT -------- Dictated By: Cuong Somers Dictated Date: 10/27/2024 10:29 ET Assigned Physician: Cuong Somers Reviewed and Electronically Signed By: Cuong Somers Signed Date: 10/27/2024 10:32 ET Workstation ID: [id number] Transcribed By: Self Edit Transcribed Date: 10/27/2024 10:29 ET Narrative 10/27/2024 10:32 AM EST HISTORY: The patient is a 74-year-old female [...] silhouette is within normal limits. The aortic knob is calcified. Left base atelectasis and/or infiltrate and the tiny left pleural effusion have improved since the prior study, with small residual. The lungs are otherwise clear. The tiny residual left apical pneumothorax seen on the prior study has resolved. Procedure Note Cuong Somers MD - 10/27/2024 HISTORY: The patient is a 74-year-old female who underwent left lowerlobectomy on 10/13/2024, presenting for follow-up. FINDINGS: PA and lateral radiographs of the chest again demonstrate thepresence of 3 surgical anchors in the right humeral head as alsodemonstrated on the prior study performed 10/15/2024. The large bore leftside surgical chest tube has been removed since the prior study. Surgicalsutures are again seen in the right infrahilar area. The cardiacsilhouette is within normal limits. The aortic knob is calcified. Leftbase atelectasis and/or infiltrate and the tiny left pleural effusion haveimproved since the prior study, with small residual. The lungs areotherwise clear. The tiny residual left apical pneumothorax seen on theprior study has resolved. IMPRESSION: Postoperative changes in the left hemithorax. The large bore left sidesurgical chest tube has been removed since 10/15/2024. Left base atelectasisand/or infiltrate and the tiny left pleural effusion have improved. Thetiny left apical pneumothorax has resolved. Code 33331 -------- FINAL REPORT -------- Dictated By: Cuong Somers Dictated Date: 10/27/2024 10:29 ET Assigned Physician: Cuong Somers Reviewed and Electronically Signed By: Cuong Somers Signed Date: 10/27/2024 10:32 ET Workstation ID: [id number] Transcribed By: Self Edit Transcribed Date: 10/27/2024 10:29 ET Luciano [facility] IMG XR PROCEDURES Final Result documented in this encounter Visit Diagnoses Diagnosis History of lung cancer Personal history of malignant neoplasm of bronchus and lung Pulmonary nodules Other diseases of lung, not elsewhere classified documented in this encounter Care Teams Senior Recruiter Relationship Specialty Start Date End Date Marlen Pereira MD [address] [facility] DEONTE Basilio PCP - General Internal Medicine 08/17/24 documented as of this encounter
--- OUTSIDE RECORDS SUMMARY | 2024-11-05 10:29 | XMS_ITS | Encounter Summary ---
Author Organization [facility] Address [address] [place] [address] Care Team Providers Care Salesperson Shoes Name Role Phone Marlen Pereira MD Primary Care Provider [phone] Reason for Visit * Reason Onset Date Comments Procedure 09/20/2024 Encounter Details Date Type Department Care Team (Late st Contact Info) Description 09/20/2024 Telephone Thoracic Surgery - [place] [address] [facility] [address] [place] [phone] Jessica Martinez PA [address] [facility], [address] [place] [id number] Procedure Social History Tobacco Use Types Packs/Day Years Used Date Smoking Tobacco: Former Cigarettes Alcohol Use Standard Drinks/Week Comments Not Currently [...] as of this encounter Progress Notes * Stephanie Rodríguez - 10/06/2024 8:55 AM EST Prior auth is approved [employer] I Spoke with Marciano King reff# [id number] * MICHEAL Thomas - 09/21/2024 2:50 PM EST Called Bobby back. No answer. LVM to call back. * Alfredo Del Castillo - 09/20/2024 12:55 PM EST Patient's daughter called because her mom is is having surgery on 09/30/24 and needs a letter to take time off of work. The daughter would like a call back from one of the providers documented in this encounter Plan of Treatment Upcoming Encounters Date Type Department Care Team (Late st Contact Info) Description 04/28/2025 3:30 PM EDT Appointment [facility] Scan [address] [place] [id number] documented as of this encounter Visit Diagnoses Not on filedocumented in this encounter Care Teams Salesperson Shoes Relationship Specialty Start Date End Date Marlen Pereira MD [address] [place] [address] , [address] [facility] D[facility]A: [facility] [place], [place] PCP - General Internal Medicine 08/17/24 documented as of this encounter
--- OUTSIDE RECORDS SUMMARY | 2024-11-05 10:29 | XMS_ITS | Patient Health Record ---
Author Organization [facility] Address [address] [place] [phone] Care Team Providers Care Etl Bi Developer Name Role Phone Daniel Vargas MD Primary Care Provider Christ Carmona Jr Unavailable [phone] ALLERGIES No Known Allergies REASON FOR REFERRAL [...] Problem Colon cancer screening (Z12.11) Active confirmed 671260223 Problem Diverticulosis (K57.90) Active confirmed [id number] Problem FH: colon cancer (Z80.0) Active confirmed [id number] PLAN OF TREATMENT Future Test Test Name Order Date COLONOSCOPY 10/31/2021 Insurance Providers Payer Name Payer Address Payer Phone Subscriber Number Group Number Insured Name Patient Relationship to Insured Coverage Start Date Coverage End Date [employer] Medicare Advantage Plan [address] [address] [place] [address] [id number] Self - patient is the [...]
--- OUTSIDE RECORDS SUMMARY | 2024-11-05 10:30 | XMS_ITS | Clinical Summary ---
Author Organization [facility] Address [address] [place] [address] Phone Care Team Providers Care Executive Creative Director Name Role Phone Marlen Pereira MD Primary Care Provider [phone] Allergies Active Allergy Reactions Criticality Noted Date Comments Lidocaine 10/27/2024 Burning pain Medications multivitamin (Multiple Vitamins) tablet Take 1 tablet by mouth 1 (one) time each day. Active VITAMIN C, ASCORBATE CALCIUM, ORAL Take 500 mg by mouth daily. Active albuterol sulfate (ProAir RespiClick) 90 mcg/actuation aerosol powdr breath activated Inhale 2 Puffs into the lungs. Every 4-6 hours, as needed Active simvastatin (ZOCOR) 5 mg tablet Take 1 Tablet by mouth at bedtime. Active Anoro Ellipta 62.5-25 mcg/actuation inhaler Inhale 1 puff by mouth 1 (one) time each day. 4 Active acetaminophen (Tylenol Arthritis Pain) 650 mg 8 hr tablet Take 1 tablet (650 mg total) by mouth 2 (two) times a day. Do not crush, chew, or split. Active oxyCODONE (OXY-IR) 5 mg immediate release capsule Take 1 capsule (5 mg total) by mouth every 6 (six) hours if needed for severe pain (take 1 tablet for moderate pain (4-6) or take 2 tablets for severe pain (7-10)). Max Daily Amount: 20 mg 30 capsule 5 Active gabapentin (NEURONTIN) 300 mg capsule Take 1 capsule (300 mg total) by mouth 1 (one) time each day for 3 days, THEN 1 capsule (300 mg total) 2 (two) times a day for 3 days, THEN 1 capsule (300 mg total) 3 (three) times a day. 279 each 5 02/01/20 25 Active oxyCODONE (ROXICODONE) 5 mg immediate release tablet Take 1 tablet (5 mg total) by mouth every 4 (four) hours if needed (take 1- 5mg tablet for moderate pain (4-6) or take 2 - 5mg tablets for severe pain (7-10)). Max Daily Amount: 30 mg 24 tablet 5 10/07/19 25 Discontinu ed(Reorder ) oxyCODONE (ROXICODONE) 5 mg immediate release tablet Take 1 tablet (5 mg total) by mouth every 4 (four) hours if needed (take 1- 5mg tablet for moderate pain (4-6) or take 2 - 5mg tablets for severe pain (7-10)). Max Daily Amount: 30 mg 24 tablet 5 10/15/19 25 Discontinu ed(Stop Taking at Discharge) Active Problems Problem Noted Date Diagnosed Date Pre-op evaluation 09/14/2024 Assessment & Plan (09/14/2024 12:41 PM EST): Patient presents at acceptable cardiovascular risk for planned surgery. She is able to generate 4 METS of exercise without symptoms or limitations. Seems to be fairly well constitutionally. No need for any further cardiac intervention prior to surgery. Please be aware though that in such patients with COPD pulmonary surgery often leads to an episode of A-fib postoperatively. There is nothing we can do preemptively to diminish that risk Murmur 09/14/2024 Assessment & Plan (09/14/2024 12:42 PM EST): Patient has a very soft left ventricular outflow tract murmur probably consistent with mild aortic sclerosis no further testing or evaluation needed at this time History of lung cancer 08/23/2024 Assessment & Plan (10/28/2024 3:33 PM EST): Ms. Abraham is a 74 y.o. female who on 10/13/2024 went a redo robotic left lower lobectomy and mediastinal lymph adenectomy at [facility]. Originally her pathology was deemed to be [...] daily to help with her intercostal pain. Assessment & Plan (09/03/2024 10:59 AM EST): Ms. 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 The patient's most recent surveillance chest CT scan done on 08/18/2024 at [facility] shows a 17mm GGN in the posterior left lower lobe. I directly compared the patient's current CT to a CT scan done at [facility] from 2018 (see screenshots above). The left lower lobe pure groundglass nodule has grown in size over this time, although slow. The patient currently has no solid component to this but remains concerning for a slow-growing low-grade neoplasm. It took some time to get the CT scan uploaded into our system, therefore I called and discussed these findings with the patient on 09/03/2024 and my concern for a low-grade slow-growing lung cancer. I discussed the options going forward which include ongoing surveillance with CT scan in 1 year as this is a very slow- growing nodule versus biopsy. Biopsy options included navigational bronchoscopy which would likely require fixed cone beam CT with IP at [place], or robotic VATS left lower lobe wedge resection with possible segmentectomy or lobectomy. Patient would like to proceed with the surgical option. 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 If her pulmonary function testing is not appropriate we will rediscuss IP biopsy and possible radiation should this proved to be a cancer. All the patient's questions were answered and understood. Patient is told to call the office should she have any questions or concerns regarding her nodule, surgery, or anything else in the meantime. Pulmonary nodules 06/12/2023 Assessment & Plan (09/14/2024 11:59 AM EST): Orders: Ambulatory referral to Cardiology ECG 12 lead Abdominal lump 05/22/2023 BPV (benign positional vertigo) 05/22/2023 Cataract 05/22/2023 COPD (chronic obstructive pulmonary disease) Overview (07/08/2024): Last Assessment & Plan: Patient states she has been needing to take albuterol daily and when she does not she notices a significant decline in her breathing. ?? Referral to pulmonology at [facility] for ongoing evaluation and management of her COPD. COPD exacerbation 05/22/2023 Depression 05/22/2023 Diverticulitis 05/22/2023 Hypercholesteremia 05/22/2023 Knee osteoarthritis 05/22/2023 Resolved Problems Problem Noted Date Diagnosed Date Resolved Date 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 10/05/2024 10/15/2024 Encounters Date Type Department Care Team Description 10/27/2024 11:15 AM EST Office Visit Thoracic Surgery - [facility] [address] [facility] [address] [place] [phone] Luciano Elizondo PA History of lung cancer (Primary Dx) 10/27/2024 10:06 AM EST - 10/27/2024 11:59 PM EST Hospital Encounter [facility] Xray [address] [place] [phone] History of lung cancer; Pulmonary nodules Discharge Disposition: Home or Self Care 10/13/2024 12:00 PM EST - 10/13/2024 4:00 PM EST Surgery [facility] Main OR [address] [place] [phone] Latonya Lovett MD Da Stephanie completion left lower lobectomy [36589 (CPT??) +4 more] 10/13/2024 10:50 AM EST Anesthesia Event [facility] Main OR [address] [place] [phone] Deshawn Cabrera MD Claudio, Raymund, ASSISTANT BRANCH OPERATIONS MANAGER 10/13/2024 9:44 AM EST - 10/15/2024 12:30 PM EST Hospital Encounter [facility] Intermediate Care Unit [address] [place] [phone] Latonya Lovett MD Surendran, Anupama, MD History of lung cancer (Primary Dx); 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); Neoplasm Discharge Disposition: Home or Self Care 09/30/2024 7:30 AM EST - 09/30/2024 12:00 PM EST Surgery [facility] Main OR [address] [place] [phone] Latonya Lovett MD navigational bronchoscopy w/ dye marking [04407 (CPT??) +1 more] 09/30/2024 7:10 AM EST Anesthesia Event [facility] Main OR [address] [place] [phone] Deshawn Cabrera MD Claudio, Raymund, ASSISTANT BRANCH OPERATIONS MANAGER 09/30/2024 5:51 AM EST - 10/01/2024 1:30 PM EST Hospital Encounter [facility] Intermediate Care Unit [address] [place] [phone] Latonya Lovett MD Pulmonary nodules Discharge Disposition: Home or Self Care 09/22/2024 7:47 AM EST - 09/22/2024 11:59 PM EST Hospital Encounter [facility] CT Scan [address] [place] [phone] Lung nodule Discharge Disposition: Home or Self Care 09/20/2024 Telephone Thoracic Surgery - [facility] [address] [facility] [address] [place] [phone] Jessica Martinez PA Procedure 09/14/2024 10:20 AM EST Office Visit [address] [place] [phone] Neri Rey MD Pre-op evaluation (Primary Dx); Pulmonary nodules; Murmur 09/07/2024 10:43 AM EST - 09/07/2024 11:59 PM EST Hospital Encounter [facility] Pulmonary [address] [place] [phone] Pulmonary nodules; History of lung cancer Discharge Disposition: Home or Self Care 09/03/2024 Telephone Thoracic Surgery - [facility] [address] [facility] [address] [place] [phone] Latonya Lovett MD Procedure (PVCA , PAT , CT-SCAN) 09/02/2024 Telephone Thoracic Surgery - [facility] [address] [facility] [address] [place] [phone] Tatianna Rainey ND 08/19/2024 2:45 PM EST Office Visit Thoracic Surgery - [facility] [address] [facility] [address] [place] [phone] Jessica Martinez PA Pulmonary nodules (Primary Dx); History of lung cancer; Neoplasm 08/17/2024 12:51 PM EST - 08/17/2024 11:59 PM EST Hospital Encounter [facility] CT Scan [address] [place] [phone] Other nonspecific abnormal finding of lung field; Personal history of other malignant neoplasm of bronchus and lung Discharge Disposition: Home or Self Care from Last 3 Months Surgical History Surgery Date Site/Laterality Comments CATARACT EXTRACTION PROCEDURE: HISTORICAL CATARACT REMOVAL COLONOSCOPY PROCEDURE: HISTORICAL COLONOSCOPY OTHER SURGICAL HISTORY 2018 Right PROCEDURE: [place] THORACOSCOPY W/LOBECTOMY SINGLE LOBE; COMMENT: RML SHOULDER SURGERY 2017 PROCEDURE: HISTORICAL SHOULDER SURGERY TONSILLECTOMY PROCEDURE: HISTORICAL TONSILLECTOMY LUNG REMOVAL, PARTIAL HUMERUS RIGHT WITH ANCHORS LUNG LOBECTOMY 10/13/2024 Left LLL lobecotomy Medical History Medical History Date Comments Abdominal lump 08/08/2022 DX:Abdominal lum p BPV (benign positional vertigo) 08/08/2022 DX:BPV (benign positional vertigo) Cataract 08/08/2022 DX:Cataract COPD (chronic obstructive pu lmonary disease) (CMS/HCC) 08/08/2022 DX:COPD (chronic obstructive pulmonary disease) ([facility]) COPD exacerbation ([facility]/HCC) 08/08/2022 DX:C OPD exacerbation ([facility]) Meckel's diverticulum 08/08/2022 DX:Meckel' s diverticulum Mixed hyperlipidemia 08/08/2022 DX:Mixed hy perlipidemia Knee osteoarthritis 08/08/2022 DX:Knee oste oarthritis Personal history of nicotine dependence 08/08/2022 DX:Personal history of nicot ine dependence 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 ([facility]/HCC) 08/08/2022 DX: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 ([facility]) Screening for colon cancer 08/08/2022 DX:Id reening for colon cancer Screening for diabetes mellitus 08/08/2022 DX:Screening for diabetes mellitus Shortness of breath Joint pain Pneumonia Diverticulosis Family History Medical History Relation Name Comments Bladder Cancer Brother Alzheimer's disease Father Lung cancer Mother Lung cancer Sister 1 Lung cancer Sister 2 Relation Name Status Comments Brother Father Mother Sister 1 Sister 2 Social History Tobacco Use Types Packs/Day Years Used Date Smoking Tobacco: Former Cigarettes Q uit: 2008 Smokeless Tobacco: Former Tobacco Cessation:Counseling Given: Not Answered Alcohol Use Standard Drinks/Week Comments Not Currently [...] Orientation Straight 09/30/2024 5: 49 AM EST Obstetrics History Last Filed Vital Signs Vital Sign Reading [...] Mass Index 27.22 10/27/2024 11:18 AM EST Plan of Treatment Upcoming Encounters Date Type Department Care Team (Late st Contact Info) Description 04/28/2025 3:30 PM EDT Appointment [facility] CT Scan [address] [place] [phone] Health Maintenance Due Date Last Done Comments Breast Cancer Screening 1950 Zoster Vaccines (1 of 2) 1969 Pneumococcal Vaccine: 50+ Years (3 of 3 - PCV) 10/18/2020 10/18/2019, 07/17/2015, 08/05/2007 DTaP,Tdap,and Td Vaccines (2 - Td or Tdap) 01/26/2022 01/27/2012 Cholesterol Screening (Lipid Panel) 08/07/2022 05/28/2007 Colorectal Cancer Screening: Colonoscopy 08/07/2022 Depression Screening 08/07/2022 Hepatitis C Screening 08/07/2022 Medicare Annual Wellness Visit 08/07/2022 Osteoporosis Screening (Bone Density Screening) 08/07/2022 Social Influencers of Health Screening 08/07/2022 Falls Risk Assessment 10/15/2025 10/15/2024 RSV Immunization Patients 60+ Years Old Completed 07/21/2023 Influenza Vaccine Completed 06/07/2024, , 06/22/2022, Additional history exists COVID-19 Vaccine Completed 08/18/2024, , 09/11/2022, Additional history exists HIB Vaccines Aged Out No longer eligi ble based on patient's age to complete this topic HPV Vaccines Aged Out No longer eligi ble based on patient's age to complete this topic Hepatitis A Vaccines Aged Out No long er eligible based on patient's age to complete this topic Hepatitis B Vaccines Aged Out No long er eligible based on patient's age to complete this topic IPV Vaccines Aged Out No longer eligi ble based on patient's age to complete this topic MMR Vaccines Aged Out No longer eligi ble based on patient's age to complete this topic Meningococcal ACWY Vaccine Aged Out N o longer eligible based on patient's age to complete this topic Meningococcal B Vacine Aged Out No lo nger eligible based on patient's age to complete this topic RSV Immunization Patients Under 20 months Aged Out No longer eligible based on patient's age to complete this topic Varicella Vaccines Aged Out No longer eligible based on patient's age to complete this topic Medical Devices Implanted Type Area Delivery Man Device Identifier Shelf Expiration Date Model / Serial / Lot Sealant Fibrin Vistaseal 10ml - [id number] - [id number] Implanted:Qty: 1 on 09/30/2024 by Latonya Lovett MD at [facility] Hemostasis Left: Lung [facility] [employer] 05/25/2026 [id number] / [id number] / [id number] 21 Sealant Fibrin Vistaseal 10ml - [id number] - [id number] Implanted:Qty: 1 on 10/13/2024 by Latonya Lovett MD at [facility] Hemostasis Left: Chest [employer] 05/31/2026 [id number] / [id number] / [id number] 21 Sealant Progel Air Pleural 4ml - Sna - [id number] Implanted:Qty: 1 on 10/13/2024 by Latonya Lovett MD at [facility] [employer] Left: Chest [employer] 05/09/2026 [id number] / [id number] / [id number] Procedures Procedure Name Priority Date/Time Associated Diagnosis Comments XR CHEST 2 VIEWS Routine 10/27/2024 10:21 AM EST History of lung cancer Pulmonary nodules CBC WITH AUTO DIFFERENTIAL Routine 10/15/2024 6:22 AM EST CBC AND DIFFERENTIAL Routine 10/15/2024 6:22 AM EST BASIC METABOLIC PANEL Routine 10/15/2024 6:22 AM EST XR CHEST 1 VIEW Routine 10/15/2024 5:26 AM EST PEP THERAPY Routine 10/14/2024 8:02 AM EST MAGNESIUM Routine 10/14/2024 5:36 AM EST PHOSPHORUS Routine 10/14/2024 5:36 AM EST COMPLETE BLOOD COUNT Timed 10/14/2024 5:36 AM EST BASIC METABOLIC PANEL Routine 10/14/2024 5:36 AM EST XR CHEST 1 VIEW Routine 10/14/2024 5:26 AM EST PEP THERAPY Routine 10/13/2024 10:01 PM EST PEP THERAPY Routine 10/13/2024 6:00 PM EST BASIC METABOLIC PANEL Add-On 10/13/2024 3:00 PM EST MAGNESIUM STAT 10/13/2024 3:00 PM EST PHOSPHORUS STAT 10/13/2024 3:00 PM EST COMPLETE BLOOD COUNT STAT 10/13/2024 3:00 PM EST LAVENDER - EDTA Routine 10/13/2024 2:55 PM EST LT BLUE - NA CITRATE Routine 10/13/2024 2:55 PM EST EXTRA TUBES Routine 10/13/2024 2:55 PM EST XR CHEST 1 VIEW STAT 10/13/2024 2:54 PM EST PEP THERAPY Routine 10/13/2024 2:35 PM EST PEP THERAPY Routine 10/13/2024 2:35 PM EST PEP THERAPY Routine 10/13/2024 2:35 PM EST TH AN ARTERIAL LINE (CHARGE) Routine 10/13/2024 12:51 PM EST TH AN ENDOTRACHEAL(NO CHARGE) Routine 10/13/2024 12:31 PM EST TISSUE EXAM Routine 10/13/2024 12:21 PM EST 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) PREPARE RBC STAT 10/13/2024 11:48 AM EST NJ BRONCHOSCOPY INCL FLUROSCOPIC GUIDANCE W PLCMNT FIDUCIAL MARKER SGL/MULT 10/13/2024 10:50 AM EST 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) NJ REMOVAL OF LUNG OTHER THAN PNEUMONECTOMY SINGLE LOBE 10/13/2024 10:50 AM EST 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) NJ BRONCHOSCOPY RIGID/FLEXIBLE INCL FLUORO W/THERAPY ASPIRATION INITIAL 10/13/2024 10:50 AM EST 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) NJ THORACOSCOPY W DX WEDGE RESECTION F/B ANATOMIC LUNG RESECTION 10/13/2024 10:50 AM EST 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) NJ THORACOSCOPY SURGICAL WITH LOBECTOMY 10/13/2024 10:50 AM EST 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) CBC WITH AUTO DIFFERENTIAL Routine 10/13/2024 10:04 AM EST 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) BASIC METABOLIC PANEL Routine 10/13/2024 10:04 AM EST 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) CBC AND DIFFERENTIAL Routine 10/13/2024 10:04 AM EST 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) PROTHROMBIN TIME WITH INR Routine 10/13/2024 10:04 AM EST 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) Neoplasm ACTIVATED PARTIAL THROMBOPLASTIN TIME Routine 10/13/2024 10:04 AM EST 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) Neoplasm TYPE AND SCREEN Routine 10/13/2024 10:04 AM EST 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) HOME O2 EVAL (DESATURATION SCREEN) Routine 10/01/2024 9:06 AM EST XR CHEST 1 VIEW STAT 10/01/2024 5:45 AM EST MAGNESIUM Routine 10/01/2024 5:38 AM EST PHOSPHORUS Routine 10/01/2024 5:38 AM EST BASIC METABOLIC PANEL Routine 10/01/2024 5:38 AM EST COMPLETE BLOOD COUNT Routine 10/01/2024 5:38 AM EST PEP THERAPY Routine 09/30/2024 1:01 PM EST MAGNESIUM STAT 09/30/2024 12:49 PM EST PHOSPHORUS STAT 09/30/2024 12:49 PM EST BASIC METABOLIC PANEL STAT 09/30/2024 12:49 PM EST COMPLETE BLOOD COUNT STAT 09/30/2024 12:49 PM EST XR CHEST 1 VIEW STAT 09/30/2024 11:33 AM EST PEP THERAPY Routine 09/30/2024 11:15 AM EST PEP THERAPY Routine 09/30/2024 11:15 AM EST PEP THERAPY Routine 09/30/2024 11:15 AM EST PEP THERAPY Routine 09/30/2024 11:15 AM EST TH AN ENDOTRACHEAL(NO CHARGE) Routine 09/30/2024 9:46 AM EST TH AN ARTERIAL LINE (CHARGE) Routine 09/30/2024 9:36 AM EST TH AN ENDOTRACHEAL(NO CHARGE) Routine 09/30/2024 9:29 AM EST TISSUE EXAM Routine 09/30/2024 9:13 AM EST Pulmonary nodules NJ THORACOSCOPY SURGICAL WITH REMOVAL OF A SINGLE LUNG SEGMENT 09/30/2024 7:26 AM EST Pulmonary nodules Case Notes ON-Q Special Needs 4 HOURS REQUESTED BY OFFICE CB 1230Time change per ranjana arango 09/21 NJ BRONCHOSCOPY RIGID/FLEXIBLE COMPUTER ASSISTED IMAGE GUIDED NAVIGATION 09/30/2024 7:26 AM EST Pulmonary nodules Case Notes ON-Q Special Needs 4 HOURS REQUESTED BY OFFICE CB 1230Time change per ranjana arango 09/21 [place] BRONCHOSCOPY INCL FLUOROSCOPIC GUID W EBUS DURING PERIPHERAL LESION 09/30/2024 7:26 AM EST Pulmonary nodules Case Notes ON-Q Special Needs 4 HOURS REQUESTED BY OFFICE CB 1230Time change per ranjana arango 09/21 NJ THORACOSCOPY W DX WEDGE RESECTION F/B ANATOMIC LUNG RESECTION 09/30/2024 7:26 AM EST Pulmonary nodules Case Notes ON-Q Special Needs 4 HOURS REQUESTED BY OFFICE CB 1230Time change per ranjana arango 09/21 NJ THORACOSCOPY SURGICAL W MEDIASTINAL & REGIONAL LYMPHADENECTOMY 09/30/2024 7:26 AM EST Pulmonary nodules Case Notes ON-Q Special Needs 4 HOURS REQUESTED BY OFFICE CB 1230Time change per ranjana arango 09/21 PREPARE RBC Routine 09/30/2024 7:15 AM EST TYPE AND SCREEN Routine 09/22/2024 8:55 AM EST Pulmonary nodules ACTIVATED PARTIAL THROMBOPLASTIN TIME Routine 09/22/2024 8:55 AM EST Pulmonary nodules Neoplasm PROTHROMBIN TIME WITH INR Routine 09/22/2024 8:55 AM EST Pulmonary nodules Neoplasm BASIC METABOLIC PANEL Routine 09/22/2024 8:55 AM EST Pulmonary nodules CBC WITH AUTO DIFFERENTIAL Routine 09/22/2024 8:54 AM EST Pulmonary nodules CBC AND DIFFERENTIAL Routine 09/22/2024 8:54 AM EST Pulmonary nodules CT CHEST WO CONTRAST Routine 09/22/2024 8:12 AM EST Lung nodule ECG 12-LEAD Routine 09/14/2024 10:48 AM EST Pulmonary nodules HC SPIROMETRY BRONCHODILATION RESPONSIVENESS PRE/POST BRONCHODILATOR ADMINISTRATION STAT 09/07/2024 11:37 AM EST Pulmonary nodules History of lung cancer CT CHEST WO CONTRAST Routine 08/17/2024 1:07 PM EST Other nonspecific abnormal finding of lung field Personal history of other malignant neoplasm of bronchus and lung from Last 3 Months Results * XR Chest 2 Views (10/27/2024 [...] tiny left apical pneumothorax has resolved. Code 02129 -------- FINAL REPORT -------- Dictated By: Cuong Somers Dictated Date: 10/27/2024 10:29 ET Assigned Physician: Cuong Somers Reviewed and Electronically Signed By: Cuong Somers Signed Date: 10/27/2024 10:32 ET Workstation ID: [id number] Transcribed By: Self Edit Transcribed Date: 10/27/2024 [...] Thetiny left apical pneumothorax has resolved. Code 45114 -------- FINAL REPORT -------- Dictated By: Cuong Somers Dictated Date: 10/27/2024 10:29 ET Assigned Physician: Cuong Somers Reviewed and Electronically Signed By: Cuong Somers Signed Date: 10/27/2024 10:32 ET Workstation ID: [id number] Transcribed By: Self Edit Transcribed Date: 10/27/2024 10:29 ET us Luciano BURTON IMG XR PROCEDURES Final Result * (ABNORMAL) CBC auto differential (10/15/2024 6:22 AM EST) Only the most recent of3 resultswithin the time period is included. WBC 11.3(H) 4.8 - 10.8 K/[facility] LAB HEMETOLOGY METHOD 10/15/2024 7:20 AM [facility] 7:20 AM [facility] Basophils Absolute 0.03 0.00 - 0.20 K/mcL LAB HEMETOLOGY METHOD 10/15/2024 7:20 AM [facility] Immature Granulocytes Absolute 0.06(H) 0.00 - 0.03 K/mcL LAB HEMETOLOGY METHOD 10/15/2024 7:20 AM [facility] Blood Venous blood specimen / Unknown Venipuncture / Unknown 10/15/2024 6:22 AM EST 10/15/2024 7:14 AM EST us Siobhan Surendran MD LAB BLOOD ORDERABLES Final Result [facility] [address] [place] [address], * (ABNORMAL) Basic metabolic panel (10/15/2024 6:22 AM EST) Only the most recent of7 resultswithin the time period is included. Sodium 138 133 - 145 mmol/L LAB [...] LAB CHEMISTRY METHOD 10/15/2024 8:09 AM EST [facility] Blood Venous blood specimen / Unknown Venipuncture / Unknown 10/15/2024 6:22 AM EST 10/15/2024 7:14 AM EST Siobhan Resendiz MD LAB BLOOD ORDERABLES Final Result [facility] [address] [place] [address], * XR Chest 1 View (10/15/2024 5:26 AM EST) Only the most recent of5 resultswithin the time period is included. Anatomical Region Laterality Modality Body Radiographic Myrtle [...] Signed Date: 10/15/2024 08:25 ET Workstation ID: [id number] Transcribed By: Self Edit Transcribed Date: 10/15/2024 [...] Signed Date: 10/15/2024 08:25 ET Workstation ID: [id number] Transcribed By: Self Edit Transcribed Date: 10/15/2024 08:24 ET us Luciano BURTON IMG XR PROCEDURES Final Result * (ABNORMAL) CBC - Every 3 Days (10/14/2024 5:36 AM EST) Only the most recent of4 resultswithin the time period is included. WBC 11.5(H) 4.8 - 10.8 K/mcL LAB HEMETOLOGY METHOD 10/14/2024 6:22 AM [facility] RBC 3.60(L) 3.80 - 4.80 M/mcL LAB HEMETOLOGY METHOD 10/14/2024 6:22 AM [facility] Hemoglobin 11.1(L) 11.5 - 16.0 g/dL LAB HEMETOLOGY METHOD 10/14/2024 6:22 AM [facility] Hematocrit 35.5 35.0 - 47.0 % LAB HEMETOLOGY METHOD 10/14/2024 6:22 AM [facility] MCV 98.9(H) 79.0 - 98.0 FL LAB HEMETOLOGY METHOD 10/14/2024 6:22 AM [facility] MCH 30.9 27.0 - 32.0 pcg LAB HEMETOLOGY METHOD 10/14/2024 6:22 AM [facility] MCHC 31.3(L) 32.0 - 37.0 g/dL LAB HEMETOLOGY METHOD 10/14/2024 6:22 AM EST [facility] RDW 12.9 11.0 - 15.0 % LAB HEMETOLOGY METHOD 10/14/2024 6:22 AM EST [facility] Platelets 378 130 - 400 K/mcL LAB HEMETOLOGY METHOD 10/14/2024 6:22 AM EST [facility] MPV 9.3 7.0 - 11.0 FL LAB HEMETOLOGY METHOD 10/14/2024 6:22 AM EST [facility] NRBC 0.0 <1.0 % LAB HEMETOLOGY METHOD 10/14/2024 6:22 AM EST [facility] NRBC Absolute 0.00 <0.10 K/mcL LAB HEMETOLOGY METHOD 10/14/2024 6:22 AM [facility] Blood Venous blood specimen / Unknown Venipuncture / Unknown 10/14/2024 5:36 AM EST 10/14/2024 6:04 AM EST Jessica BURTON LAB BLOOD ORDERABLES Final Re sult [facility] [address] [place] [address], * Phosphorus (10/14/2024 5:36 AM EST) Only the most recent of4 resultswithin the time period is included. Phosphorus 4.2 2.5 - 4.5 mg/dL LAB CHEMISTRY METHOD 10/14/2024 6:32 AM EST [facility] Blood Venous blood specimen / Unknown Venipuncture / Unknown 10/14/2024 5:36 AM EST 10/14/2024 6:04 AM EST Jessica BURTON LAB BLOOD ORDERABLES Final Re sult [facility] [address] [place] [address], [place] [phone] * Magnesium (10/14/2024 5:36 AM EST) Only the most recent of4 resultswithin the time period is included. Magnesium 2.1 1.9 - 2.6 mg/dL LAB CHEMISTRY METHOD 10/14/2024 6:32 AM EST [facility] Blood Venous blood specimen / Unknown Venipuncture / Unknown 10/14/2024 5:36 AM EST 10/14/2024 6:04 AM EST Jessica BURTON LAB BLOOD ORDERABLES Final Re sult Performing Organization Address City/[facility]/ZIP Co de Phone Number [facility] [address] [place] [address], [place] [phone] * Lavender tube (10/13/2024 2:55 PM EST) Extra Tube Hold for add-ons. 10/13/2024 5:02 PM EST [facility] Comment:Auto resulted. Blood Venous blood specimen / Unknown 10/13/2024 2:55 PM EST 10/13/2024 3:13 PM EST us Latonya Lovett MD LAB BLOOD ORDERABLES Final Resul t [facility] [address] [place] [address], [place] [phone] * Light blue tube (10/13/2024 2:55 PM EST) Extra Tube Hold for add-ons. 10/13/2024 5:02 PM EST [facility] Comment:Auto resulted. Blood Venous blood specimen / Unknown 10/13/2024 2:55 PM EST 10/13/2024 3:13 PM EST us Latonya Lovett MD LAB BLOOD ORDERABLES Final Resul t [facility] [address] [place] [address], * TH AN ARTERIAL LINE (CHARGE) (10/13/2024 12:51 PM EST) Narrative Jez Maxwell CRNA - 10/13/2024 12:51 PM EST Jez [...] to verify the correct patient, procedure, equipment, passport support manager and site/side marked as required. Preparation: Patient was prepped and draped in the usual sterile fashion. Indications: hemodynamic monitoring Location: left radial Anesthesia method: general anesthesia. Toni's test normal: yes Needle gauge: 22 Seldinger technique: Seldinger technique used Number of attempts: 2 (ALEXANDRA then ) Post-procedure: dressing applied Post-procedure CMS: normal Start Time: 10/13/2024 11:10 AMStop Time: 10/13/2024 11:27 AM Deshawn Cabrera MD ANESTHESIA ORDERABLES Edited R esult - Final * TH AN ENDOTRACHEAL(NO CHARGE) (10/13/2024 12:31 PM EST) Narrative Jez Maxwell CRNA - 10/13/2024 12:31 PM EST Jez Maxwell CRNA ? 10/13/2024 12:34 PM General Information and Staff Patient location during procedure: OR Resident/ASSISTANT BRANCH OPERATIONS MANAGER: DANA Cronin Performed by: Jez Maxwell CRNA [...] Cabrera MD ANESTHESIA ORDERABLES Final Re sult * Tissue exam (10/13/2024 12:21 PM EST) Only the most recent of2 resultswithin the time period is included. Final Diagnosis A. 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 Lymph Node, Level [...] soft to rubbery, rosado-sweeney, anthracotic portions of emg tissue at the hilum measuring up to [...] are noted. Intraparenchymal lymph nodes are absent. Blood Bank Business Manager sections are submitted in eleven cassettes. Additional sections are submitted in cassettes 12-21. 1-2 bronchovascular margins, en face (red ink use for embedding), four and one pieces respectively 3-Two whole hilar lymph nodes and two samples of lung, four pieces 4-6 electroplating sales representative perpendicular sections of staple line opposing hilum, two pieces each 7-electroplating sales representative sections of the staple line inferior to hilum, taken perpendicularly, two pieces 8-9 random superior lung, two pieces each 10-random mid lung-hilum, two pieces 11-random inferior lung, two pieces 12-17 additional superior lung, two pieces each 18-19 additional mid lung-hilum, two pieces each 20-21 additional inferior lung, two pieces each TS 10/22/2024 5:20 PM EST [facility] ([facility] Synoptic Checklist LUNG LUNG: RESECTION - All Specimens 8th Edition - Protocol posted: 05/29/2022 SPECIMEN ?? Synchronous Tumors: ?Present ? Total Number of Primary Tumors: ?2 ? Specimen ID(s): ?Tumor in this completion lobectomy was found only microscopically / Previous tumor found only microscopically in wedge resection [id number] ?? Procedure: ?Completion lobectomy ?? Specimen Laterality: ?Left TUMOR ?? Tumor Focality: ?Multifocal tumor nodules of similar histology type not considered intrapulmonary metastases or too numerous for separate synoptic reports ? Number of Tumor Nodules: ?2 tumor nodules (one tumor nodule in this completion lobectomy and one tumor nodule representing the remainder of the invasive lepidic tumor identified in the previous wedge resection [id number]. ?? Tumor Site: ?Lower lobe of lung [...] lobe as the primary (previous wedge resection [id number]) 10/22/2024 5:20 PM EST [facility] Disclaimer Unless otherwise specified, all tissue is 10% NB formalin fixed and paraffin embedded. 10/22/2024 5:20 PM EST [facility] Tissue Lymph node specimen / [...] MD LAB PATHOLOGY ORDERABLES Final R esult [facility] [address] [place] [address], * Prepare RBC: 2 Units (10/13/2024 11:48 AM EST) Only the most recent of2 resultswithin the time period is included. Product Code [id number] 10/13/2024 2:17 PM [facility] Unit Number [id number] 10/13/19 2:17 PM [facility] Crossmatch Compatible 10/13/2024 11:54 AM [facility] Dispense Status Released From Crossmatch 10/13/2024 2:17 PM EST [facility] Unit ABO Rh OPOS 10/13/2024 2:17 PM EST [facility] Unit Expiration Date Time [id number] 10/13/2024 2:17 PM [facility] Unit Blood Type 5100 10/13/2024 2:17 PM [facility] Product Code [id number] 10/14/2024 7:17 AM [facility] Unit Number [id number] 10/14/19 7:17 AM [facility] Crossmatch Compatible 10/13/2024 11:56 AM [facility] Dispense Status Released From Crossmatch 10/14/2024 7:17 AM [facility] Unit ABO Rh OPOS 10/14/2024 7:17 AM [facility] Unit Expiration Date Time [id number] 10/14/2024 7:17 AM [facility] Unit Blood Type 5100 10/14/2024 7:17 AM [facility] Blood Venous blood specimen / Unknown 10/13/2024 11:48 AM EST 10/13/2024 10:10 AM EST us Deshawn Carbera MD BLOOD BANK PRODUCT ORDERABLES Final Result [facility] [address] [place] [address], * Activated partial thromboplastin time (10/13/2024 10:04 AM EST) Only the most recent of2 resultswithin the time period is included. aPTT 31.7 24.1 - 39.3 sec LAB COAGULATION METHOD 10/13/2024 11:12 AM EST [facility] Blood Venous blood specimen / Unknown Venipuncture / Unknown 10/13/2024 10:04 AM EST 10/13/2024 10:10 AM EST us Latonya Lovett MD LAB BLOOD ORDERABLES Final Resul t Performing Organization Address City/[facility]/ZIP Co de Phone Number [facility] [address] [place] [address], [place] [phone] * Prothrombin time with INR (10/13/2024 10:04 AM EST) Only the most recent of2 resultswithin the time period is included. Protime 11.6 10.6 - 13.9 sec LAB COAGULATION METHOD 10/13/2024 11:12 AM [facility] INR 0.9 LAB COAGULATION METHOD 10/13/2024 11:12 AM [facility] Blood Venous blood specimen / Unknown Venipuncture / Unknown 10/13/2024 10:04 AM EST 10/13/2024 10:10 AM EST us Latonya Lovett MD LAB BLOOD ORDERABLES Final Resul t Performing Organization Address [facility]/ZIP Co de Phone Number [facility] [address] [place] [address], [place] [phone] * Type and screen (10/13/2024 10:04 AM EST) Only the most recent of2 resultswithin the time period is included. ABO Group O 10/13/2024 11:22 AM [facility] Rh Type Positive 10/13/2024 11:22 AM [facility] Antibody Screen Negative 10/13/2024 11:22 AM [facility] Blood Venous blood specimen / Unknown Venipuncture / Unknown 10/13/2024 10:04 AM EST 10/13/2024 10:10 AM EST us Latonya Lovett MD LAB BLOOD BANK TEST ORDERABLES F inal Result [facility] [address] [place] [address], [place] [phone] * TH AN ENDOTRACHEAL(NO CHARGE) (09/30/2024 9:46 AM EST) Jez Arceo CRNA - 09/30/2024 9:46 AM EST Jez Maxwell CRNA ? 09/30/2024 ??9:50 AM General Information and Staff Patient location during procedure: OR Performed: resident/ASSISTANT BRANCH OPERATIONS MANAGER/CAA Performed by: Jez Maxwell CRNA Authorized by: [...] view of glottis Placement verified by: chest auscultation, capnometry and palpation of cuff Number of attempts at approach: 1 Ventilation between attempts: BVM Number of other approaches attempted: 0Final airway type: endotracheal airway Indications and Patient Condition Indications for airway management: anesthesia and airway protection Spontaneous ventilation: present Sedation level: Yes Preoxygenated: yes Soft Tissue Damage: No Dentition Unchanged: Yes Patient position: neutral Mask difficulty assessment: 0 - not attempted Start Time: 09/30/2024 8:20 AMStop Time: 09/30/2024 8:22 AM us Deshawn Cabrera MD ANESTHESIA ORDERABLES Final Re sult * TH AN ARTERIAL LINE (CHARGE) (09/30/2024 9:36 AM EST) Jez Arceo CRNA - 09/30/2024 9:36 AM EST Jez Maxwell CRNA ? 09/30/2024 ??9:39 AM Arterial Line Performed by: Jez Maxwell CRNA Authorized by: Deshawn Cabrera MD ??Consent: Verbal consent obtained. Written consent obtained. Consent given by: patient Patient consent: the patient's understanding of the procedure matches consent given Procedure consent: procedure consent matches procedure scheduled Relevant documents: relevant documents present and verified Test results: test results available and properly labeled Site marked: the operative site was marked Required items: required blood products, implants, devices, and special equipment available Patient identity confirmed: verbally with patient, arm band, provided demographic data and hospital-assigned identification number Time out: Immediately prior to procedure a time out was called to verify the correct patient, procedure, equipment, passport support manager and site/side marked as required. Preparation: Patient was prepped and draped in the usual sterile fashion. Indications: hemodynamic monitoring Location: right radial Anesthesia method: general anesthesia. Toni's test normal: yes Needle gauge: 20 Seldinger technique: Seldinger technique used Number of attempts: 1 Post-procedure: dressing applied Post-procedure CMS: normal Patient tolerance: patient tolerated the procedure well with no immediate complications Start Time: 09/30/2024 7:45 AMStop Time: 09/30/2024 7:49 AM us Deshawn Cabrera MD ANESTHESIA ORDERABLES Edited R esult - Final * TH AN ENDOTRACHEAL(NO CHARGE) (09/30/2024 9:29 AM EST) Jez Arceo CRNA - 09/30/2024 9:29 AM EST Jez Maxwell CRNA ? 09/30/2024 ??9:32 AM General Information and Staff Patient location during procedure: OR Performed by: Jez Maxwell CRNA Authorized by: Deshawn Cabrera MD ?? Intubation Airway not difficult Urgency: elective Final Airway Details Successful airway: ETT Cuffed: yes Successful intubation technique: direct laryngoscopy Endotracheal tube insertion site: oral Blade: Shakir Blade size: #3 ETT size (mm): 8.5 Cormack-Lehane Classification: grade IIa - partial view of glottis Placement verified by: chest auscultation Cuff volume (mL): 8 Measured from: gums ETT to gums (cm): 21 Number of attempts at approach: 1Final airway type: endotracheal airway Indications and Patient Condition Indications for airway management: anesthesia Spontaneous ventilation: present Sedation level: Yes Preoxygenated: yes Soft Tissue Damage: No Dentition Unchanged: No Patient position: neutral Mask difficulty assessment: 1 - vent by mask us Deshawn Cabrera MD ANESTHESIA ORDERABLES Final Re sult * CT Chest wo Contrast (09/22/2024 8:12 AM EST) Only the most recent of2 resultswithin the time period is included. Anatomical Region Laterality Modality Body Computed Tomogra phy 09/29/2024 9:44 AM EST Impressions 09/29/2024 9:49 AM EST Stable left lower lobe groundglass nodules. ??No thoracic lymphadenopathy. -------- FINAL REPORT -------- Dictated By: JACKSON WELSH Dictated Date: 09/29/2024 09:44 ET Assigned Physician: JACKSON WELSH Reviewed and Electronically Signed By: JACKSON WELSH Signed Date: 09/29/2024 09:49 ET Workstation ID: [id number] Transcribed By: Self Edit Transcribed Date: 09/29/2024 [...] Signed Date: 09/29/2024 09:49 ET Workstation ID: [id number] Transcribed By: Self Edit Transcribed Date: 09/29/2024 09:44 ET Jessica BURTON [facility] PROCEDURES Final Resul t * ECG 12 lead (09/14/2024 10:48 AM EST) Ventricular Rate ECG 69 BPM GEMUSE Atrial Rate 69 BPM GEMUSE P-R Interval 156 ms GEMUSE QRS Duration 84 ms GEMUSE Q-T Interval 386 ms GEMUSE QTc 413 ms GEMUSE P Wave Shandon 67 degrees GEMUSE R Shandon 36 degrees GEMUSE T Shandon 34 degrees GEMUSE ECG Interpretation Normal sinus rhythm with sinus arrhythmia Normal ECG No previous ECGs available Confirmed by Kirby REY JAMES ([id number]) on 09/14/2024 12:32:32 PM GEMUSE 09/14/2024 10:4 8 AM EST 09/14/2024 12:32 PM EST us Neri Rey MD ECG ORDERABLES Final Result GEMUSE * Pulmonary function testing: Carbon Monoxide Diffusing Capacity, Spirometry with Bronchodilator, Plethysmography (09/07/2024 11:37 AM EST) Narrative Daniel Heart MD - 09/13/2024 1:01 PM EST DATE OF SERVICE: 09/07/24 SPIROMETRY: FEV1 is ??73% predicted and an FVC ??is 91 % predicted. The FEV1/FVC ratio is decreased, no response to bronchodilators noted. LUNG VOLUMES: Total lung capacity (TLC): 93% predicted. Residual volume (RV): 100% predicted DIFFUSION CAPACITY: DLCO 81% predicted. DlCO/VA 124% of predicted COMPARISONS: INTERPRETATION: This pulmonary function test shows mild obstructive changes consistent with mild COPD ??Daniel Heart MD ?? us Jessica BURTON PFT ORDERABLES Final Result from Last 3 Months Insurance [employer] MEDICARE Advance Directives * Full Code - Confirmed (Latest Code Status on File) Date Activated Date Inactivated Comments 10/13/2024 6:35 PM 10/15/2024 2:46 PM This code stat us was ascertained in the following way: Code status discussion: discussion with patient To update the patient's code status, place a code status order. Do not modify or discontinue any currently active code status orders. * Full Code - Default Date Activated Date Inactivated Comments 10/13/2024 2:34 PM 10/13/2024 6:35 PM This is order is used when code status has not been discussed with the patient, or code status is otherwise unknown/unconfirmed To update the patient's code status, place a code status order. Do not modify or discontinue any currently active code status orders. * Full Code - Default Date Activated Date Inactivated Comments 10/13/2024 9:54 AM 10/13/2024 2:34 PM This is order is used when code status has not been discussed with the patient, or code status is otherwise unknown/unconfirmed To update the patient's code status, place a code status order. Do not modify or discontinue any currently active code status orders. * Full Code - Default Date Activated Date Inactivated Comments 09/30/2024 11:22 AM 10/01/2024 3:46 PM This is ord er is used when code status has not been discussed with the patient, or code status is otherwise unknown/unconfirmed To update the patient's code status, place a code status order. Do not modify or discontinue any currently active code status orders. * Full Code - Default Date Activated Date Inactivated Comments 09/30/2024 11:15 AM 09/30/2024 11:22 AM This is or kalyan is used when code status has not been discussed with the patient, or code status is otherwise unknown/unconfirmed To update the patient's code status, place a code status order. Do not modify or discontinue any currently active code status orders. Care Teams Executive Creative Director Relationship Specialty Start Date End Date Marlen Pereira MD [address] [place] [address] , [address] [facility]A: [facility] DEONTE Basilio PCP - General Internal Medicine 08/17/24
== END 2024-11-05 10:40 | disposition home or self-care (01) ==
PROVIDERS: PCP Internal Medicine
DX: C34.2 Malignant neoplasm of middle lobe, bronchus or lung (principal); E78.00 Pure hypercholesterolemia, unspecified; J43.9 Emphysema, unspecified; R91.1 Solitary pulmonary nodule; M79.2 Neuralgia and neuritis, unspecified

== ENCOUNTER → 2024-11-05 09:41 | Outpatient (BNVA) | payer MEDICARE, SELFPAY | PROVIDERS: PCP Internal Medicine | DX: C34.2 Malignant neoplasm of middle lobe, bronchus or lung (principal); E78.00 Pure hypercholesterolemia, unspecified; J43.9 Emphysema, unspecified; R91.1 Solitary pulmonary nodule; M79.2 Neuralgia and neuritis, unspecified | CPT/HCPCS: 99212 ==

== ENCOUNTER 2024-11-22 15:57 | Outpatient (AMB) | payer MEDICARE, SELFPAY ==
--- NOTE | 2024-11-22 16:11 | A.OFFPC_ITS ---
Vital Signs 11/22/24 16:12 Height 5 ft 4 in Weight 157 lb BMI 26.9 BP 138/60 Blood Pressure Location Lt brachial Position Sitting Intake Visit Reasons: Follow Up/Transfer Care from Dr. Vargas Senior Sourcing Manager Required: No Accompanied by: Self / Same As Patient Allergies gabapentin Adverse Reaction (Mild, Verified 11/22/24 16:22) Vomiting Medication List - Last Reconciled 11/22/24 by Marlen Pereira MD acetaminophen ER 1,300 mg PO Q12H albuterol sulfate 90 mcg/actuation 2 puffs inhalation Q4-6H PRN Anoro Ellipta 62.5-25 mcg/actuation (umeclidinium-vilanterol) 1 inh inhalation DAILY 30 days NS ascorbic acid (vitamin C) 1 g PO Q6H ketoconazole 2% 1 appl topical 2XW multivitamin 1 tab PO DAILY oxycodone 5 mg PO BID PRN pregabalin 25 mg PO DAILY simvastatin 5 mg PO QPM Tobacco use date assessed: 09/17/24 Fall risk assessment: No Falls in past year Last assessed Fall Risk: 11/22/24 Dental Screening Dental Screen Date: 11/22/24 Did you have a dental visit in the last 12 months?: Yes Did you have a dental problem in the last 6 months where you did not have access to dental care?: No Was dental information given to patient?: Patient has dentist HPI HPI Comments History of Present Illness Details The patient is a 74-year-old female presenting with complications following surgery for adenocarcinoma of the lung. Postoperative nerve pain remains a significant issue, necessitating cooling strategies for relief. The patient reports a decrease in pain intensity from severe to moderate. Nosebleeds and associated dizziness are additional concerns, occurring intermittently postoperatively. Her surgical history includes a lobectomy due to lung cancer, with prior episodes requiring oxygen support. Family and personal oncological history necessitate regular surveillance. The patient's prediabetes is managed through lifestyle modifications, and constipation is noted secondary to opioid analgesic use. 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 BPV (benign positional vertigo) Cataract Knee osteoarthritis Hypercholesterolemia Diverticulitis Depression COPD (chronic obstructive pulmonary disease) Surgical History History of colonoscopy History of cataract surgery History of lung surgery (~2018) History of shoulder surgery (~2017) History of tonsillectomy Family History Father Alzheimers disease Mother Lung cancer Brother Bladder cancer Sister Lung cancer Social History Housing: House Alcohol intake: former Patient Tobacco Use Status: Former Tobacco user Tobacco use type: Cigarette Years Smoked: quit 60 years old e-Cigarette/Vaping Use: Never Used Second Hand Smoke Exposure: Yes service: No Current occupational status: retired Cognitive needs: No Hearing needs: No Vision needs: Yes (Glasses) Questionnaire Thrive Questionnaire Date Thrive assessed: 09/17/24 I am a: Patient What is your living situation today?: I have a steady place to live Within the past 12 months, did the food you bought not last and you didn't have the money to get more?: Often true Within the past 12 months, did you worry whether your food would run out before you got money to buy more?: Often true Do you have trouble paying for medicines?: Yes Do you have trouble getting transportation to medical appointments?: No Do you have trouble paying your heating and electricity bill?: No Do you have trouble taking care of your child, family member or friend?: No Do you have trouble with day-to-day activities such as bathing, preparing meals, shopping, managing finances, etc.?: No Are you currently unemployed and looking for a job?: No Are you interested in more education?: No Please select the resources that you would like help with: None Currently or been in a relationship where the following occur: No concerns reported THRIVE Score: 2 JEAN-PAUL-7 AMB Questionnaire JEAN-PAUL-7 Date JEAN-PAUL - 7 assessed: 09/17/24 Source: Developed by Drs. Conor Richardson, Lucrecia Sherman, Angel Warren and colleagues, with an educational davonte from [employer]. Review of Systems Const All systems reviewed & are unremarkable except as noted in HPI and below Card Denies chest pain at rest, Denies chest pain with activity, Denies edema, Denies irregular heart rhythm, Denies claudication, Denies dyspnea, Denies dyspnea on exertion, Denies orthopnea, Denies paroxysmal nocturnal dyspnea and Denies slow heart rate Resp Denies cough, Denies dyspnea and Denies dyspnea on exertion GI Denies abdominal pain, Denies change in bowel habits, Denies excessive flatus, Denies nausea and Denies vomiting Denies urinary incontinence, Denies urinary hesitancy and Denies urinary urgency Neuro Denies behavioral changes and Denies lack of coordination Psych Denies behavioral changes Endo Denies cold intolerance Physical exam (Primary Care) Vital Signs: Last Vital Signs BP 138/60 11/22/24 16:12 BMI result Body Mass Index 26.9 Tobacco/Smoking Status: Tobacco use Status Tobacco use date assessed 09/17/24 11/22/24 16:19 Patient Tobacco Use Status Former Tobacco user 11/22/24 16:19 Tobacco use type Cigarette 11/22/24 16:19 e-Cigarette/Vaping Use Never Used 11/22/24 16:19 Thrive Assessment: Date of Thrive Assessment Date Thrive assessed 09/17/24 11/22/24 16:19 Currently or been in a relationship where the following occur: No concerns reported Resp Effort & Inspection: normal respiratory effort Auscultation: clear to auscultation bilaterally Cardio Jugular venous distension: no JVD Rate: regular rate Rhythm: regular rhythm Heart sounds: S1 normal heart sound present and S2 normal heart sound present Extrem General: Yes full ROM Coding Level of Care Code Est Pt Level 4 (24119) Complex EM visit Add On G2211 Diagnoses Primary lung adenocarcinoma C34.90 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 Pulmonary emphysema, unspecified emphysema type J43.9 COPD type: emphysema Emphysema type: unspecified Impaired glucose tolerance R73.02 Time Spent (min) 24 Assessment & Plan Assessment & Plan (1) Primary lung adenocarcinoma: Code(s): C34.90 - Malignant neoplasm of unspecified part of unspecified bronchus or lung Category: Medical (2) Neuropathic pain: Code(s): M79.2 - Neuralgia and neuritis, unspecified Category: Medical (3) COPD (chronic obstructive pulmonary disease): Code(s): J44.9 - Chronic obstructive pulmonary disease, unspecified Category: Medical Qualifiers: COPD type: emphysema Emphysema type: unspecified Qualified Code(s): J43.9 - Emphysema, unspecified (4) Impaired glucose tolerance: Code(s): R73.02 - Impaired glucose tolerance (oral) Category: Medical Plan Continued surveillance for lung adenocarcinoma will include routine imaging. Regular follow-up with hematology-oncology is scheduled. Non-pharmacological approaches to minimize nerve pain symptoms will be complemented by reassessment of pregabalin use, considering the history of adverse effects with gabapentin. Nosebleed management will involve monitoring and reducing potential aggravating factors. Constipation secondary to oxycodone will be addressed by considering alternative pain management strategies and supporting dietary adjustments. Prediabetes management will emphasize lifestyle changes and ongoing glucose monitoring. Patient was informed and verbally consented to the use of an ambient scribe for clinic note documentation during this visit. During the visit, I discussed the current postoperative status with the patient, particularly focusing on pain management options and the significance of ongoing cancer surveillance. We reviewed the potential resumption of pregabalin as a management strategy for nerve pain while considering her prior negative experience with gabapentin. The potential causes and management strategies for recurrent nosebleeds were explored, highlighting ENT follow-up if the condition persists. Constipation related to opioid use was also addressed, suggesting dietary adjustments. The patient was briefed on referring to a hematology- senior payroll specialist for comprehensive postoperative cancer management, emphasizing the benefits and risks of different treatment pathways. The patient agreed to the discussed plan. Orders: Orders Complete Blood Count Auto Diff 6 Months C34.90 - Malignant neoplasm of unspecified part of unspecified bronchus or lung, D64.9 - Anemia, unspecified Lipid Panel 6 Months E78.5 - Hyperlipidemia, unspecified, R73.02 - Impaired glucose tolerance (oral) Comprehensive [place]. Panel Fast 6 Months R73.02 - Impaired glucose tolerance (oral) Referrals Hematology & Oncology Referral C34.90 - Malignant neoplasm of unspecified part of unspecified bronchus or lung Patient Instructions: - Continue using non-heating cooling measures to manage nerve pain. - Monitor and report any increase in frequency or severity of nosebleeds. - Follow dietary modifications and increase dietary fiber to address constipation. - Attend follow-up imaging and consultations with a hematology-senior payroll specialist for cancer monitoring. - Persist with weight management and lifestyle modifications for prediabetes control.
[2024-11-22 16:12] VITALS: BP 138/60; BMI 26.9
--- OUTSIDE RECORDS SUMMARY | 2024-11-22 18:20 | XMS_ITS | Encounter Summary ---
Author Organization [facility] Address [address] [place] [address] Care Team Providers Care Register Of Deeds Name Role Phone Marlen Pereira MD Primary Care Provider [phone] Encounter Details Date Type Department Care Team (Latest Contact Info) Description 10/27/2024 10:06 AM EST - 10/27/2024 11:59 PM EST Hospital Encounter [facility] Xray [address] [place] [address] History of lung cancer; Pulmonary [...] [facility] CT Scan [address] [place] [address] documented as of this encounter [...] tiny left apical pneumothorax has resolved. Code 05394 -------- FINAL REPORT -------- Dictated By: Cuong Somers Dictated Date: 10/27/2024 10:29 ET Assigned Physician: Cuong Somers Reviewed and Electronically Signed By: Cuong Somers Signed Date: 10/27/2024 10:32 ET Workstation ID: [id number] Transcribed By: Self Edit Transcribed Date: 10/27/2024 [...] Thetiny left apical pneumothorax has resolved. Code 38721 -------- FINAL REPORT -------- Dictated By: Cuong Somers Dictated Date: 10/27/2024 10:29 ET Assigned Physician: Cuong Somers Reviewed and Electronically Signed By: Cuong Somers Signed Date: 10/27/2024 10:32 ET Workstation ID: [id number] Transcribed By: Self Edit Transcribed Date: 10/27/2024 10:29 ET [facility] IMG XR PROCEDURES Final Result documented in this encounter Visit Diagnoses Diagnosis History of lung cancer Personal history of malignant neoplasm of bronchus and lung Pulmonary nodules Other diseases of lung, not elsewhere classified documented in this encounter Care Teams Register Of Deeds Relationship Specialty Start Date End Date Marlen Pereira MD [address] [facility] DEONTE Basilio PCP - General Internal Medicine 08/17/24 documented as of this encounter
--- OUTSIDE RECORDS SUMMARY | 2024-11-22 18:20 | XMS_ITS | Clinical Summary ---
Author Organization [facility] Address [address] [place] [address] Phone Care Team Providers Care Customs Compliance Analyst Name Role Phone Marlen Pereira MD Primary Care Provider [phone] Allergies Active Allergy Reactions Criticality Noted Date [...] mouth 1 (one) time each day. 10/07/2023 Active acetaminophen (Tylenol Arthritis Pain) 650 mg [...] Daily Amount: 20 mg 30 capsule 10/15/2024 Active gabapentin (NEURONTIN) 300 mg capsule Take 1 capsule (300 mg total) by mouth 1 (one) time each day for 3 days, THEN 1 capsule (300 mg total) 2 (two) times a day for 3 days, THEN 1 capsule (300 mg total) 3 (three) times a day. 279 each 10/27/2024 02/01/20 25 Active Active Problems Problem Noted Date Diagnosed Date [...] & Plan (10/28/2024 3:33 PM EST): Ms. Rosario is a 74 y.o. female who on 10/13/2024 went a redo robotic left lower lobectomy and mediastinal lymph adenectomy at [facility]. 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 I directly compared the patient's current CT to a CT scan done at [facility] from 2018 (see screenshots above). The [...] fixed cone beam CT with IP at [place], or robotic VATS left lower lobe wedge resection with possible segmentectomy or lobectomy. Patient would like to proceed with the surgical option. I will set the patient up with repeat pulmonary function testing, cardiology clearance appointment (patient does not have a micro computer data processor at baseline), and will get the patient [...] her breathing. ?? Referral to pulmonology at [facility] for ongoing evaluation and management of her COPD. COPD exacerbation 05/22/2023 Depression 05/22/2023 Diverticulitis 05/22/2023 Hypercholesteremia 05/22/2023 Knee osteoarthritis 05/22/2023 Resolved Problems Problem Noted Date Diagnosed Date Resolved Date 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 10/05/2024 10/15/2024 Encounters Date Type Department Care Team Description 10/27/2024 11:15 AM EST Office Visit [facility] [place] [address] [phone] Luciano Elizondo PA History of lung cancer (Primary Dx) 10/27/2024 10:06 AM EST - 10/27/2024 11:59 PM EST Hospital Encounter [facility] Xray [address] [place] [address] History of lung cancer; Pulmonary nodules Discharge Disposition: Home or Self Care 10/13/2024 12:00 PM EST - 10/13/2024 4:00 PM EST Surgery [facility] Main OR [address] [place] [phone] Latonya Lovett MD Da Stephanie completion left lower lobectomy [02786 (CPT??) +4 more] 10/13/2024 10:50 AM EST Anesthesia Event [facility] OR [address] [place] [phone] Deshawn Cabrera MD Claudio, Raymund, ALEXANDRA 10/13/2024 9:44 AM EST - 10/15/2024 12:30 PM EST Hospital Encounter [facility] Intermediate Care Unit [address] [place] [phone] Latonya Lovett MD Surendran, Anupama, MD History of lung cancer (Primary Dx); 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); Neoplasm Discharge Disposition: Home or Self Care 09/30/2024 7:30 AM EST - 09/30/2024 12:00 PM EST Surgery [facility] Main OR [address] [place] [address] Latonya Lovett MD navigational bronchoscopy w/ dye marking [92429 (CPT??) +1 more] 09/30/2024 7:10 AM EST Anesthesia Event [facility] Main OR [address] [place] [phone] Deshawn Cabrera MD Claudio, Raymund, CHIEF WARDEN 09/30/2024 5:51 AM EST - 10/01/2024 1:30 PM EST Hospital Encounter [facility] Intermediate Care Unit [address] [place] [phone] Latonya Lovett MD Pulmonary nodules Discharge Disposition: Home or Self Care 09/22/2024 7:47 AM EST - 09/22/2024 11:59 PM EST Hospital Encounter [facility] CT Scan [address] [place] [address] Lung nodule Discharge Disposition: Home or Self Care 09/20/2024 Telephone Thor[facility] Surgery - [place] [address] [place] [phone] Jessica Martinez PA Procedure 09/14/2024 10:20 AM EST Office Visit [facility] [address] [place] [phone] Neri Rey MD Pre-op evaluation (Primary Dx); Pulmonary nodules; Murmur 09/07/2024 10:43 AM EST - 09/07/2024 11:59 PM EST Hospital Encounter [facility] Pulmonary [address] [place] [address] Pulmonary nodules; History of lung cancer Discharge Disposition: Home or Self Care 09/03/2024 Telephone [facility] Surgery - [place] [address] [facility] [address] [place] [address] Latonya Lovett MD Procedure (PVCA , PAT , CT-SCAN) 09/02/2024 Telephone [facility] [place] [address] [place] [address] Tatianna Rainey MA from Last 3 Months Surgical History Surgery Date Site/Laterality Comments CATARACT EXTRACTION PROCEDURE: HISTORICAL CATARACT REMOVAL COLONOSCOPY PROCEDURE: HISTORICAL COLONOSCOPY OTHER SURGICAL HISTORY 2018 Right PROCEDURE: SC THORACOSCOPY W/LOBECTOMY SINGLE LOBE; COMMENT: RML SHOULDER SURGERY 2017 PROCEDURE: HISTORICAL SHOULDER SURGERY TONSILLECTOMY PROCEDURE: HISTORICAL TONSILLECTOMY LUNG REMOVAL, PARTIAL HUMERUS RIGHT WITH ANCHORS LUNG LOBECTOMY 10/13/2024 Left LLL lobecotomy Medical History Medical History Date Comments Abdominal lump 08/08/2022 DX:Abdominal lum p BPV (benign positional vertigo) 08/08/2022 DX:BPV (benign positional vertigo) Cataract 08/08/2022 DX:Cataract COPD (chronic obstructive pu lmonary disease) ([facility]/HCC) 08/08/2022 DX:COPD (chronic obstructive pulmonary disease) ([facility]) COPD exacerbation ([facility]) 08/08/2022 DX:C OPD exacerbation ([facility]) Meckel's diverticulum 08/08/2022 DX:Meckel' s diverticulum Mixed hyperlipidemia 08/08/2022 DX:Mixed hy perlipidemia Knee osteoarthritis 08/08/2022 DX:Knee oste oarthritis Personal history of nicotine dependence 08/08/2022 DX:Personal history of nicot ine dependence 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 ([facility]/HCC) 08/08/2022 DX: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 ([facility]) Screening for colon cancer 08/08/2022 DX:Sc reening for colon cancer Screening for diabetes [...] Info) Description 04/28/2025 3:30 PM EDT Appointment [facility] CT Scan [address] [place] [phone] Health Maintenance Due Date Last [...] this topic Medical Devices Implanted Type Area Garage Door Service Technician Device Identifier Shelf Expiration Date Model / Serial / Lot Sealant Fibrin Vistaseal 10ml - [id number] - [id number] Implanted:Qty: 1 on 09/30/2024 by Latonya Lovett MD at [facility] Hemostasis Left: Lung [facility] [employer] 05/25/2026 VST10 / [id number] / [id number] 21 Sealant Fibrin Vistaseal 10ml - [id number] - [id number] Implanted:Qty: 1 on 10/13/2024 by Latonya Lovett MD at [facility] Hemostasis Left: Chest [facility] [employer] 05/31/2026 VST1 / [id number] / [id number] 21 Sealant Progel Air Pleural 4ml - Sna - [id number] Implanted:Qty: 1 on 10/13/2024 by Latonya Lovett MD at [facility] [employer] Left: Chest [employer] 05/09/2026 [id number] / [id number] / [id number] Procedures Procedure Name Priority Date/Time Associated Diagnosis [...] PREPARE RBC STAT 10/13/2024 11:48 AM EST SC BRONCHOSCOPY INCL FLUROSCOPIC GUIDANCE W PLCMNT FIDUCIAL MARKER SGL/MULT 10/13/2024 10:50 AM EST 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) SC REMOVAL OF LUNG OTHER THAN PNEUMONECTOMY SINGLE LOBE 10/13/2024 10:50 AM EST 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) SC BRONCHOSCOPY RIGID/FLEXIBLE INCL FLUORO W/THERAPY ASPIRATION INITIAL 10/13/2024 10:50 AM EST 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) SC THORACOSCOPY W DX WEDGE RESECTION F/B ANATOMIC LUNG RESECTION 10/13/2024 10:50 AM EST 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) SC THORACOSCOPY SURGICAL WITH LOBECTOMY 10/13/2024 10:50 AM [...] Routine 09/30/2024 9:13 AM EST Pulmonary nodules SC THORACOSCOPY SURGICAL WITH REMOVAL OF A SINGLE LUNG SEGMENT 09/30/2024 7:26 AM EST Pulmonary nodules Case Notes ON-Q Special Needs 4 HOURS REQUESTED BY OFFICE CB 1230Time change per ranjana arango 09/21 SC BRONCHOSCOPY RIGID/FLEXIBLE COMPUTER ASSISTED IMAGE GUIDED NAVIGATION 09/30/2024 7:26 AM EST Pulmonary nodules Case Notes ON-Q Special Needs 4 HOURS REQUESTED BY OFFICE CB 1230Time change per ranjana arango 09/21 SC BRONCHOSCOPY INCL FLUOROSCOPIC GUID W EBUS DURING PERIPHERAL LESION 09/30/2024 7:26 AM EST Pulmonary nodules Case Notes ON-Q Special Needs 4 HOURS REQUESTED BY OFFICE CB 1230Time change per ranjana arango 09/21 SC THORACOSCOPY W DX WEDGE RESECTION F/B ANATOMIC LUNG RESECTION 09/30/2024 7:26 AM EST Pulmonary nodules Case Notes ON-Q Special Needs 4 HOURS REQUESTED BY OFFICE CB 1230Time change per ranjana arango 09/21 SC THORACOSCOPY SURGICAL W MEDIASTINAL & REGIONAL LYMPHADENECTOMY [...] EST Pulmonary nodules History of lung cancer from Last 3 Months Results * XR [...] tiny left apical pneumothorax has resolved. Code 14450 -------- FINAL REPORT -------- Dictated By: Cuong Somers Dictated Date: 10/27/2024 10:29 ET Assigned Physician: Cuong Somers Reviewed and Electronically Signed By: Cuong Somers Signed Date: 10/27/2024 10:32 ET Workstation ID: [id number] Transcribed By: Self Edit Transcribed Date: 10/27/2024 [...] Thetiny left apical pneumothorax has resolved. Code 29702 -------- FINAL REPORT -------- Dictated By: Cuong Somers Dictated Date: 10/27/2024 10:29 ET Assigned Physician: Cuong Somers Reviewed and Electronically Signed By: Cuong Somers Signed Date: 10/27/2024 10:32 ET Workstation ID: [id number] Transcribed By: Self Edit Transcribed Date: 10/27/2024 10:29 ET Luciano BURTON IMG XR PROCEDURES Final Result * (ABNORMAL) CBC auto differential (10/15/2024 6:22 AM EST) Only the most recent of3 resultswithin the time period is included. WBC 11.3(H) 4.8 - 10.8 K/mcL LAB HEMETOLOGY METHOD 10/15/2024 7:20 AM [facility] RBC 3.60(L) 3.80 - 4.80 M/mcL LAB HEMETOLOGY METHOD 10/15/2024 7:20 AM [facility] Hemoglobin 10.9(L) 11.5 - 16.0 g/dL LAB HEMETOLOGY METHOD 10/15/2024 7:20 AM [facility] Hematocrit 35.5 35.0 - 47.0 % LAB HEMETOLOGY METHOD 10/15/2024 7:20 AM [facility] MCV 99.7(H) 79.0 - 98.0 FL LAB HEMETOLOGY METHOD 10/15/2024 7:20 AM [facility] MCH 30.6 27.0 - 32.0 pcg LAB HEMETOLOGY METHOD 10/15/2024 7:20 AM [facility] MCHC 30.7(L) 32.0 - 37.0 g/dL LAB HEMETOLOGY METHOD 10/15/2024 7:20 AM [facility] RDW 13.2 11.0 - 15.0 % LAB HEMETOLOGY METHOD 10/15/2024 7:20 AM [facility] Platelets 300 130 - 400 K/mcL LAB HEMETOLOGY METHOD 10/15/2024 7:20 AM [facility] MPV 10.4 7.0 - 11.0 FL LAB HEMETOLOGY METHOD 10/15/2024 7:20 AM [facility] NRBC 0.0 <1.0 % LAB HEMETOLOGY METHOD 10/15/2024 7:20 AM [facility] NRBC Absolute 0.00 <0.10 K/mcL LAB HEMETOLOGY METHOD 10/15/2024 7:20 AM [facility] Neutrophils Relative 72.9 % LAB HEMETOLOGY METHOD 10/15/2024 7:20 AM [facility] Lymphocytes Relative 14.6 % LAB HEMETOLOGY METHOD 10/15/2024 7:20 AM [facility] Monocytes Relative 9.8 % LAB HEMETOLOGY METHOD 10/15/2024 7:20 AM [facility] Eosinophils Relative 1.9 % LAB HEMETOLOGY METHOD 10/15/2024 7:20 AM [facility] Basophils Relative 0.3 % LAB HEMETOLOGY METHOD 10/15/2024 7:20 AM [facility] Immature Granulocytes Relative 0.5 % LAB HEMETOLOGY METHOD 10/15/2024 7:20 AM [facility] Neutrophils Absolute 8.26(H) 1.50 - 7.00 K/mcL LAB HEMETOLOGY METHOD 10/15/2024 7:20 AM [facility] Lymphocytes Absolute 1.65 1.00 - 5.00 K/mcL LAB HEMETOLOGY METHOD 10/15/2024 7:20 AM [facility] Monocytes Absolute 1.11(H) 0.20 - 1.00 K/mcL LAB HEMETOLOGY METHOD 10/15/2024 7:20 AM [facility] Eosinophils Absolute 0.21 0.00 - 0.50 K/mcL LAB HEMETOLOGY METHOD 10/15/2024 7:20 AM [facility] Basophils Absolute 0.03 0.00 - 0.20 K/mcL LAB HEMETOLOGY METHOD 10/15/2024 7:20 AM [facility] Immature Granulocytes Absolute 0.06(H) 0.00 - 0.03 K/mcL LAB HEMETOLOGY METHOD 10/15/2024 7:20 AM [facility] Blood Venous blood specimen / Unknown Venipuncture / Unknown 10/15/2024 6:22 AM EST 10/15/2024 7:14 AM EST us Siobhan Resendiz MD LAB BLOOD ORDERABLES Final Result [facility] [address] [place] [address], [place] [phone] * (ABNORMAL) Basic metabolic panel (10/15/2024 6:22 AM EST) Only the most recent of7 resultswithin the time period is included. Sodium 138 133 - 145 mmol/L LAB CHEMISTRY METHOD 10/15/2024 8:09 AM [facility] Potassium 5.3 3.5 - 5.5 mmol/L LAB CHEMISTRY METHOD 10/15/2024 8:09 AM [facility] Chloride 103 96 - 110 mmol/L LAB CHEMISTRY METHOD 10/15/2024 8:09 AM [facility] CO2 33(H) 21 - 32 mmol/L LAB CHEMISTRY METHOD 10/15/2024 8:09 AM [facility] Anion Gap 2(L) 3 - 11 LAB CHEMISTRY METHOD 10/15/2024 8:09 AM [facility] Glucose 105(H) 70 - 100 mg/dL LAB CHEMISTRY METHOD 10/15/2024 8:09 AM [facility] BUN 18 5 - 25 mg/dL LAB CHEMISTRY METHOD 10/15/2024 8:09 AM [facility] Creatinine 0.67 0.50 - 1.10 mg/dL LAB CHEMISTRY METHOD 10/15/2024 8:09 AM EST [facility] eGFR 92 >=60 mL/min/1. 73m2 LAB CHEMISTRY METHOD 10/15/2024 8:09 AM EST [facility] Comment:Calculation based on the??Chronic Kidney Disease Epidemiology Collaboration (CKD-EPI) equation refit??without adjustment for race. BUN/Creatinine Ratio 26.9 LAB CHEMISTRY METHOD 10/15/2024 8:09 AM EST [facility] Calcium 9.0 8.5 - 10.5 mg/dL LAB CHEMISTRY METHOD 10/15/2024 8:09 AM EST [facility] Blood Venous blood specimen / Unknown Venipuncture / Unknown 10/15/2024 6:22 AM EST 10/15/2024 7:14 AM EST us Siobhan Resendiz MD LAB BLOOD ORDERABLES Final Result [facility] [address] [place] [address], [place] [phone] * XR Chest 1 View (10/15/2024 5:26 [...] Signed Date: 10/15/2024 08:25 ET Workstation ID: [id number] Transcribed By: Self Edit Transcribed Date: 10/15/2024 [...] Signed Date: 10/15/2024 08:25 ET Workstation ID: [id number] Transcribed By: Self Edit Transcribed Date: 10/15/2024 08:24 ET Luciano BURTON IM XR PROCEDURES Final Result * (ABNORMAL) CBC - Every 3 Days (10/14/2024 5:36 AM EST) Only the most recent of4 resultswithin the time period is included. WBC 11.5(H) 4.8 - 10.8 K/mcL LAB HEMETOLOGY METHOD 10/14/2024 6:22 AM EST [facility] RBC 3.60(L) 3.80 - 4.80 M/[facility] LAB HEMETOLOGY METHOD 10/14/2024 6:22 AM EST [facility] Hemoglobin 11.1(L) 11.5 - 16.0 g/dL LAB HEMETOLOGY METHOD 10/14/2024 6:22 AM [facility] Hematocrit 35.5 35.0 - 47.0 % LAB HEMETOLOGY METHOD 10/14/2024 6:22 AM EST [facility] MCV 98.9(H) 79.0 - 98.0 FL LAB HEMETOLOGY METHOD 10/14/2024 6:22 AM [facility] MCH 30.9 27.0 - 32.0 pcg LAB HEMETOLOGY METHOD 10/14/2024 6:22 AM [facility] MCHC 31.3(L) 32.0 - 37.0 g/dL LAB HEMETOLOGY METHOD 10/14/2024 6:22 AM [facility] RDW 12.9 11.0 - 15.0 % LAB HEMETOLOGY METHOD 10/14/2024 6:22 AM [facility] Platelets 378 130 - 400 K/mcL LAB HEMETOLOGY METHOD 10/14/2024 6:22 AM [facility] MPV 9.3 7.0 - 11.0 FL LAB HEMETOLOGY METHOD 10/14/2024 6:22 AM [facility] NRBC 0.0 <1.0 % LAB HEMETOLOGY METHOD 10/14/2024 6:22 AM [facility] NRBC Absolute 0.00 <0.10 K/mcL LAB HEMETOLOGY METHOD 10/14/2024 6:22 AM [facility] Blood Venous blood specimen / Unknown Venipuncture / Unknown 10/14/2024 5:36 AM EST 10/14/2024 6:04 AM EST us Jessica BURTON LAB BLOOD ORDERABLES Final Re sult [facility] [address] [place] [address], * Phosphorus (10/14/2024 5:36 AM EST) Only the most recent of4 resultswithin the time period is included. Phosphorus 4.2 2.5 - 4.5 mg/dL LAB CHEMISTRY METHOD 10/14/2024 6:32 AM EST [facility] Blood Venous blood specimen / Unknown Venipuncture / Unknown 10/14/2024 5:36 AM EST 10/14/2024 6:04 AM EST Jessica BURTON LAB BLOOD ORDERABLES Final Re sult Performing Organization Address [facility] de Phone Number [facility] [address] [place] [address], [place] [phone] * Magnesium (10/14/2024 5:36 AM EST) Only the most recent of4 resultswithin the time period is included. Pathologist [facility] Magnesium 2.1 1.9 - 2.6 mg/dL LAB CHEMISTRY METHOD 10/14/2024 6:32 AM EST [facility] Blood Venous blood specimen / Unknown Venipuncture / Unknown 10/14/2024 5:36 AM EST 10/14/2024 6:04 AM EST Jessica BURTON LAB BLOOD ORDERABLES Final Re sult Performing Organization Address [facility] de Phone Number [facility] [address] [place] [address], [place] [phone] * Lavender tube (10/13/2024 2:55 PM EST) [facility] Extra Tube Hold for add-ons. 10/13/2024 5:02 PM EST [facility] Comment:Auto resulted. Blood Venous blood specimen / Unknown 10/13/2024 2:55 PM EST 10/13/2024 3:13 PM EST Latonya Lovett MD LAB BLOOD ORDERABLES Final Resul t Performing Organization Address City/[facility]/ZIP Co de Phone Number [facility] [address] [place] [address], [place] [phone] * Light blue tube (10/13/2024 2:55 PM EST) Extra Tube Hold for add-ons. 10/13/2024 5:02 PM EST [facility] Comment:Auto resulted. Blood Venous blood specimen / Unknown 10/13/2024 2:55 PM EST 10/13/2024 3:13 PM EST us Latonya Lovett MD LAB BLOOD ORDERABLES Final Resul t [facility] [address] [place] [address], [place] [phone] * TH AN ARTERIAL LINE (CHARGE) (10/13/2024 [...] to verify the correct patient, procedure, equipment, credit support specialist and site/side marked as required. 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 Lymph Node, Level 10 [...] are noted. Intraparenchymal lymph nodes are absent. Bobbin Trucker sections are submitted in eleven cassettes. Additional sections are submitted in cassettes 12-21. 1-2 bronchovascular margins, en face (red ink use for embedding), four and one pieces respectively 3-Two whole hilar lymph nodes and two samples of lung, four pieces 4-6 field sales representative perpendicular sections of staple line opposing hilum, two pieces each 7-field sales representative sections of the staple line inferior to hilum, taken perpendicularly, two pieces 8-9 random superior lung, two pieces each 10-random mid lung-hilum, two pieces 11-random inferior lung, two pieces 12-17 additional superior lung, two pieces each 18-19 additional mid lung-hilum, two pieces each 20-21 additional inferior lung, two pieces each TS 11/08/2024 11:29 AM MAHSA [facility] ([facility]) [facility] Synoptic Checklist LUNG LUNG: RESECTION - All Specimens 8th Edition - Protocol posted: 05/29/2022 SPECIMEN ?? Synchronous Tumors: ?Present ? Total Number of Primary Tumors: ?2 ? Specimen ID(s): ?Tumor in this completion lobectomy was found only microscopically / Previous tumor found only microscopically in wedge resection [id number] ?? Procedure: ?Completion lobectomy ?? Specimen Laterality: ?Left TUMOR ?? Tumor Focality: ?Multifocal tumor nodules of similar histology type not considered intrapulmonary metastases or too numerous for separate synoptic reports ? Number of Tumor Nodules: ?2 tumor nodules (one tumor nodule in this completion lobectomy and one tumor nodule representing the remainder of the invasive lepidic tumor identified in the previous wedge resection [id number]. ?? Tumor Site: ?Lower lobe of lung [...] NODES ?? Lymph Node(s) from Prior Procedures: ?Included ? Prior Lymph Node Procedure(s) Included: ?negative: ??[id number], [id number] ?? Regional Lymph Node Status: ? : [...] ?m (multiple primary tumors) ?? pT Category: ?pT1mi ?? pN Category: ?pN0 ADDITIONAL FINDINGS ?? Additional Findings: ?Atypical adenomatous hyperplasia ?? Additional Findings: ?Emphysema ?? Additional Findings: ?Residual lepidic component of previously diagnosed invasive lepidic adenocarcinoma, Foci of organizing pneumonia, Granulation tissue at site of previous wedge resection, Bone marrow embolus ?? Comment(s): ?Tumor is stage pT1mi - multiple primary synchronous tumors in a single organ 11/08/2024 11:29 AM [facility] Disclaimer Unless otherwise specified, all tissue is 10% NB formalin fixed and paraffin embedded. 11/08/2024 11:29 AM [facility] Tissue Lymph node specimen [...] 1:28 PM EST 10/13/2024 3:11 PM EST Latonya Lovett MD LAB PATHOLOGY ORDERABLES Edited Result - Final [facility] [address] [place] [address], * Prepare RBC: 2 Units (10/13/2024 11:48 AM EST) Only the most recent of2 resultswithin the time period is included. Product Code [id number] 10/13/2024 2:17 PM EST [facility] Unit Number [id number] 10/13/19 2:17 PM [facility] Crossmatch Compatible 10/13/2024 11:54 AM [facility] Dispense Status Released From Crossmatch 10/13/2024 2:17 PM [facility] Unit ABO Rh OPOS 10/13/2024 2:17 PM [facility] Unit Expiration Date Time [id number] 10/13/2024 2:17 PM [facility] Unit Blood Type 5100 10/13/2024 2:17 PM [facility] Product Code [id number] 10/14/2024 7:17 AM [facility] Unit Number [id number] 10/14/19 7:17 AM [facility] Crossmatch Compatible 10/13/2024 11:56 AM [facility] Dispense Status Released From Crossmatch 10/14/2024 7:17 AM [facility] Unit ABO Rh OPOS 10/14/2024 7:17 AM [facility] Unit Expiration Date Time [id number] 10/14/2024 7:17 AM [facility] Unit Blood Type 5100 10/14/2024 7:17 AM [facility] Blood Venous blood specimen / Unknown 10/13/2024 11:48 AM EST 10/13/2024 10:10 AM EST us Deshawn Cabrera MD BLOOD BANK PRODUCT ORDERABLES Final Result Performing Organization Address City/[facility]/ZIP Co de Phone Number [facility] [address] [place] [address], [place] [phone] * Activated partial thromboplastin time (10/13/2024 10:04 AM EST) Only the most recent of2 resultswithin the time period is included. aPTT 31.7 24.1 - 39.3 sec LAB COAGULATION METHOD 10/13/2024 11:12 AM EST [facility] Blood Venous blood specimen / Unknown Venipuncture / Unknown 10/13/2024 10:04 AM EST 10/13/2024 10:10 AM EST us Latonya Lovett MD LAB BLOOD ORDERABLES Final Resul t Performing Organization Address [facility] [place] de Phone Number [facility] [address] [place] [address], [place] [phone] * Prothrombin time with INR (10/13/2024 10:04 AM EST) Only the most recent of2 resultswithin the time period is included. Protime 11.6 10.6 - 13.9 sec LAB COAGULATION METHOD 10/13/2024 11:12 AM EST [facility] INR 0.9 LAB COAGULATION METHOD 10/13/2024 11:12 AM EST [facility] Blood Venous blood specimen / Unknown Venipuncture / Unknown 10/13/2024 10:04 AM EST 10/13/2024 10:10 AM EST us Latonya Lovett MD LAB BLOOD ORDERABLES Final Resul t Performing Organization Address City/[facility]/ZIP Co de Phone Number [facility] [address] [place] [address], [place] [phone] * Type and screen (10/13/2024 10:04 AM EST) Only the most recent of2 resultswithin the time period is included. ABO Group O 10/13/2024 11:22 AM EST [facility] Rh Type Positive 10/13/2024 11:22 AM EST [facility] Antibody Screen Negative 10/13/2024 11:22 AM EST [facility] Blood Venous blood specimen / Unknown Venipuncture / Unknown 10/13/2024 10:04 AM EST 10/13/2024 10:10 AM EST Latonya Lovett MD LAB BLOOD BANK TEST ORDERABLES F inal Result [facility] [address] [place] [address], [place] [phone] * TH AN ENDOTRACHEAL(NO CHARGE) (09/30/2024 9:46 AM EST) Jez Arceo CRNA - 09/30/2024 9:46 AM EST Jez Maxwell CRNA ? 09/30/2024 ??9:50 AM General Information and Staff Patient location during procedure: OR Performed: resident/CHIEF WARDEN/CAA Performed by: Jez Maxwell CRNA Authorized by: [...] 09/30/2024 8:20 AMStop Time: 09/30/2024 8:22 AM Deshawn Cabrera MD ANESTHESIA ORDERABLES Final Re sult * TH AN ARTERIAL LINE (CHARGE) (09/30/2024 9:36 AM EST) Jez Arceo CRNA - 09/30/2024 9:36 AM EST Jez Maxwell CRNA ? 09/30/2024 ??9:39 AM Arterial Line Performed by: Jez Maxwell CRNA Authorized by: Deshawn Cabrrea MD ??Consent: Verbal consent obtained. Written consent [...] to verify the correct patient, procedure, equipment, credit support specialist and site/side marked as required. Preparation: Patient [...] 09/30/2024 7:45 AMStop Time: 09/30/2024 7:49 AM Deshawn Cabrera MD ANESTHESIA ORDERABLES Edited [...] Signed Date: 09/29/2024 09:49 ET Workstation ID: [id number] Transcribed By: Self Edit Transcribed Date: 09/29/2024 [...] Signed Date: 09/29/2024 09:49 ET Workstation ID: [id number] Transcribed By: Self Edit Transcribed Date: 09/29/2024 09:44 ET Jessica BURTON IMG CT PROCEDURES Final Resul t * ECG 12 lead (09/14/2024 10:48 AM EST) Ventricular Rate ECG 69 BPM GEMUSE Atrial Rate 69 BPM GEMUSE P-R Interval 156 ms GEMUSE QRS Duration 84 ms GEMUSE Q-T Interval 386 ms GEMUSE QTc 413 ms GEMUSE P Wave [place] 67 degrees GEMUSE R [place] 36 degrees GEMUSE T [place] 34 degrees GEMUSE ECG Interpretation Normal sinus rhythm with sinus arrhythmia Normal ECG No previous ECGs available Confirmed by Kirby REY JAMES ([id number]) on 09/14/2024 12:32:32 PM GEMUSE 09/14/2024 10:4 8 AM EST 09/14/2024 12:32 PM EST Neri Rey MD ECG ORDERABLES Final Result [...] with mild COPD ??Daniel Heart MD ?? Jessica BURTON PFT ORDERABLES Final Result from [...] currently active code status orders. Care Teams Customs Compliance Analyst Relationship Specialty Start Date End Date Marlen Pereira MD [address] [facility] , [address] [facility] D/B/A: [facility] DEONTE Basilio PCP - General Internal Medicine 08/17/24
--- OUTSIDE RECORDS SUMMARY | 2024-11-22 18:20 | XMS_ITS | Patient Health Record ---
Author Organization [facility] Address [address] [place] [id number] Care Team Providers Care Store Custodian Name Role Phone Daniel Vargas MD Primary Care Provider Christ Carmona Jr Unavailable Allergies No Known Allergies Reason For Referral No Information Medications Medication SIG (Take, Route, Frequency, Duration) Notes [...] Multivitamin Adults - as directed Orally Active Immunizations Vaccine Route Administration Date Status Comme nts Influenza Unknown 06/08/2021 Administered Social History Tobacco Use: Social History Observation Description Date Details (start date - stop date) Former Smoker NA - NA Tobacco Use/Smoking Question Answer Notes Patient is a former smoker How long has it been since you last smoked? > 10 years Alcohol Screen Question Answer Notes Did you have a drink containing alcohol in the p ast year? No Points 0 Interpretation Negative Problems Problem Type SNOMED Code ICD Code Onset Dates Problem Status W/U Status Risk Notes Problem 815731741 Colon cancer screening (Z12.11) Active confirmed Problem 682361363 Diverticulosis (K57.90) Active confirmed Problem 146099191 FH: colon cancer (Z80.0) Active confirmed Plan Of Treatment Future Test Test Name Order Date COLONOSCOPY 10/31/2021 Insurance Providers Payer Name Payer Address Payer Phone Subscriber Number Group Number Insured Name Patient Relationship to Insured Coverage Start Date Coverage End Date [facility] Medicare Advantage Plan [address] [address] [place] [address] [phone] [id number] YOCASTA KEYS Self - patient is the insured Medical (General) History Medical History History ICD Code Diverticulosis/diverticulitis Adenocarcinoma right lung middle lobe Elevated blood sugar COPD Family history of colon canc er, personal history of colon polyps, last colonoscopy 01/21, five-year followup Elevated cholesterol Surgical History Surgery Date(Month/Year) Partial lobectomy right, Dr. Jase DOTY u 2016 tonsillectomy
--- OUTSIDE RECORDS SUMMARY | 2024-11-22 18:20 | XMS_ITS | Encounter Summary ---
Author Organization [facility] Address [address] [place] [address] Care Team Providers Care Ict Business Development Manager Name Role Phone Marlen Pereira MD Primary Care Provider [phone] Reason for Referral * Imaging (Routine) - Authorized Specialty Diagnoses / Procedures Referred By Jose de santiago Referred To Contact Radiology Diagnoses History of lung cancer Procedures CT Chest wo Contrast Luciano Elizondo PA [address] [address] Phone: tel: fax: [facility] Referral ID Status Reason Start Date Expiration Date V isits Requested Visits Authorized [id number] Authorized 10/28/2024 10/28/2025 1 1 Reason for Visit * Reason Comments Post-op Lung Surgery S/p 10/13/24 LLL lobe ctomy, xray Encounter Details Date Type Department Care Team (Late st Contact Info) Description 10/27/2024 11:15 AM EST Office Visit Thoracic Surgery - [place] [address] [phone] Luciano Elizondo PA 299 [facility] [place] [address] [place] [id number] History of lung cancer (Primary Dx) Social [...] lower lobectomy and mediastinal lymph adenectomy at [facility]. Originally her pathology was deemed to [...] of Visit: 10/27/2024 Care Team PCP: Marlen Preeira MD Reason for Visit Chief Complaint Patient [...] lower lobectomy which occurred on 10/13/2024 at [facility]. 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 Tumor Site: Lower lobe of lung Tumor [...] same lobe as the primary (previouswedge resection [id number]) GROSSDES 10/13/2024 A. Lymph Node, Level 10 [...] are noted. Intraparenchymal lymph nodes are absent. Inspector Pawnshop Detail sections are submitted in eleven cassettes. Additional sections are submitted in cassettes 12-21. 1-2 bronchovascular margins, en face (red ink use for embedding), four and one pieces respectively 3-Two whole hilar lymph nodes and two samples of lung, four pieces 4-6 energy conservation representative perpendicular sections of staple line opposing hilum, two pieces each 7-energy conservation representative sections of the staple line inferior [...] tiny left apical pneumothorax has resolved. Code 62548 -------- FINAL REPORT -------- Dictated By: Cuong Somers Dictated Date: 10/27/2024 10:29 ET Assigned Physician: Cuong Somers Reviewed and Electronically Signed By: Cuong Somers Signed Date: 10/27/2024 10:32 ET Workstation ID: [id number] Transcribed By: Self Edit Transcribed Date: 10/27/2024 10:29 ET Assessment and Plan Problem List Items Addressed This Visit History of lung cancer - Primary Ms. Rosario is a 74 y.o. female who on 10/13/2024 went a redo robotic left lower lobectomy and mediastinal lymph adenectomy at [facility]. Originally her pathology was deemed to [...] Orders CT Chest wo Contrast MICHEAL Ronquillo [facility] Thoracic Surgery 299 [facility], [address] [phone] documented in this encounter Plan of Treatment Upcoming Encounters Date Type Department Care Team (Late st Contact Info) Description 04/28/2025 3:30 PM EDT Appointment [facility] CT Scan [address] [place] [address] Scheduled Orders Name Type Priority Associated Diagnoses Orde r Schedule CT Chest wo Contrast Imaging Routine History of lung cancer Expected: 04/27/2025, Expires: 10/28/2025 documented as of this encounter Visit Diagnoses Diagnosis History of lung cancer- Primary Personal history of malignant neoplasm of bronchus and lung documented in this encounter Care Teams Ict Business Development Manager Relationship Specialty Start Date End Date Marlen Pereira MD [address] [place] [address] , [address] [facility] D/B/A: [facility] DEONTE Basilio PCP - General Internal Medicine 08/17/24 documented as of this encounter
--- OUTSIDE RECORDS SUMMARY | 2024-11-22 18:20 | XMS_ITS | Data Portability ---
Author Organization [facility], , [facility] Address [address] [place] [address] Care Team Providers Care Mobility Scooter Repairer Name Role Phone ZEINA WEBB OTHER [phone] MIKE FLOYD Primary Care Provide r Assessment No assessment recorded. Plan of Treatment Reminders Order Date Submit Date Provider Last Modified By Organization Details Last Modified Time Details Appointments None record ed. Lab drug screen , urine - last done 5 @ 5:30am oxy/ac et [address] [facility], [address] [place] [address], [address], 6 11:19:37 opiate s, quanti tative , urine - Last dose 4:30 a.m. 10/17/152015 016 [facility], [address] [place] [address], [address], 6 12:22:53 CMP, serum or plasma [address] [facility], [address] [place] [address], [address], 5 12:25:58 Referral plasti alvaro shaw n referr al - skin tag on forehe ad 2014 Marcin Montenegro MD, [address] [place], [address], 6 10:50:01 Procedures colono scopy proced ure (PROC) [address] [facility], [address] [place], [address], 6 09:29:57 Surgeries None record ed. Imaging MAMMO, screen ing, digita l, bilate ral [address] [facility] (Imaging), [address], [place], [address], 6 10:16:18 CT, chest, low dose screen ing withou t contra st 2014 015 [facility], [address] [place], [address], 6 21:37:38 Medication Orders Spiriv a with HandiH aler 18 mcg and inhala tion capsul es 2015 016 armando gonzales [id number], [address] [place], [address], 6 06:39:13 Spiriv a with HandiH aler 18 mcg and inhala tion capsul es 2014 015 armando gonzales Not available 5 19:56:21 clonaz epam 0.5 mg tablet 2014 015 armando gonzales [id number], [address] [place], [address], 5 13:35:33 Patient TargetsNo targets recorded. Patient Instructions Encounter Date Encounter Id Patient Instructions Last Modified By Organization Details Last Modified Time 12/28/2014 [id number] pre/post bronchodilator spirometry* [place] Not available 12/28/2014 17:06:50 01/11/2015 [id number] 1. immunizations not covered by her insurance for now, states she will update her shots when she turns 65. 2. she? ? ?wants to call insurance first if? ? ?overnight oxygen due to nocturnal hypoxemia will be covered. 3. will see quality control expert, she will make an appt 4. testing discussed at this visit. [place] Not available 01/11/2015 19:58:57 04/25/2015 [id number] My Health To Do List Specific Analgesia [...] smoking. [place] Not available 04/25/2015 13:35:33 07/17/2015 [id number] well visit, wome n 50 to 65: [...] mos. [place] Not available 07/17/2015 19:56:21 10/17/2015 [id number] After a discussion of treatment and medication [...] if this is covered. 4. check website: [email or web address] for Mediterranean diet; and also check App [employer] (free fouzia) and weight loss goal of [...] Detail LastModifiedTime 12/29/19 15 12/28/2014 pre/p ost [facility] hodil ator estrella metry * Result Not Available [address], [address], 12/28/2014 13:57:31 12/23/19 15 12/22/2014 CBC WBC 5.4 K/? ? ?L 4.0-10 .0 Not Available [address], [address], 12/22/2014 15:00:30 12/23/19 15 12/22/2014 CBC RBC 4.16 M/? ? ?L 3.93-5 .22 Not Available [address], [address], 12/22/2014 15:00:30 12/23/19 15 12/22/2014 CBC HGB 13.1 g/dL 11.2-1 5.7 Not Available [address], [address], 12/22/2014 15:00:30 12/23/19 15 12/22/2014 CBC HCT 41.2 % 34.1-4 4.9 Not Available [address], [address], 12/22/2014 15:00:30 12/23/19 15 12/22/2014 CBC MCV 99.0 ? ? ?L 79.4-9 4.8 high Not Available [address], [address], 12/22/2014 15:00:30 12/23/19 15 12/22/2014 CBC MCH 31.5 pg 25.6-3 2.2 Not Available [address], [address], 12/22/2014 15:00:30 12/23/19 15 12/22/2014 CBC MCHC 31.8 g/dL 32.2-3 5.5 low Not Available [address], [address], 12/22/2014 15:00:30 12/23/1912/22/2014 CBC plt 196.0 K/? ? ?L 182.0- 369.0 Not Available [address], [address], 12/22/2014 15:00:30 12/23/1912/22/2014 CBC MPV 10.7 9.4-12 .3 Not Available [address], [address], 12/22/2014 15:00:30 12/23/1912/22/2014 CBC neut% 57.0 % 34.0-7 1.1 Not Available [address], [address], 12/22/2014 15:00:30 12/23/1912/22/2014 CBC neut# 3.1 1.6-6. 1 Not Available [address], [address], 12/22/2014 15:00:30 12/23/1912/22/2014 CBC lymph % 31.3 % 19.3-5 1.7 Not Available [address], [address], 12/22/2014 15:00:30 12/23/1912/22/2014 CBC lymph # 1.7 K/? ? ?L 1.2-3. 7 Not Available [address], [address], 12/22/2014 15:00:30 12/23/1912/22/2014 CBC mono% 8.5 % 4.7-12 .5 Not Available [address], [address], 12/22/2014 15:00:30 12/23/1912/22/2014 CBC mono# 0.5 0.2-0. 4 high Not Available [address], [address], 12/22/2014 15:00:30 12/23/1912/22/2014 CBC eo% 2.6 % 0.7-5. 8 Not Available [address], [address], 12/22/2014 15:00:30 12/23/1912/22/2014 CBC eo# 0.1 0.0-0. 4 Not Available [address], [address], 12/22/2014 15:00:30 12/23/1912/22/2014 CBC baso% 0.6 % 0.1-1. 2 Not Available [address], [address], 12/22/2014 15:00:30 12/23/1912/22/2014 CBC baso# 0.0 0.0-0. 1 low Not Available [address], [address], 12/22/2014 15:00:30 12/23/1912/22/2014 CBC RDW-CV 13.6 % 11.7-1 4.4 Not Available [address], [address], 12/22/2014 15:00:30 12/23/1912/22/2014 BMP, serum or plasm a glucose 89 mg/dL 70-100 Not Available [address], [address], 12/22/2014 15:39:39 12/23/1912/22/2014 BMP, serum or plasm a BUN 12 mg/dL 7-18 Not Available [address], [address], 12/22/2014 15:39:39 12/23/1912/22/2014 BMP, serum or plasm a creatinine 0.6 mg/dL 0.8-1. 3 low Not Available [address], [address], 12/22/2014 15:39:39 12/23/19 15 12/22/2014 BMP, serum or plasm a B/C 20.0 ratio Not Available [address], [address], 12/22/2014 15:39:39 12/23/19 15 12/22/2014 BMP, serum or plasm a GFR 112.7 mL/mi n Recom ifrah d GFR by the Natio nal Kidne y Found ation >60 mL/mi n/1.7 3m2 - Sarai l <60 mL/mi n/1.7 3m2 - Chron ic Kidne y Disea se <15 mL/mi n/1.7 3m2 - Kidne y Failu re Not Available [address], [address], 12/22/2014 15:39:39 12/23/19 15 12/22/2014 BMP, serum or plasm a GFR - if 129.6 mL/mi n For Afric an Ameri can patie nts: Resul ts Multi plied by 1.21 Not Available [address], [address], 12/22/2014 15:39:39 12/23/19 15 12/22/2014 BMP, serum or plasm a sodium 139 mmol/ L 136-14 5 Not Available [address], [address], 12/22/2014 15:39:39 12/23/19 15 12/22/2014 BMP, serum or plasm a potassium 4.8 mmol/ L 3.5-5. 1 Not Available [address], [address], 12/22/2014 15:39:39 12/23/19 15 12/22/2014 BMP, serum or plasm a chloride 101 mmol/ L 96-107 Not Available [address], [address], 12/22/2014 15:39:39 12/23/19 15 12/22/2014 BMP, serum or plasm a anion gap 10.2 5.0-15 .0 Not Available [address], [address], 12/22/2014 15:39:39 12/23/19 15 12/22/2014 BMP, serum or plasm a CO2 28 mmol/ L 21-32 Not Available [address], [address], 12/22/2014 15:39:39 12/23/19 15 12/22/2014 BMP, serum or plasm a calcium 9.5 mg/dL 8.5-10 .3 Not Available [address], [address], 12/22/2014 15:39:39 12/23/19 15 12/22/2014 lipid panel , serum cholesterol 282 mg/dL <200 mg/dl Digna able 200-2 39 mg/dl Borde rline High >240 mg/dl High Not Available [address], [address], 12/22/2014 15:39:40 12/23/1912/22/2014 lipid panel , serum triglyceride s 293 mg/dL high <150 mg/dL Sarai l 150-1 99 mg/dL Borde rline High 200-4 99 mg/dL High >500 mg/dL Very High Not Available [address], [address], 12/22/2014 15:39:40 12/23/1912/22/2014 lipid panel , serum direct HDL 59 mg/dL Not Available [address], [address], 12/22/2014 15:39:40 12/23/19 15 12/22/2014 LDL, direc [...] r is not thienyris cuellar. Not Available [address], [address], 12/22/2014 15:39:41 12/23/19 15 12/22/2014 drug scree n, urine amphetamine NEG. negati ve Not Available [address], [address], 12/22/2014 16:01:12 12/23/19 15 12/22/2014 drug scree n, urine barbiturates NEG. negati ve Not Available [address], [address], 12/22/2014 16:01:12 12/23/19 15 12/22/2014 drug scree n, urine benzodiazepi ne NEG. negati ve Not Available [address], [address], 12/22/2014 16:01:12 12/23/1912/22/2014 drug scree n, urine cocaine NEG. negati ve Not Available [address], [address], 12/22/2014 16:01:12 12/23/1912/22/2014 drug scree n, urine opiates NEG. negati ve GCOP= Urine sampl e sent to [facility] for confi kash on of opiat es by GC/MS . Not Available [address], [address], 12/22/2014:01:12 12/23/19 15 12/22/2014 drug scree n, urine methadone NEG. negati ve Syva EMIT II Limit s of Detec tion (cutt -off value s) [place] Expan d: Amphe tamin es: 1000 ng/ml Opiat es: 300 ng/ml Yulia tuate s: 200 ng/ml Canna binoi ds: 50 ng/ml Benzo diaze pines : 200 ng/ml Phenc yclid ine: 25 ng/ml Cocai ne: 300 ng/ml Metha done: 300 ng/ml Not Available [address], [address], 12/22/2014 16:01:12 12/23/19 15 12/22/2014 TSH, serum or plasm a TSH 1.60 uIU/m L 0.50-6 .00 The Ameri can Colle ge of Endoc rinol ogy and Ameri can Thyro id Assoc iatio n recom mend goal TSH value s betwe en 0.4-4 .0 mIU/m L. Not Available [address], [address], 12/22/2014 16:44:13 12/23/19 15 12/26/2014 opiat es, quant itati ve, urine codeine NEGATI VE NG/mL <50 Not Available [facility] [address], [address], 12/26/2014 12:59:43 12/23/19 15 12/26/2014 opiat es, quant itati ve, urine hydrocodone NEGATI VE NG/mL <50 Not Available [facility] [address], [address], 12/26/2014 12:59:43 12/23/19 15 12/26/2014 opiat es, quant itati ve, urine hydromorphon e NEGATI VE NG/mL <50 Not Available [facility] [address], [address], 12/26/2014 12:59:43 12/23/19 15 12/26/2014 opiat es, quant itati ve, urine morphine NEGATI VE NG/mL <50 Not Available [facility] [place] [facility] [address], [place], [address], 12/26/2014 12:59:43 12/23/19 15 12/26/2014 opiat es, quant itati ve, urine norhydrocodo ne NEGATI VE NG/mL <50 Not Available [facility] [place] [facility] [address], [place], [address], 12/26/2014 12:59:43 12/23/19 15 12/26/2014 opiat es, quant itati ve, urine noroxycodone 2350 NG/mL <50 high Not Available [facility] [place] [facility] [address], [place], [address], 12/26/2014 12:59:43 12/23/19 15 12/26/2014 opiat es, quant itati ve, urine oxycodone 1260 NG/mL <50 high Not Available [facility] [place] [facility] [address], [place], [address], 12/26/2014 12:59:43 12/23/19 15 12/26/2014 opiat es, quant itati ve, urine oxymorphone 2420 NG/mL <50 high Not Available [facility] [place] [facility] [address], [place], [address], 12/26/2014 12:59:43 05/04/20 15 05/04/2015 drug scree n, urine amphetamine NEG. negati ve Not Available [address], [place], [address], 05/04/2015 15:53:29 05/04/20 15 05/04/2015 drug scree n, urine barbiturates NEG. negati ve Not Available [address], [address], 05/04/2015 15:53:29 05/04/20 15 05/04/2015 drug scree n, urine benzodiazepi ne NEG. negati ve Not Available [address], [address], 05/04/2015 15:53:29 05/04/20 15 05/04/2015 drug scree n, urine cocaine NEG. negati ve Not Available [address], [address], 05/04/2015 15:53:29 05/04/20 15 05/04/2015 drug scree n, urine opiates NEG. negati ve GCOP= Urine sampl e sent to [facility] for yosef hewitt on of opiat es by GC/MS . Not Available [address], [address], 05/04/2015 15:53:29 05/04/20 15 05/04/2015 drug scree n, urine methadone NEG. negati ve Syva EMIT II Limit s of Detec tion (cutt -off value s) [place] Expan d: Amphe tamin es: 1000 ng/ml Opiat es: 300 ng/ml Yulia tuate s: 200 ng/ml Canna binoi ds: 50 ng/ml Benzo diaze pines : 200 ng/ml Phenc yclid ine: 25 ng/ml Cocai ne: 300 ng/ml Metha done: 300 ng/ml Not Available [address], [address], 05/04/2015 15:53:29 05/04/20 15 05/08/2015 opiat es, quant itati ve, urine codeine NEGATI VE NG/mL <50 Not Available [facility] [address] [place] [address], [place], [address], 05/08/2015 06:01:35 05/04/20 15 05/08/2015 opiat es, quant itati ve, urine hydrocodone NEGATI VE NG/mL <50 Not Available [facility] [place] [facility] [address], [place], [address], 05/08/2015 06:01:35 05/04/20 15 05/08/2015 opiat es, quant itati ve, urine hydromorphon e NEGATI VE NG/mL <50 Not Available [facility] [place] [facility] [address], [place], [address], 05/08/2015 06:01:35 05/04/20 15 05/08/2015 opiat es, quant itati ve, urine morphine NEGATI VE NG/mL <50 Not Available [facility] [place] [facility] [address], [place], [address], 05/08/2015 06:01:35 05/04/20 15 05/08/2015 opiat es, quant itati ve, urine norhydrocodo ne NEGATI VE NG/mL <50 Not Available [facility] [place] [facility] [address], [place], [address], 05/08/2015 06:01:35 05/04/20 15 05/08/2015 opiat es, quant itati ve, urine noroxycodone 922 NG/mL <50 high Not Available [facility] [place] [facility] [address], [place], [address], 05/08/2015 06:01:35 05/04/20 15 05/08/2015 opiat es, quant itati ve, urine oxycodone 941 NG/mL <50 high Not Available [facility] [place] [facility] [address], [place], [address], 05/08/2015 06:01:35 05/04/20 15 05/08/2015 opiat es, quant itati ve, urine oxymorphone 1760 NG/mL <50 high Not Available [facility] [address] [place], [address], 05/08/2015 06:01:35 07/31/20 15 07/31/2015 CMP, serum or plasm a glucose 100 mg/dL 70-100 Not Available [address], [address], 07/31/2015 12:25:58 07/31/20 15 07/31/2015 CMP, serum or plasm a BUN 13 mg/dL 7-18 Not Available [address], [address], 07/31/2015 12:25:58 07/31/20 15 07/31/2015 CMP, serum or plasm a creatinine 0.6 mg/dL 0.8-1. 3 low Not Available [address], [address], 07/31/2015 12:25:58 07/31/20 15 07/31/2015 CMP, serum or plasm a B/C 21.7 ratio Not Available [address], [address], 07/31/2015 12:25:58 07/31/20 15 07/31/2015 CMP, serum or plasm a GFR -non 112.7 mL/mi n Recom ifrah d GFR by the Natio nal Kidne y Found ation >60 mL/mi n/1.7 3m2 - Sarai l <60 mL/mi n/1.7 3m2 - Chron ic Kidne y Disea se <15 mL/mi n/1.7 3m2 - Kidne y Failu re Not Available [address], [address], 07/31/2015 12:25:58 07/31/20 15 07/31/2015 CMP, serum or plasm a GFR - if 129.6 mL/mi n For Afric an Ameri can patie nts: Resul ts Multi plied by 1.21 Not Available [address], [address], 07/31/2015 12:25:58 07/31/20 15 07/31/2015 CMP, serum or plasm a sodium 143 mmol/ L 136-14 5 Not Available [address], [address], 07/31/2015 12:25:58 07/31/20 15 07/31/2015 CMP, serum or plasm a potassium 4.9 mmol/ L 3.5-5. 1 Not Available [address], [address], 07/31/2015 12:25:58 07/31/20 15 07/31/2015 CMP, serum or plasm a chloride 106 mmol/ L 96-107 Not Available [address], [address], 07/31/2015 12:25:58 07/31/20 15 07/31/2015 CMP, serum or plasm a anion gap 10.7 5.0-15 .0 Not Available [address], [address], 07/31/2015 12:25:58 07/31/20 15 07/31/2015 CMP, serum or plasm a CO2 26 mmol/ L 21-32 Not Available [address], [address], 07/31/2015 12:25:58 07/31/20 15 07/31/2015 CMP, serum or plasm a calcium 9.3 mg/dL 8.5-10 .3 Not Available [address], [address], 07/31/2015 12:25:58 07/31/20 15 07/31/2015 CMP, serum or plasm a total protein 7.6 g/dL 6.4-8. 2 Not Available [address], [address], 07/31/2015 12:25:58 07/31/20 15 07/31/2015 CMP, serum or plasm a albumin 3.9 g/dL 3.4-5. 0 Not Available [address], [address], 07/31/2015 12:25:58 07/31/20 15 07/31/2015 CMP, serum or plasm a globulin 3.7 g/dL Not Available [address], [address], 07/31/2015 12:25:58 07/31/20 15 07/31/2015 CMP, serum or plasm a A/G 1.1 ratio 0.8-2. 0 Not Available [address], [address], 07/31/2015 12:25:58 07/31/20 15 07/31/2015 CMP, serum or plasm a total bilirubin 0.50 mg/dL 0.00-1 .00 Not Available [address], [address], 07/31/2015 12:25:58 07/31/20 15 07/31/2015 CMP, serum or plasm a AST 33 U/L 15-37 Not Available [address], [address], 07/31/2015 12:25:58 07/31/20 15 07/31/2015 CMP, serum or plasm a ALT 54 U/L 30-65 Not Available [address], [address], 07/31/2015 12:25:58 07/31/20 15 07/31/2015 CMP, serum or plasm a alk. phos. 111 U/L 50-136 Not Available [address], [address], 07/31/2015 12:25:58 07/31/20 15 07/31/2015 lipid panel , serum cholesterol 212 mg/dL <200 mg/dl Digna able 200-2 39 mg/dl Borde rline High >240 mg/dl High Not Available [address], [address], 07/31/2015 12:25:59 07/31/20 15 07/31/2015 lipid panel , serum triglyceride s 150 mg/dL <150 mg/dL Sarai l 150-1 99 mg/dL Borde rline High 200-4 99 mg/dL High >500 mg/dL Very High Not Available [address], [address], 07/31/2015 12:25:59 07/31/20 15 07/31/2015 lipid panel , serum direct HDL 52 mg/dL Not Available [address], [address], 07/31/2015 12:25:59 07/31/20 15 07/31/2015 LDL, calcu [...] r is not neces polo. Not Available [address], [address], 07/31/2015 12:26:00 10/17/19 16 10/18/2015 drug scree n, urine amphetamine NEG. negati ve Not Available [address], [address], 10/18/2015 11:19:37 10/17/19 16 10/18/2015 drug scree n, urine barbiturates NEG. negati ve Not Available [address], [address], 10/18/2015 11:19:37 10/17/19 16 10/18/2015 drug scree n, urine benzodiazepi ne NEG. negati ve Not Available [address], [address], 10/18/2015 11:19:37 10/17/19 16 10/18/2015 drug scree n, urine cocaine NEG. negati ve Not Available [address], [address], 10/18/2015 11:19:37 10/17/19 16 10/18/2015 drug scree n, urine opiates NEG. negati ve GCOP= Urine sampl e sent to [facility] for yosef hewitt on of opiat es by GC/MS . Not Available [address], [address], 10/18/2015 11:19:37 10/17/19 16 10/18/2015 drug scree n, urine methadone NEG. negati ve Syva EMIT II Limit s of Detec tion (cutt -off value s) [place] Expan d: Amphe tamin es: 1000 ng/ml Opiat es: 300 ng/ml Yulia tuate s: 200 ng/ml Canna binoi ds: 50 ng/ml Benzo diaze pines : 200 ng/ml Phenc yclid ine: 25 ng/ml Cocai ne: 300 ng/ml Metha done: 300 ng/ml Not Available [address], [address], 10/18/2015 11:19:37 10/17/19 16 10/20/2015 opiat es, quant itati ve, urine codeine NEGATI VE NG/mL <50 Not Available [facility] [address], [place], [address], 10/20/2015 12:22:53 10/17/19 16 10/20/2015 opiat es, quant itati ve, urine hydrocodone NEGATI VE NG/mL <50 Not Available [facility] [place] [facility] [address], [address], 10/20/2015 12:22:53 10/17/19 16 10/20/2015 opiat es, quant itati ve, urine hydromorphon e NEGATI VE NG/mL <50 Not Available [facility] [place] [facility] [address], [address], 10/20/2015 12:22:53 10/17/19 16 10/20/2015 opiat es, quant itati ve, urine morphine NEGATI VE NG/mL <50 Not Available [facility] [place] [facility] [address], [place], [address], 10/20/2015 12:22:53 10/17/19 16 10/20/2015 opiat es, quant itati ve, urine norhydrocodo ne NEGATI VE NG/mL <50 Not Available [facility] [place] [facility] [address], [address], 10/20/2015 12:22:53 10/17/19 16 10/20/2015 opiat es, quant itati ve, urine noroxycodone 1330 NG/mL <50 high Not Available [facility] [place] [facility] [address], [place], [address], 10/20/2015 12:22:53 10/17/19 16 10/20/2015 opiat es, quant itati ve, urine oxycodone 1280 NG/mL <50 high Not Available [facility] [place] [facility] [address], [address], 10/20/2015 12:22:53 10/17/19 16 10/20/2015 opiat es, quant itati ve, urine oxymorphone 1360 NG/mL <50 high Not Available [facility] [address], [place], [address], 10/20/2015 12:22:53 12/04/19 16 12/04/2015 HPV, high- risk, cervi taya source Cervic al Not Available [facility] (Outpatient) [address] [place], [address], 12/06/2015 09:47:09 12/04/19 16 12/04/2015 HPV, high- risk, cervi taya HPV high risk type 16 Negati ve negati ve Not Available [facility] (Outpatient) [address] [place] [address], [address], 12/06/2015 09:47:09 12/04/19 16 12/04/2015 HPV, high- risk, cervi taya HPV high risk type 18 Negati ve negati ve Not Available [facility] (Outpatient) [address] [place], [address], 12/06/2015 09:47:09 12/04/19 16 12/04/2015 HPV, high- risk, cervi taya HPV high risk other types Negati ve negati ve The follo wing Other High Risk HPV types were not detec cabrera: 31, 33, 35, 39, 45, 51, 52, 56, 58, 59, 66, and 68 Test Perfo rmed by: [facility] s [address] , [place] [address] Labor atory Direc tor: Owen ball II, M.D., Ph.D. Not Available [facility] (Outpatient) [address] [place], [address], 12/06/2015 09:47:09 12/04/19 16 12/04/2015 HPV, high- risk, cervi taya HPV order type: Reques cabrera Not Available [facility] (Outpatient) [address] [place], [address], 12/06/2015 09:47:09 12/29/19 15 12/28/2014 imagi ng/di [...] red fibrog natalia peters ts Code: G0202, 57208 POS: VMG Electr onical ly signed Juan R Becerra didi: Demian gamez [facility] (Imaging) [address], [place], [address], 09/12/2015 20:52:08 12/12/19 16 12/12/2015 imagi ng/di agnos tic resul t No observ ation record ed. [email or web address] [address] [facility], [place], [address], 12/17/2015 15:14:28 12/19/19 16 12/12/2015 imagi ng/di agnos tic resul t No observ ation record ed. [email or web address] Not Available 12/19/2015 21:38:39 12/26/19 16 12/12/2015 ultra sound , pelvi c trans vagin al No observ ation record ed. [email or web address] [address] [place], [address], 01/03/2016 17:37:35 01/03/20 16 12/12/2015 imagi ng/di agnos tic resul t No observ ation record ed. [email or web address] lo Not Available 01/03/2016 17:37:35 01/15/20 16 12/12/2015 imagi ng/di agnos tic resul t No observ ation record ed. [email or web address] Not Available 01/15/2016 20:26:06 01/18/20 16 01/12/2016 compl ete PFT* No observ ation record ed. [facility] [address] [place] [address], [address], 01/18/2016 17:29:01 01/18/20 16 01/12/2016 compl ete PFT* No observ ation record ed. [facility] [address] [place], [address], 01/19/2016 09:36:27 01/19/20 16 01/12/2016 compl ete PFT* No observ ation record ed. [facility] [address] [place], [address], 01/19/2016 10:25:59 01/22/[address], chest , low dose scree nelson witho ut contr ast No observ ation record ed. [email or web address] [address] [place], [address], 01/22/2016 21:37:38 02/02/20 16 02/01/2016 hyste anjana pingo gram No observ ation record [facility] [address] [place], [address], 02/04/2016 17:10:43 Result Notes None recorded. Problems Name Problem SNOMED Code Status Onset Date Resolution Date Notes Provider Name and Address Organization Details Recorded Time Long-term drug therapy Active Laxmi Marie LPN [facility] 5 10:31:50 Emphysemat ous bronchitis 735388461 Active 2006 Mike Esparza MD [address] [place] [address], [id number] , [facility] 5 13:35:33 Hyperlipid emia 60903036 Active Daisy Franco [facility] 5 09:13:33 Major depressive disorder 599719863 Active Mike Esparza MD [address] [place] [address], [id number] , [facility] 5 09:58:16 Polyuria 10792598 Completed 200607/28/2013 Not Available [facility] [facility] 3 02:04:12 Mixed hyperlipid emia 952909941 Completed 12/30/2014 Mike Esparza MD [address] [place] [address], [phone] , [facility] 5 06:05:33 Atopic dermatitis 24225979 Active 2006 Not Available [facility] 3 03:08:28 Cough 87993680 Completed 200607/28/2013 Not Available [facility] 3 02:01:06 Chronic pain 85766428 Active Adina Wilson CMA [facility] 6 14:52:14 Alopecia 51782707 Active 2006 Not Available [facility] 3 03:08:28 Low back pain 739599015 Active 2006 Mike Esparza MD [address] [place] [address], [phone] , [facility] 4 09:51:52 Tobacco user 783444445 Completed 200612/30/2014 Mike Esparza MD [address] [place] [address], [phone] , [facility] 5 06:05:33 Restless legs 83841024 Active 2006 Not Available [facility] 3 03:08:28 Primary fibromyalg ia syndrome 52652928 [facility] 6 10:29:05 Malaise and fatigue 405643256 Completed 200607/28/2013 Not Available [facility] 3 02:00:15 Problem Notes None recorded. Procedures Surgical History Date Name Laterality Status Provider Name and Address Organization Details Recorded Time 01/29/20 16 Colonoscopy completed Mike Esparza MD [address] [place] [address], [phone], [facility] 01/31/2016 20:16:01 07/17/20 15 Medicare Wellness Visit completed Analisa Hidalgo [facility] 07/17/2015 10:35:18 01/29/20 13 Skin Tag Removal (each additional 10) completed Mike Esparza MD [address] [place] [address], [phone], [facility] 01/31/2013 09:19:08 12/02/19 12 Smoking cessation counseling completed Jose Alberto Ayoub [facility] 12/02/2011 13:39:19 12/02/19 12 Nebulizer Tx completed Analisa Hidalgo [facility] 12/03/2011 08:03:43 10/31/19 12 Smoking cessation counseling completed Analisa Hidalgo [facility] 10/31/2011 15:19:21 03/05/20 11 Asthma Control Test (12 + years old) completed Analisa Hidalgo [facility] 03/05/2011 14:47:12 Tonsillectomy completed Mike Esparza MD [address] [place] [address], [phone], [facility] 01/28/2013 09:09:27 Imaging Results Imaging Date Name Status LastModified by Organization Details LastModified Time 5 imaging/diagnostic result completed [facility] Information not available 12/28/2014 15:14:07 5 imaging/diagnostic result completed [facility] Information not available 03/14/2015 08:50:28 6 screening-bilateral mammography completed [facility] (Imaging) [address] , [place], [address], 09/12/2015 20:52:08 6 imaging/diagnostic result completed [facility] [address] [place], [address], 12/17/2015 15:14:28 6 imaging/diagnostic result completed [facility] Information not available 12/19/2015 21:38:39 6 ultrasound, pelvic transvaginal completed [address] [place], [address], 01/03/2016 17:37:35 6 imaging/diagnostic result completed [facility] Information not available 01/03/2016 17:37:35 6 imaging/diagnostic result completed [facility] Information not available 01/15/2016 20:26:06 6 complete PFT* completed [facility] [address] [place], [address], 01/18/2016 17:29:01 6 complete PFT* completed [facility] [address] [place], [address], 01/19/2016 09:36:27 6 complete PFT* completed [facility] [address] [place], [address], 01/19/2016 10:25:[address], chest, low dose screening without contrast completed [facility] [address] [place], [address], 01/22/2016 21:37:38 6 hysterosalpingogram completed [facility] [address] [place], [address], 02/04/2016 17:10:43 Procedure Notes None recorded. Medical Equipment None Reported. Allergies Allergen ID Allergen Name Allergen Category Reaction Reaction Severity Criticality Documentation Date Start Date Code Code System Note Provider Name and Address Organization Details Recorded Time 09586 Product containin g penicilli n (product) medicatio n rash Not available Not available 01/15/2011 81464 8001 SNOMED Not Available [facility] 1 06:05:41 Medications Name Sig Start Date [...] Available Not Available No t Available Fluvirin 8684-3723 45 mcg (15 mcg x 3)/0.5 mL intramusc ular suspensio n active Not Available Not Available Not Available Vitals Date Recorded Body height Oxygen saturation Oxygen saturation in Arterial blood by Pulse oximetry Body weight Heart rate Body mass index (BMI) Systolic blood pressure Diastolic blood pressure Provider Name and Address Organization Details Last Updated DateTime 5 162.56 cm 98 % 98 % 88191.9 21064 g 100 /min 27.2 kg/m2 124 mm[Hg] 74 mm[Hg] Ro dietrich Fernando [facility] 5 14:05:29 Date Recorded Body weight Body height Body mass index (BMI) Oxygen saturation Oxygen saturation in Arterial blood by Pulse oximetry Heart rate Systolic blood pressure Diastolic blood pressure Provider Name and Address Organization Details Last Updated DateTime 5 05420.3 7157 g 162.56 cm 27.6 kg/m2 96 % 96 % 84 /min 124 mm[Hg] 74 mm[Hg] Alex Stuart MA [facility] 5 10:55:49 Date Recorded Body height Body mass index (BMI) Body weight Heart rate Systolic blood pressure Diastolic blood pressure Provider Name and Address Organization Details Last Updated DateTime 5 162.56 cm 27.2 kg/m2 13935.6 68272 g 72 /min 170 mm[Hg] 84 mm[Hg] Analisa Hidalgo [facility] 5 11:00:01 Date Recorded Body height Body mass index (BMI) Body weight Heart rate Systolic blood pressure Diastolic blood pressure Provider Name and Address Organization Details Last Updated DateTime 5 162.56 cm 27 kg/m2 44975.7 60161 g 72 /min 140 mm[Hg] 86 mm[Hg] Analisa Hidalgo [facility] 5 10:42:25 Date Recorded Heart rate Body weight Body mass index (BMI) Body height Systolic blood pressure Diastolic blood pressure Provider Name and Address Organization Details Last Updated DateTime 6 92 /min 65514.1 29851 g 27.5 kg/m2 162.56 cm 122 mm[Hg] 64 mm[Hg] Laxmi Leblanc LPN 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 [employer] [facility] Information not available 01/15/2011 When Did You [...] trivalent, preservative 1 completed Not Available [facility] 09/25/2019 02:18:12 pneumococcal polysaccharide PPV23 7 completed Not Available [facility] 07/24/2011 05:21:55 Tdap 2 completed Not Available [facility] 09/25/2019 02:31:49 influenza, seasonal, intradermal, preservative free 2 completed Not Available [facility] 09/25/2019 02:18:38 influenza, seasonal, intradermal, preservative free 3 completed Not Available [facility] 09/25/2019 02:37:18 influenza, seasonal, intradermal, preservative free 4 completed Not Available [facility] 09/25/2019 02:19:20 pneumococcal polysaccharide PPV23 5 completed Not Available [facility] 09/25/2019 02:31:08 influenza, unspecified formulation 5 completed Analisa Hidalgo CMA [facility] 07/17/2015 10:43:51 Past Encounters Encounter ID Performer Location Encounter Start Date Encounter Closed Date Diagnosis/Indication Diagnosis SNOMED-CT Code Diagnosis ICD10 Code Diagnosis Note [id number] , [facility], OFFICE [address] [phone] 11/28/2006 07:56:06 12/01/2006 16:10:42 [id number] , [facility], [facility] [address] [facility] [place] [address] 12/19/2006 08:23:25 12/19/2006 09:12:21 [id number] [facility], [facility] [address] [facility] [place] [address] 01/23/2007 15:13:01 01/23/2007 16:19:55 [id number] LAB - [facility] [address] [facility] [place] [address] 01/23/2007 16:19:05 01/23/2007 16:22:37 [id number] , C, [facility] [address] [facility] [place] [address] 04/01/2007 13:50:56 04/01/2007 15:44:43 [id number] [facility], [facility] [address] [facility] [place] [address] 05/19/2007 11:30:41 05/20/2007 07:53:20 [id number] Radiology , [facility] [address] [place] [address] 05/19/2007 13:58:10 05/20/2007 09:43:48 [id number] Radiology , [facility] [address] [place] [address] 05/19/2007 00:00:00 09/28/2008 02:02:29 [id number] [facility], [facility] [address] [facility] [place] [address] 05/27/2007 15:17:31 05/27/2007 16:37:15 [id number] LAB - [facility] [address] [facility] [place] [address] 05/28/2007 07:54:50 05/28/2007 08:00:01 [id number] , C, [facility] [address] [facility] [place] [address] 08/05/2007 09:16:25 09/28/2008 02:02:29 [id number] C, OFFICE [address] [facility] [place] [address] 01/15/2011 13:32:17 01/18/2011 14:13:46 [id number] FP, EHC, OFFICE [address] [place] [address] 02/18/2011 11:46:10 02/18/2011 12:21:41 [id number] FP, EHC, OFFICE [address] [place] [address] 02/25/2011 09:18:45 02/25/2011 10:06:08 [id number] Radiology , [facility] [address] [place] [address] 02/25/2011 10:01:20 02/26/2011 15:36:26 [id number] FP, EHC, [address] [facility] [place] [address] 03/05/2011 14:23:15 03/05/2011 15:20:54 [id number] FP, EHC, [address] [facility] [place] [address] 03/14/2011 08:57:35 03/14/2011 10:02:52 [id number] Radiology , [facility] [address] [facility] [place] [address] 05/07/2011 10:56:42 05/08/2011 13:45:38 [id number] FP, EHC, OFF[address] [facility] [place] [address] 04/23/2011 08:51:04 04/23/2011 09:33:28 [id number] Mike Esparza MD FP, EHC, OFF[address] [facility] [place] [address] 06/06/2011 07:48:12 06/06/2011 08:21:33 [id number] FP, EHC, OFF[address] [facility] [place] [address] 07/26/2011 09:30:41 07/26/2011 11:14:06 [id number] FP, EHC, OFF[address] [facility] [place] [address] 10/31/2011 15:13:47 10/31/2011 15:44:57 [id number] FP, EHC, OFFICE [address] [place] [address] 12/02/2011 13:16:41 12/02/2011 14:15:23 [id number] , [facility], OFFICE [address] [place], [place] [address] 01/27/2012 09:38:14 01/27/2012 11:02:08 [id number] , [facility], OFFICE [address] [place] [address], [place] [address] 05/04/2012 07:49:44 05/04/2012 08:19:09 [id number] dEi Alfred MD Radiology , C [address] [place] [address], [place] [address] 07/23/2012 09:15:50 07/29/2012 11:12:14 [id number] Mike Esparza MD , [facility], OFFICE [address] [place] [address] 08/13/2012 08:52:47 08/13/2012 09:41:22 [id number] Mike Esparza MD , [facility], OFFICE [address] [place] [address] 11/19/2012 08:45:23 11/19/2012 09:20:56 [id number] Araceli Parekh , [facility], OFFICE [address] [place] [address] 01/28/2013 08:25:54 01/28/2013 09:31:25 [id number] Mike Esparza MD , [facility], OFFICE [address] [place] [address] 02/12/2013 14:22:53 02/12/2013 17:05:57 [id number] Madeline DiFrancesc o , [facility], OFFICE [address] [place] [address] 05/13/2013 08:32:50 05/13/2013 09:36:43 Chronic pain 62943256 Primary fi bromyalgia syndrome 63917386 Osteoarthritis 167589489 Long-term drug therapy 421438720 [facility] Hyperlipidemia 72651766 Urgent joe ely to urinate 97194935 [id number] Latisha Ashley. FABY , [facility], OFFICE [address] [place] [address] 07/02/2013 06:46:54 07/02/2013 11:50:09 Influenza vaccine needed 7885079851 399 [id number] Madeline DiFrancesc o , [facility], OFFICE [address] [place] [address] 08/17/2013 09:01:44 08/17/2013 09:39:34 Chronic pain 20583859 Emphysemat ous bronchitis 394569882 Hyperlipidemia 09758722 Primary fi bromyalgia syndrome 67274109 Osteoarthritis 353631484 [id number] Analisa Hidalgo CMA , [facility], OFFICE [address] [place] [address] 09/16/2013 09:41:42 09/16/2013 13:07:58 Emphysematous bronchitis 567944786 [id number] Madeline DiFrancesc o , [facility], OFFICE [address] [place] [address] 11/08/2013 08:52:43 11/08/2013 10:00:58 Chronic pain 68848162 Long-term drug therapy 766756650 CSRP Emphysemat ous bronchitis 770091747 Primary fi bromyalgia syndrome 38276383 Low back pain 155557837 Foot pain 17421901 Screening mammography 53764277 [id number] Analisa Hidalgo CMA , [facility], OFFICE [address] [place] [address] 01/18/2014 10:03:04 01/18/2014 11:14:41 Acute urinary tract infection 821334330 Blood in urine 04621591 Abdominal pain 52004739 Hallucinations 9907875 [id number] Araceli Parekh , [facility], OFFICE [address] [place] [address] 01/27/2014 08:21:17 01/27/2014 09:35:16 Acute urinary tract infection 247280966 Hepatomegaly 73516359 Abnormal l iver function 65530116 [id number] , [facility], OFFICE [address] [place] [address] 02/08/2014 11:23:19 02/08/2014 12:12:37 Fatigue 35842062 Abnormal l iver function 28114612 [id number] Yessy Segura , [facility], OFFICE [address] [place] [address] 06/23/2014 10:48:37 06/23/2014 11:41:33 Adult health examination 876866227 see Risk Assessment and Lifestyle Change Counseling section above Chronic pain 89095447 Influenza vaccine needed 1436310724 106 Screening for malignant neoplasm of cervix 538309207 Emphysemat ous bronchitis 230370286 Hyperlipidemia 28933029 Primary fi bromyalgia syndrome 10962090 [id number] KARMEN Rinaldi , [facility], OFFICE [address] [place] [address] 09/22/2014 09:19:21 09/22/2014 10:03:16 Chronic pain 57792978 Primary fi bromyalgia syndrome 74549365 Osteoarthritis 981985700 Major depr essive disorder 868154690 [id number] , [facility], OFFICE [address] [place] [address] 12/22/2014 08:54:33 12/22/2014 09:57:53 Chronic pain 00237913 Long-term drug therapy 694611436 Fatigue 06212150 Chronic ob structive pulmonary disease 58059401 [id number] Mike Esparza MD , [facility], OFFICE [address] [place] [address] 12/28/2014 13:54:57 12/28/2014 14:22:29 Chronic obstructive pulmonary disease 93059745 [id number] MD MIQUEL Martínez, [facility], OFFICE [address] [place] [address] 01/11/2015 10:47:01 01/11/2015 11:27:05 Hypoxemia 128401932 Fatigue 96872020 [id number] MD MIQUEL Martínez, [facility], OFFICE [address] [place] [address] 04/25/2015 10:42:47 04/25/2015 11:48:17 Chronic pain 27557381 Anxiety 85516412 Emphysemat ous bronchitis 429060442 [id number] Mike Esparza MD , [facility], OFFICE [address] [place] [address] 07/17/2015 10:06:23 07/17/2015 11:16:34 Adult health examination 832180338 Z00.00 see Risk Assessment and Lifestyle Change Counseling section above Screening for malignant neoplasm of colon 758448235 Z12.11 Referral for a DIRECT booked colonoscop y. This patient is a healthy ASA Class 1 or 2 patient (only mild systemic disease), or a STABLE, well controlled insulin dependent diabetic. They do not have serious cardiac disease ie MD/angiopl asty within 1 year, symptomati c CHF; renal failure with CKD 4 or 5; take Coumadin, Plavix, Aggrenox, etc; nor take chronic narcotics. [Patients who take chronic narcotics should be referred to [facility] for a propofol procedure due to possible inability to sedate adequately with conscious sedation.] Screening mammography 24 691886 Z12.31 Counseling 797119453 Z71 .9 Screening for malignant neoplasm of lung 292702596 Z12.2 Chronic ob structive pulmonary disease 02435003 J44.9 Skin tag 651634438 L91.8 Administra tion of pneumococcal vaccine 49090794 Z23 [id number] Mike Esparza MD , [facility], OFFICE [address] [place] [address] 10/17/2015 09:11:22 10/17/2015 09:58:25 Chronic obstructive pulmonary disease 01566158 J44.9 Chronic pain 05158108 G8 9.29 Fatigue 40579328 R53.83 Health Concerns Section Related Observation LastModified by Organization Detai ls LastModified Time None Recorded Concern Status LastModified by Organization Details LastModified Time None Recorded Advance Directives Directive None Recorded Payers Encounter Date Sequence Insurance Name Policy Number Policy Azul Covered Member ID Azul Member ID Guarantor Name 12/28/2014 1 [facility] [id number] Mague Rosario [id number] Mague Rosario 01/11/2015 1 [facility] [id number] Mague Rosario [id number] Mague Rosario 04/25/2015 1 [facility] [id number] Mague Rosario [id number] Mague Rosario 07/17/2015 1 MEDICARE [place]: [facility] Mague Rosario [id number] Mague Rosario 07/17/2015 2 [employer] OPTIONS (MEDICARE SUPPLEMENT) Mague Rosario [id number] Mague Rosario 10/17/2015 1 [place] [facility] Mague Rosario [id number] Mague Rosario 10/17/2015 2 [employer] OPT[employer] (MEDICARE SUPPLEMENT) Mague Rosario [id number] Mague Rosario Notes Date Note Type Note [...] spirometry, and FEV1 is improved compared to 2011 result. Pt has not consulted with quality control expert because she was not sure if she had medical insurance. Still having daytime drowsiness. Mike Esparza MD [address] [place] [address], [phone], [facility] 01/11/2015 19:59:03 04/25/2015 text/html Pt here for CSRP visit, but also very distraught, crying episodes in office, new dx of brother in [place] with bladder cancer and now in hospice, high stress with son and grandson who are doing illicit drugs/heroin. Going with granddaughter to counseling because of relatives using heroin. Favorite niece was left by and no home to go to with children. Pt has plane ticket to [place] in May but now in hospice, unable to change flight because of costly fees. Cannot sleep. Pt has stopped smoking for about 2 yrs now. COPD stable. Mike Esparza MD [address] [place] [address], [phone], [facility] 04/25/2015 13:35:49 10/17/2015 text/html aVMG-Chronic Barbara n [...] with :Narcotic medications Side Effects from MedicationConstipat ion(raisin bran resolves this,); no sedation Providers Involved in [...] cannot tolerate calcium supplements. Mike Esparza MD [address] [place] [address], [phone], [facility] 10/18/2015 06:40:07 OBGyn Episode No OBEpisode recorded.
== END 2024-11-22 16:45 | disposition home or self-care (01) ==
LOC: HO.HMCH 15:58
PROVIDERS: PCP Internal Medicine; Visit Provider Internal Medicine
DX: C34.90 Malignant neoplasm of unspecified part of unspecified bronchus or lung (principal); M79.2 Neuralgia and neuritis, unspecified; J43.9 Emphysema, unspecified; R73.02 Impaired glucose tolerance (oral)

== ENCOUNTER → 2024-11-22 15:57 | Outpatient (BNVA) | payer MEDICARE, SELFPAY | PROVIDERS: PCP Internal Medicine; Visit Provider Internal Medicine | DX: C34.90 Malignant neoplasm of unspecified part of unspecified bronchus or lung (principal); M79.2 Neuralgia and neuritis, unspecified; J43.9 Emphysema, unspecified; R73.02 Impaired glucose tolerance (oral) | CPT/HCPCS: 99212 ==

== ENCOUNTER → 2025-01-03 14:52 | Outpatient (BNV) | payer MEDICARE, SELFPAY | PROVIDERS: PCP Internal Medicine; Referring Provider Internal Medicine; Visit Provider Internal Medicine Medical Oncology | DX: C34.2 Malignant neoplasm of middle lobe, bronchus or lung (principal) | CPT/HCPCS: 99204 ==

== ENCOUNTER 2025-06-02 08:49 | Outpatient (AMB) | payer MEDICARE, SELFPAY ==
[2025-06-02 08:57] VITALS: BP 140/70; PULSE 103; RESP 16; TEMP 36.8; O2SAT 97; BMI 26.3
--- NOTE | 2025-06-02 08:57 | AM.OFFWIN_ITS ---
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 - The patient reports a history of diver ticulitis with a current exacerbation beginning last night. - Symptoms include chills, abdominal marco n and nausea. - The patient has been experiencing cons tipation and has been using laxatives such as Ex-Lax and MiraLax without relief. - The abdominal pain is localized to the left lower quadrant, consistent with previous episodes. - She has no radiation of the pain. - The patient has a history of using pre dnisone and antibiotics such as Augmentin for past episodes, which have been effective. - She denies CP, SOB, fever, chills, dys uria, hematuria, melena, or hematochezia. - She has no vomiting or diarrhea. - She has her 's today an d wants to feel better. Physical Exam General: Cooperative, healthy appearing, comfortable, no acute distress and well developed Orientation: Patient oriented x3 Respiratory: Normal respiratory effort and able to speak in complete sentences. Clear to auscultation bilaterally Cardiovascular: Regular rate and rhythm. Normal S1 and S2 GI: Hypoactive BS noted. Soft, non-distended abdomen. TTP of the Skin: No rashes or lesions noted. No jaundice noted. Extremities: Normal to inspection. No edema noted. Patient was informed and verbally consented to the use of an ambient scribe for clinic note documentation during this visit. [facility] Medical History Adult general medical exam COVID-19 Abdominal lump COPD exacerbation Screening for colon cancer Screening for diabetes mellitus Personal history of nicotine dependence 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 BPV (benign positional vertigo) Cataract Knee osteoarthritis Hypercholesterolemia Diverticulitis Depression COPD (chronic obstructive pulmonary disease) Surgical History History of colonoscopy History of cataract surgery History of lung surgery (~2018) History of shoulder surgery (~2017) History of tonsillectomy Family History Father Alzheimers disease Mother Lung cancer Brother Bladder cancer Sister Lung cancer Social History (Updated 01/03/25 @ 15:18 by Marleny Noland) Household Members: Spouse Housing: House Are you a primary companion caregiver to a significant other at home: Yes Do you presently have visiting nurse or other home services: No Alcohol intake: former Patient Tobacco Use Status: Former Tobacco user Tobacco use type: Cigarette Years Smoked: quit 60 years old e-Cigarette/Vaping Use: Never Used Second Hand Smoke Exposure: Yes service: No Current occupational status: retired Cognitive needs: No Hearing needs: No Vision needs: Yes (Glasses) Review of Systems Const All systems reviewed & are unremarkable except as noted in HPI and below Physical Exam Vital Signs: Last Vital Signs Temp 98.3 F 06/02/25 08:57 Pulse 103 H 06/02/25 08:57 Resp 16 06/02/25 08:57 BP 140/70 H 06/02/25 08:57 Pulse Ox 97 06/02/25 08:57 BMI result Body Mass Index 26.3 Assessment & Plan Assessment & Plan (1) Diverticulitis: Code(s): K57.92 - Diverticulitis of intestine, part unspecified, without perforation or abscess without bleeding (2) LLQ pain: Code(s): R10.32 - Left lower quadrant pain (3) Constipation: Code(s): K59.00 - Constipation, unspecified Qualifiers: Constipation type: unspecified constipation type Qualified Code(s): K59.00 - Constipation, unspecified Plan Most likely diverticulitis flare and constipation plan - Prescribe prednisone to manage inflammation. - Prescribe Augmentin as an antibiotic to address potential infection. - Consider Zofran for nausea management. - Clear liquid diet - Miralax and Colace as needed for constipation and increase fluids and fiber - advised the ER if pain worsens, develop a fever, bloody stools, etc - follow up with PCP Medications: New prednisone 20 mg PO DAILY 5 tabs 0RF ondansetron 4 mg PO Q8H PRN 10 tabs 0RF nausea and vomiting amoxicillin-pot clavulanate 875-125 mg 1 tab PO Q12H 14 tabs 0RF Coding Level of Care Code Est Pt Level 4 (80899) Diagnoses Diverticulitis K57.92 LLQ pain R10.32 Constipation, unspecified constipation type K59.00 Constipation type: unspecified constipation type
--- OUTSIDE RECORDS SUMMARY | 2025-06-02 09:26 | XMS_ITS | Patient Health Record ---
Author Organization [employer] [facility] Address [address] [place] [address] [address] [place] [address] Care Team Providers Care Voting Machine Repairer Name Role Phone RAY GAVIRIA Primary Care Provider Jorgejohanna Neli Unavailable [phone] Allergies No Known Allergies Reason For Referral Reason severe left wrist pa in, rule out carpal tunnel Please evaluate and treat Diagnosis 1 Carpal tunnel syndro me, left upper limb (G56.02) Referral Organization [employer] [facility] Referring Provider First Name Neli Referring Provider Last Name Marivel Referring Provider Speciality Internal M edicine Referred Provider Specialty Orthopedic S urgery General Notes Please call the simone ent to schedule the appointment, Encounter created and SMS sent to the pt.Marco Charmain 05/23/2025 03:47:06 PM > Referral Priority Routine Medications Medication SIG (Take, Route, Frequency, Duration) Notes Start Date End Date Status Tylenol Arthritis Pain 650 MG 2 tablets as needed Orally every 8 hrs Active Multivitamin - 1 tablet Orally Once a day Active Albuterol Sulfate HFA 108 (90 Base) MCG/ACT 1 puff as needed Inhalation every 4 hrs Active Anoro Ellipta 62.5-25 MCG/ACT 1 puff Inhalation Once a day Active Vitamin C 1000 MG 1 tablet Orally Once a day Active Immunizations Vaccine Route Administration Date Status Comme nts COVID 19 Pfizer Unknown 11/13/2020 Administered COVID 19 Pfizer Unknown 12/04/2020 Administered COVID 19 Pfizer Unknown 07/30/2021 Administered COVID Pfizer Unknown 01/10/2022 Administered COVID-19 Pfizer Unknown 09/11/2022 Administered Influenza High Dose Unknown 06/07/2024 Administered Pneumococcal polysaccharide PPV23 Unknown 08/05/2007 Ad ministered Pneumococcal polysaccharide PPV23 Unknown 07/17/2015 Ad ministered TDAP Unknown 01/27/2012 Administered Problems Problem Type SNOMED Code ICD Code Onset Dates Problem Status W/U Status Risk Notes Problem Carpal tunnel syndrome (10956562) Carpal tunnel syndrome, left upper limb (G56.02) Active confirmed Problem Essential hypertension (92226368) Essential (primary) hypertension (I10) Active confirmed Problem Chronic obstructive pulmonary disease (33735824) Chronic obstructive pulmonary disease, unspecified (J44.9) Active confirmed Problem Personal history of primary malignant neoplasm of bronchus (846632194) Personal history of other malignant neoplasm of bronchus and lung (Z85.118) Active confirmed Vital Signs Heart Rate 77 /min 05/20/2025 Temperature 96.6 degrees Fahrenheit 05/20/2025 Blood pressure diastolic 68 mm Hg 05/20/2025 Oximetry 98 % 05/20/2025 Height 5'4 in 05/20/2025 Blood pressure systolic 138 mm Hg 05/20/2025 Weight 157.1 lbs 05/20/2025 BMI 26.96 kg/m2 05/20/2025 Encounters Encounter Location Date Provider Diagnosis [address] [address] 05/20/2025 [place] Hyperlipidemia, mixe d E78.2 ; Essential (primary) hypertension I10 ; Carpal tunnel syndrome, left upper limb G56.02 ; Chronic obstructive pulmonary disease, unspecified J44.9 and Personal history of other malignant neoplasm of bronchus and lung Z85.[address] [address] 05/23/2025 [facility] Encounter Date Diagnosis (ICD Code) Assessment Notes Treatment Notes Treatment Clinical Notes Section Notes 05/20/2025 Essential (primary) hypertension (ICD-10 - I10) 74-year-old lady with history of COPD, stage I lung cancer right middle lobectomy left complete lobectomy adenocarcinoma of the lung osteoarthritis is here today for a new PCP visit. Plan as following. Hypertension screening blood pressure today is 138/68, currently stable and will obtain a basic metabolic panel. She is not on any medications. Hyperlipidemia, patient is supposed to be on simvastatin she refuses to take it, will check a lipid profile. History of stage I lung cancer adenocarcinoma status post right middle lobectomy and left complete lobectomy followed by Dr. Winston they follow-up with surveillance lung cancer screening with CTs every [address] Winston COPD no acute exacerbation she has albuterol inhaler which will be continued. Left hand pain left wrist pain possible carpal tunnel syndrome, she has osteoarthritic changes on exam, will refer her to orthopedic for further evaluation. Screening blood work slip given today 05/20/2025 Hyperlipidemia, mixed (ICD-10 - E78.2) 74-year-old lady with history of COPD, stage I lung cancer right middle lobectomy left complete lobectomy adenocarcinoma of the lung osteoarthritis is here today for a new PCP visit. Plan as following. Hypertension screening blood pressure today is 138/68, currently stable and will obtain a basic metabolic panel. She is not on any medications. Hyperlipidemia, patient is supposed to be on simvastatin she refuses to take it, will check a lipid profile. History of stage I lung cancer adenocarcinoma status post right middle lobectomy and left complete lobectomy followed by Dr. Winston they follow-up with surveillance lung cancer screening with CTs every [address] Winston COPD no acute exacerbation she has albuterol inhaler which will be continued. Left hand pain left wrist pain possible carpal tunnel syndrome, she has osteoarthritic changes on exam, will refer her to orthopedic for further evaluation. Screening blood work slip given today 05/20/2025 Carpal tunnel syndrome, left upper limb (ICD-10 - G56.02) 74-year-old lady with history of COPD, stage I lung cancer right middle lobectomy left complete lobectomy adenocarcinoma of the lung osteoarthritis is here today for a new PCP visit. Plan as following. Hypertension screening blood pressure today is 138/68, currently stable and will obtain a basic metabolic panel. She is not on any medications. Hyperlipidemia, patient is supposed to be on simvastatin she refuses to take it, will check a lipid profile. History of stage I lung cancer adenocarcinoma status post right middle lobectomy and left complete lobectomy followed by Dr. Winston they follow-up with surveillance lung cancer screening with CTs every [address] Winston COPD no acute exacerbation she has albuterol inhaler which will be continued. Left hand pain left wrist pain possible carpal tunnel syndrome, she has osteoarthritic changes on exam, will refer her to orthopedic for further evaluation. Screening blood work slip given today 05/20/2025 Chronic obstructive pulmonary disease, unspecified (ICD-10 - J44.9) 74-year-old lady with history of COPD, stage I lung cancer right middle lobectomy left complete lobectomy adenocarcinoma of the lung osteoarthritis is here today for a new PCP visit. Plan as following. Hypertension screening blood pressure today is 138/68, currently stable and will obtain a basic metabolic panel. She is not on any medications. Hyperlipidemia, patient is supposed to be on simvastatin she refuses to take it, will check a lipid profile. History of stage I lung cancer adenocarcinoma status post right middle lobectomy and left complete lobectomy followed by Dr. Winston they follow-up with surveillance lung cancer screening with CTs every [address] Winston COPD no acute exacerbation she has albuterol inhaler which will be continued. Left hand pain left wrist pain possible carpal tunnel syndrome, she has osteoarthritic changes on exam, will refer her to orthopedic for further evaluation. Screening blood work slip given today 05/20/2025 Personal history of other malignant neoplasm of bronchus and lung (ICD-10 - Z85.118) 74-year-old lady with history of COPD, stage I lung cancer right middle lobectomy left complete lobectomy adenocarcinoma of the lung osteoarthritis is here today for a new PCP visit. Plan as following. Hypertension screening blood pressure today is 138/68, currently stable and will obtain a basic metabolic panel. She is not on any medications. Hyperlipidemia, patient is supposed to be on simvastatin she refuses to take it, will check a lipid profile. History of stage I lung cancer adenocarcinoma status post right middle lobectomy and left complete lobectomy followed by Dr. Winston they follow-up with surveillance lung cancer screening with CTs every [address] Winston COPD no acute exacerbation she has albuterol inhaler which will be continued. Left hand pain left wrist pain possible carpal tunnel syndrome, she has osteoarthritic changes on exam, will refer her to orthopedic for further evaluation. Screening blood work slip given today Plan Of Treatment Pending Test Test Name Order Date Xray: Ltd Wrist Left-2 Vws Portable 05/09 CBC with Diff, Platelet, [id number] 05/09 Lipid Panel With LDL/HDL Ratio-[id number] Comp. Metabolic Panel [id number] 2024 Next Appt Details Provider Name:Neli Orta, 1 09/26/2024 11:00:00 AM, [address] [facility] [address], [place], [address], Insurance Providers Payer Name Payer Address Payer Phone Subscriber Number Group Number Insured Name Patient Relationship to Insured Coverage Start Date Coverage End Date [employer] [address] [address] [place] [address] [id number] Mague Rosario Self - patient is the insured Medical (General) History Medical History History ICD Code hyperlipidemia COPD Osteoarthritis of multiple joints History of diverticulosis History of lung cancer stage I Surgical History Surgery Date(Month/Year) status post right middle lob e lobectomy due to history of adenocarcinoma in [address] Winston Status post left complete lobectomy [place] [address] Winston
--- OUTSIDE RECORDS SUMMARY | 2025-06-02 09:26 | XMS_ITS | Clinical Summary ---
Author Organization [facility] Address [address] [place] [address] Phone Care Team Providers Care Wick Tender Name Role Phone Daniel Vargas MD Primary Care Provider [phone] Medications Medication-Nick e Text Ibuprofen Active Medication-Nick e Text Vitamin C Active HYDROcodone-ac etaminophen (NORCO) 7.5-325 mg per tablet Take 1 tablet by mouth. DX : M70.61 1 tab TID x 7 days 6 Active tiotropium (SPIRIVA WITH HANDIHALER) 18 mcg inhalation capsule Inhale 1 capsule into the lungs daily. Active Medication-Nick e Text Multivitamins Active Social History Tobacco Use Types Packs/Day Years Used Date Smoking Tobacco: Never Assessed Education Answer Date Recorded Are you interested in more education? Not on mary e 01/03/2023 Are you concerned about learning? Not on file 01/03/2023 No 01/03/2023 No 01/03/2023 Digital Access Answer Date Recorded No 02/01/2023 No 02/01/2023 Reliable internet access at home? Not on file 02/01/2023 Device with a working camera? Not on file Comments Unknown Sex and Gender Information Value Date Recorded Sex Assigned at Not on file Legal Sex Female 10:02 PM EDT Gender Identity Not on file Sexual Orientation Not on file Last Filed Vital Signs Vital Sign Reading Time Taken Comments Blood Pressure 120/72 06/07/2016 10:39 AM EDT Pulse - - Temperature - - Respiratory Rate - - Oxygen Saturation - - Inhaled Oxygen Concentration - - Weight 74.4 kg (164 lb) 06/07/2016 10:39 AM EDT Height 163.8 cm (5' 4.5 ) 06/07/2016 10:39 AM ED T Body Mass Index 27.72 06/07/2016 10:39 AM EDT Plan of Treatment Health Maintenance Due Date Last Done Comments LIPID PANEL 1950 DEPRESSION SCREENING 1962 SMOKING Hx and SMOKELESS TOBACCO SCREENING 1963 HEPATITIS C SCREENING 1968 MAMMOGRAM 1990 COLOGUARD 1995 COLONOSCOPY 1995 COLORECTAL CANCER SCREENING 1995 FIT TEST 1995 FOBT 1995 SIGMOIDOSCOPY 1995 VIRTUAL COLONOSCOPY 1995 ZOSTER VACCINES (1 of 2) 2000 OSTEOPOROSIS SCREENING INITIAL (ONE-TIME) 2015 PNEUMOCOCCAL VACCINES (50+ years) (2 of 2 - PCV) 10/18/2020 10/18/2019, 08/05/2007 Adult Td,Tdap Booster 01/26/2022 01/27/2012 INFLUENZA VACCINE (#1) 2025 , 05/13/2019, 05/29/2018, Additional history exists COVID-19 VACCINE (3 - 2024- season) 2025 12/04/2020, 11/13/2020 RSV VACCINE (1 - 1-dose 75+ series) 2025 HEPATITIS A VACCINES Aged Out No long er eligible based on patient's age to complete this topic HIB VACCINES Aged Out No longer eligi ble based on patient's age to complete this topic MENINGOCOCCAL VACCINES (ACWY) Aged Out No longer eligible based on patient's age to complete this topic MENINGOCOCCAL VACCINES (B) Aged Out N o longer eligible based on patient's age to complete this topic Medical Devices Not on file Insurance MEDICARE PART A & B [facility] MEDICARE SUPPLEMENT MEDICARE PART A & B [facility] MEDICARE SUPPLEMENT MEDICARE PART A & B MEDICARE SUPPLEMENT MEDICARE PART A & B Member Subscriber Plan / Payer (Ef fective 2015-Present) Name:Mague Rosario Member ID:[id number] Relation to Subscriber:Self Name:AbrahamKeenaan Subscriber ID:[id number] Payer ID:[id number] Group ID:Not on file Type:Medicare Address: [employer] [address] [place] [id number] [place] [address] MEDICARE SUPPLEMENT MEDICARE PART A & B MEDICARE SUPPLEMENT MEDICARE PART A & B MEDICARE SUPPLEMENT MEDICARE PART A & B [facility] MEDICARE SUPPLEMENT MEDICARE PART A & B MEDICARE SUPPLEMENT MEDICARE PART A & B MEDICARE SUPPLEMENT [employer] MEDICARE PART A & B [facility] MEDICARE SUPPLEMENT Care Teams Wick Tender Relationship Specialty Start Date End Date Daniel Vargas MD [address] [place] [address] Drive [address] [place] [phone] PCP - General Internal Medicine 08/25/17 Additional Source Comments The information contained in this document represents components of the legal health record. It is not the complete legal health record.[facility]
--- OUTSIDE RECORDS SUMMARY | 2025-06-02 09:26 | XMS_ITS | Encounter Summary ---
Author Organization [facility] Address [address] [place] [address] Phone Care Team Providers Care Bandsaw Operator Name Role Phone Daniel Vargas MD Primary Care Provider [phone] Encounter Details Date Type Department Care Team (Late st Contact Info) Description 04/07/2020 Procedure Pass [facility] Endoscopy Admitting Dept Virtual Department [address] [place] [address] Social History Tobacco Use Types Packs/Day Years Used Date Smoking Tobacco: Never Assessed Comments Unknown Sex and Gender Information Value Date Recorded Sex Assigned at Not on file Legal Sex Female 10:02 PM EDT Gender Identity Not on file Sexual Orientation Not on file documented as of this encounter Plan of Treatment Not on file documented as of this encounter Visit Diagnoses Not on filedocumented in this encounter Care Teams Bandsaw Operator Relationship Specialty Start Date End Date Daniel Vargas MD [address] [place] [phone] PCP - General Internal Medicine 08/25/17 documented as of this encounter Additional Source Comments The information contained in this document represents components of the legal health record. It is not the complete legal health record.[facility]
--- OUTSIDE RECORDS SUMMARY | 2025-06-02 09:26 | XMS_ITS | Patient Health Record ---
Author Organization [facility] Address [address] [place] [phone] Care Team Providers Care Diversity Intern Name Role Phone Daniel Vargas MD Primary [...] Problem Status W/U Status Risk Notes Problem [id number] Colon cancer screening (Z12.11) Active confirmed Problem 926841900 Diverticulosis (K57.90) Active confirmed Problem 917541921 FH: colon cancer (Z80.0) Active confirmed Plan Of Treatment Future Test Test Name Order Date COLONOSCOPY 10/31/2021 Insurance Providers Payer Name Payer Address Payer Phone Subscriber Number Group Number Insured Name Patient Relationship to Insured Coverage Start Date Coverage End Date [employer] Medicare Advantage Plan [address] [address] [place] [address] [id number] YOCASTA KEYS Self - patient is the [...]
--- OUTSIDE RECORDS SUMMARY | 2025-06-02 09:26 | XMS_ITS | Encounter Summary ---
Author Organization [facility] Address [address] [address] Phone Care Team Providers Care Extracorporeal Technician Name Role Phone Daniel Vargas MD Primary Care Provider [phone] Reason for Referral * Physical Therapy (Routine) - Closed Specialty Diagnoses / Procedures Referred By Jose t Referred To Contact Physical Therapy Diagnoses Encounter for rehabilitation System, Provider Not In, PhD [id number] [place] [address] Phone: tel: Referral ID Status Reason Start Date Expiration Date Visits Re quested Visits Authorized [id number] Closed 09/08/2017 09/07/2018 25 25 Encounter Details Date Type Department Care Team (Latest Contact Info) Description 08/26/2017 Transcribe Orders [facility] [address] [place] [address] Daniel Vargas MD [address] [place] [address] Drive [address] [place] [phone] Encounter for rehabilitation (Primary Dx) Social History Tobacco Use Types Packs/Day Years Used Date Smoking Tobacco: Never Assessed Comments Unknown Sex and Gender Information Value Date Recorded Sex Assigned at Not on file Legal Sex Female 10:02 PM EDT Gender Identity Not on file Sexual Orientation Not on file documented as of this encounter Plan of Treatment Scheduled Referrals Name Type Priority Associated Diagnoses Orde r Schedule Ambulatory referral to [facility] Physical Therapy Outpatient Referral Routine Encounter for rehabilitation Ordered: 08/26/2017 documented as of this encounter Visit Diagnoses Diagnosis Encounter for rehabilitation- Primary documented in this encounter Care Teams Extracorporeal Technician Relationship Specialty Start Date End Date Daniel Vargas MD [address] [place] [address] [address] [place] [address] PCP - General Internal Medicine 08/25/17 documented as of this encounter Additional Source Comments The information contained in this document represents components of the legal health record. It is not the complete legal health record.[facility]
--- OUTSIDE RECORDS SUMMARY | 2025-06-02 09:27 | XMS_ITS | Clinical Summary ---
Author Organization [facility] Address [address] [place] [address] Phone Care Team Providers Care Production Support Consultant Name Role Phone Marlen Pereira MD Primary Care Provider Allergies Active Allergy Reactions Criticality Noted Date Comments Lidocaine 10/27/2024 Burning pain Medications multivitamin (Multiple Vitamins) tablet Take 1 tablet by mouth 1 (one) time each day. Active VITAMIN C, ASCORBATE CALCIUM, ORAL Take 500 mg by mouth daily. Active albuterol sulfate (ProAir RespiClick) 90 mcg/actuation aerosol powdr breath activated Inhale 2 Puffs into the lungs. Every 4-6 hours, as needed Active Anoro Ellipta 62.5-25 mcg/actuation inhaler Inhale 1 puff by mouth 1 (one) time each day. 10/07/2023 Active acetaminophen (Tylenol Arthritis Pain) 650 mg 8 hr tablet Take 1 tablet (650 mg total) by mouth 2 (two) times a day. Do not crush, chew, or split. Active Active Problems Problem Noted Date Diagnosed [...] of lung cancer 08/23/2024 Assessment & Plan (05/02/2025 11:18 AM EDT): Ms. Keys is a 74 y.o. 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 She was found to have a left lower lobe pure groundglass nodule that had been slowly growing over time. 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 For that reason, on October 13, 2024 she underwent a completion lobectomy. 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 The patient's most recent surveillance chest CT scan done April 2025 shows no new or worsening pulmonary nodule, or thoracic adenopathy, to suggest recurrence or new disease. We will continue with routine chest CT surveillance next of which will be in 6 months, October 2025. Patient have a follow-up visit after that scan as part of her usual surveillance protocol. Patient is advised to call the office with any questions or concerns prior to this time. Assessment & Plan (10/28/2024 3:33 PM EST): Ms. Keys is a 74 y.o. female who on 10/13/2024 went a redo robotic left lower lobectomy and mediastinal lymph adenectomy at [facility]. Originally her pathology was deemed to [...] & Plan (09/03/2024 10:59 AM EST): Ms. Keys is a 74 year old female who had a right middle lobectomy in March 2018 for a stage 1 adenocarcinoma. The patient's most recent surveillance chest CT scan done on 08/18/2024 at [facility] shows a 17mm GGN in the posterior left lower lobe. I directly compared the patient's current CT to a CT scan done at [facility] from 2018 (see screenshots above). The [...] fixed cone beam CT with IP at [place], or robotic VATS left lower lobe wedge resection with possible segmentectomy or lobectomy. Patient would like to proceed with the surgical option. I will set the patient up with repeat pulmonary function testing, cardiology clearance appointment (patient does not have a radiation protection technician at baseline), and will get the patient [...] vertigo) 05/22/2023 Cataract 05/22/2023 COPD (chronic obstructive pu lmonary disease) ([facility] V24, [facility] V28) 05/22/2023 Overview (07/08/2024): Last Assessment & Plan: Patient states she has been needing to take albuterol daily and when she does not she notices a significant decline in her breathing. Referral to pulmonology at [facility] for ongoing evaluation and management of her COPD. COPD exacerbation ([facility] V24, [facility] V28) Depression 05/22/2023 Diverticulitis 05/22/2023 Hypercholesteremia 05/22/2023 Knee osteoarthritis 05/22/2023 Resolved Problems Problem Noted Date Diagnosed Date Resolved Date 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 ([facility] V24, [facility] V28) 10/05/2024 10/15/2024 Encounters Date Type Department Care Team Description 05/03/2025 10:00 AM EDT Office Visit Thoracic Surgery - [address] [address] Allyn Hanks NP History of lung cancer (Primary Dx) 04/28/2025 3:00 PM EDT - 04/28/2025 11:59 PM EDT Hospital Encounter [facility] CT Scan [address] [place] [address] History of lung cancer Discharge Disposition: Home or Self Care from Last 3 Months Surgical History Surgery Date Site/Laterality Comments CATARACT EXTRACTION PROCEDURE: HISTORICAL CATARACT REMOVAL COLONOSCOPY PROCEDURE: HISTORICAL COLONOSCOPY OTHER SURGICAL HISTORY 2018 Right PROCEDURE: [place] THORACOSCOPY W/LOBECTOMY SINGLE LOBE; COMMENT: RML SHOULDER SURGERY 2017 PROCEDURE: HISTORICAL SHOULDER SURGERY TONSILLECTOMY PROCEDURE: HISTORICAL TONSILLECTOMY LUNG REMOVAL, PARTIAL HUMERUS RIGHT WITH ANCHORS LUNG LOBECTOMY 10/13/2024 Left LLL lobecotomy Medical History Medical History Date Comments Abdominal lump 08/08/2022 DX:Abdominal lum p BPV (benign positional vertigo) 08/08/2022 DX:BPV (benign positional vertigo) Cataract 08/08/2022 DX:Cataract COPD (chronic obstructive pu lmonary disease) ([facility] V24, [facility] V28) 08/08/2022 DX:COPD (chronic o bstructive pulmonary disease) ([facility]) COPD exacerbation ([facility] V 24, [facility] V28) 08/08/2022 DX:COPD exacerbation ([facility]) Meckel's diverticulum 08/08/2022 DX:Meckel' s diverticulum Mixed hyperlipidemia 08/08/2022 DX:Mixed hy perlipidemia Knee osteoarthritis 08/08/2022 DX:Knee oste oarthritis Personal history of nicotine dependence 08/08/2022 DX:Personal history of nicot ine dependence 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 ([facility] V24, [facility] V28) 08/08/2022 DX: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 (HCC) Screening for colon cancer 08/08/2022 DX:Sc reening [...] Sign Reading Time Taken Comments Blood Pressure 172/80 05/03/2025 9:42 AM EDT Pulse 76 05/03/2025 9:42 AM EDT Temperature 36.7 C (98.1 F) 05/03/2025 9:42 AM EDT Respiratory Rate 16 05/03/2025 9:42 AM EDT Oxygen Saturation 97% 05/03/2025 9:42 AM EDT Inhaled Oxygen Concentration - - Weight 72.2 kg (159 lb 3.2 oz) 05/03/2025 9:42 A M EDT Height 162.6 cm (5' 4 ) 05/03/2025 9:42 AM EDT Body Mass Index 27.33 05/03/2025 9:42 AM EDT Plan of Treatment Health Maintenance Due Date Last Done Comments Breast Cancer Screening 1950 Zoster Vaccines (1 of 2) 1969 Pneumococcal Vaccine: 50+ Years (3 of 3 - PCV) 10/18/2020 10/18/2019, 07/17/2015, 08/05/2007 DTaP,Tdap,and Td Vaccines (2 - Td or Tdap) 01/26/2022 01/27/2012 Cholesterol Screening (Lipid Panel) 08/07/2022 05/28/2007 Colorectal Cancer Screening: Colonoscopy 08/07/2022 Hepatitis C Screening 08/07/2022 Medicare Annual Wellness Visit 08/07/2022 Osteoporosis Screening (Bone Density Screening) 08/07/2022 Social Influencers of Health Screening 08/07/2022 Depression Screening 09/08/2024 COVID-19 Vaccine (8 - Pfizer risk season) 2025 08/18/2024, 08/20/2023, 09/11/2022, Additional history exists Influenza Vaccine (#1) 2025 , 06/10/2023, 06/22/2022, Additional history exists Falls Risk Assessment 10/15/2025 10/15/2024 RSV Immunization Adult Patients Completed 07/21/2023 HIB Vaccines Aged Out No longer eligi [...] age to complete this topic Meningococcal B Vaccine Aged Out No l onger eligible based on patient's age to complete this topic RSV Immunization Patients Under 20 months Aged Out No longer eligible based on patient's age to complete this topic Varicella Vaccines Aged Out No longer eligible based on patient's age to complete this topic Medical Devices Implanted Type Area Pie Bottomer Device Identifier Shelf Expiration Date Model / Serial / Lot Sealant Fibrin Vistaseal 10ml - [id number] - [id number] Implanted:Qty: 1 on 09/30/2024 by Latonya Lovett MD at [facility] Hemostasis Left: Lung [facility] [employer] 05/25/2026 VST1 / [id number] / [id number] 21 Sealant Fibrin Vistaseal 10ml - [id number] - [id number] Implanted:Qty: 1 on 10/13/2024 by Latonya Lovett MD at [facility] Hemostasis Left: Chest [facility] [employer] 05/31/2026 VST1 / [id number] / [id number] 21 Sealant Progel Air Pleural 4ml - Sna - [id number] Implanted:Qty: 1 on 10/13/2024 by Latonya Lovett MD at [facility] [employer] Left: Chest [employer] 05/09/2026 [id number] / [id number] / [id number] Procedures Procedure Name Priority Date/Time Associated Diagnosis Comments CT CHEST WO CONTRAST Routine 04/28/2025 3:10 PM EDT History of lung cancer from Last 3 Months Results * CT Chest wo Contrast (04/28/2025 3:10 PM EDT) Anatomical Region Laterality Modality Body Computed Tomogra phy 05/02/2025 9:02 AM EDT Impressions 05/02/2025 9:09 AM EDT Left lower and right middle lobectomies. No findings to suggest active neoplastic disease. -------- FINAL REPORT -------- Dictated By: Merrick Parish Dictated Date: 05/02/2025 09:02 ET Assigned Physician: Merrick Parish Reviewed and Electronically Signed By: Merrick Parish Signed Date: 05/02/2025 09:09 ET Workstation ID: [id number] Transcribed By: Self Edit Transcribed Date: 05/02/2025 09:02 ET Narrative 05/02/2025 9:09 AM EDT PROCEDURE: CT of the chest without intravenous contrast. TECHNIQUE: CT of the chest without intravenous contrast administration. Coronal and sagittal reformats and MIP reconstructions were created. Dose length product: 437 mGy-cm. HISTORY: history of lung cancer COMPARISON: 09/22/2024. FINDINGS: LUNGS/PLEURA: Left lower and right middle lobectomies. Biapical parenchymal scarring. Moderate centrilobular emphysema. There is a linear band of atelectasis or scarring at the left base. No pleural effusion or pneumothorax. MEDIASTINUM/TORY: Heterogeneous appearance of the thyroid gland with a calcification of the right lobe. The thyroid could be better evaluated with ultrasound. Calcified left hilar lymph nodes. No mediastinal mass or lymphadenopathy. No appreciable hilar lymphadenopathy on limited noncontrast evaluation. VASCULATURE: Normal caliber pulmonary arteries. Moderate atherosclerotic calcifications of the aorta and great vessels. CARDIAC: Normal heart size. Mild aortic annular and coronary artery calcification. CHEST WALL: No axillary or supraclavicular lymphadenopathy. LIMITED ABDOMEN: Partially visible fluid signal structure in the left renal hilum, probably a parapelvic cyst or cysts. Multiple small calcifications scattered throughout the right hepatic lobe. Hepatic steatosis. BONES: Mild degenerative changes of the spine. Orthopedic anchors in the right humeral head. Procedure Note Merrick Parish MD - 05/02/2025 PROCEDURE: CT of the chest without intravenous contrast. TECHNIQUE: CT of the chest without intravenous contrast administration.Coronal and sagittal reformats and MIP reconstructions were created. Dose length product: 437 mGy-cm. HISTORY: history of lung cancer COMPARISON: 09/22/2024. FINDINGS: LUNGS/PLEURA: Left lower and right middle lobectomies. Biapicalparenchymal scarring. Moderate centrilobular emphysema. There is alinear band of atelectasis or scarring at the left base. No pleuraleffusion or pneumothorax. MEDIASTINUM/TORY: Heterogeneous appearance of the thyroid gland with acalcification of the right lobe. The thyroid could be better evaluatedwith ultrasound. Calcified left hilar lymph nodes. No mediastinal massor lymphadenopathy. No appreciable hilar lymphadenopathy on limitednoncontrast evaluation. VASCULATURE: Normal caliber pulmonary arteries. Moderate atheroscleroticcalcifications of the aorta and great vessels. CARDIAC: Normal heart size. Mild aortic annular and coronary arterycalcification. CHEST WALL: No axillary or supraclavicular lymphadenopathy. LIMITED ABDOMEN: Partially visible fluid signal structure in the leftrenal hilum, probably a parapelvic cyst or cysts. Multiple smallcalcifications scattered throughout the right hepatic lobe. Hepaticsteatosis. BONES: Mild degenerative changes of the spine. Orthopedic anchors in theright humeral head. IMPRESSION: Left lower and right middle lobectomies. No findings to suggest active neoplastic disease. -------- FINAL REPORT -------- Dictated By: Merrick Parish Dictated Date: 05/02/2025 09:02 ET Assigned Physician: Merrick Parish Reviewed and Electronically Signed By: Merrick Parish Signed Date: 05/02/2025 09:09 ET Workstation ID: [id number] Transcribed By: Self Edit Transcribed Date: 05/02/2025 09:02 ET [facility]iano [facility] IMG CT PROCEDURES Final Result from Last 3 Months Insurance [...] currently active code status orders. Care Teams Production Support Consultant Relationship Specialty Start Date End Date Marlen Pereira MD 2 [facility] , [address] Physician Associ D/B/A: [facility] [place], [place] PCP - General Internal Medicine 08/17/24
== END 2025-06-02 09:26 | disposition home or self-care (01) ==
PROVIDERS: PCP Internal Medicine; Visit Provider Physician Assistant Medical
DX: K57.92 Diverticulitis of intestine, part unspecified, without perforation or abscess without bleeding (principal); R10.32 Left lower quadrant pain; K59.00 Constipation, unspecified

== ENCOUNTER → 2025-06-02 08:49 | Outpatient (BNVA) | payer MEDICARE, SELFPAY | PROVIDERS: PCP Internal Medicine; Supervising Provider Physician Assistant Medical | DX: K57.92 Diverticulitis of intestine, part unspecified, without perforation or abscess without bleeding (principal); R10.32 Left lower quadrant pain; K59.00 Constipation, unspecified | CPT/HCPCS: 99212 ==

== ENCOUNTER 2025-08-27 09:18 | Outpatient (AMB) | payer MEDICARE, SELFPAY ==
--- OUTSIDE RECORDS SUMMARY | 2025-08-27 09:19 | XMS_ITS | Encounter Summary ---
Author Organization [facility] Address [address] [place] [address] Phone Care Team Providers Care Life Sciences Director Name Role Phone Daniel Vargas MD Primary Care Provider [phone] Encounter Details Date Type Department Care Team (Late st Contact Info) Description 04/07/2020 Procedure Pass [facility] Endoscopy Admitting Dept Virtual Department [address] [place] [address] Social History Tobacco Use Types Packs/Day Years [...] on filedocumented in this encounter Care Teams Life Sciences Director Relationship Specialty Start Date End Date Daniel Vargas MD [address] [place] [phone] PCP - General Internal Medicine 08/25/17 documented as of this encounter Additional Source Comments The information contained in this document represents components of the legal health record. It is not the complete legal health record.[facility]
--- OUTSIDE RECORDS SUMMARY | 2025-08-27 09:19 | XMS_ITS | Clinical Summary ---
Author Organization [facility] Address [address] [place] [address] Phone Care Team Providers Care Senior Interactive Producer Name Role Phone Daniel Vargas MD Primary Care Provider [phone] Medications Medication-Nick e Text Ibuprofen Active Medication-Nick [...] TOBACCO SCREENING 1963 HEPATITIS C SCREENING 1968 COLOGUARD 1995 COLONOSCOPY 1995 COLORECTAL CANCER SCREENING 1995 FIT TEST 1995 FOBT 1995 SIGMOIDOSCOPY 1995 VIRTUAL COLONOSCOPY 1995 ZOSTER VACCINES (1 of 2) 2000 OSTEOPOROSIS SCREENING INITIAL (ONE-TIME) 2015 PNEUMOCOCCAL VACCINES (50+ years) (2 of 2 - PCV) 10/18/2020 10/18/2019, 08/05/2007 Adult Td,Tdap Booster 01/26/2022 01/27/2012 INFLUENZA VACCINE (#1) 2025 , 05/13/2019, 05/29/2018, Additional history exists COVID-19 VACCINE (3 - season) 2025 12/04/2020, 11/13/2020 RSV VACCINE (1 [...] file Insurance MEDICARE PART A & B [facility] MEDICARE SUPPLEMENT MEDICARE PART A & B [facility] MEDICARE SUPPLEMENT MEDICARE PART A & B MEDICARE SUPPLEMENT MEDICARE PART A & B Member Subscriber Plan / Payer (Ef fective 2015-Present) Name:Mague Rosario Member ID:[id number] Relation to Subscriber:Self Name:AbrahamMague Subscriber ID:[id number] Payer ID:[id number] Group ID:Not on file Type:Medicare Address: [employer] [address] MEDICARE SUPPLEMENT MEDICARE PART A & B MEDICARE SUPPLEMENT MEDICARE PART A & B [facility] MEDICARE SUPPLEMENT MEDICARE PART A & B [facility] MEDICARE SUPPLEMENT MEDICARE PART A & B [facility] MEDICARE SUPPLEMENT MEDICARE PART A & B [facility] MEDICARE SUPPLEMENT [employer] MEDICARE PART A & B [facility] MEDICARE SUPPLEMENT Care Teams Senior Interactive Producer Relationship Specialty Start Date End Date Daniel Vargas MD [address] [place] [address] [address] [place] [phone] PCP - General Internal Medicine 08/25/17 Additional Source Comments The information contained in this document represents components of the legal health record. It is not the complete legal health record.[facility]
--- OUTSIDE RECORDS SUMMARY | 2025-08-27 09:19 | XMS_ITS | Patient Health Record ---
Author Organization [facility] Address [address] [place] [phone] Care Team Providers Care Herpetology Teacher Name Role Phone Daniel Vargas MD Primary Care Provider Christ Carmona Jr Unavailable Allergies No Known Allergies Reason For Referral No Information Medications Medication SIG (Take, Route, Frequency, Duration) Notes Start Date End Date Status Amoxicillin-Pot Clavulanate 875 MG Tablet 1 tablet Orally every 12 hrs/as needed for flair up Not-Taking/PRN MiraLax (colon prep) 17 GM/SCOOP Powder mixed with Gatorade or Crystal Light Orally begin at 5:00 p.m. the day before the procedure; Duration: 1 day 10/31/2021 Active Spiriva HandiHaler 18 MCG Capsule INHALE THE CONTENTS OF 1 CAPSULE VIA INHALATION DEVICE DAILY Inhalation; Duration: 30 Active Vitamin C 500 MG Capsule as directed Orally Active Multivitamin Adults - Tablet as directed Orally Active Immunizations Vaccine Route Administration Date Status Comme nts Influenza Unknown 06/08/2021 Administered Social History Tobacco Use: Social History Observation Description Date Details (start date - stop date) Former Smoker NA - NA Social History Drugs/Alcohol: Social Info Question Answer Notes Alcohol Screen Did you have a drink containing alcohol in the past year? No Points 0 Interpretation Negative Tobacco Use: Social Info Question Answer Notes Tobacco Use/Smoking Patient is a former smoker How long has it been since you last smoked? > 10 years Additional Details Category Social Info Options Details Miscellaneous: Marital status: Occupation: retired Problems Problem Type SNOMED Code ICD Code Onset Dates Problem Status W/U Status Risk Notes Problem Colon cancer screening (814313427) Colon cancer screening (Z12.11) Active confirmed Problem Diverticular disease of colon (177300131) Diverticulosis (K57.90) Active confirmed Problem Family history of malignant neoplasm of gastrointestinal tract (303302289) FH: colon cancer (Z80.0) Active confirmed Plan Of Treatment Future Test Test Name Order Date COLONOSCOPY 10/31/2021 Insurance Providers Payer Name Payer Address Payer Phone Subscriber Number Group Number Insured Name Patient Relationship to Insured Coverage Start Date Coverage End Date [employer] Medicare Advantage Plan [address] [address] [place] [address] [phone] [id number] YOCASTA KEYS Self - patient is the [...]
--- OUTSIDE RECORDS SUMMARY | 2025-08-27 09:19 | XMS_ITS | Encounter Summary ---
Author Organization [facility] Address [address] [address] Phone Care Team Providers Care Public Records Researcher Name Role Phone Daniel Vargas MD Primary Care Provider [phone] Reason for Referral * Physical Therapy (Routine) - Closed Specialty Diagnoses / Procedures Referred By Jose t Referred To Contact Physical Therapy Diagnoses Encounter for rehabilitation System, Provider Not In, PhD [id number] [place] [id number] Phone: tel: Referral ID Status Reason Start Date Expiration Date Visits Re quested Visits Authorized [id number] Closed 09/08/2017 09/07/2018 25 25 Encounter Details Date Type Department Care Team (Latest Contact Info) Description 08/26/2017 Transcribe Orders [facility] [address] [place] [phone] Daniel Vargas MD [address] [place] [address] [place] [phone] Encounter for rehabilitation (Primary Dx) Social History [...] Diagnoses Orde r Schedule Ambulatory referral to [facility] Physical Therapy Outpatient Referral Routine Encounter for rehabilitation Ordered: 08/26/2017 documented as of this encounter Visit Diagnoses Diagnosis Encounter for rehabilitation- Primary documented in this encounter Care Teams Public Records Researcher Relationship Specialty Start Date End Date Daniel Vargas MD [address] [place] [address] [address] [place] [address] PCP - General Internal Medicine 08/25/17 documented as of this encounter Additional Source Comments The information contained in this document represents components of the legal health record. It is not the complete legal health record.[facility]
--- OUTSIDE RECORDS SUMMARY | 2025-08-27 09:20 | XMS_ITS | Patient Health Record ---
Author Organization [employer] Address [address] [place] [address] [address] [place] [address] Care Team Providers Care Job Honer Name Role Phone RAY GAVIRIA Primary Care Provider [phone] Neli Orta Unavailable [phone] Allergies No Known Allergies Results Component Value Reference Range Notes Comp. Metabolic Panel [id number] Reviewed date:07/25/2025 07:10:12 AM Interpretation: Performing Lab:[facility] [place], [address] [facility], Phone - [phone], Director - MDJoy Notes/Report: Glucose 107 70-99 mg/dL BUN 16 8-27 mg/dL Creatinine 0.64 0.57-1.00 mg/dL eGFR 93 >59 mL/min/1.73 BUN/Creatinine Ratio 25 12-28 Sodium 141 134-144 mmol/L Potassium 4.7 3.5-5.2 mmol/L Chloride 105 96-106 mmol/L Carbon Dioxide, Total 27 20-29 mmol/L Calcium 9.5 8.7-10.3 mg/dL Protein, Total 7.1 6.0-8.5 g/dL Albumin 4.3 3.8-4.8 g/dL Globulin, Total 2.8 1.5-4.5 g/dL Bilirubin, Total 0.2 0.0-1.2 mg/dL Alkaline Phosphatase 114 49-135 IU/L AST (SGOT) 22 0-40 IU/L Lipid Panel With LDL/HDL Rat [id number] Reviewed date:07/25/2025 07:03:22 AM Interpretation: Performing Lab:[facility] [place], [address] [facility], Phone - [phone], Director - MDJodry Notes/Report: Cholesterol, Total 183 100-199 mg/dL Triglycerides 224 0-149 mg/dL HDL Cholesterol 49 >39 mg/dL VLDL Cholesterol Edy 38 5-40 mg/dL LDL Chol Calc ([facility]) 96 0-99 mg/dL LDL/HDL Ratio 2.0 0.0-3.2 ratio LDL/HDL Ratio Men Women 1/2 Avg.Risk 1.0 1.5 Avg.Risk 3.6 3.2 2X Avg.Risk 6.2 5.0 3X Avg.Risk 8.0 6.1 CBC with Diff, Platelet, NLR [id number] Reviewed date:07/25/2025 07:09:56 AM Interpretation: Performing Lab:[facility], [address] [facility], [place], Phone - [phone], Director - Chanda Notes/Report: WBC 5.8 3.4-10.8 x10E3/uL RBC 3.93 3.77-5.28 x10E6/uL Hemoglobin 12.3 11.1-15.9 g/dL Hematocrit 38.5 34.0-46.6 % MCV 98 79-97 fL MCH 31.3 26.6-33.0 pg MCHC 31.9 31.5-35.7 g/dL RDW 13.6 11.7-15.4 % Platelets 236 150-450 x10E3/uL Neutrophils 61 Not Estab. % Lymphs 25 Not Estab. % Monocytes 11 Not Estab. % Eos 2 Not Estab. % Basos 1 Not Estab. % Neutrophils (Absolute) 3.6 1.4-7.0 x10E3/uL Lymphs (Absolute) 1.5 0.7-3.1 x10E3/uL Neut/Lymph Ratio 2.4 0.0-2.9 ratio Published COVID-19 studies suggest: Low likelihood of severe COVID-19 disease progression 0.0-2.9 High likelihood of severe COVID-19 disease progression >4.9 Monocytes(Absolute) 0.7 0.1-0.9 x10E3/uL Eos (Absolute) 0.1 0.0-0.4 x10E3/uL Baso (Absolute) 0.0 0.0-0.2 x10E3/uL Immature Granulocytes 0 Not Estab. % Immature Grans (Abs) 0.0 0.0-0.1 x10E3/uL Reason For Referral Reason severe left wrist pa in, rule out carpal tunnel Please evaluate and treat Diagnosis 1 Carpal tunnel syndro me, left upper limb (G56.02) Referral Organization [facility] Referring Provider First Name Rhondajustina Referring Provider Last Name Jorgejohanna Referring Provider Speciality Internal M edicine Referred Provider Specialty Orthopedic S urgery General Notes Please call the simone ent to schedule the appointment, Encounter created and SMS sent to the pt. Krystal Lara 05/23/2025 03:47:06 PM > Referral Priority Routine Medications Medication SIG (Take, Route, Frequency, Duration) Notes Start Date End Date Status Multivitamin - 1 tablet Orally Once a day Active Vitamin C 1000 MG 1 tablet Orally Once a day Active Anoro Ellipta 62.5-25 MCG/ACT 1 puff Inhalation Once a day Active Tylenol Arthritis Pain 650 MG 2 tablets as needed Orally every 8 hrs Active Nicotine Polacrilex 4 MG 1 piece chew for 30 minutes as needed Mouth/Throat every 8 hrs; Duration: 90 days please give fruit flavor 07/27/2025 Active Albuterol Sulfate HFA 108 (90 Base) MCG/ACT 1 puff Inhalation every 4 hrs; Duration: 30 days As needed Active Immunizations Vaccine Route Administration Date Status Comme nts COVID 19 Pfizer Unknown 11/13/2020 Administered COVID 19 Pfizer Unknown 12/04/2020 Administered COVID 19 Pfizer Unknown 07/30/2021 Administered COVID Pfizer Unknown 01/10/2022 Administered COVID-19 Pfizer Unknown 09/11/2022 Administered Flu Unknown 06/14/2025 Administered Influenza High Dose Unknown 06/07/2024 Administered Pneumococcal polysaccharide PPV23 Unknown 08/05/2007 Ad ministered Pneumococcal polysaccharide PPV23 Unknown 07/17/2015 Ad ministered Pneumococcal polysaccharide PPV23 Unknown 10/18/2019 Ad ministered TDAP Unknown 01/27/2012 Administered Problems Problem Type SNOMED Code ICD Code Onset Dates Problem Status W/U Status Risk Notes Problem Carpal tunnel syndrome (27886904) Carpal tunnel syndrome, left upper limb (G56.02) Active confirmed Problem Essential hypertension (87813306) Essential (primary) hypertension (I10) Active confirmed Problem Chronic obstructive pulmonary disease (86652784) Chronic obstructive pulmonary disease, unspecified (J44.9) Active confirmed Problem Polyarthritis (416836689) 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) Active confirmed Problem Personal history of primary malignant neoplasm of bronchus (980643691) Personal history of other malignant neoplasm of bronchus and lung (Z85.118) Active confirmed Problem Absence of lung (360025981) Acquired absence of lung [part of] (Z90.2) Active confirmed Problem Chronic obstructive pulmonary disease (disorder) (58117678) Other specified chronic obstructive pulmonary disease (J44.89) Active confirmed Problem Mixed hyperlipidemia (730917576) Hyperlipidemia, mixed (E78.2) Active confirmed Vital Signs Heart Rate 82 /min 07/27/2025 Temperature 98.1 degrees Fahrenheit 07/27/2025 Blood pressure diastolic 80 mm Hg 07/27/2025 Oximetry 98 % 07/27/2025 Height 5'4'' in 07/27/2025 Blood pressure systolic 132 mm Hg 07/27/2025 Weight 150.1 lbs 07/27/2025 BMI 25.76 kg/m2 07/27/2025 Encounters Encounter Location Date Provider Diagnosis [address] [place] [address] 05/20/2025 Neli Orta Hyperlipidemia, mixe d E78.2 ; Essential (primary) hypertension I10 ; Carpal tunnel syndrome, left upper limb G56.02 ; Chronic obstructive pulmonary disease, unspecified J44.9 and Personal history of other malignant neoplasm of bronchus and lung Z85.[address] [address] 07/27/2025 Neli Orta Encounter for genera l adult medical examination without abnormal findings Z00.00 ; Hyperlipidemia, mixed E78.2 ; Other polyosteoarthritis M15.8 ; Personal history of other malignant neoplasm of bronchus and lung Z85.118 ; Acquired absence of lung [part of] Z90.2 ; Other specified chronic obstructive pulmonary disease J44.89 and Tobacco use Z72.[address] [place] [address] 05/23/[address] [place] [address] 07/07/[address] [address] 07/21/[address] [facility] [address] [facility] [address] [place] [address] 07/21/2025 [facility] Carpal tunnel syndro me, left upper limb G56.02 Assessments Encounter Date Diagnosis (ICD Code) Assessment Notes [...] blood work slip given today 05/20/2025 Hyperlipidemia, mixe d (ICD-10 - E78.2) 74-year-old lady with history [...] evaluation. Screening blood work slip given today 07/21/2025 Carpal tunnel syndrome, left upper limb (ICD-10 - G56.02) 07/27/2025 Encounter for genera l adult medical examination without abnormal findings (ICD-10 - Z00.00) 74-year-old lady with history of COPD, stage I lung cancer right middle lobectomy left complete lobectomy adenocarcinoma of the lung osteoarthritis is here today for annual wellness visit. Vitals are stable blood pressure is 132/80 she is not on any medication Hyperlipidemia on lipid profile showed slightly elevated triglyceride, patient states that she has the love for suite. Educated about carb restricted diet avoiding fried food and sweet bakery stuff. She does not want to take any statins. .History of stage I lung cancer adenocarcinoma status post right middle lobectomy and left complete lobectomy followed by Dr. Winston they follow-up with surveillance lung cancer screening with CTs every [address] Winston COPD no acute exacerbation she has albuterol inhaler question of tobacco use, patient is telling me that she does not smoke however she is asking for Nicorette gum, will give her a prescription today Osteoarthritis of bilateral knees and wrist recent x-ray showed osteoarthritic and degenerative changes. Patient is recommended to take Tylenol arthritis as needed she is telling me today that she buys oxycodone 5 mg 1 tablet twice a day and uses it she has been doing this for many years. Patient is very independent with all ADLs she still works she has no history of falls she feels safe at home all medications were discussed and reconciled today. Anxiety and depression she denies any symptoms of depression. PHQ 9 is 0. BMI is unchanged. Advanced health planning she is a full code, she would like her son Bobby to be the healthcare proxy. Age specific screening she is up to date, she refuses vaccines 07/27/2025 Hyperlipidemia, mixe d (ICD-10 - E78.2) 74-year-old lady with history of COPD, stage I lung cancer right middle lobectomy left complete lobectomy adenocarcinoma of the lung osteoarthritis is here today for annual wellness visit. Vitals are stable blood pressure is 132/80 she is not on any medication Hyperlipidemia on lipid profile showed slightly elevated triglyceride, patient states that she has the love for suite. Educated about carb restricted diet avoiding fried food and sweet bakery stuff. She does not want to take any statins. .History of stage I lung cancer adenocarcinoma status post right middle lobectomy and left complete lobectomy followed by Dr. Winston they follow-up with surveillance lung cancer screening with CTs every [address] Winston COPD no acute exacerbation she has albuterol inhaler question of tobacco use, patient is telling me that she does not smoke however she is asking for Nicorette gum, will give her a prescription today Osteoarthritis of bilateral knees and wrist recent x-ray showed osteoarthritic and degenerative changes. Patient is recommended to take Tylenol arthritis as needed she is telling me today that she buys oxycodone 5 mg 1 tablet twice a day and uses it she has been doing this for many years. Patient is very independent with all ADLs she still works she has no history of falls she feels safe at home all medications were discussed and reconciled today. Anxiety and depression she denies any symptoms of depression. PHQ 9 is 0. BMI is unchanged. Advanced health planning she is a full code, she would like her son Bobby to be the healthcare proxy. Age specific screening she is up to date, she refuses vaccines 05/20/2025 Carpal tunnel syndrome, left upper limb [...] evaluation. Screening blood work slip given today 07/27/2025 Other polyosteoarthritis (ICD-10 - M15.8) 74-year-old lady with history of COPD, stage I lung cancer right middle lobectomy left complete lobectomy adenocarcinoma of the lung osteoarthritis is here today for annual wellness visit. Vitals are stable blood pressure is 132/80 she is not on any medication Hyperlipidemia on lipid profile showed slightly elevated triglyceride, patient states that she has the love for suite. Educated about carb restricted diet avoiding fried food and sweet bakery stuff. She does not want to take any statins. .History of stage I lung cancer adenocarcinoma status post right middle lobectomy and left complete lobectomy followed by Dr. Winston they follow-up with surveillance lung cancer screening with CTs every [address] Winston COPD no acute exacerbation she has albuterol inhaler question of tobacco use, patient is telling me that she does not smoke however she is asking for Nicorette gum, will give her a prescription today Osteoarthritis of bilateral knees and wrist recent x-ray showed osteoarthritic and degenerative changes. Patient is recommended to take Tylenol arthritis as needed she is telling me today that she buys oxycodone 5 mg 1 tablet twice a day and uses it she has been doing this for many years. Patient is very independent with all ADLs she still works she has no history of falls she feels safe at home all medications were discussed and reconciled today. Anxiety and depression she denies any symptoms of depression. PHQ 9 is 0. BMI is unchanged. Advanced health planning she is a full code, she would like her son Bobby to be the healthcare proxy. Age specific screening she is up to date, she refuses vaccines 05/20/2025 Chronic obstructive pulmonary disease, unspecified (ICD-10 [...] evaluation. Screening blood work slip given today 07/27/2025 Personal history of other malignant neoplasm of bronchus and lung (ICD-10 - Z85.118) 74-year-old lady with history of COPD, stage I lung cancer right middle lobectomy left complete lobectomy adenocarcinoma of the lung osteoarthritis is here today for annual wellness visit. Vitals are stable blood pressure is 132/80 she is not on any medication Hyperlipidemia on lipid profile showed slightly elevated triglyceride, patient states that she has the love for suite. Educated about carb restricted diet avoiding fried food and sweet bakery stuff. She does not want to take any statins. .History of stage I lung cancer adenocarcinoma status post right middle lobectomy and left complete lobectomy followed by Dr. Winston they follow-up with surveillance lung cancer screening with CTs every [address] Winston COPD no acute exacerbation she has albuterol inhaler question of tobacco use, patient is telling me that she does not smoke however she is asking for Nicorette gum, will give her a prescription today Osteoarthritis of bilateral knees and wrist recent x-ray showed osteoarthritic and degenerative changes. Patient is recommended to take Tylenol arthritis as needed she is telling me today that she buys oxycodone 5 mg 1 tablet twice a day and uses it she has been doing this for many years. Patient is very independent with all ADLs she still works she has no history of falls she feels safe at home all medications were discussed and reconciled today. Anxiety and depression she denies any symptoms of depression. PHQ 9 is 0. BMI is unchanged. Advanced health planning she is a full code, she would like her son Bobby to be the healthcare proxy. Age specific screening she is up to date, she refuses vaccines 07/27/2025 Acquired absence of lung [part of] (ICD-10 - Z90.2) 74-year-old lady with history of COPD, stage I lung cancer right middle lobectomy left complete lobectomy adenocarcinoma of the lung osteoarthritis is here today for annual wellness visit. Vitals are stable blood pressure is 132/80 she is not on any medication Hyperlipidemia on lipid profile showed slightly elevated triglyceride, patient states that she has the love for suite. Educated about carb restricted diet avoiding fried food and sweet bakery stuff. She does not want to take any statins. .History of stage I lung cancer adenocarcinoma status post right middle lobectomy and left complete lobectomy followed by Dr. Winston they follow-up with surveillance lung cancer screening with CTs every [address] Winston COPD no acute exacerbation she has albuterol inhaler question of tobacco use, patient is telling me that she does not smoke however she is asking for Nicorette gum, will give her a prescription today Osteoarthritis of bilateral knees and wrist recent x-ray showed osteoarthritic and degenerative changes. Patient is recommended to take Tylenol arthritis as needed she is telling me today that she buys oxycodone 5 mg 1 tablet twice a day and uses it she has been doing this for many years. Patient is very independent with all ADLs she still works she has no history of falls she feels safe at home all medications were discussed and reconciled today. Anxiety and depression she denies any symptoms of depression. PHQ 9 is 0. BMI is unchanged. Advanced health planning she is a full code, she would like her son Bobby to be the healthcare proxy. Age specific screening she is up to date, she refuses vaccines 05/20/2025 Personal history of other malignant neoplasm [...] evaluation. Screening blood work slip given today 07/27/2025 Other specified chronic obstructive pulmonary disease (ICD-10 - J44.89) 74-year-old lady with history of COPD, stage I lung cancer right middle lobectomy left complete lobectomy adenocarcinoma of the lung osteoarthritis is here today for annual wellness visit. Vitals are stable blood pressure is 132/80 she is not on any medication Hyperlipidemia on lipid profile showed slightly elevated triglyceride, patient states that she has the love for suite. Educated about carb restricted diet avoiding fried food and sweet bakery stuff. She does not want to take any statins. .History of stage I lung cancer adenocarcinoma status post right middle lobectomy and left complete lobectomy followed by Dr. Winston they follow-up with surveillance lung cancer screening with CTs every [address] Winston COPD no acute exacerbation she has albuterol inhaler question of tobacco use, patient is telling me that she does not smoke however she is asking for Nicorette gum, will give her a prescription today Osteoarthritis of bilateral knees and wrist recent x-ray showed osteoarthritic and degenerative changes. Patient is recommended to take Tylenol arthritis as needed she is telling me today that she buys oxycodone 5 mg 1 tablet twice a day and uses it she has been doing this for many years. Patient is very independent with all ADLs she still works she has no history of falls she feels safe at home all medications were discussed and reconciled today. Anxiety and depression she denies any symptoms of depression. PHQ 9 is 0. BMI is unchanged. Advanced health planning she is a full code, she would like her son Bobby to be the healthcare proxy. Age specific screening she is up to date, she refuses vaccines 07/27/2025 Tobacco use (ICD-10 - Z72.0) 74-year-old lady with history of COPD, stage I lung cancer right middle lobectomy left complete lobectomy adenocarcinoma of the lung osteoarthritis is here today for annual wellness visit. Vitals are stable blood pressure is 132/80 she is not on any medication Hyperlipidemia on lipid profile showed slightly elevated triglyceride, patient states that she has the love for suite. Educated about carb restricted diet avoiding fried food and sweet bakery stuff. She does not want to take any statins. .History of stage I lung cancer adenocarcinoma status post right middle lobectomy and left complete lobectomy followed by Dr. Winston they follow-up with surveillance lung cancer screening with CTs every [address] Winston COPD no acute exacerbation she has albuterol inhaler question of tobacco use, patient is telling me that she does not smoke however she is asking for Nicorette gum, will give her a prescription today Osteoarthritis of bilateral knees and wrist recent x-ray showed osteoarthritic and degenerative changes. Patient is recommended to take Tylenol arthritis as needed she is telling me today that she buys oxycodone 5 mg 1 tablet twice a day and uses it she has been doing this for many years. Patient is very independent with all ADLs she still works she has no history of falls she feels safe at home all medications were discussed and reconciled today. Anxiety and depression she denies any symptoms of depression. PHQ 9 is 0. BMI is unchanged. Advanced health planning she is a full code, she would like her son Bobby to be the healthcare proxy. Age specific screening she is up to date, she refuses vaccines Plan Of Treatment Pending Test Test Name Order Date Xray: Ltd Wrist Left-2 Vws Portable 05/09 Xray: Wrist Left-Min 3 Vws 07/21/2025 Future Test Test Name Order Date CBC with Diff, Platelet, [id number] 07/09 Lipid Panel With LDL/HDL [id number] Comp. Metabolic Panel [id number] 2024 Next Appt Details Provider Name:Neli Orta, Yohan 01/25/2026 11:00:00 AM, [address] [place] [address], [phone], Insurance Providers Payer Name Payer Address Payer Phone Subscriber Number Group Number Insured Name Patient Relationship to Insured Coverage Start Date Coverage End Date [employer] [address] [address] [place] [address] [id number] [address] Rosario Self - patient is the insured Medical (General) History Medical History History ICD Code hyperlipidemia COPD Osteoarthritis of multiple joints History of diverticulosis History of lung cancer stage I Surgical History Surgery Date(Month/Year) status post right middle lob e lobectomy due to history of adenocarcinoma in [address] Winston Status post left complete lobectomy [facility] [address] Winston
--- OUTSIDE RECORDS SUMMARY | 2025-08-27 09:20 | XMS_ITS | Clinical Summary ---
Author Organization [facility] Address [address] [place] [address] Phone Care Team Providers Care Subassembly Supervisor Name Role Phone Marlen Pereira MD Primary Care Provider [phone] Allergies Active Allergy Reactions Criticality Noted Date [...] lower lobectomy and mediastinal lymph adenectomy at [facility]. 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 I directly compared the patient's current CT to a CT scan done at [facility] from 2018 (see screenshots above). The [...] fixed cone beam CT with IP at [place], or robotic VATS left lower lobe wedge resection with possible segmentectomy or lobectomy. Patient would like to proceed with the surgical option. I will set the patient up with repeat pulmonary function testing, cardiology clearance appointment (patient does not have a fitness consultant at baseline), and will get the patient [...] in her breathing. Referral to pulmonology at [facility] for ongoing evaluation and management of her COPD. COPD exacerbation 05/22/2023 Depression 05/22/2023 Diverticulitis 05/22/2023 Hypercholesteremia 05/22/2023 Knee osteoarthritis 05/22/2023 Resolved Problems Problem Noted Date Diagnosed Date Resolved Date 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 10/05/2024 10/15/2024 Surgical History Surgery Date Site/Laterality Comments CATARACT EXTRACTION PROCEDURE: HISTORICAL CATARACT REMOVAL COLONOSCOPY PROCEDURE: HISTORICAL COLONOSCOPY OTHER SURGICAL HISTORY 2018 Right PROCEDURE: IA THORACOSCOPY W/LOBECTOMY SINGLE LOBE; COMMENT: RML SHOULDER SURGERY 2017 PROCEDURE: HISTORICAL SHOULDER SURGERY TONSILLECTOMY PROCEDURE: HISTORICAL TONSILLECTOMY LUNG REMOVAL, PARTIAL HUMERUS RIGHT WITH ANCHORS LUNG LOBECTOMY 10/13/2024 Left LLL lobecotomy Medical History Medical History Date Comments Abdominal lump 08/08/2022 DX:Abdominal lum p BPV (benign positional vertigo) 08/08/2022 DX:BPV (benign positional vertigo) Cataract 08/08/2022 DX:Cataract COPD (chronic obstructive pu lmonary disease) ([facility] V24, [facility] V28) 08/08/2022 DX:COPD (chronic o bstructive pulmonary disease) ([facility]) COPD exacerbation ([facility] V 24, [facility] V28) 08/08/2022 DX:COPD exacerbation (HCC) Meckel's diverticulum 08/08/2022 DX:Meckel' s diverticulum Mixed hyperlipidemia 08/08/2022 DX:Mixed hy perlipidemia Knee osteoarthritis 08/08/2022 DX:Knee oste oarthritis Personal history of nicotine dependence 08/08/2022 DX:Personal history of nicot ine dependence 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 ([facility] V24, [facility] V28) 08/08/2022 DX: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 ([facility]) Screening for colon cancer 08/08/2022 DX:Wv reening for colon cancer Screening for diabetes [...] Years Used Date Smoking Tobacco: Former Cigarettes 0 Q uit: 2008 Smokeless Tobacco: Former Tobacco Cessation:Counseling Given: Not Answered Alcohol Use Standard Drinks/Week Comments Not Currently 0 (1 standard drink = 0.6 oz pur e alcohol) Interpersonal Safety Answer Date Record ed Physical Abuse Unrecognized value 10/13/2024 Verbal Abuse Unrecognized value 10/13/2024 Comments No Sex and Gender Information Value Date Recorded Sex Assigned at Female 08/17/2024 12:48 PM EST Legal Sex Female 3:40 PM EST Gender Identity Female 08/17/2024 12:48 PM EST Sexual Orientation Straight 09/30/2024 5: 49 AM EST Last Filed Vital Signs Vital Sign Reading [...] Health Maintenance Due Date Last Done Comments Colorectal Cancer Screening: Colonoscopy 1950 Zoster Vaccines (1 of 2) 1969 Pneumococcal Vaccine: 50+ Years (2 of 2 - PCV) 10/18/2020 10/18/2019, 07/17/2015, 08/05/2007 DTaP,Tdap,and Td Vaccines (2 - Td or Tdap) 01/26/2022 01/27/2012 Cholesterol Screening (Lipid Panel) 08/07/2022 05/28/2007 Hepatitis C Screening 08/07/2022 Medicare Annual Wellness Visit 08/07/2022 Osteoporosis Screening (Bone Density Screening) 08/07/2022 Social Influencers of Health Screening 08/07/2022 Depression Screening 09/08/2024 COVID-19 Vaccine ( season) 2025 08/18/2024, 08/20/2023, 09/11/2022, Additional history exists Falls Risk Assessment 10/15/2025 10/15/2024 Hypertension/CHF/CAD Annual BMP Blood Test 10/15/2025 10/15/2024, 10/14/2024, 10/13/2024, Additional history exists RSV Immunization Adult Patients Completed 07/21/2023 Influenza Vaccine Completed 06/14/2025, , 06/10/2023, Additional history exists HIB Vaccines Aged Out [...] this topic Medical Devices Implanted Type Area Rehabilitation Attendant Device Identifier Shelf Expiration Date Model / Serial / Lot Sealant Fibrin Vistaseal 10ml - [id number] - [id number] Implanted:Qty: 1 on 09/30/2024 by Latonya Lovett MD at [facility] Hemostasis Left: Lung [facility] [employer] 05/25/2026 VST10 / [id number] / [id number] 21 Sealant Fibrin Vistaseal 10ml - [id number] - [id number] Implanted:Qty: 1 on 10/13/2024 by Latonya Lovett MD at [facility] Hemostasis Left: Chest [facility] [employer] 05/31/2026 VST10 / [id number] / [id number] 21 Sealant Progel Air Pleural 4ml - Sna - [id number] Implanted:Qty: 1 on 10/13/2024 by Latonya Lovett MD at [facility] [employer] Left: Chest [employer] 05/09/2026 [id number] / [id number] / [id number] Procedures Procedure Name Priority Date/Time Associated Diagnosis Comments BASIC METABOLIC PANEL Routine 10/15/2024 6:22 AM EST from Last 3 Months or Most Recently Relevant to Health Maintenance Results * (ABNORMAL) Basic metabolic panel (10/15/2024 6:22 AM EST) Sodium 138 133 - 145 mmol/L LAB CHEMISTRY METHOD 10/15/2024 8:09 AM EST [facility] Potassium 5.3 3.5 - 5.5 mmol/L LAB CHEMISTRY METHOD 10/15/2024 8:09 AM [facility] Chloride 103 96 - 110 mmol/L LAB CHEMISTRY METHOD 10/15/2024 8:09 AM [facility] CO2 33(H) 21 - 32 mmol/L LAB CHEMISTRY METHOD 10/15/2024 8:09 AM [facility] Anion Gap 2(L) 3 - 11 LAB CHEMISTRY METHOD 10/15/2024 8:09 AM [facility] Glucose 105(H) 70 - 100 mg/dL LAB CHEMISTRY METHOD 10/15/2024 8:09 AM [facility] BUN 18 5 - 25 mg/dL LAB CHEMISTRY METHOD 10/15/2024 8:09 AM [facility] Creatinine 0.67 0.50 - 1.10 mg/dL LAB CHEMISTRY METHOD 10/15/2024 8:09 AM [facility] eGFR 92 >=60 mL/min/1. 73m2 LAB CHEMISTRY METHOD 10/15/2024 8:09 AM [facility] Comment:Calculation based on the Chronic Kidney Disease Epidemiology Collaboration (CKD-EPI) equation refit without adjustment for race. BUN/Creatinine Ratio 26.9 LAB CHEMISTRY METHOD 10/15/2024 8:09 AM [facility] Calcium 9.0 8.5 - 10.5 mg/dL LAB CHEMISTRY METHOD 10/15/2024 8:09 AM [facility] Blood Venous blood specimen / Unknown Venipuncture / Unknown 10/15/2024 6:22 AM EST 10/15/2024 7:14 AM EST Siobhan Resendiz MD LAB BLOOD ORDERABLES Final Result [facility] [address] [place] [address], from Last 3 Months or Most Recently Relevant to Health Maintenance Insurance [employer]IC[employer] Advance Directives * [...] currently active code status orders. Care Teams Subassembly Supervisor Relationship Specialty Start Date End Date Marlen Pereira MD [address] [facility] D[facility]B/A: [facility] DEONTE Basilio PCP - General Internal Medicine 08/17/24
[2025-08-27 10:30] VITALS: BP 142/80; PULSE 82; RESP 17; TEMP 36.8; O2SAT 97; BMI 25.9
--- NOTE | 2025-08-27 10:30 | MHC.OFFWIV ---
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 - The patient reports the onset of left lower quadrant pain since yesterday morning. - She has a history of diverticulosis, with flares occurring approximately once a year, and her last episode requiring antibiotics was eight months ago. - She states this is the most painful episode she has ever experienced, which prompted her to take leftover oxycodone. - Associated symptoms include anorexia since last night; she denies any fever, chills, nausea, vomiting, hematuria, or hematochezia. - Her oral intake has been limited to pomegranate juice. Past Medical History - Diverticulosis - Lung cancer with history of lung removal surgery. - No history of abdominal surgery. Review of Systems - Constitutional: Denies fever and chills. - Gastrointestinal: Reports left lower quadrant pain and anorexia. Denies nausea, vomiting, and hematochezia. - Genitourinary: Denies hematuria. - Psychiatric: Reports crying related to recent bereavement. Physical Exam General: Well developed, well nourished, in no acute distress. Appears stated age. Head: Normocephalic, atraumatic. Eyes: Pupils are equal, round and reactive to light and accommodation. Conjunctivae are clear. Scleras nonicteric MMM Abdomen: Bowel sounds hypoactive x 4, The abdomen is round, soft, exquisitely tender in the left lower & upper quadrant with gaurding, she pulled my hand away and flexed her lower legs so hard she pulled the footrest of the examine table in, No masses or organomegaly noted. No hernias are noted. Neuro: Nonfocal Skin: PWD Psych: Mood and affect appropriate Medical Decision Making The patient is a 75-year-old female with a history of recurrent diverticulitis who presents with left lower quadrant pain that is significantly more severe than her prior episodes. The physical exam finding of exquisite left lower & upper quadrant tenderness is highly concerning for a complicated diverticulitis, such as a microperforation or abscess. Given these findings, the safest course of action is an urgent evaluation in the emergency department, to include a CT scan of the abdomen to rule out a perforation. I discussed this recommendation with the patient; however, she declined to go to the emergency room. After a thorough discussion of the risks of outpatient management, including worsening infection and , she verbalized understanding and accepted these risks. Therefore, a plan was made to initiate a trial of oral antibiotics and prednisone, with strict instructions to proceed to the ER for any worsening of her condition. Plan 1. Acute Diverticulitis Suspected - Due to the exquisite tenderness on exam, there is a high suspicion for complicated diverticulitis with a possible perforation, which cannot be safely ruled out in the outpatient setting. - Recommended immediate evaluation in the emergency room for a CT scan of the abdomen. - The patient declined this recommendation after being informed of the risks, including worsening condition and . - Will prescribe Augmentin one tablet twice a day for seven days and a course of prednisone. - The patient was instructed to maintain a clear liquid diet but not to cease oral intake, as she will need something in her stomach for the medications. - Advised her to go to the emergency department if her condition worsens. Patient Instructions - Take Augmentin one tablet by mouth two times a day for seven days. - Take your prednisone as prescribed. - You should follow a clear liquid diet, which includes things like juice and broth. Do not eat solid foods, as this can make your bowels work harder and make your condition worse. - It is important to have something in your stomach when you take these medicines to avoid an upset stomach. - If your pain gets worse, or if you develop a fever or start vomiting, you must go to the emergency room immediately. - Your prescriptions will be sent to [facility] in [place] on [address]. Consent Informed consent was obtained for the outpatient treatment of acute diverticulitis. The recommendation to go to the emergency room for a CT scan to rule out a bowel perforation was clearly explained to the patient. The risks of declining this evaluation and opting for outpatient management, including worsening condition up to and including , were explicitly discussed. The patient verbalized understanding of and accepted these risks before agreeing to the plan of a trial of oral antibiotics and prednisone. Patient was informed and verbally consented to the use of an ambient scribe for clinic note documentation during this visit. 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 BPV (benign positional vertigo) Cataract Knee osteoarthritis Hypercholesterolemia Diverticulitis Depression COPD (chronic obstructive pulmonary disease) Surgical History History of colonoscopy History of cataract surgery History of lung surgery (~2018) History of shoulder surgery (~2017) History of tonsillectomy Family History Father Alzheimers disease Mother Lung cancer Brother Bladder cancer Sister Lung cancer Social History (Updated 01/03/25 @ 15:18 by Marleny Noland) Household Members: Spouse Housing: House 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 Do you presently have visiting nurse or other home services: No Alcohol intake: former Patient Tobacco Use Status: Former Tobacco user Tobacco use type: Cigarette Years Smoked: quit 60 years old e-Cigarette/Vaping Use: Never Used Second Hand Smoke Exposure: Yes service: No Current occupational status: retired Cognitive needs: No Hearing needs: No Vision needs: Yes (Glasses) Physical Exam Vital Signs: Last Vital Signs Temp 98.2 F 08/27/25 10:30 Pulse 82 08/27/25 10:30 Resp 17 08/27/25 10:30 BP 142/80 H 08/27/25 10:30 Pulse Ox 97 08/27/25 10:30 Oxygen Delivery Method Room Air 08/27/25 10:30 BMI result Body Mass Index 25.9 Assessment & Plan Assessment & Plan (1) Acute abdomen: Code(s): R10.0 - Acute abdomen (2) Diverticulitis: Code(s): K57.92 - Diverticulitis of intestine, part unspecified, without perforation or abscess without bleeding Plan . Medications: Changed From amoxicillin-pot clavulanate 875-125 mg (Augmentin) 1 tab PO BID 14 tabs 0RF 7 days To amoxicillin-pot clavulanate 875-125 mg 1 tab PO BID 14 tabs 0RF 7 days Refilled prednisone 20 mg PO DAILY 7 tabs 0RF Coding Level of Care Code Est Pt Level 4 (13428) Diagnoses Acute abdomen R10.0 Diverticulitis K57.92
== END 2025-08-27 11:05 | disposition home or self-care (01) ==
PROVIDERS: Visit Provider Nurse Practitioner Family
DX: R10.0 Acute abdomen (principal); K57.92 Diverticulitis of intestine, part unspecified, without perforation or abscess without bleeding

== ENCOUNTER → 2025-08-27 09:18 | Outpatient (BNVA) | payer MEDICARE, SELFPAY | PROVIDERS: Visit Provider Nurse Practitioner Family | DX: R10.0 Acute abdomen (principal); K57.92 Diverticulitis of intestine, part unspecified, without perforation or abscess without bleeding | CPT/HCPCS: 99212 ==